=== PATIENT | male | born 1950 | race Two or more races ===

== ENCOUNTER → 2018-08-17 | Outpatient (CLI) | payer MEDICARE ==
[2018-08-17 13:58] LABS: HEMATOCRIT 30.7 % (37.9-51.0); HEMOGLOBIN 10.4 g/dL (13.5-17.0); MEAN CORPUSCULAR HEMOGLOBIN 28.4 pg (27.0-33.4); MEAN CORPUSCULAR HGB CONC 33.8 g/dL (32.0-36.0); MEAN CORPUSCULAR VOLUME 84 fl (80-97); PLATELET COUNT 362 10^3/uL (150-450); RED BLOOD COUNT 3.65 10^6/uL (4.35-5.55); RED CELL DISTRIBUTION WIDTH 14.3 % (11.5-14.0); WHITE BLOOD COUNT 12.6 10^3/uL (4.0-10.5)
[2018-08-17 14:11] LABS: APPEARANCE,URINE CLEAR; BILIRUBIN,URINE NEGATIVE (NEGATIVE); COLOR,URINE YELLOW; GLUCOSE, URINE >=500 mg/dL (NEGATIVE); KETONES,URINE NEGATIVE (NEGATIVE); LEUKOCYTE ESTERASE,URINE NEGATIVE (NEGATIVE); NITRITE,URINE NEGATIVE (NEGATIVE); PROTEIN,URINE >=500 mg/dL (NEGATIVE); URINE SPECIFIC GRAVITY 1.009; UROBILINOGEN,URINE NEGATIVE mg/dL (<2.0)
[2018-08-17 14:28] LABS: ANION GAP 13 (5-19); BLOOD UREA NITROGEN 55 mg/dL (7-20); CALCIUM 9.3 mg/dL (8.4-10.2); CARBON DIOXIDE 25 mmol/L (22-30); CHLORIDE 99 mmol/L (98-107); GLUCOSE 78 mg/dL (75-110); PHOSPHORUS 6.5 mg/dL (2.5-4.5); POTASSIUM 4.4 mmol/L (3.6-5.0); SODIUM 136.7 mmol/L (137-145)
== END ==
LOC: OD 13:16
PROVIDERS: ATTEND Physician Assistant Medical
DX: E11.22 Type 2 diabetes mellitus with diabetic chronic kidney disease (principal); I12.9 Hypertensive chronic kidney disease with stage 1 through stage 4 chronic kidney disease, or unspecified chronic kidney disease; N18.3 Chronic kidney disease, stage 3 (moderate); D64.9 Anemia, unspecified
CPT/HCPCS: 36415; 80048; 81001; 83970; 84100; 85027

== ENCOUNTER 2018-09-29 12:07 | Inpatient (IN) | payer MEDICARE ==
--- NOTE | 2018-09-29 12:35 | ER Document Report ---
ED Medical Screen (RME) - General Chief Complaint: Breathing Difficulty Stated Complaint: DIFFICULTY BREATHING Time Seen by Provider: 09/29/18 12:30 Notes: [age]-year-old male patient with history of diabetes and congestive heart failure. Stop taking all his medications because he was feeling so good and working out. He developed swelling to the lower extremities and shortness of breath this morning. He did start back on his medications yesterday after seeing his primary care provider who diagnosed sinus infection and prescribed antibiotics. I have greeted and performed a rapid initial assessment of this patient. A comprehensive ED assessment and evaluation of the patient, analysis of test results and completion of the medical decision making process will be conducted by additional ED providers. TRAVEL OUTSIDE OF THE [place] IN LAST 30 DAYS: No - Related Data Allergies/Adverse Reactions: JUDE Inhibitors Allergy (Verified 09/29/18 12:28) Physical Exam - Vital signs Vitals: Temp Pulse Resp BP Pulse Ox 97.5 F 74 18 162/67 H 92 09/29/18 12:12 09/29/18 12:12 09/29/18 12:12 09/29/18 12:12 09/29/18 12:12 Course - Vital Signs Vital signs: Temp Pulse Resp BP Pulse Ox 97.9 F 74 24 H 135/59 H 95 09/29/18 16:23 09/29/18 12:12 09/29/18 17:01 09/29/18 17:01 09/29/18 16:57 - Laboratory Result Diagrams: 09/29/18 12:59 09/29/18 12:59 Laboratory results interpreted by me: 09/29/18 09/29/18 09/29/18 12:46 12:59 12:59 WBC 13.1 H RBC 3.42 L Hgb 9.9 L Hct 29.6 L RDW 15.2 H Seg Neutrophils % 80.5 H Lymphocytes % 5.6 L Absolute Neutrophils 10.6 H Sodium 136.6 L BUN 43 H Creatinine 3.73 H Est GFR ( Amer) 20 L Est GFR (Non-Af Amer) 16 L Glucose 179 H NT-Pro-B Natriuret Pep Total Protein 5.9 L Albumin 3.3 L Urine Protein >=500 H Urine Glucose (UA) >=500 H Urine Ascorbic Acid 40 H 09/29/18 12:59 WBC RBC Hgb Hct RDW Seg Neutrophils % Lymphocytes % Absolute Neutrophils Sodium BUN Creatinine Est GFR ( Amer) Est GFR (Non-Af Amer) Glucose NT-Pro-B Natriuret Pep 7340 H Total Protein Albumin Urine Protein Urine Glucose (UA) Urine Ascorbic Acid Doctor's Discharge - Discharge Clinical Impression: Acute congestive heart failure, Chronic kidney disease (CKD), stage IV (severe) Condition: Fair Disposition: ADMITTED INPATIENT
[2018-09-29 13:18] LABS: ABSOLUTE BASOPHILS # (AUTO) 0.2 10^3/uL (0.0-0.2); ABSOLUTE EOSINOPHILS # (AUTO) 0.4 10^3/uL (0.0-0.6); ABSOLUTE LYMPHOCYTES (AUTO) 0.7 10^3/uL (0.5-4.7); ABSOLUTE MONOCYTES (AUTO) 1.2 10^3/uL (0.1-1.4); ABSOLUTE NEUT (AUTO) 10.6 10^3/uL (1.7-8.2); BASOPHILS % (AUTO) 1.3 % (0-2); EOSINOPHILS % (AUTO) 3.1 % (0-6); HEMATOCRIT 29.6 % (37.9-51.0); HEMOGLOBIN 9.9 g/dL (13.5-17.0); LYMPHOCYTES % (AUTO) 5.6 % (13-45); MEAN CORPUSCULAR HEMOGLOBIN 29.1 pg (27.0-33.4); MEAN CORPUSCULAR HGB CONC 33.6 g/dL (32.0-36.0); MEAN CORPUSCULAR VOLUME 87 fl (80-97); MONOCYTES % (AUTO) 9.5 % (3-13); PLATELET COUNT 334 10^3/uL (150-450); RED BLOOD COUNT 3.42 10^6/uL (4.35-5.55); RED CELL DISTRIBUTION WIDTH 15.2 % (11.5-14.0); SEGMENTED NEUTROPHILS % (AUTO) 80.5 % (42-78); TOTAL CELLS COUNTED % (AUTO) 100 %; WHITE BLOOD COUNT 13.1 10^3/uL (4.0-10.5)
--- NOTE | 2018-09-29 13:28 | RADIOLOGY REPORT (SQ) ---
EXAM DESCRIPTION: CHEST SINGLE VIEW COMPLETED DATE/TIME: 09/29/2018 1:21 pm REASON FOR STUDY: SOB, edema, PMH CHF COMPARISON: None. EXAM PARAMETERS: NUMBER OF VIEWS: One view. TECHNIQUE: Single frontal radiographic view of the chest acquired. RADIATION DOSE: NA LIMITATIONS: None. FINDINGS: LUNGS AND PLEURA: No opacities, masses or pneumothorax. No pleural effusion. MEDIASTINUM AND HILAR STRUCTURES: No masses. Contour normal. HEART AND VASCULAR STRUCTURES: Mild cardiac enlargement. Vascular congestion. BONES: No acute findings. HARDWARE: None in the chest. OTHER: No other significant finding. IMPRESSION: MILD CARDIAC ENLARGEMENT WITH VASCULAR CONGESTION. TECHNICAL DOCUMENTATION: JOB ID: [id number] [employer]- All Rights Reserved Reading location - IP/workstation name: [email or web address]
[2018-09-29 13:32] LABS: ALANINE AMINOTRANSFERASE 28 U/L (21-72); ALBUMIN 3.3 g/dL (3.5-5.0); ALKALINE PHOSPHATASE 61 U/L (38-126); ANION GAP 9 (5-19); ASPARTATE AMINO TRANSFERASE 18 U/L (17-59); BILIRUBIN,DIRECT 0.3 mg/dL (0.0-0.4); BILIRUBIN,TOTAL 0.7 mg/dL (0.2-1.3); BLOOD UREA NITROGEN 43 mg/dL (7-20); CALCIUM 9.2 mg/dL (8.4-10.2); CARBON DIOXIDE 26 mmol/L (22-30); CHLORIDE 102 mmol/L (98-107); CREATINE KINASE 163 U/L (55-170); GLUCOSE 179 mg/dL (75-110); POTASSIUM 4.6 mmol/L (3.6-5.0); SODIUM 136.6 mmol/L (137-145); TOTAL PROTEIN 5.9 g/dL (6.3-8.2)
[2018-09-29 13:38] LABS: APPEARANCE,URINE SLIGHTLY-CLOUDY; BILIRUBIN,URINE NEGATIVE (NEGATIVE); COLOR,URINE YELLOW; GLUCOSE, URINE >=500 mg/dL (NEGATIVE); KETONES,URINE NEGATIVE (NEGATIVE); LEUKOCYTE ESTERASE,URINE NEGATIVE (NEGATIVE); NITRITE,URINE NEGATIVE (NEGATIVE); PROTEIN,URINE >=500 mg/dL (NEGATIVE); UROBILINOGEN,URINE NEGATIVE mg/dL (<2.0)
[2018-09-29 13:44] LABS: CREATINE KINASE MB 3.04 ng/mL (<4.55)
[2018-09-29 13:54] LABS: TROPONIN I 0.046 ng/mL
[2018-09-29] MEDS ORDERED: FUROSEMIDE INJ/PF 40 MG/4 ML SDV IV ONE (15:04)
[2018-09-29] MEDS ORDERED: NITROGLYCERIN/D5W 50 MG/250 ML RTUINJ IV PRN ×2 (15:04→15:21)
--- NOTE | 2018-09-29 15:32 | ER Document Report ---
Entered by MIKEY SPENCE SCRIBE 09/29/18 1522 Acting as scribe for:JACK SCHNEIDER DO ED General - General Chief Complaint: Breathing Difficulty Stated Complaint: DIFFICULTY BREATHING Time Seen by Provider: 09/29/18 12:30 Mode of Arrival: Ambulatory Information source: Patient Notes: Patient is a 67 year old male with type 2 diabetes, CHF, renal failure presents to the emergency department complaining of shortness of breath, orthopnea and bilateral leg swelling onset last night. Patient states he has been feeling really good lately so he decided to decrease his dosing of torsemide from 60mg to 20mg. He states he was having difficulty breathing while laying flat and reports constant labored breathing over the past several days. Patient denies any chest pain or oxygen use at home. TRAVEL OUTSIDE OF THE [place] IN LAST 30 DAYS: No - Related Data Allergies/Adverse Reactions: JUDE Inhibitors Allergy (Verified 09/29/18 12:28) Past Medical History - General Information source: Patient - Social History Smoking Status: Never Smoker Frequency of alcohol use: None Drug Abuse: None Family History: Reviewed & Not Pertinent Patient has suicidal ideation: No Patient has homicidal ideation: No - Past Medical History Cardiac Medical History: Reports: Hx Atrial Fibrillation, Hx Congestive Heart Failure, Hx Hypercholesterolemia, Hx Hypertension Endocrine Medical History: Reports: Hx Diabetes Mellitus Type 2 Renal/ Medical History: Reports: Hx End Stage Renal Disease Musculoskeletal Medical History: Reports Hx Arthritis Review of Systems - Review of Systems Constitutional: No symptoms reported EENT: No symptoms reported Cardiovascular: No symptoms reported Respiratory: See HPI, Short of breath Gastrointestinal: No symptoms reported Genitourinary: No symptoms reported Male Genitourinary: No symptoms reported Musculoskeletal: See HPI, Leg swelling Skin: No symptoms reported Hematologic/Lymphatic: No symptoms reported Neurological/Psychological: No symptoms reported -: Yes All other systems reviewed and negative Physical Exam - Vital signs Vitals: Temp Pulse Resp BP Pulse Ox 97.5 F 74 18 162/67 H 92 09/29/18 12:12 09/29/18 12:12 09/29/18 12:12 09/29/18 12:12 09/29/18 12:12 - Notes Notes: GENERAL: Alert, interacts well. No acute distress. HEAD: Normocephalic, atraumatic. EYES: Pupils equal, round, and reactive to light. Extraocular movements intact. ENT: Oral mucosa moist, tongue midline. NECK: Full range of motion. Supple. Trachea midline. LUNGS: Oxygen saturation 95% on 2L of nasal cannula, good waveform, not hypoxic per my interpretation. Crackles at the bases bilaterally. Mild tachypnea, mild respiratory distress. HEART: Regular rate and rhythm. No murmurs, gallops, or rubs. ABDOMEN: Soft, non-tender. Non-distended. Bowel sounds present in all 4 quadrants. No guarding, rigidity, or rebound. EXTREMITIES: Moves all 4 extremities spontaneously. +1 pitting edema to the level of the knees bilaterally, not weeping. No cyanosis. NEUROLOGICAL: Alert and oriented x3. Normal speech. PSYCH: Normal affect, normal mood. SKIN: Warm, dry. No rashes or lesions noted. Course - Re-evaluation Re-evalutation: 09/29/18 15:[address] Javier who accepts patient for admission to [facility]. 09/29/18 15:29 CBC shows slight leukocytosis of 13.1, anemia with hemoglobin 9.9, platelets no rmal, sodium is low at 136.6, likely diluted from CHF, BUN and creatinine are elevated at 43 and 3.73 respectively, patient has known renal failure, glucose elevated at 179, troponin is indeterminate at 0.046, EKG is nonischemic, proBNP elevated at 7340. Urinalysis shows glucose and protein consistent with history of renal failure and diabetes. Chest x-ray shows vascular congestion but no infiltrate. Patient is given Lasix, started on nitro drip at 10, this is not meant to be titrated, he is not having any chest pain. Patient is being placed on BiPAP to decrease his work of breathing. Discussed patient with Dr. Javier who accepts the patient in admission status to his service on the telemetry care unit. 09/29/18 21:56 - Vital Signs Vital signs: Temp Pulse Resp BP Pulse Ox 97.6 F 77 20 157/66 H 96 09/29/18 21:32 09/29/18 21:32 09/29/18 21:32 09/29/18 21:32 09/29/18 21:32 - Laboratory Result Diagrams: 09/29/18 12:59 09/29/18 12:59 Laboratory results interpreted by me: 09/29/18 09/29/18 09/29/18 12:46 12:59 12:59 WBC 13.1 H RBC 3.42 L Hgb 9.9 L Hct 29.6 L RDW 15.2 H Seg Neutrophils % 80.5 H Lymphocytes % 5.6 L Absolute Neutrophils 10.6 H Sodium 136.6 L BUN 43 H Creatinine 3.73 H Est GFR ( Amer) 20 L Est GFR (Non-Af Amer) 16 L Glucose 179 H NT-Pro-B Natriuret Pep Total Protein 5.9 L Albumin 3.3 L Urine Protein >=500 H Urine Glucose (UA) >=500 H Urine Ascorbic Acid 40 H 09/29/18 12:59 WBC RBC Hgb Hct RDW Seg Neutrophils % Lymphocytes % Absolute Neutrophils Sodium BUN Creatinine Est GFR ( Amer) Est GFR (Non-Af Amer) Glucose NT-Pro-B Natriuret Pep 7340 H Total Protein Albumin Urine Protein Urine Glucose (UA) Urine Ascorbic Acid - EKG Interpretation by Me Additional EKG results interpreted by me: 09/29/18 15:29 EKG has some baseline artifact, sinus rhythm at a rate of 77, first-degree AV block, no ST segment elevations or depressions, no T wave inversions, there is some nonspecific T wave flattening in 1, aVL, aVF. V2 is unable to be interpreted due to baseline artifact. Per my interpretation. Critical Care Note - Critical Care Note Total time excluding time spent on procedures (mins): 35 Discharge - Discharge Clinical Impression: Chronic kidney disease (CKD), stage IV (severe) Acute congestive heart failure Qualifiers: Heart failure type: unspecified Qualified Code(s): I50.9 - Heart failure, unspecified Condition: Fair Disposition: ADMITTED INPATIENT Admitting Provider: Hospitalist - [facility] Admitted: Telemetry I personally performed the services described in the documentation, reviewed and edited the documentation which was dictated to the scribe in my presence, and it accurately records my words and actions.
--- NOTE | 2018-09-29 16:29 | PDOC H&P ---
History of Present Illness Admission Date/PCP: 09/29/18 15:40 JOSEPH MCBRIDE PA-C History of Present Illness: WILIAM GAN is a 67 year old male past medical history of A. fib, CHF, dy slipidemia, hypertension, diabetes, CKD, depression, presented to ED complaining of worsening shortness of breath associated with weakness, orthopnea, PND and bilateral lower extremity edema. Patient is stating that he thought he was doing fine with his CHF management and decided to cut his torsemide down from 60-20 mg daily about a week ago. Denies any fever, cough, chest pain, chills, nausea, vomiting, diarrhea, constipation or any urinary symptoms. Denies any recent travel or sick contact. He has history of CKD nonoliguric. In ED he was found to have mild leukocytosis of 13.1, no bandemia, creatinine 3.73 up from 3.68 on 08/17/2018. BNP 7340, troponin 0 0.046. Chest x-ray mild cardiac enlargement with vascular congestion. Past Medical History Cardiac Medical History: Reports: Atrial Fibrillation, Congestive Heart Failure, Hyperlipidema, Hypertension Endocrine Medical History: Reports: Diabetes Mellitus Type 2 Renal/ Medical History: Reports: End Stage Renal Disease Musculoskeltal Medical History: Reports: Arthritis Social History Smoking Status: Never Smoker Family History Family History: Reviewed & Not Pertinent Parental Family History Reviewed: Yes Children Family History Reviewed: Yes Sibling(s) Family History Reviewed.: Yes Medication/Allergy Allergies/Adverse Reactions: JUDE Inhibitors Allergy (Verified 09/29/18 12:28) Review of Systems Review of Systems: as per HPI Physical Exam Vital Signs: Temp Pulse Resp BP Pulse Ox 97.2 F 74 20 160/67 H 98 09/29/18 13:32 09/29/18 12:12 09/29/18 15:01 09/29/18 15:01 09/29/18 15:00 Intake & Output 09/28/18 09/29/18 09/30/18 06:59 06:59 06:59 Weight 108.2 kg General appearance: PRESENT: no acute distress, well-developed, well-nourished Head exam: PRESENT: atraumatic, normocephalic Neck exam: ABSENT: carotid bruit, JVD, lymphadenopathy, thyromegaly Respiratory exam: PRESENT: clear to auscultation thalia, decreased breath sounds. ABSENT: rales, rhonchi, wheezes Cardiovascular exam: PRESENT: irregular rhythm, tachycardia Pulses: PRESENT: normal dorsalis pedis pul Extremities exam: PRESENT: +1 edema Neurological exam: PRESENT: alert, awake, oriented to person, oriented to place, oriented to time, oriented to situation, CN II-XII grossly intact. ABSENT: motor sensory deficit Skin exam: PRESENT: dry, intact, warm. ABSENT: cyanosis, rash Results Laboratory Results: 09/29/18 12:59 09/29/18 12:59 09/29/18 09/29/18 09/29/18 12:46 12:59 12:59 WBC 13.1 H RBC 3.42 L Hgb 9.9 L Hct 29.6 L MCV 87 MCH 29.1 MCHC 33.6 RDW 15.2 H Plt Count 334 Seg Neutrophils % 80.5 H Lymphocytes % 5.6 L Monocytes % 9.5 Eosinophils % 3.1 Basophils % 1.3 Absolute Neutrophils 10.6 H Absolute Lymphocytes 0.7 Absolute Monocytes 1.2 Absolute Eosinophils 0.4 Absolute Basophils 0.2 Sodium 136.6 L Potassium 4.6 Chloride 102 Carbon Dioxide 26 Anion Gap 9 BUN 43 H Creatinine 3.73 H Est GFR ( Amer) 20 L Est GFR (Non-Af Amer) 16 L Glucose 179 H Calcium 9.2 Total Bilirubin 0.7 AST 18 ALT 28 Alkaline Phosphatase 61 Total Protein 5.9 L Albumin 3.3 L Urine Color YELLOW Urine Appearance SLIGHTLY-CLOUDY Urine pH 7.0 Ur Specific Springer 1.010 Urine Protein >=500 H Urine Glucose (UA) >=500 H Urine Ketones NEGATIVE Urine Blood NEGATIVE Urine Nitrite NEGATIVE Ur Leukocyte Esterase NEGATIVE Urine WBC (Auto) 1 Urine RBC (Auto) 1 09/29/18 09/29/18 12:59 12:59 Creatine Kinase 163 CK-MB (CK-2) 3.04 Troponin I 0.046 NT-Pro-B Natriuret Pep 7340 H Impressions: Chest X-Ray 09/29/18 12:34 IMPRESSION: MILD CARDIAC ENLARGEMENT WITH VASCULAR CONGESTION. Assessment and Plan - Diagnosis (1) Acute congestive heart failure Qualifiers: Heart failure type: unspecified Qualified Code(s): I50.9 - Heart failure, unspecified Is this a current diagnosis for this admission?: Yes Plan: Due to noncompliance. Cardiac diet, volume restriction, strict in and out, IV diuretics. Restart home meds adjust meds as needed. PCP and cardiology follow-up. No echo available. Will order no echo. (2) Acute kidney injury superimposed on CKD Is this a current diagnosis for this admission?: No Plan: Nonoliguric. Sees nephrology as outpatient. Not on hemodialysis. Likely due to chronic hypertension and diabetes sent by CHF exacerbation. Monitor volume status and electrolytes. Outpatient nephrology and PCP follow-up. (3) HTN (hypertension) Is this a current diagnosis for this admission?: No Plan: Restart home meds. Adjust meds as needed. Outpatient PCP follow-up. (4) Depression Is this a current diagnosis for this admission?: No Plan: Denies suicidal or homicidal ideation. Restart home meds. (5) Anemia in CKD (chronic kidney disease) Qualifiers: Chronic kidney disease stage: stage 3 (moderate) Qualified Code(s): N18.3 - Chronic kidney disease, stage 3 (moderate); D63.1 - Anemia in chronic kidney disease Is this a current diagnosis for this admission?: No Plan: Likely due to chronic CKD. Denies any hematemesis, hemoptysis, hematochezia or melena. Outpatient nephrology follow-up for possible Procrit administration. Will obtain iron panel and stool guaiac to rule out any occult bleeding.
[2018-09-29] MEDS ORDERED: ONDANSETRON 4 MG TAB.RAPDIS PO PRN (16:30)
[2018-09-29] MEDS ORDERED: ACETAMINOPHEN 325 MG TABLET PO PRN (16:30)
[2018-09-29] MEDS ORDERED: PROMETHAZINE HCL INJ 25 MG/1 ML VIAL IV PRN (16:30)
[2018-09-29] MEDS ORDERED: IPRATROPIUM/ALBUTEROL 0.5-2.5 MG/3 ML AMPUL NEB PRN (16:30)
[2018-09-29] MEDS ORDERED: CARVEDILOL 12.5 MG TABLET PO ONE (16:36)
[2018-09-29] MEDS ORDERED: GLUCAGON,HUMAN RECOMB 1 MG INJ IM PRN (16:41)
[2018-09-29] MEDS ORDERED: DEXTROSE 40% GEL 15 GM TUBE PO PRN ×2 (16:41)
[2018-09-29] MEDS ORDERED: DEXTROSE 50%-WATER 25 GM/50 ML DISP.SYRIN IV PRN ×2 (16:41)
[2018-09-29] MEDS ORDERED: HYDRALAZINE HCL 25 MG TABLET PO ONE (17:00)
[2018-09-29] MEDS ORDERED: ISOSORBIDE MONONITRATE 30 MG TAB.ER.24H PO ONE (17:00)
[2018-09-29] MEDS ORDERED: AMLODIPINE BESYLATE 2.5 MG TABLET PO ONE (17:00)
[2018-09-29 17:41] LABS: URINE AMPHETAMINES SCREEN NEGATIVE; URINE BARBITURATES SCREEN NEGATIVE; URINE BENZODIAZEPINES SCREEN NEGATIVE; URINE COCAINE SCREEN NEGATIVE; URINE MARIJUANA (THC) SCREEN NEGATIVE; URINE METHADONE SCREEN NEGATIVE; URINE PHENCYCLIDINE SCREEN NEGATIVE
[2018-09-29] MEDS ORDERED: HYDRALAZINE HCL 25 MG TABLET ONE (17:50)
[2018-09-29] MEDS ORDERED: AMLODIPINE BESYLATE 2.5 MG TABLET ONE (17:54)
[2018-09-29] MEDS ORDERED: HEPARIN SOD (PORCINE) 5,000 UNIT/ML 1 ML SYRINGE SUBCUT SCH (18:00)
[2018-09-29] MEDS: ISOSORBIDE MONONITRATE 60 MG TAB.ER.24H PO ONE ×2 (18:19→18:51)
[2018-09-29] MEDS ORDERED: INSULIN LISPRO 100 UNIT/ML 3 ML VIAL ONE (18:36)
[2018-09-29] MEDS: INSULIN LISPRO 100 UNIT/ML 3 ML VIAL SUBCUT PRN ×2 (18:40→21:59)
--- NOTE | 2018-09-29 19:22 | EKG REPORT ---
SEVERITY:- ABNORMAL ECG - SINUS RHYTHM FIRST DEGREE AV BLOCK NONSPECIFIC T ABNORMALITIES, LATERAL LEADS : Confirmed by: Jessica Dominique MD 29-Sep-2018 19:21:33
[2018-09-29] MEDS: APIXABAN 5 MG TABLET PO SCH (19:29)
[2018-09-29] MEDS: FAMOTIDINE 20 MG TABLET PO SCH (19:30)
[2018-09-29] MEDS: FUROSEMIDE INJ/PF 40 MG/4 ML SDV IV SCH (19:31)
[2018-09-29] MEDS: CARVEDILOL 12.5 MG TABLET PO SCH (19:35)
[2018-09-29] MEDS: CLONIDINE HCL 0.1 MG TABLET PO SCH (21:53)
[2018-09-29] MEDS ORDERED: INSULIN GLARGINE,HUM.REC.ANLOG 1,000 UNIT/10 ML VIAL (PYX) SUBCUT ONE (22:02)
[2018-09-29] MEDS: INSULIN GLARGINE,HUM.REC.ANLOG 1,000 UNIT/10 ML VIAL SUBCUT SCH (22:02)
[2018-09-30] MEDS: FUROSEMIDE INJ/PF 40 MG/4 ML SDV IV SCH ×2 (03:19→10:32)
[2018-09-30 04:59] LABS: ABSOLUTE BASOPHILS # (AUTO) 0.1 10^3/uL (0.0-0.2); ABSOLUTE EOSINOPHILS # (AUTO) 0.4 10^3/uL (0.0-0.6); ABSOLUTE LYMPHOCYTES (AUTO) 0.7 10^3/uL (0.5-4.7); ABSOLUTE MONOCYTES (AUTO) 1.3 10^3/uL (0.1-1.4); EOSINOPHILS % (AUTO) 3.4 % (0-6); HEMATOCRIT 26.8 % (37.9-51.0); HEMOGLOBIN 9.1 g/dL (13.5-17.0); LYMPHOCYTES % (AUTO) 5.7 % (13-45); MEAN CORPUSCULAR HEMOGLOBIN 29.4 pg (27.0-33.4); MEAN CORPUSCULAR HGB CONC 34.1 g/dL (32.0-36.0); MEAN CORPUSCULAR VOLUME 86 fl (80-97); MONOCYTES % (AUTO) 10.5 % (3-13); PLATELET COUNT 335 10^3/uL (150-450); RED BLOOD COUNT 3.11 10^6/uL (4.35-5.55); RED CELL DISTRIBUTION WIDTH 15.1 % (11.5-14.0); SEGMENTED NEUTROPHILS % (AUTO) 79.4 % (42-78); TOTAL CELLS COUNTED % (AUTO) 100 %; WHITE BLOOD COUNT 12.5 10^3/uL (4.0-10.5)
[2018-09-30 05:22] LABS: ALANINE AMINOTRANSFERASE 26 U/L (21-72); ALBUMIN 3.2 g/dL (3.5-5.0); ALKALINE PHOSPHATASE 61 U/L (38-126); ANION GAP 11 (5-19); ASPARTATE AMINO TRANSFERASE 16 U/L (17-59); BILIRUBIN,DIRECT 0.3 mg/dL (0.0-0.4); BILIRUBIN,TOTAL 0.6 mg/dL (0.2-1.3); BLOOD UREA NITROGEN 43 mg/dL (7-20); CALCIUM 9.5 mg/dL (8.4-10.2); CARBON DIOXIDE 24 mmol/L (22-30); CHLORIDE 102 mmol/L (98-107); CHOLESTEROL 185.79 mg/dL (0-200); GLUCOSE 170 mg/dL (75-110); PHOSPHORUS 4.9 mg/dL (2.5-4.5); POTASSIUM 4.5 mmol/L (3.6-5.0); SODIUM 136.5 mmol/L (137-145); TOTAL PROTEIN 5.9 g/dL (6.3-8.2); TRIGLYCERIDES 152 mg/dL (<150)
[2018-09-30 05:23] LABS: VLDL CHOLESTEROL 30.4 mg/dL (10-31)
[2018-09-30 05:33] LABS: DIRECT LDL 112 mg/dL (<100)
[2018-09-30] MEDS: FAMOTIDINE 20 MG TABLET PO SCH ×2 (05:46→17:10)
[2018-09-30] MEDS: CLONIDINE HCL 0.1 MG TABLET PO SCH ×3 (05:46→21:32)
[2018-09-30] MEDS: HYDRALAZINE HCL INJ/PF 20 MG/1 ML SDV IV PRN ×2 (05:54→20:26)
[2018-09-30] MEDS: INSULIN LISPRO 100 UNIT/ML 3 ML VIAL SUBCUT PRN ×4 (07:58→22:14)
[2018-09-30] MEDS ORDERED: AMLODIPINE BESYLATE 2.5 MG TABLET PO SCH (10:00)
--- NOTE | 2018-09-30 10:13 | RADIOLOGY REPORT (SQ) ---
EXAM DESCRIPTION: CHEST SINGLE VIEW COMPLETED DATE/TIME: 09/30/2018 10:04 am REASON FOR STUDY: reassess congestion COMPARISON: AP chest 09/29/2018 EXAM PARAMETERS: NUMBER OF VIEWS: One view. TECHNIQUE: Single frontal radiographic view of the chest acquired. RADIATION DOSE: NA LIMITATIONS: Mild motion artifact, lordotic positioning FINDINGS: LUNGS AND PLEURA: Pulmonary vascular prominence and interstitial edema seen on 09/29/2018 i s less prominent. No dense consolidation worrisome for lobar pneumonia. No pleural effusion or pneumothorax. MEDIASTINUM AND HILAR STRUCTURES: No masses. Contour normal. HEART AND VASCULAR STRUCTURES: Mild cardiomegaly BONES: No acute findings. HARDWARE: None in the chest. OTHER: No other significant finding. IMPRESSION: Partial clearing of the pulmonary vascular congestion TECHNICAL DOCUMENTATION: JOB ID: [id number] [employer]- All Rights Reserved Reading location - IP/workstation name: [email or web address]
[2018-09-30] MEDS: DOXAZOSIN MESYLATE 4 MG TABLET PO SCH (10:31)
[2018-09-30] MEDS: HYDRALAZINE HCL 25 MG TABLET PO SCH (10:31)
[2018-09-30] MEDS: ASPIRIN 81 MG TABLET, CHEWABLE PO SCH (10:32)
[2018-09-30] MEDS: APIXABAN 5 MG TABLET PO SCH ×2 (10:32→17:10)
[2018-09-30] MEDS: ESCITALOPRAM OXALATE 10 MG TABLET PO SCH (10:32)
[2018-09-30] MEDS: FERROUS SULFATE 325 MG TABLET PO SCH (10:32)
[2018-09-30] MEDS: ISOSORBIDE MONONITRATE 30 MG TAB.ER.24H PO SCH (10:32)
[2018-09-30] MEDS: CARVEDILOL 12.5 MG TABLET PO SCH ×2 (10:37→17:10)
--- NOTE | 2018-09-30 16:52 | PDOC PROGRESS REPORT ---
Subjective Progress Note for:: 09/30/18 Subjective:: This is a 67 year old male with a PMH of A. fib, CHF, dyslipidemia, hypertension, diabetes, CKD, and depression who presented with worsening shortness of breath associated with weakness, orthopnea, PND and bilateral lower extremity edema. Patient is stating that he thought he was doing fine with his CHF management and decided to cut his torsemide down from 60-20 mg daily about a week ago. Chest x-ray mild cardiac enlargement with vascular congestion. He was admitted for acute CHF exacerbation. He was also found to be very hypertensive. He was started on nitro drip and IV Lasix. No acute event overnight. He says his SOB has significantly improved today. Den ies chest pain. Will wean off nitro drip. Reason For Visit: ACUTE CHF,MARY ON CKD Physical Exam Vital Signs: Temp Pulse Resp BP Pulse Ox 97.9 F 81 18 154/70 H 87 L 09/30/18 11:18 09/30/18 11:18 09/30/18 11:18 09/30/18 11:18 09/30/18 11:18 Intake & Output 09/29/18 09/30/18 10/01/18 06:59 06:59 06:59 Intake Total 120 223 Output Total 1575 850 Balance -1455 -627 Weight 232 lb 2.348 oz General appearance: PRESENT: no acute distress, well-developed, well-nourished Head exam: PRESENT: atraumatic, normocephalic Eye exam: PRESENT: conjunctiva pink, EOMI, PERRLA. ABSENT: scleral icterus Ear exam: PRESENT: normal external ear exam Mouth exam: PRESENT: moist, tongue midline Neck exam: ABSENT: carotid bruit, JVD, lymphadenopathy, thyromegaly Respiratory exam: PRESENT: rales - bases. ABSENT: rhonchi, wheezes Cardiovascular exam: PRESENT: RRR. ABSENT: diastolic murmur, rubs, systolic murmur Pulses: PRESENT: normal dorsalis pedis pul GI/Abdominal exam: PRESENT: normal bowel sounds, soft. ABSENT: distended, guarding, mass, organolmegaly, rebound, tenderness Rectal exam: PRESENT: deferred Neurological exam: PRESENT: alert, awake, oriented to person, oriented to place, oriented to time, oriented to situation, CN II-XII grossly intact. ABSENT: motor sensory deficit Results Laboratory Results: 09/30/18 03:53 09/30/18 03:53 09/30/18 09/30/18 09/30/18 03:53 03:53 03:53 WBC 12.5 H RBC 3.11 L Hgb 9.1 L Hct 26.8 L MCV 86 MCH 29.4 MCHC 34.1 RDW 15.1 H Plt Count 335 Seg Neutrophils % 79.4 H Lymphocytes % 5.7 L Monocytes % 10.5 Eosinophils % 3.4 Basophils % 1.0 Absolute Neutrophils 10.0 H Absolute Lymphocytes 0.7 Absolute Monocytes 1.3 Absolute Eosinophils 0.4 Absolute Basophils 0.1 Sodium 136.5 L Potassium 4.5 Chloride 102 Carbon Dioxide 24 Anion Gap 11 BUN 43 H Creatinine 3.94 H Est GFR ( Amer) 19 L Est GFR (Non-Af Amer) 15 L Glucose 170 H Calcium 9.5 Phosphorus 4.9 H Magnesium 2.2 Total Bilirubin 0.6 AST 16 L ALT 26 Alkaline Phosphatase 61 Total Protein 5.9 L Albumin 3.2 L Triglycerides 152 H Cholesterol 185.79 LDL Cholesterol Direct 112 H VLDL Cholesterol 30.4 HDL Cholesterol 34 L TSH 1.33 09/29/18 09/29/18 12:59 12:59 Creatine Kinase 163 CK-MB (CK-2) 3.04 Troponin I 0.046 NT-Pro-B Natriuret Pep 7340 H Impressions: Chest X-Ray 09/30/18 08:43 IMPRESSION: Partial clearing of the pulmonary vascular congestion Assessment and Plan - Diagnosis (1) Acute congestive heart failure Qualifiers: Heart failure type: unspecified Qualified Code(s): I50.9 - Heart failure, unspecified Is this a current diagnosis for this admission?: Yes Plan: Will wean off nitro drip. Repeat chest x-ray shows significant improvement of c ongestion. Decrease IV Lasix as creatinine has increased. (2) Acute kidney injury superimposed on CKD Is this a current diagnosis for this admission?: Yes Plan: Will decrease IV Lasix. Repeat BMP. - Time Time Spent with patient: 25-34 minutes
[2018-09-30] MEDS: MONTELUKAST SODIUM 10 MG TABLET PO SCH (21:32)
[2018-09-30] MEDS ORDERED: FUROSEMIDE INJ/PF 40 MG/4 ML SDV IV SCH (22:00)
[2018-09-30] MEDS: INSULIN GLARGINE,HUM.REC.ANLOG 1,000 UNIT/10 ML VIAL SUBCUT SCH (22:15)
[2018-10-01] MEDS: HYDRALAZINE HCL INJ/PF 20 MG/1 ML SDV IV PRN ×2 (00:14→11:49)
[2018-10-01] MEDS: CLONIDINE HCL 0.1 MG TABLET PO SCH ×3 (05:16→21:03)
[2018-10-01] MEDS: FAMOTIDINE 20 MG TABLET PO SCH (05:16)
[2018-10-01] MEDS: INSULIN LISPRO 100 UNIT/ML 3 ML VIAL SUBCUT PRN ×4 (08:26→21:07)
[2018-10-01] MEDS: ASPIRIN 81 MG TABLET, CHEWABLE PO SCH (09:09)
[2018-10-01] MEDS: APIXABAN 5 MG TABLET PO SCH ×2 (09:09→17:03)
[2018-10-01] MEDS: AMLODIPINE BESYLATE 5 MG TABLET PO SCH (09:09)
[2018-10-01] MEDS: CARVEDILOL 12.5 MG TABLET PO SCH ×2 (09:10→17:03)
[2018-10-01] MEDS: FERROUS SULFATE 325 MG TABLET PO SCH (09:10)
[2018-10-01] MEDS: DOXAZOSIN MESYLATE 4 MG TABLET PO SCH (09:10)
[2018-10-01] MEDS: HYDRALAZINE HCL 25 MG TABLET PO SCH ×2 (09:10→21:03)
[2018-10-01] MEDS: ESCITALOPRAM OXALATE 10 MG TABLET PO SCH (09:10)
[2018-10-01] MEDS: ISOSORBIDE MONONITRATE 30 MG TAB.ER.24H PO SCH (09:10)
[2018-10-01] MEDS: FUROSEMIDE INJ/PF 40 MG/4 ML SDV IV SCH (09:11)
--- NOTE | 2018-10-01 10:04 | RADIOLOGY REPORT (SQ) ---
EXAM DESCRIPTION: CHEST SINGLE VIEW COMPLETED DATE/TIME: 10/01/2018 9:55 am REASON FOR STUDY: reassess congestion COMPARISON: AP chest 09/30/2018, 09/29/2018 EXAM PARAMETERS: NUMBER OF VIEWS: One view. TECHNIQUE: Single frontal radiographic view of the chest acquired. RADIATION DOSE: NA LIMITATIONS: None. FINDINGS: LUNGS AND PLEURA: Minimal fluid in the right and left lateral costophrenic sulci. Few Ker fred lines at both lung bases from mild persistent interstitial pulmonary edema. No dense consolidation worrisome for pneumonia. No pneumothorax MEDIASTINUM AND HILAR STRUCTURES: No masses. Contour normal. HEART AND VASCULAR STRUCTURES: No cardiomegaly BONES: No acute findings. HARDWARE: None in the chest. OTHER: No other significant finding. IMPRESSION: Persistent interstitial edema with Tonny lines at both bases. Trace bilateral pleural effusions TECHNICAL DOCUMENTATION: JOB ID: [id number] [employer]- All Rights Reserved Reading location - IP/workstation name: [email or web address]
[2018-10-01] MEDS: FLUTICASONE NASAL SPRAY 50 MCG/SPRY 120 SPRAY/16 GM NASL SCH ×2 (10:30→21:03)
--- NOTE | 2018-10-01 10:36 | PDOC PROGRESS REPORT ---
Subjective Progress Note for:: 10/01/18 Subjective:: This is a 67 year old male with a PMH of A. fib, CHF, dyslipidemia, hypertension, diabetes, CKD, and depression who presented with worsening shortness of breath associated with weakness, orthopnea, PND and bilateral lower extremity edema. Patient is stating that he thought he was doing fine with his CHF management and decided to cut his torsemide down from 60 to 20 mg daily about a week ago. Chest x-ray mild cardiac enlargement with vascular congestion. He was admitted for acute CHF exacerbation. He was also found to be very hypertensive. He was started on nitro drip and IV Lasix. 09/30: He says his SOB has significantly improved today. Denies chest pain. Will wean off nitro drip. 10/01: No acute event overnight. He has been off nitro drip. He continues to have improvement in his SOB. Saturating well on nasal cannula. Blood pressures running high in the 180 systolic. Reason For Visit: ACUTE CHF,MARY ON CKD Physical Exam Vital Signs: Temp Pulse Resp BP Pulse Ox 97.6 F 87 22 H 183/85 H 98 10/01/18 07:52 10/01/18 07:52 10/01/18 07:52 10/01/18 07:52 10/01/18 07:52 Intake & Output 09/30/18 10/01/18 10/02/18 06:59 06:59 06:59 Intake Total 120 695 Output Total 1575 2725 Balance -1455 -2029 Weight 232 lb 2.348 oz 227 lb 15.327 oz General appearance: PRESENT: no acute distress, well-developed, well-nourished Head exam: PRESENT: atraumatic, normocephalic Eye exam: PRESENT: conjunctiva pink, EOMI, PERRLA. ABSENT: scleral icterus Ear exam: PRESENT: normal external ear exam Mouth exam: PRESENT: moist, tongue midline Neck exam: ABSENT: carotid bruit, JVD, lymphadenopathy, thyromegaly Respiratory exam: PRESENT: clear to auscultation thalia. ABSENT: rales, rhonchi, wheezes Cardiovascular exam: PRESENT: RRR. ABSENT: diastolic murmur, rubs, systolic murmur Pulses: PRESENT: normal dorsalis pedis pul GI/Abdominal exam: PRESENT: normal bowel sounds, soft. ABSENT: distended, guarding, mass, organolmegaly, rebound, tenderness Rectal exam: PRESENT: deferred Neurological exam: PRESENT: alert, awake, oriented to person, oriented to place, oriented to time, oriented to situation, CN II-XII grossly intact. ABSENT: mot or sensory deficit Results Laboratory Results: 09/30/18 03:53 10/01/18 09:41 10/01/18 09:41 Sodium Cancelled Potassium Cancelled Chloride Cancelled Carbon Dioxide Cancelled Anion Gap Cancelled BUN Cancelled Creatinine Cancelled Est GFR ( Amer) Cancelled Est GFR (Non-Af Amer) Cancelled Glucose Cancelled Calcium Cancelled 09/29/18 09/29/18 12:59 12:59 Creatine Kinase 163 CK-MB (CK-2) 3.04 Troponin I 0.046 NT-Pro-B Natriuret Pep 7340 H Impressions: Chest X-Ray 10/01/18 08:23 IMPRESSION: Persistent interstitial edema with Tonny lines at both bases. Trace bilateral pleural effusions Assessment and Plan - Diagnosis (1) Acute congestive heart failure Qualifiers: Heart failure type: unspecified Qualified Code(s): I50.9 - Heart failure, unspecified Is this a current diagnosis for this admission?: Yes Plan: 09/30: Will wean off nitro drip. Repeat chest x-ray shows partial clearing of congestion. Decrease IV Lasix to q12 as creatinine has increased. 10/01: Decrease Lasix to 40 mg daily. Off nitro drip. Will increase amlodipine to optimize blood pressure control. Echo report pending. (2) Acute kidney injury superimposed on CKD Is this a current diagnosis for this admission?: Yes Plan: Decrease Lasix to 40 mg daily today. Repeat BMP pending. (3) HTN (hypertension) Is this a current diagnosis for this admission?: No Plan: Increase amlodipine from 2.5 mg to 5 mg daily today. Increase hydralazine to q12. Continue clonidine and Coreg. (4) Paroxysmal A-fib Is this a current diagnosis for this admission?: Yes Plan: Continue Eliquis and Coreg. - Time Time Spent with patient: 25-34 minutes
[2018-10-01] MEDS ORDERED: ACETAMINOPHEN 325 MG TABLET PO PRN (10:58)
[2018-10-01 11:44] LABS: ANION GAP 10 (5-19); BLOOD UREA NITROGEN 43 mg/dL (7-20); CALCIUM 9.4 mg/dL (8.4-10.2); CARBON DIOXIDE 25 mmol/L (22-30); CHLORIDE 100 mmol/L (98-107); GLUCOSE 221 mg/dL (75-110); POTASSIUM 4.2 mmol/L (3.6-5.0); SODIUM 134.6 mmol/L (137-145)
[2018-10-01] MEDS: MONTELUKAST SODIUM 10 MG TABLET PO SCH (21:03)
[2018-10-01] MEDS: INSULIN GLARGINE,HUM.REC.ANLOG 1,000 UNIT/10 ML VIAL SUBCUT SCH (21:07)
[2018-10-02] MEDS: HYDRALAZINE HCL INJ/PF 20 MG/1 ML SDV IV PRN (00:54)
[2018-10-02] MEDS: CLONIDINE HCL 0.1 MG TABLET PO SCH ×3 (05:08→21:13)
[2018-10-02] MEDS ORDERED: FAMOTIDINE 20 MG TABLET PO SCH (06:00)
[2018-10-02] MEDS: AMLODIPINE BESYLATE 5 MG TABLET PO SCH (09:23)
[2018-10-02] MEDS: FERROUS SULFATE 325 MG TABLET PO SCH (09:23)
[2018-10-02] MEDS: ISOSORBIDE MONONITRATE 30 MG TAB.ER.24H PO SCH (09:23)
[2018-10-02] MEDS: APIXABAN 5 MG TABLET PO SCH ×2 (09:23→18:49)
[2018-10-02] MEDS: CARVEDILOL 12.5 MG TABLET PO SCH ×2 (09:23→18:49)
[2018-10-02] MEDS: FLUTICASONE NASAL SPRAY 50 MCG/SPRY 120 SPRAY/16 GM NASL SCH ×2 (09:24→21:12)
[2018-10-02] MEDS: ASPIRIN 81 MG TABLET, CHEWABLE PO SCH (09:24)
[2018-10-02] MEDS: ESCITALOPRAM OXALATE 10 MG TABLET PO SCH (09:24)
[2018-10-02] MEDS: FUROSEMIDE INJ/PF 40 MG/4 ML SDV IV SCH (09:24)
[2018-10-02] MEDS: DOXAZOSIN MESYLATE 4 MG TABLET PO SCH (09:37)
[2018-10-02] MEDS: HYDRALAZINE HCL 25 MG TABLET PO SCH ×2 (09:37→21:13)
[2018-10-02] MEDS: INSULIN LISPRO 100 UNIT/ML 3 ML VIAL SUBCUT PRN ×2 (13:01→18:49)
[2018-10-02 20:59] VITALS: BP 174/72
--- NOTE | 2018-10-02 21:04 | PDOC DISCHARGE SUMMARY ---
General - Admit/Disc Date/PCP Admission Date/Primary Care Provider: 09/30/18 10:47 JOSEPH MCBRIDE PA-C Discharge Date: 10/02/18 - Discharge Diagnosis (1) Acute congestive heart failure Is this a current diagnosis for this admission?: Yes Summary: The patient decided to make changes in his medication regimen without consulting a physician. He became volume overloaded but responded very well to intravenous diuretics. He will be discharged back on a portion of his prior regimen. He will be on torsemide 20 mg twice daily and no metolazone. His carvedilol will be decreased to 12.5 mg twice daily and he is not on an JUDE inhibitor due to allergies. He was encouraged not to make changes in his medication regimen without consulting a physician. He will follow-up with his primary care provider as well as cardiology. (2) Acute kidney injury superimposed on CKD Is this a current diagnosis for this admission?: Yes Summary: His serum creatinine is back to baseline. He will follow-up with nephrology next week. (3) HTN (hypertension) Is this a current diagnosis for this admission?: No Summary: Adjustments were made in his medication regimen. He is on a smaller dose of hydralazine. He is on a small dose of torsemide. He is no longer on Zaroxolyn and he is on a small dose of carvedilol. I did give him a prescription for the small dose of hydralazine but he may likely return to the regimen that is closer to the original regimen that he was on prior to admission. (4) Paroxysmal A-fib Is this a current diagnosis for this admission?: Yes Summary: Good rate control even on a lower dose of carvedilol. Continue the 12.5 mg dose twice daily for the time being. Continue long-term anticoagulation as well. (5) Diabetes mellitus type 2, insulin dependent Is this a current diagnosis for this admission?: Yes Summary: The patient's Accu-Cheks are slightly higher during this hospitalization. He uses a more aggressive regimen at home. He will return to his previous regimen. (6) Obesity, Class II, BMI 35-39.9 Is this a current diagnosis for this admission?: Yes Summary: Encourage diabetic/cardiac diet and increased exercise program. His obesity certainly is a comorbidity that adds risk to his underlying diabetes and cardiac status. - Additional Information Discharge Diet: Cardiac, Diabetic Discharge Activity: Activity As Tolerated, Balance Activity w/Rest, Weigh Daily Prescriptions: Hydralazine HCl [Apresoline 25 mg Tablet] 25 mg PO Q12 7 Days #14 tablet Home Medications: Amlodipine Besylate [Norvasc 5 mg Tablet] 5 mg PO QHS 09/30/18 Apixaban [Eliquis 5 mg Tablet] 5 mg PO Q12 09/30/18 Calcitriol [Rocaltrol 0.5 mcg Capsule] 0.5 mcg PO DAILY 09/30/18 Clonidine HCl [Catapres 0.3 mg Tablet] 0.3 mg PO Q8 09/30/18 Doxazosin Mesylate [Cardura 4 mg Tablet] 4 mg PO DAILY 09/30/18 Escitalopram Oxalate [Lexapro 10 mg Tablet] 10 mg PO DAILY 09/30/18 Insulin Aspart [Novolog Insulin (Aspart) 100 unit/mL] 0 units SQ .SLIDING SCALE 09/30/18 Insulin Detemir [Levemir] 30 units SQ QHS 09/30/18 Isosorbide Mononitrate [Imdur 60 mg Tablet.er] 60 mg PO DAILY 09/30/18 Montelukast Sodium [Singulair 10 mg Tablet] 10 mg PO QHS 09/30/18 Tramadol HCl [Ultram 50 mg Tablet] 50 mg PO Q12HP PRN 09/30/18 Amlodipine Besylate [Norvasc 5 mg Tablet] 5 mg PO DAILY tablet 10/02/18 Apixaban [Eliquis 5 mg Tablet] 5 mg PO BID tablet 10/02/18 Aspirin [Aspirin 81 mg Chewable Tablet] 81 mg PO DAILY tab.chew 10/02/18 Carvedilol [Coreg 12.5 mg Tablet] 12.5 mg PO BID tablet 10/02/18 Doxazosin Mesylate [Cardura 4 mg Tablet] 4 mg PO DAILY tablet 10/02/18 Escitalopram Oxalate [Lexapro 10 mg Tablet] 10 mg PO DAILY tablet 10/02/18 Ferrous Sulfate [Feosol 325 mg Tablet] 325 mg PO DAILY tablet 10/02/18 Fluticasone Propionate [Flonase Nasal Hampton 50 Mcg/[place] 16 gm] 1 spray NASL Q12 spray.pump 10/02/18 Hydralazine HCl [Apresoline 25 mg Tablet] 25 mg PO Q12 7 Days #14 tablet 10/02/18 Montelukast Sodium [Singulair 10 mg Tablet] 10 mg PO QHS tablet 10/02/18 Torsemide [Demadex 20 mg Tablet] 20 mg PO BID #0 10/02/18 History of Present Illness Patient complains of: Shortness of breath History of Present Illness: WILIAM GAN is a 67 year old male with a complex medical history. He attempted to adjust his medications on his own. He developed worsening shortness of breath with weakness and orthopnea. He also noted paroxysmal nocturnal dyspnea and bilateral edema that had increased recently. Evaluation revealed the increased edema as noted above. Chest x-ray also suggested heart failure. Brain natruretic peptide was elevated at 7340. The patient was referred to the hospital service for admission Hospital Course Hospital Course: Patient had a relatively benign hospital course. He was given aggressive intravenous diuretic therapy. He will be discharged on less medication than his original treatment plan but more medication than his recent adjustments dictated . As noted above he will be on less carvedilol, hydralazine, torsemide and no Zaroxolyn. The patient will follow up with primary care and cardiology. He should weigh himself daily and report weight changes. He should not adjust medications on his own. Physical Exam Vital Signs: Temp Pulse Resp BP Pulse Ox 97.8 F 67 17 175/74 H 84 L 10/02/18 11:07 10/02/18 14:00 10/02/18 11:07 10/02/18 11:07 10/02/18 11:07 Intake & Output 10/01/18 10/02/18 10/03/18 06:59 06:59 06:59 Intake Total 695 803 800 Output Total 2725 1600 1000 Balance -2030 -797 -200 Weight 103.4 kg General appearance: PRESENT: no acute distress, cooperative, obese, well- developed Head exam: PRESENT: atraumatic, normocephalic Eye exam: PRESENT: conjunctiva pale. ABSENT: scleral icterus Mouth exam: PRESENT: moist, tongue midline Respiratory exam: PRESENT: clear to auscultation thalia, symmetrical, unlabored. ABSENT: rales, rhonchi, wheezes Cardiovascular exam: PRESENT: irregular rhythm. ABSENT: tachycardia GI/Abdominal exam: PRESENT: normal bowel sounds, soft. ABSENT: distended, tenderness Rectal exam: PRESENT: deferred Gentrourinary exam: ABSENT: indwelling catheter Extremities exam: ABSENT: pedal edema Musculoskeletal exam: PRESENT: ambulatory Neurological exam: PRESENT: alert, awake, oriented to person, oriented to place, oriented to time, oriented to situation, CN II-XII grossly intact Psychiatric exam: PRESENT: appropriate affect, normal mood. ABSENT: agitated, anxious Focused psych exam: ABSENT: delusional, restlessness Results Laboratory Results: 09/30/18 03:53 10/01/18 10:53 09/29/18 09/29/18 12:59 12:59 Creatine Kinase 163 CK-MB (CK-2) 3.04 Troponin I 0.046 NT-Pro-B Natriuret Pep 7340 H Impressions: Chest X-Ray 10/01/18 08:23 IMPRESSION: Persistent interstitial edema with Tonny lines at both bases. Trace bilateral pleural effusions Qualifiers - * PATIENT BEING DISCHARGED WITH ANY OF THE FOLLOWING DIAGNOSIS: Heart Failure HF Pt being discharged on ACEI for LVEF less than 40%?: No Reason(s) for not prescribing ACEI:: Drug allergy HF Pt being discharged on ARBS for LVEF less than 40%?: No Reason(s) for not prescribing ARBS:: Not indicated - Unknown ejection fraction. Echocardiogram pending. Possible cross reactivity with jude inhibitor allergy. HF Pt with Afib discharged with Warfarin?: No Reason(s) for not prescribing Warfarin:: Not indicated - Patient already on long-term anticoagulant other than warfarin. HF Pt discharged on evidence-based Beta Killian:: Yes Plan Discharge Plan: Discharge home. Follow-up with primary care/nephrology and cardiology. Time Spent: Greater than 30 Minutes
[2018-10-02] MEDS: MONTELUKAST SODIUM 10 MG TABLET PO SCH (21:13)
--- NOTE | 2018-10-03 22:47 | XCELERA REPORT ---
[address] [address] Transthoracic Echocardiogram Report Name: WILIAM GAN Age: 67 yrs Gender: Male : 1950 Patient Status: Inpatient Patient Location: [place] [address]^A Study Date: 09/29/2018 06:43 PM Height: 67 in Weight: 238 lb BSA: 2.2 m2 Procedure: A two-dimensional transthoracic echocardiogram with color flow Doppler was performed. The study was technically difficult with many images being suboptimal in quality. ( STUDY WAS REDONE ON 10/03/18 DUE TO POOR IMAGES ON 10/01/18). Reason For Study: CHF Exacerbation History: CHF. Ordering Physician: MARILUZ MONTEZ Performed By: Carrie Ye Interpretation Summary The study was technically difficult with many images being suboptimal in quality. ( STUDY WAS REDONE ON 10/03/18 DUE TO POOR IMAGES ON 10/01/18). The left ventricle is normal in size. There is mild concentric left ventricular hypertrophy. Left ventricular systolic function is low normal. LV EF is 55% Doppler measurements suggest normal left ventricular diastolic function The left ventricular wall motion is normal. There is no thrombus. No VSD,ASD , or PFO. The right ventricle is mild to moderately dilated. The right atrium is mildly dilated. The left atrium is moderately dilated. There is no evidence of mitral valve prolapse. There is no vegetation seen on the mitral valve. There is no mitral valve stenosis. There is no mitral regurgitation noted. There is no aortic valvular vegetation. There is no aortic valve stenosis There is aortic sclerosis without aortic stenosis. There is no LVOT obstruction. No aortic regurgitation is present. There is no tricuspid stenosis. There is a moderate amount of tricuspid regurgitation There is servere pulmonary hypertension by echo RVSP is 66 to 71 mm of Hg , with RA mean of 15 to 20. There is no pulmonic valvular stenosis. There is no pulmonic valvular regurgitation. The aortic root is mildly dilated The inferior vena cava appeared dilated and decreased < 50% with respiration (RAP 15-20 mmHg) There is no pericardial effusion. MMode/2D Measurements & Calculations RVDd: 3.5 cm LVIDd: 5.4 cm FS: 30.4 % Ao root diam: 3.8 cm IVSd: 0.86 cm LVIDs: 3.8 cm EDV(Teich): 142.7 ml Ao root area: 11.2 cm2 LVPWd: 1.00 cm ESV(Teich): 61.0 ml LA dimension: 4.5 cm EF(Teich): 57.2 % LVOT diam: 1.5 cm LVOT area: 1.9 cm2 Doppler Measurements & Calculations MV E max celestina: MV P1/2t max celestina: Ao V2 max: LV V1 max P.7 cm/sec 147.9 cm/sec 186.6 cm/sec 4.2 mmHg MV A max celestina: MV P1/2t: 61.6 msec Ao max PG: LV V1 max: 101.1 cm/sec MVA(P1/2t): 3.6 cm2 13.9 mmHg 102.9 cm/sec MV E/A: 1.5 MV dec slope: DONNA(V,D): 1.0 cm2 702.9 cm/sec2 MV dec time: 0.19 sec PA V2 max: TR max celestina: MV P1/2t-pr_phl: 107.2 cm/sec 355.6 cm/sec 63.8 msec PA max P.2 mmHgTR max P.6 mmHg Left Ventricle The left ventricle is normal in size. There is mild concentric left ventricular hypertrophy. Left ventricular systolic function is low normal. LV EF is 55%. Doppler measurements suggest normal left ventricular diastolic function. The left ventricular wall motion is normal. There is no thrombus. No VSD,ASD , or PFO. Right Ventricle The right ventricle is mild to moderately dilated. The right ventricle is not well visualized secondary to technical limitations. Atria The right atrium is mildly dilated. The left atrium is moderately dilated. Mitral Valve There is no evidence of mitral valve prolapse. There is no vegetation seen on the mitral valve. There is no mitral valve stenosis. There is no mitral regurgitation noted. Aortic Valve There is no aortic valvular vegetation. There is no aortic valve stenosis. There is aortic sclerosis without aortic stenosis. There is no LVOT obstruction. No aortic regurgitation is present. Tricuspid Valve There is no tricuspid stenosis. There is a moderate amount of tricuspid regurgitation. There is servere pulmonary hypertension by echo. RVSP is 66 to 71 mm of Hg , with RA mean of 15 to 20. Pulmonic Valve There is no pulmonic valvular stenosis. There is no pulmonic valvular regurgitation. Great Vessels The aortic root is mildly dilated. The inferior vena cava appeared dilated and decreased < 50% with respiration (RAP 15-20 mmHg). Effusions There is no pericardial effusion. : MARILUZ MONTEZ > Jessica Dominique
== END 2018-10-02 21:26 | disposition home or self-care (01) | DRG 292 ==
LOC: ER 12:07 → EH 15:40 → INTOOBSV 15:40 → 3N 21:20 → OBSVTOIN 09-30 10:47 → 4W 10-02 06:25
PROVIDERS: ADMIT Internal Medicine; ATTEND Internal Medicine
DX: I13.0 Hypertensive heart and chronic kidney disease with heart failure and stage 1 through stage 4 chronic kidney disease, or unspecified chronic kidney disease (principal); N18.4 Chronic kidney disease, stage 4 (severe); N17.9 Acute kidney failure, unspecified; I50.9 Heart failure, unspecified; E11.22 Type 2 diabetes mellitus with diabetic chronic kidney disease; D63.1 Anemia in chronic kidney disease; I48.0 Paroxysmal atrial fibrillation; Z91.19 Patient's noncompliance with other medical treatment and regimen; Z79.01 Long term (current) use of anticoagulants; Z79.82 Long term (current) use of aspirin; Z79.4 Long term (current) use of insulin; Z79.899 Other long term (current) drug therapy
CPT/HCPCS: 36415; 71045; 80048; 80053; 80061; 80307; 81001; 82550; 82553; 82962; 83036; 83735; 83880; 84100; 84443; 84484; 85025; 93005; 93010; 93306; 94799; 99291; G0378; J0360; J1815; J1940; J3490

== ENCOUNTER 2018-11-28 10:24 | Day surgery (SDC) | payer MEDICARE ==
[~2018-11-28 10:24] MED LIST: KETOROLAC TROMETHAMINE 0.45% 4 DROP/0.4 ML DROPERETTE OS PRN
[2018-11-28] MEDS: TROPICAMIDE 1% OPH SOLN 3 ML OS PRN ×3 (11:00→11:34)
[2018-11-28] MEDS: CYCLOPENTOLATE 0.2%/PHENYLEPHRINE 1% OPH SOLN 2 ML OS PRN ×3 (11:00→11:34)
[2018-11-28] MEDS: BESIFLOXACIN HCL 0.6% OPH SUSP 5 ML BOTTLE OS PRN ×4 (11:01→11:57)
[2018-11-28] MEDS: TETRACAINE HCL 0.5% OPH SOLN 0.6 ML DROPERETTE OS PRN ×3 (11:02→11:37)
[2018-11-28] MEDS ORDERED: FENTANYL CITRATE INJ/PF 100 MCG/2 ML AMPUL ONE (11:20)
[2018-11-28] MEDS ORDERED: MIDAZOLAM 2 MG/2 ML INJ ONE (11:20)
[2018-11-28] MEDS: EPINEPHRINE INJ/PF 1 MG/1 ML AMPULE ONE ×2 (11:41→11:46)
[2018-11-28] MEDS: LIDOCAINE 1%/PHENYLEPHRINE 1.5% 1 ML VIAL ONE ×2 (11:46)
[2018-11-28] MEDS: CHONDR SU A NA/HYALUR INTRAOC KIT (SURGICARE) ONE ×2 (11:46)
[2018-11-28] MEDS: TOBRAMYCIN SULFATE/DEXAMETH OPH OINTMENT 3.5 GM ONE ×2 (11:57)
== END 2018-11-28 13:08 | disposition home or self-care (01) ==
LOC: SC 10:24
PROVIDERS: ATTEND Ophthalmology
DX: H25.12 Age-related nuclear cataract, left eye (principal); I10 Essential (primary) hypertension; E11.9 Type 2 diabetes mellitus without complications; I25.2 Old myocardial infarction; D64.9 Anemia, unspecified; Z79.84 Long term (current) use of oral hypoglycemic drugs; Z88.8 Allergy status to other drugs, medicaments and biological substances; Z79.899 Other long term (current) drug therapy; Z79.82 Long term (current) use of aspirin; Z79.4 Long term (current) use of insulin; Z79.01 Long term (current) use of anticoagulants
CPT/HCPCS: 66984; 82962; V2632; J2250; J3490 ×2; A9270; J0171; J3010; J2370; 142

== ENCOUNTER 2018-12-12 09:23 | Day surgery (SDC) | payer MEDICARE ==
[~2018-12-12 09:23] MED LIST changes: +BUPIVACAINE HCL 0.75% INJ/PF (7.5 MG/1 ML) 10 ML SDV OD PRN; +KETOROLAC TROMETHAMINE 0.45% 4 DROP/0.4 ML DROPERETTE OD PRN; -KETOROLAC TROMETHAMINE 0.45% 4 DROP/0.4 ML DROPERETTE OS PRN; +LIDOCAINE 1% INJ-PF (10 MG/ML) 30 ML SDV ONE; +LIDOCAINE 4% INJ/PF (40 MG/ML) 5 ML AMPUL OD PRN
[2018-12-12] MEDS: CYCLOPENTOLATE 0.2%/PHENYLEPHRINE 1% OPH SOLN 2 ML OD PRN ×3 (09:42→10:02)
[2018-12-12] MEDS: TROPICAMIDE 1% OPH SOLN 3 ML OD PRN ×3 (09:42→10:02)
[2018-12-12] MEDS: BESIFLOXACIN HCL 0.6% OPH SUSP 5 ML BOTTLE OD PRN ×4 (09:42→10:42)
[2018-12-12] MEDS: TETRACAINE HCL 0.5% OPH SOLN 0.6 ML DROPERETTE OD PRN ×4 (09:43→10:23)
[2018-12-12] MEDS ORDERED: MIDAZOLAM 2 MG/2 ML INJ ONE ×2 (10:20→10:31)
[2018-12-12] MEDS ORDERED: FENTANYL CITRATE INJ/PF 100 MCG/2 ML AMPUL ONE (10:31)
[2018-12-12] MEDS: EPINEPHRINE INJ/PF 1 MG/1 ML AMPULE ONE ×2 (10:34)
[2018-12-12] MEDS: LIDOCAINE 1%/PHENYLEPHRINE 1.5% 1 ML VIAL ONE ×2 (10:34)
[2018-12-12] MEDS: CHONDR SU A NA/HYALUR INTRAOC KIT (SURGICARE) ONE ×2 (10:34)
[2018-12-12] MEDS: TOBRAMYCIN SULFATE/DEXAMETH OPH OINTMENT 3.5 GM ONE ×2 (10:42)
[2018-12-12] MEDS: DORZOLAMIDE HCL 2%/TIMOLOL MALEAT 0.5% OPH SOLN 10 ML OD PRN ×2 (10:42)
== END 2018-12-12 11:27 | disposition home or self-care (01) ==
LOC: SC 09:23
PROVIDERS: ATTEND Ophthalmology
DX: H25.11 Age-related nuclear cataract, right eye (principal); Z98.42 Cataract extraction status, left eye; E11.9 Type 2 diabetes mellitus without complications; I10 Essential (primary) hypertension; D64.9 Anemia, unspecified; Z79.4 Long term (current) use of insulin; Z79.899 Other long term (current) drug therapy; Z79.82 Long term (current) use of aspirin; Z79.01 Long term (current) use of anticoagulants
CPT/HCPCS: 66984; 82962; V2632; J2250; J3490 ×2; A9270; J0171; J2370; 142; J3010

== ENCOUNTER → 2018-12-19 | Outpatient (CLI) | payer MEDICARE ==
[2018-12-19 13:41] LABS: HEMOGLOBIN 9.6 g/dL (13.5-17.0); MEAN CORPUSCULAR HEMOGLOBIN 28.6 pg (27.0-33.4); MEAN CORPUSCULAR HGB CONC 33.3 g/dL (32.0-36.0); MEAN CORPUSCULAR VOLUME 86 fl (80-97); PLATELET COUNT 327 10^3/uL (150-450); RED BLOOD COUNT 3.38 10^6/uL (4.35-5.55); RED CELL DISTRIBUTION WIDTH 15.1 % (11.5-14.0)
[2018-12-19 13:50] LABS: APPEARANCE,URINE CLEAR; BILIRUBIN,URINE NEGATIVE (NEGATIVE); COLOR,URINE YELLOW; GLUCOSE, URINE >=500 mg/dL (NEGATIVE); KETONES,URINE NEGATIVE (NEGATIVE); LEUKOCYTE ESTERASE,URINE NEGATIVE (NEGATIVE); NITRITE,URINE NEGATIVE (NEGATIVE); PROTEIN,URINE >=500 mg/dL (NEGATIVE); URINE SPECIFIC GRAVITY 1.007; UROBILINOGEN,URINE NEGATIVE mg/dL (<2.0)
[2018-12-19 14:07] LABS: ANION GAP 12 (5-19); BLOOD UREA NITROGEN 80 mg/dL (7-20); CALCIUM 9.6 mg/dL (8.4-10.2); CARBON DIOXIDE 26 mmol/L (22-30); CHLORIDE 95 mmol/L (98-107); GLUCOSE 176 mg/dL (75-110); PHOSPHORUS 5.7 mg/dL (2.5-4.5); POTASSIUM 4.8 mmol/L (3.6-5.0)
== END ==
LOC: OD 13:01
PROVIDERS: ATTEND Physician Assistant Medical
DX: I12.9 Hypertensive chronic kidney disease with stage 1 through stage 4 chronic kidney disease, or unspecified chronic kidney disease (principal); N18.4 Chronic kidney disease, stage 4 (severe); E11.22 Type 2 diabetes mellitus with diabetic chronic kidney disease; E87.1 Hypo-osmolality and hyponatremia; D63.1 Anemia in chronic kidney disease; R60.9 Edema, unspecified
CPT/HCPCS: 36415; 80048; 81001; 83970; 84100; 85027

== ENCOUNTER → 2019-01-02 | Outpatient (CLI) | payer MEDICARE ==
[2019-01-02 17:09] LABS: IRON(TIBC) 33.5 ug/dL (49-181)
== END ==
LOC: OD 15:16
PROVIDERS: ATTEND Physician Assistant Medical
DX: I12.0 Hypertensive chronic kidney disease with stage 5 chronic kidney disease or end stage renal disease (principal); N18.5 Chronic kidney disease, stage 5; R60.9 Edema, unspecified; D63.1 Anemia in chronic kidney disease
CPT/HCPCS: 36415; 82728; 83540; 83550

== ENCOUNTER 2019-01-11 13:19 | Outpatient (CLI) | payer MEDICARE ==
[~2019-01-11 13:19] MED LIST changes: -BUPIVACAINE HCL 0.75% INJ/PF (7.5 MG/1 ML) 10 ML SDV OD PRN; +FERRIC CARBOXYMALTOSE 750 MG in NORMAL SALINE 250 ML IV PRN; -KETOROLAC TROMETHAMINE 0.45% 4 DROP/0.4 ML DROPERETTE OD PRN; -LIDOCAINE 1% INJ-PF (10 MG/ML) 30 ML SDV ONE; -LIDOCAINE 4% INJ/PF (40 MG/ML) 5 ML AMPUL OD PRN
[2019-01-11 13:43] VITALS: BP 169/77
== END 2019-01-11 14:12 | disposition home or self-care (01) ==
LOC: II 13:19 → 5TH 13:19 → II 14:12
PROVIDERS: ATTEND Internal Medicine Nephrology
PROC: 3E033GC Introduction of Other Therapeutic Substance into Peripheral Vein, Percutaneous Approach (ICD-10-PCS; principal; 2019-01-11)
DX: D50.8 Other iron deficiency anemias (principal)
CPT/HCPCS: 96365; J7050; J1439

== ENCOUNTER → 2019-02-16 | Outpatient (CLI) | payer MEDICARE ==
[2019-02-16 11:12] LABS: APPEARANCE,URINE CLEAR; BILIRUBIN,URINE NEGATIVE (NEGATIVE); COLOR,URINE YELLOW; GLUCOSE, URINE >=500 mg/dL (NEGATIVE); KETONES,URINE NEGATIVE (NEGATIVE); LEUKOCYTE ESTERASE,URINE NEGATIVE (NEGATIVE); NITRITE,URINE NEGATIVE (NEGATIVE); PROTEIN,URINE >=500 mg/dL (NEGATIVE); URINE SPECIFIC GRAVITY 1.009; UROBILINOGEN,URINE NEGATIVE mg/dL (<2.0)
[2019-02-16 11:13] LABS: HEMATOCRIT 28.1 % (37.9-51.0); HEMOGLOBIN 9.4 g/dL (13.5-17.0); MEAN CORPUSCULAR HGB CONC 33.6 g/dL (32.0-36.0); MEAN CORPUSCULAR VOLUME 86 fl (80-97); PLATELET COUNT 330 10^3/uL (150-450); RED BLOOD COUNT 3.26 10^6/uL (4.35-5.55); RED CELL DISTRIBUTION WIDTH 14.8 % (11.5-14.0); WHITE BLOOD COUNT 15.2 10^3/uL (4.0-10.5)
[2019-02-16 11:28] LABS: ANION GAP 13 (5-19); BLOOD UREA NITROGEN 100 mg/dL (7-20); CALCIUM 9.6 mg/dL (8.4-10.2); CARBON DIOXIDE 23 mmol/L (22-30); CHLORIDE 98 mmol/L (98-107); GLUCOSE 228 mg/dL (75-110); POTASSIUM 4.3 mmol/L (3.6-5.0)
== END ==
LOC: OD 10:46
PROVIDERS: ATTEND Physician Assistant Medical
DX: I12.0 Hypertensive chronic kidney disease with stage 5 chronic kidney disease or end stage renal disease (principal); N18.5 Chronic kidney disease, stage 5; D63.1 Anemia in chronic kidney disease; R60.9 Edema, unspecified
CPT/HCPCS: 36415; 80048; 81001; 83970; 84100; 85027

== ENCOUNTER → 2019-03-11 | Outpatient (CLI) | payer MEDICARE ==
[2019-03-11 10:07] LABS: ABSOLUTE BASOPHILS # (AUTO) 0.2 10^3/uL (0.0-0.2); ABSOLUTE EOSINOPHILS # (AUTO) 0.4 10^3/uL (0.0-0.6); ABSOLUTE LYMPHOCYTES (AUTO) 1.1 10^3/uL (0.5-4.7); ABSOLUTE MONOCYTES (AUTO) 1.4 10^3/uL (0.1-1.4); ABSOLUTE NEUT (AUTO) 11.9 10^3/uL (1.7-8.2); BASOPHILS % (AUTO) 1.1 % (0-2); EOSINOPHILS % (AUTO) 2.8 % (0-6); HEMATOCRIT 32.7 % (37.9-51.0); HEMOGLOBIN 10.6 g/dL (13.5-17.0); LYMPHOCYTES % (AUTO) 7.1 % (13-45); MEAN CORPUSCULAR HEMOGLOBIN 28.3 pg (27.0-33.4); MEAN CORPUSCULAR HGB CONC 32.4 g/dL (32.0-36.0); MEAN CORPUSCULAR VOLUME 87 fl (80-97); MONOCYTES % (AUTO) 9.3 % (3-13); PLATELET COUNT 309 10^3/uL (150-450); RED BLOOD COUNT 3.74 10^6/uL (4.35-5.55); RED CELL DISTRIBUTION WIDTH 14.4 % (11.5-14.0); SEGMENTED NEUTROPHILS % (AUTO) 79.7 % (42-78); TOTAL CELLS COUNTED % (AUTO) 100 %; WHITE BLOOD COUNT 14.9 10^3/uL (4.0-10.5)
[2019-03-11 10:35] LABS: ANION GAP 12 (5-19); BLOOD UREA NITROGEN 56 mg/dL (7-20); CALCIUM 10.2 mg/dL (8.4-10.2); CARBON DIOXIDE 24 mmol/L (22-30); CHLORIDE 97 mmol/L (98-107); GLUCOSE 324 mg/dL (75-110); IRON(TIBC) 53.1 ug/dL (49-181); POTASSIUM 4.5 mmol/L (3.6-5.0)
== END ==
LOC: OD 09:33
PROVIDERS: ATTEND Physician Assistant Medical
DX: I12.0 Hypertensive chronic kidney disease with stage 5 chronic kidney disease or end stage renal disease (principal); N18.5 Chronic kidney disease, stage 5; E11.22 Type 2 diabetes mellitus with diabetic chronic kidney disease; D63.1 Anemia in chronic kidney disease; R60.9 Edema, unspecified
CPT/HCPCS: 36415; 80048; 82728; 83540; 83550; 85025

== ENCOUNTER → 2019-03-28 | Outpatient (CLI) | payer MEDICARE ==
[2019-03-28 09:40] LABS: ABSOLUTE BASOPHILS # (AUTO) 0.2 10^3/uL (0.0-0.2); ABSOLUTE EOSINOPHILS # (AUTO) 0.5 10^3/uL (0.0-0.6); ABSOLUTE LYMPHOCYTES (AUTO) 1.3 10^3/uL (0.5-4.7); ABSOLUTE MONOCYTES (AUTO) 1.3 10^3/uL (0.1-1.4); BASOPHILS % (AUTO) 1.3 % (0-2); HEMATOCRIT 26.4 % (37.9-51.0); HEMOGLOBIN 8.9 g/dL (13.5-17.0); LYMPHOCYTES % (AUTO) 9.5 % (13-45); MEAN CORPUSCULAR HEMOGLOBIN 29.2 pg (27.0-33.4); MEAN CORPUSCULAR HGB CONC 33.8 g/dL (32.0-36.0); MEAN CORPUSCULAR VOLUME 87 fl (80-97); MONOCYTES % (AUTO) 10.1 % (3-13); PLATELET COUNT 327 10^3/uL (150-450); RED BLOOD COUNT 3.05 10^6/uL (4.35-5.55); RED CELL DISTRIBUTION WIDTH 14.5 % (11.5-14.0); SEGMENTED NEUTROPHILS % (AUTO) 75.1 % (42-78); TOTAL CELLS COUNTED % (AUTO) 100 %; WHITE BLOOD COUNT 13.3 10^3/uL (4.0-10.5)
[2019-03-28 09:56] LABS: ANION GAP 11 (5-19); BLOOD UREA NITROGEN 57 mg/dL (7-20); CALCIUM 9.3 mg/dL (8.4-10.2); CARBON DIOXIDE 21 mmol/L (22-30); CHLORIDE 100 mmol/L (98-107); GLUCOSE 264 mg/dL (75-110); POTASSIUM 4.1 mmol/L (3.6-5.0)
== END ==
LOC: OD 09:11
PROVIDERS: ATTEND Physician Assistant Medical
DX: I12.0 Hypertensive chronic kidney disease with stage 5 chronic kidney disease or end stage renal disease (principal); N18.5 Chronic kidney disease, stage 5; E11.22 Type 2 diabetes mellitus with diabetic chronic kidney disease; R60.9 Edema, unspecified
CPT/HCPCS: 36415; 80048; 85025

== ENCOUNTER 2019-04-09 08:53 | Observation (INO) | payer MEDICARE ==
[2019-04-09] MEDS ORDERED: ASPIRIN 81 MG TABLET, CHEWABLE PO ONE (08:59)
[2019-04-09 09:44] LABS: ABSOLUTE BASOPHILS # (AUTO) 0.1 10^3/uL (0.0-0.2); ABSOLUTE EOSINOPHILS # (AUTO) 0.5 10^3/uL (0.0-0.6); ABSOLUTE LYMPHOCYTES (AUTO) 0.9 10^3/uL (0.5-4.7); ABSOLUTE MONOCYTES (AUTO) 1.6 10^3/uL (0.1-1.4); ABSOLUTE NEUT (AUTO) 13.3 10^3/uL (1.7-8.2); BASOPHILS % (AUTO) 0.6 % (0-2); HEMOGLOBIN 9.2 g/dL (13.5-17.0); LYMPHOCYTES % (AUTO) 5.4 % (13-45); MEAN CORPUSCULAR HEMOGLOBIN 28.7 pg (27.0-33.4); MEAN CORPUSCULAR HGB CONC 32.8 g/dL (32.0-36.0); MEAN CORPUSCULAR VOLUME 88 fl (80-97); MONOCYTES % (AUTO) 9.8 % (3-13); PLATELET COUNT 335 10^3/uL (150-450); RED BLOOD COUNT 3.19 10^6/uL (4.35-5.55); RED CELL DISTRIBUTION WIDTH 14.8 % (11.5-14.0); SEGMENTED NEUTROPHILS % (AUTO) 81.2 % (42-78); TOTAL CELLS COUNTED % (AUTO) 100 %; WHITE BLOOD COUNT 16.4 10^3/uL (4.0-10.5)
[2019-04-09 10:02] LABS: ALBUMIN 3.3 g/dL (3.5-5.0); ALKALINE PHOSPHATASE 69 U/L (38-126); ANION GAP 12 (5-19); ASPARTATE AMINO TRANSFERASE 16 U/L (17-59); BILIRUBIN,DIRECT 0.2 mg/dL (0.0-0.4); BILIRUBIN,TOTAL 0.3 mg/dL (0.2-1.3); BLOOD UREA NITROGEN 52 mg/dL (7-20); CALCIUM 10.1 mg/dL (8.4-10.2); CARBON DIOXIDE 23 mmol/L (22-30); CHLORIDE 99 mmol/L (98-107); CREATINE KINASE 93 U/L (55-170); GLUCOSE 265 mg/dL (75-110); TOTAL PROTEIN 5.9 g/dL (6.3-8.2)
[2019-04-09 10:04] LABS: POTASSIUM 4.1 mmol/L (3.6-5.0)
[2019-04-09 10:12] LABS: CREATINE KINASE MB 2.66 ng/mL (<4.55)
--- NOTE | 2019-04-09 10:12 | ER Document Report ---
ED Cardiac - General Chief Complaint: Chest Pain Stated Complaint: CHEST PAIN Time Seen by Provider: 04/09/19 09:51 Primary Care Provider: FLORENCIO WINKLER DO [Primary Care Provider] - Follow up as needed Notes: Patient is a 68-year-old male with a history of chronic kidney disease, congestive heart failure, hypertension, AK, high cholesterol who presents to emergency department with a chief complaint of chest pain. 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 Patient states around 8 AM he woke up when he went to take a deep breath and felt a severe pain across his chest and back. Patient reports the chest pain is worse with deep breath. Patient denies cough or fever. Patient reports that since 8 AM his chest pain has subsided. Patient reports a couple weeks ago his jack winder decreased his Lasix from 60 mg to 40 mg. Patient reported that he felt like he was retaining fluid so he increased his dosage on his own. Patient reports he had an echo and a stress test earlier this year which was negative. TRAVEL OUTSIDE OF THE [place] IN LAST 30 DAYS: No - Related Data Allergies/Adverse Reactions: JUDE Inhibitors Allergy (Verified 09/29/18 12:28) Past Medical History - General Information source: Patient - Social History Smoking Status: Unknown if Ever Smoked Frequency of alcohol use: None Drug Abuse: None Lives with: Family Family History: Reviewed & Not Pertinent Patient has suicidal ideation: No Patient has homicidal ideation: No - Past Medical History Cardiac Medical History: Reports: Hx Atrial Fibrillation, Hx Congestive Heart Failure, Hx Heart Attack - SILENT-SHOWED UP ON EKG, Hx Hypercholesterolemia, Hx Hypertension - MEDS Pulmonary Medical History: Reports: None Denies: Hx Asthma EENT Medical History: Reports: None Neurological Medical History: Reports: None. Denies: Hx Cerebrovascular Accident, Hx Seizures Endocrine Medical History: Reports: Hx Diabetes Mellitus Type 2 Renal/ Medical History: Reports: Hx End Stage Renal Disease. Denies: Hx Peritoneal Dialysis Malignancy Medical History: Reports None GI Medical History: Reports: None. Denies: Hx Hepatitis, Hx Hiatal Hernia, Hx Ulcer Musculoskeletal Medical History: Reports Hx Arthritis Skin Medical History: Reports None Psychiatric Medical History: Reports: None Traumatic Medical History: Reports: None Infectious Medical History: Reports: None. Denies: Hx Hepatitis Past Surgical History: Denies: Hx Open Heart Surgery, Hx Pacemaker Review of Systems - Review of Systems Constitutional: No symptoms reported EENT: No symptoms reported Cardiovascular: See HPI Respiratory: See HPI Gastrointestinal: No symptoms reported Genitourinary: No symptoms reported Male Genitourinary: No symptoms reported Musculoskeletal: No symptoms reported Skin: No symptoms reported Hematologic/Lymphatic: No symptoms reported Neurological/Psychological: No symptoms reported Physical Exam - Vital signs Vitals: Temp Pulse Resp BP Pulse Ox 98 F 71 12 174/86 H 96 04/09/19 09:10 04/09/19 09:10 04/09/19 09:10 04/09/19 09:10 04/09/19 09:10 Interpretation: Hypertensive - Notes Notes: GENERAL: Well-appearing, well-nourished and in no acute distress. HEAD: Atraumatic, normocephalic. EYES: Pupils equal round and reactive to light, extraocular movements intact, sclera anicteric, conjunctiva are normal. ENT: Nares patent, oropharynx clear without exudates. Moist mucous membranes. NECK: Normal range of motion, supple without lymphadenopathy or JVD. LUNGS: Breath sounds clear to auscultation bilaterally and equal. No wheezes rales or rhonchi. HEART: Regular rate and rhythm without murmurs, rubs or gallops. No reproducible chest pain. ABDOMEN: Soft, obese, nontender, normoactive bowel sounds. No guarding, no rebound. No masses appreciated. BACK: No cervical, thoracic, lumbar midline tenderness. No saddle anesthesia, normal distal neurovascular exam. GENITOURINARY: Deferred. EXTREMITIES: Normal range of motion, no pitting or edema. No clubbing or cyanosis. NEUROLOGICAL: Cranial nerves II through XII grossly intact. Normal speech, normal gait. PSYCH: Normal mood, normal affect. SKIN: Warm, Dry, normal turgor, no rashes or lesions noted. Course - Re-evaluation Re-evalutation: 04/09/19 12:43 Upon reevaluation patient is resting comfortably on stretcher. Patient denies c hest pain reports that his occasional shortness of breath has improved. Will repeat troponin at 1 PM. Patient in no acute distress. 04/09/19 14:39 Second troponin is actually trending downward. I did discuss the case with my attending physician Dr. Mortensen who recommends admission due to comorbidities and CHF exacerbation with pleural effusions. I did discuss this with the patient who does agree to stay in the hospital. Patient states that he was seen here back in August and admitted by the hospitalist group. Nitropaste and dose of Lasix ordered. 04/09/19 14:[address] Estevez who agrees to admit to the hospitalist service. - Vital Signs Vital signs: Temp Pulse Resp BP Pulse Ox 98 F 71 12 174/86 H 96 04/09/19 09:10 04/09/19 09:10 04/09/19 09:10 04/09/19 09:10 04/09/19 09:11 - Laboratory Result Diagrams: 04/09/19 09:04 04/09/19 09:04 Laboratory results interpreted by me: 04/09/19 04/09/19 04/09/19 09:04 09:04 09:04 WBC 16.4 H RBC 3.19 L Hgb 9.2 L Hct 28.0 L RDW 14.8 H Lymph % (Auto) 5.4 L Absolute Neuts (auto) 13.3 H Absolute Monos (auto) 1.6 H Seg Neutrophils % 81.2 H Sodium 134.3 L BUN 52 H Creatinine 3.93 H Est GFR ( Amer) 19 L Est GFR (MDRD) Non-Af 15 L Glucose 265 H AST 16 L NT-Pro-B Natriuret Pep 5480 H Total Protein 5.9 L Albumin 3.3 L Urine Protein Urine Glucose (UA) 04/09/19 10:45 WBC RBC Hgb Hct RDW Lymph % (Auto) Absolute Neuts (auto) Absolute Monos (auto) Seg Neutrophils % Sodium BUN Creatinine Est GFR ( Amer) Est GFR (MDRD) Non-Af Glucose AST NT-Pro-B Natriuret Pep Total Protein Albumin Urine Protein >=500 H Urine Glucose (UA) >=500 H - Diagnostic Test Radiology reviewed: Reports reviewed Radiology results interpreted by me: 04/09/19 14:39 Chest X-Ray 04/09/19 09:53 IMPRESSION: Cardiomegaly, bilateral pleural effusions, and prominence of the interstitium. Clinical correlation to exclude interstitial edema /volume overload is recommended. - EKG Interpretation by Me Additional EKG results interpreted by me: 04/09/19 10:17 Patient's EKG shows a sinus rhythm with a heart rate of 69. Patient's TN interval is 232, QT 388 and QTc is 416. Patient has a normal axis deviation. Patient does have a first-degree AV block which is consistent with patient's previous EKG. There is no specific ST changes in consecutive leads. Discharge - Discharge Clinical Impression: Pleural effusion Anemia in CKD (chronic kidney disease) Qualifiers: Chronic kidney disease stage: unspecified stage Qualified Code(s): N18.9 - Chronic kidney disease, unspecified Acute congestive heart failure Qualifiers: Heart failure type: unspecified Qualified Code(s): I50.9 - Heart failure, unspecified Hypertension Qualifiers: Hypertension type: unspecified Qualified Code(s): I10 - Essential (primary) hypertension Type 2 diabetes mellitus Qualifiers: Diabetes mellitus moth exterminator insulin use: unspecified moth exterminator insulin use status Diabetes mellitus complication status: with other specified complication Qualified Code(s): E11.69 - Type 2 diabetes mellitus with other specified compl ication Condition: Stable Disposition: ADMITTED OBSERVATION Admitting Provider: Mary (Hospitalist) Unit Admitted: Telemetry Referrals: FLORENCIO WINKLER DO [Primary Care Provider] - Follow up as needed
[2019-04-09 10:18] LABS: TROPONIN I 0.043 ng/mL
--- NOTE | 2019-04-09 11:05 | RADIOLOGY REPORT (SQ) ---
EXAM DESCRIPTION: CHEST 2 VIEWS COMPLETED DATE/TIME: 04/09/2019 10:39 am REASON FOR STUDY: chest pain COMPARISON: AP view of the chest from 10/01/2018. EXAM PARAMETERS: NUMBER OF VIEWS: two views TECHNIQUE: Digital Frontal and Lateral radiographic views of the chest acquired. RADIATION DOSE: NA LIMITATIONS: none FINDINGS: LUNGS AND PLEURA: The costophrenic sulci are blunted. The interstitium is prominent. The re is no consolidation or pneumothorax. MEDIASTINUM AND HILAR STRUCTURES: No mediastinal hilar or contour abnormality. HEART AND VASCULAR STRUCTURES: The cardiac silhouette is enlarged. BONES: No acute findings. HARDWARE: None. OTHER: No other finding. IMPRESSION: Cardiomegaly, bilateral pleural effusions, and prominence of the interstitium. Clinical correlation to exclude interstitial edema /volume overload is recommended. TECHNICAL DOCUMENTATION: JOB ID: [id number] [employer]- All Rights Reserved Reading location - IP/workstation name: [email or web address]
[2019-04-09 11:15] LABS: APPEARANCE,URINE CLEAR; BILIRUBIN,URINE NEGATIVE (NEGATIVE); COLOR,URINE YELLOW; GLUCOSE, URINE >=500 mg/dL (NEGATIVE); KETONES,URINE NEGATIVE (NEGATIVE); LEUKOCYTE ESTERASE,URINE NEGATIVE (NEGATIVE); NITRITE,URINE NEGATIVE (NEGATIVE); PROTEIN,URINE >=500 mg/dL (NEGATIVE); URINE SPECIFIC GRAVITY 1.009; UROBILINOGEN,URINE NEGATIVE mg/dL (<2.0)
--- NOTE | 2019-04-09 13:32 | EKG REPORT ---
SEVERITY:- ABNORMAL ECG - SINUS RHYTHM FIRST DEGREE AV BLOCK : Confirmed by: José Miguel Sigala MD 09-Apr-2019 13:30:46
[2019-04-09] MEDS ORDERED: NITROGLYCERIN 2% OINTMENT 1 GM PACKET TP ONE (14:30)
[2019-04-09] MEDS ORDERED: FUROSEMIDE INJ/PF 40 MG/4 ML SDV IV ONE (14:31)
--- NOTE | 2019-04-09 15:55 | ADVANCED CARE ---
- Diagnosis (1) Fluid overload Diagnosis Current: Yes (2) HTN (hypertension) Diagnosis Current: Yes (3) Pleural effusion Diagnosis Current: Yes (4) Type 2 diabetes mellitus Diagnosis Current: Yes (5) Chronic kidney disease (CKD), stage IV (severe) Diagnosis Current: Yes (6) Paroxysmal A-fib Diagnosis Current: Yes Resuscitation Status: Full Code Discussion: Discussed with patient. He says that he prefers to receive chest compressions, defibrillation or mechanical ventilation if the need arises. He verbalizes he does not want to be on prolonged ventilation. He says that his daughter Nelsy is his surrogate medical decision maker.
--- NOTE | 2019-04-09 15:55 | PDOC H&P ---
History of Present Illness Admission Date/PCP: FLORENCIO WINKLER MD Patient complains of: SOB History of Present Illness: WILIAM GAN is a 68 year old male with a past medical history of CKD 5, questionable history of congestive heart failure, hypertension, CAD and dyslipidemia who presented with shortness of breath. Patient says that his Lasix was recently decreased more than 2 weeks ago. He says that after the test, noticed increasing shortness of breath and abdominal tightness more than a week ago. He says his pedal swelling has been about the same from baseline. He says that he woke up this morning and had a very chest pain across his anterior chest when he takes a deep breath. He denies cough, fever or chills. In the ER, chest x-ray shows bilateral pleural effusions and congestion. Upon encounter, he appears comfortable and saturating at 93% on room air. Past Medical History Cardiac Medical History: Reports: Atrial Fibrillation, Congestive Heart Failure, Myocardial Infarction - SILENT-SHOWED UP ON EKG, Hyperlipidema, Hypertension - MEDS Pulmonary Medical History: Reports: None Denies: Asthma EENT Medical History: Reports: None Neurological Medical History: Reports: None Denies: Seizures Endocrine Medical History: Reports: Diabetes Mellitus Type 2 Renal/ Medical History: Reports: End Stage Renal Disease Malignancy Medical History: Reports: None GI Medical History: Reports: None Denies: Hepatitis, Hiatal Hernia Musculoskeltal Medical History: Reports: Arthritis Skin Medical History: Reports: None Psychiatric Medical History: Reports: None Traumatic Medical History: Reports: None Hematology: Reports: Anemia - MED Denies: Sickle Cell Disease Infectious Medical History: Reports: None Past Surgical History Past Surgical History: Denies: Pacemaker Social History Lives with: Family Smoking Status: Unknown if Ever Smoked Frequency of Alcohol Use: None Hx Recreational Drug Use: No Drugs: None Hx Prescription Drug Abuse: No Family History Family History: Reviewed & Not Pertinent Parental Family History Reviewed: Yes - No premature CAD Children Family History Reviewed: No Sibling(s) Family History Reviewed.: No Medication/Allergy Allergies/Adverse Reactions: JUDE Inhibitors Allergy (Verified 09/29/18 12:28) Review of Systems All systems: reviewed and no additional remarkable complaints except as stated - As mentioned in HPI Physical Exam Vital Signs: Temp Pulse Resp BP Pulse Ox 98 F 71 12 174/86 H 96 04/09/19 09:10 04/09/19 09:10 04/09/19 09:10 04/09/19 09:10 04/09/19 09:11 Intake & Output 04/08/19 04/09/19 04/10/19 06:59 06:59 06:59 Weight 190 lb General appearance: PRESENT: no acute distress, well-developed, well-nourished Head exam: PRESENT: atraumatic, normocephalic Eye exam: PRESENT: conjunctiva pink, EOMI, PERRLA. ABSENT: scleral icterus Ear exam: PRESENT: normal external ear exam Mouth exam: PRESENT: moist, tongue midline Neck exam: ABSENT: carotid bruit, JVD, lymphadenopathy, thyromegaly Respiratory exam: PRESENT: decreased breath sounds, rhonchi. ABSENT: rales, wheezes Cardiovascular exam: PRESENT: RRR. ABSENT: diastolic murmur, rubs, systolic murmur Pulses: PRESENT: normal dorsalis pedis pul GI/Abdominal exam: PRESENT: normal bowel sounds, soft. ABSENT: distended, guarding, mass, organolmegaly, rebound, tenderness Rectal exam: PRESENT: deferred Extremities exam: PRESENT: +1 edema Neurological exam: PRESENT: alert, awake, oriented to person, oriented to place, oriented to time, oriented to situation, CN II-XII grossly intact. ABSENT: motor sensory deficit Results Laboratory Results: 04/09/19 09:04 04/09/19 09:04 04/09/19 04/09/19 04/09/19 09:04 09:04 10:45 WBC 16.4 H RBC 3.19 L Hgb 9.2 L Hct 28.0 L MCV 88 MCH 28.7 MCHC 32.8 RDW 14.8 H Plt Count 335 Seg Neutrophils % 81.2 H Sodium 134.3 L Potassium 4.1 Chloride 99 Carbon Dioxide 23 Anion Gap 12 BUN 52 H Creatinine 3.93 H Est GFR ( Amer) 19 L Glucose 265 H Calcium 10.1 Total Bilirubin 0.3 AST 16 L Alkaline Phosphatase 69 Total Protein 5.9 L Albumin 3.3 L Urine Color YELLOW Urine Appearance CLEAR Urine pH 7.0 Ur Specific [place] 1.009 Urine Protein >=500 H Urine Glucose (UA) >=500 H Urine Ketones NEGATIVE Urine Blood NEGATIVE Urine Nitrite NEGATIVE Ur Leukocyte Esterase NEGATIVE Urine WBC (Auto) 0 Urine RBC (Auto) 1 04/09/19 04/09/19 04/09/19 09:04 09:04 09:04 Creatine Kinase 93 CK-MB (CK-2) 2.66 Troponin I 0.043 NT-Pro-B Natriuret Pep 5480 H 04/09/19 13:25 Creatine Kinase CK-MB (CK-2) Troponin I 0.042 NT-Pro-B Natriuret Pep Impressions: Chest X-Ray 04/09/19 09:53 IMPRESSION: Cardiomegaly, bilateral pleural effusions, and prominence of the interstitium. Clinical correlation to exclude interstitial edema /volume overload is recommended. Assessment and Plan - Diagnosis (1) Fluid overload Is this a current diagnosis for this admission?: Yes Plan: Likely related to his CKD stage V. Will continue patient on IV Lasix 40 mg daily. Will repeat BMP tomorrow. He had a recent echo this year which showed normal EF and normal diastolic function. Will consult nephrology for further recommendations. (2) Pleural effusion Is this a current diagnosis for this admission?: Yes Plan: As per #1. (3) HTN (hypertension) Qualifiers: Hypertension type: unspecified Qualified Code(s): I10 - Essential (primary) hypertension Is this a current diagnosis for this admission?: Yes Plan: Resume home meds once verified. (4) Paroxysmal A-fib Is this a current diagnosis for this admission?: Yes Plan: Patient says he stopped taking his Eliquis because of the cost and that he does not want the risk of bleeding. Discussed he could be switched to Coumadin and he verbalized he does not want to be started on Coumadin as well. He says he is not amenable to the risk of anticoagulation and prefers to be just on aspirin. (5) Chronic kidney disease (CKD), stage IV (severe) Is this a current diagnosis for this admission?: Yes (6) Diabetes mellitus type 2, insulin dependent Is this a current diagnosis for this admission?: Yes - Time Time Spent with patient: 25-34 minutes
[2019-04-09] MEDS ORDERED: DEXTROSE 50%-WATER 25 GM/50 ML DISP.SYRIN IV PRN ×2 (21:14)
[2019-04-09] MEDS ORDERED: DEXTROSE 40% GEL 15 GM TUBE PO PRN ×2 (21:14)
[2019-04-09] MEDS ORDERED: GLUCAGON,HUMAN RECOMB 1 MG INJ IM PRN (21:14)
[2019-04-09] MEDS: FUROSEMIDE INJ/PF 40 MG/4 ML SDV IV SCH (22:12)
[2019-04-09] MEDS: HEPARIN SOD (PORCINE) 5,000 UNIT/ML 1 ML VIAL SUBCUT SCH (22:12)
[2019-04-09] MEDS: DOXAZOSIN MESYLATE 4 MG TABLET PO SCH (22:13)
[2019-04-09] MEDS: INSULIN LISPRO 100 UNIT/ML 3 ML VIAL SUBCUT SCH (22:13)
[2019-04-09] MEDS: AMLODIPINE BESYLATE 5 MG TABLET PO SCH (22:13)
[2019-04-10 07:59] LABS: ABSOLUTE BASOPHILS # (AUTO) 0.1 10^3/uL (0.0-0.2); ABSOLUTE EOSINOPHILS # (AUTO) 0.2 10^3/uL (0.0-0.6); ABSOLUTE LYMPHOCYTES (AUTO) 1.1 10^3/uL (0.5-4.7); ABSOLUTE MONOCYTES (AUTO) 2.1 10^3/uL (0.1-1.4); ABSOLUTE NEUT (AUTO) 13.8 10^3/uL (1.7-8.2); BASOPHILS % (AUTO) 0.8 % (0-2); HEMATOCRIT 26.3 % (37.9-51.0); HEMOGLOBIN 8.7 g/dL (13.5-17.0); LYMPHOCYTES % (AUTO) 6.2 % (13-45); MEAN CORPUSCULAR HEMOGLOBIN 28.9 pg (27.0-33.4); MEAN CORPUSCULAR HGB CONC 33.1 g/dL (32.0-36.0); MEAN CORPUSCULAR VOLUME 87 fl (80-97); PLATELET COUNT 305 10^3/uL (150-450); RED BLOOD COUNT 3.01 10^6/uL (4.35-5.55); RED CELL DISTRIBUTION WIDTH 14.8 % (11.5-14.0); TOTAL CELLS COUNTED % (AUTO) 100 %; WHITE BLOOD COUNT 17.3 10^3/uL (4.0-10.5)
[2019-04-10] MEDS: INSULIN LISPRO 100 UNIT/ML 3 ML VIAL SUBCUT SCH ×4 (08:12→22:16)
[2019-04-10 08:14] LABS: ANION GAP 12 (5-19); BLOOD UREA NITROGEN 56 mg/dL (7-20); CALCIUM 9.8 mg/dL (8.4-10.2); CARBON DIOXIDE 23 mmol/L (22-30); CHLORIDE 99 mmol/L (98-107); GLUCOSE 204 mg/dL (75-110); POTASSIUM 4.5 mmol/L (3.6-5.0)
[2019-04-10] MEDS: ASPIRIN 81 MG TABLET, ENT COATED PO SCH ×2 (09:42→17:26)
[2019-04-10] MEDS: HEPARIN SOD (PORCINE) 5,000 UNIT/ML 1 ML VIAL SUBCUT SCH ×2 (09:42→22:19)
[2019-04-10] MEDS: ISOSORBIDE MONONITRATE 60 MG TAB.ER.24H PO SCH (09:42)
[2019-04-10] MEDS: FERROUS SULFATE 325 MG TABLET PO SCH ×2 (09:42→17:26)
[2019-04-10] MEDS: FUROSEMIDE INJ/PF 40 MG/4 ML SDV IV SCH ×2 (09:42→22:14)
--- NOTE | 2019-04-10 15:27 | PDOC PROGRESS REPORT ---
Subjective Progress Note for:: 04/10/19 Subjective:: No acute event overnight. This morning, he appears comfortable. He says his shortness of breath has improved today. He had intermittent chest pain last night but he described it as sharp and pleuritic particularly associated when he takes a deep breath and nonradiating. He has diuresed well overnight. Await further nephrology recommendations. Reason For Visit: ACUTE CHF,FLUID OVERLOAD,CKD 5 Physical Exam Vital Signs: Temp Pulse Resp BP Pulse Ox 98.4 F 76 21 H 153/59 H 95 04/10/19 11:27 04/10/19 11:27 04/10/19 11:27 04/10/19 11:27 04/10/19 11:27 Intake & Output 04/09/19 04/10/19 04/11/19 06:59 06:59 06:59 Intake Total 560 Output Total 1180 Balance -620 Weight 211 lb 13.828 oz General appearance: PRESENT: no acute distress, well-developed, well-nourished Head exam: PRESENT: atraumatic, normocephalic Eye exam: PRESENT: conjunctiva pink, EOMI, PERRLA. ABSENT: scleral icterus Ear exam: PRESENT: normal external ear exam Mouth exam: PRESENT: moist, tongue midline Neck exam: ABSENT: carotid bruit, JVD, lymphadenopathy, thyromegaly Respiratory exam: PRESENT: rhonchi. ABSENT: rales, wheezes Cardiovascular exam: PRESENT: RRR. ABSENT: diastolic murmur, rubs, systolic murmur Pulses: PRESENT: normal dorsalis pedis pul GI/Abdominal exam: PRESENT: normal bowel sounds, soft. ABSENT: distended, guarding, mass, organolmegaly, rebound, tenderness Rectal exam: PRESENT: deferred Neurological exam: PRESENT: alert, awake, oriented to person, oriented to place, oriented to time, oriented to situation, CN II-XII grossly intact. ABSENT: motor sensory deficit Results Laboratory Results: 04/10/19 07:35 04/10/19 07:35 04/10/19 04/10/19 07:35 07:35 WBC 17.3 H RBC 3.01 L Hgb 8.7 L Hct 26.3 L MCV 87 MCH 28.9 MCHC 33.1 RDW 14.8 H Plt Count 305 Seg Neutrophils % 80.0 H Sodium 133.5 L Potassium 4.5 Chloride 99 Carbon Dioxide 23 Anion Gap 12 BUN 56 H Creatinine 4.19 H Est GFR ( Amer) 17 L Glucose 204 H Calcium 9.8 04/09/19 04/09/19 04/09/19 09:04 09:04 09:04 Creatine Kinase 93 CK-MB (CK-2) 2.66 Troponin I 0.043 NT-Pro-B Natriuret Pep 5480 H 04/09/19 13:25 Creatine Kinase CK-MB (CK-2) Troponin I 0.042 NT-Pro-B Natriuret Pep Impressions: Chest X-Ray 04/09/19 09:53 IMPRESSION: Cardiomegaly, bilateral pleural effusions, and prominence of the interstitium. Clinical correlation to exclude interstitial edema /volume overload is recommended. Assessment and Plan - Diagnosis (1) Fluid overload Is this a current diagnosis for this admission?: Yes Plan: Likely related to his CKD stage V. Will continue patient on IV Lasix 40 mg daily. Will repeat BMP tomorrow. He had a recent echo this year which showed low normal EF (55%) and normal diastolic function. Will consult nephrology for further recommendations. 04/10: Continue IV Lasix. Await further recommendations from nephrology. Repeat CXR tomorrow morning. (2) HTN (hypertension) Qualifiers: Hypertension type: unspecified Qualified Code(s): I10 - Essential (primary) hypertension Is this a current diagnosis for this admission?: Yes Plan: Resumed home meds. (3) Pleural effusion Is this a current diagnosis for this admission?: Yes Plan: As per #1. (4) Paroxysmal A-fib Is this a current diagnosis for this admission?: Yes Plan: Patient says he stopped taking his Eliquis because of the cost and that he does not want the risk of bleeding. Discussed he could be switched to Coumadin and he verbalized he does not want to be started on Coumadin as well. He says he is not amenable to the risk of anticoagulation and prefers to be just on aspirin. (5) Type 2 diabetes mellitus Qualifiers: Diabetes mellitus alf insulin use: unspecified alf insulin use status Diabetes mellitus complication status: with other specified complication Qualified Code(s): E11.69 - Type 2 diabetes mellitus with other specified complication Is this a current diagnosis for this admission?: Yes (6) Chronic kidney disease (CKD), stage IV (severe) Is this a current diagnosis for this admission?: Yes - Time Time Spent with patient: 25-34 minutes
--- NOTE | 2019-04-10 17:48 | PDOC CONSULTATION ---
Consultation Consult Date: 04/10/19 Provider Consulted: BRITNEY GARCIA Consult reason:: I was asked to see the patient due to worsening kidney function and fluid overload in a patient with history of chronic kidney disease. History of Present Illness Admission Date/PCP: 04/09/19 15:22 FLORENCIO WINKLER MD History of Present Illness: WILIAM GAN is a 68 year old male with history of chronic kidney disease, diabetes mellitus type 2, hypertension, CAD who presented and was admitted yesterday because of increasing shortness of breath and chest pains. Patient moved here in [place] about 2 to 3 years ago and since then has been following up with her physician desk assistant, Ki Peña PA-C for his chronic kidney disease. He saw him about 3 days ago prior to admission and at that visit he complained that his Lasix which was 40 mg twice daily is not working with increasing swelling. He said he was previously taking 60 mg in the morning and that seems to work so he asked Ki to go back on that which she did. However even with that change he continued to have increasing fluid retention associated with shortness of breath and abdominal tightness. He also has some chest pain across his chest especially on deep breathing. He also noted that when he was on Lasix oral 40 mg twice daily his urine volume was slightly decreased. Initial evaluation showed a chest x-ray with cardiomegaly and bilateral pleural effusion. He had a BUN of 52 and a creatinine of 3.93. He also has low hemoglobin of 8.7 and elevated WBC. Patient was started on Lasix 40 mg IV every 12 hours. So far he is diuresing and responding appropriately with a urine output of 1180 mL since admission overnight. His blood pressure is acceptable. He had an echocardiogram on September 29, 2018 showing LVEF of 55%, LVH and normal diastolic function. Patient's baseline kidney function include a BUN of 40-50, creatinine going from 3.6-4.8 for the last few months and estimated GFR of 13 going to 12 recently. He denies any hematuria but admits seeing bubbles in the urine. His urinalysis did show proteinuria and glucosuria. He also has lower extremity edema. His last kidney ultrasound was last done in [place] years ago. He denies any other complaints including cough, nausea, vomiting, nor diarrhea. He states that his appetite is okay. He admits that dialysis has been discussed to him by Ki. Currently he feels better overnight since initiation of the IV Lasix. Past Medical History Cardiac Medical History: Reports: Atrial Fibrillation, Coronary Artery Disease, Hypertension-primary, Myocardial Infarction - SILENT-SHOWED UP ON EKG Endocrine Medical History: Reports: Diabetes Mellitus Type 2 Complications of Diabetes: Reports: Retinopathy Renal/ Medical History: Reports: Chronic Kidney Disease Stage IV Musculoskeltal Medical History: Reports: Arthritis Skin Medical History: Reports: None Hematology Medical History: Reports Anemia of Chronic Kidney Disease Past Surgical History Past Surgical History: Reports: None Social History Information Source: Patient Lives with: Spouse/Significant other Smoking Status: Never Smoker Frequency of Alcohol Use: None Hx Recreational Drug Use: No Drugs: None Hx Prescription Drug Abuse: No - Advance Directive Resuscitation Status: Full Code Family History Family History: Hypertension - Mother, Malignancy - Father Family History: No family history of kidney disease. Parental Family History Reviewed: Yes Children Family History Reviewed: Yes Sibling(s) Family History Reviewed.: Yes Medication/Allergy Home Medications: Amlodipine Besylate [Norvasc 5 mg Tablet] 5 mg PO QHS 04/09/19 Aspirin [Adult Low Dose Aspirin EC] 81 mg PO BID 04/09/19 Aspirin [Aspirin 325 mg Tablet] 325 mg PO BID 04/09/19 Calcium Crb,Cit/D3/Min34/Kam [Citracal + Bone Density Tablet] 1 tab PO DAILY 04/09/19 Carvedilol [Coreg 25 mg Tablet] 25 mg PO Q12 04/09/19 Cholecalciferol (Vitamin D3) [Vitamin D3 2000 unit Tablet] 2,000 unit PO DAILY 04/09/19 Doxazosin Mesylate [Cardura 4 mg Tablet] 4 mg PO QHS 04/09/19 Ferrous Sulfate [Feosol 325 mg Tablet] 325 mg PO BID 04/09/19 Fluticasone Propionate [Flonase Nasal [place] 50 Mcg/[place] 16 gm] 1 spray NASL ASDIR PRN 04/09/19 Furosemide [Lasix] 60 mg PO DAILY 04/09/19 Hydralazine HCl 100 mg PO Q8 04/09/19 Insulin Aspart [Novolog] 0 unit SQ .SLD SCALE 04/09/19 Insulin Detemir [Levemir] 30 unit SQ QHS 04/09/19 Isosorbide Mononitrate [Imdur 60 mg Tablet.er] 60 mg PO DAILY 04/09/19 Montelukast Sodium [Singulair 10 mg Tablet] 10 mg PO QHS 04/09/19 Psyllium Husk (with Sugar) [Metamucil Packet] 1 packet PO DAILY 04/09/19 Vitamin B Complex [B Complex] 1 each PO DAILY 04/09/19 Allergies/Adverse Reactions: JUDE Inhibitors Allergy (Verified 09/29/18 12:28) Review of Systems All systems: reviewed and no additional remarkable complaints except as stated Review of Systems: Constitutional: ABSENT: chills, fatigue, fever(s), headache(s), weight gain, weight loss Eyes: ABSENT: visual disturbances Ears: ABSENT: hearing changes Cardiovascular: ABSENT: Edema, orthropnea, palpitations; admits chest pains and dyspnea Respiratory: ABSENT: cough, hemoptysis Gastrointestinal: ABSENT: abdominal pain, constipation, diarrhea, hematemesis, hematochezia, nausea, vomiting Genitourinary: ABSENT: dysuria, hematuria Musculoskeletal: ABSENT: joint swelling Integumentary: ABSENT: rash, wounds Neurological: ABSENT: abnormal gait, abnormal speech, confusion, dizziness, focal weakness, numbness, syncope Psychiatric: ABSENT: anxiety, depression Endocrine: ABSENT: cold intolerance, heat intolerance, polydipsia, polyuria Hematologic/Lymphatic: ABSENT: easy bleeding, easy bruising, lymphadenopathy Physical Exam Vital Signs: Temp Pulse Resp BP Pulse Ox 98.4 F 74 21 H 153/59 H 95 04/10/19 11:27 04/10/19 14:00 04/10/19 11:27 04/10/19 11:27 04/10/19 11:27 Intake & Output 04/09/19 04/10/19 04/11/19 06:59 06:59 06:59 Intake Total 560 Output Total 1180 Balance -620 Weight 96.1 kg Exam: General appearance: No acute distress, cooperative, well-developed, well- nourished Head exam: PRESENT: atraumatic, normocephalic Eye exam: PRESENT: Conjunctiva pale, EOMI, PERRLA. ABSENT: conjunctival injection, scleral icterus Mouth exam: PRESENT: moist, neck supple, tongue midline Neck exam: PRESENT: full ROM. ABSENT: carotid bruit, JVD, lymphadenopathy, thyromegaly Respiratory exam: PRESENT: clear to auscultation bilaterally. ABSENT: rales, rhonchi, stridor, wheezes Cardiovascular exam: PRESENT: RRR, +S1, +S2. ABSENT: systolic murmur Pulses: PRESENT: normal radial pulses, normal dorsalis pedis pulses GI/Abdominal exam: PRESENT: normal bowel sounds, soft. ABSENT: guarding, mass, tenderness Rectal exam: Deferred Extremities exam: PRESENT: full ROM. ABSENT: calf tenderness, pedal edema Musculoskeletal: PRESENT: full ROM. ABSENT: deformity Neurological exam: PRESENT: alert, Awake, Oriented to person, Oriented to place, Oriented to time, reflexes normal, CN II-XII grossly intact. ABSENT: motor sensory deficit Psychiatric exam: PRESENT: appropriate affect, normal mood. ABSENT: homicidal ideation, suicidal ideation Skin exam: PRESENT: intact, dry, warm. ABSENT: rash Results Laboratory Results: 04/10/19 07:35 04/10/19 07:35 04/10/19 04/10/19 07:35 07:35 WBC 17.3 H RBC 3.01 L Hgb 8.7 L Hct 26.3 L MCV 87 MCH 28.9 MCHC 33.1 RDW 14.8 H Plt Count 305 Seg Neutrophils % 80.0 H Sodium 133.5 L Potassium 4.5 Chloride 99 Carbon Dioxide 23 Anion Gap 12 BUN 56 H Creatinine 4.19 H Est GFR ( Amer) 17 L Glucose 204 H Calcium 9.8 04/09/19 04/09/19 04/09/19 09:04 09:04 09:04 Creatine Kinase 93 CK-MB (CK-2) 2.66 Troponin I 0.043 NT-Pro-B Natriuret Pep 5480 H 04/09/19 13:25 Creatine Kinase CK-MB (CK-2) Troponin I 0.042 NT-Pro-B Natriuret Pep Impressions: Chest X-Ray 04/09/19 09:53 IMPRESSION: Cardiomegaly, bilateral pleural effusions, and prominence of the interstitium. Clinical correlation to exclude interstitial edema /volume overload is recommended. Assessment & Plan - Diagnosis (1) Chronic kidney disease, stage V Is this a current diagnosis for this admission?: Yes Plan: This is most likely secondary to diabetic nephropathy associated with proteinuria in a patient with diabetes mellitus type 2 with contributory factor of hypertension. Patient is nonoliguric. Review of records appear to indicate that the patient's kidney disease is been continuously progressive for the last few months. The patient is borderline stage IV/stage V at this point. Aside from fluid retention he does not have any other uremic symptoms. He does not need any emergent initiation of hemodialysis. Discussed with him briefly the possibility of requiring renal replacement therapy sooner than later but not yet. I will get a baseline kidney ultrasound since he has not had one here after he moved. Continue to monitor kidney function. Avoid nephrotoxic medications. (2) Fluid overload Is this a current diagnosis for this admission?: Yes Plan: I think this is due to worsening chronic kidney disease. His echocardiogram basically shows low normal systolic function with LVEF of 55% and normal diastolic function on September 29, 2018. Patient has appropriate response to Lasix 40 mg IV every 12 hours. And switching to oral Lasix, given that the patient states that oral 40 mg twice daily did not work good for him I think we can switch him to 60 mg p.o. twice daily instead and monitor him closely as an outpatient. (3) Pleural effusion Is this a current diagnosis for this admission?: Yes Plan: This is likely part of ongoing fluid retention. It seems to be chronic compared to previous imaging studies prior to this admission. (4) Hyponatremia Is this a current diagnosis for this admission?: Yes Plan: Secondary to hypervolemic state. Mild. (5) Anemia in CKD (chronic kidney disease) Qualifiers: Chronic kidney disease stage: stage 5, not on chronic dialysis Qualified Code(s): N18.5 - Chronic kidney disease, stage 5; D63.1 - Anemia in chronic kidney disease Is this a current diagnosis for this admission?: Yes Plan: Patient has adequate iron stores on March 9019 with iron of 53, T sat of 21 and ferritin of 286. I will start her on reticulocyte with 20,000 units subcutaneously x1 dose to be given today. This needs to be continued as an outpatient as well and we can give this in the office to be supervised by Ki Peña PA-C. (6) Hyperphosphatemia Is this a current diagnosis for this admission?: Yes Plan: Last phosphorus taken was 7.0 on February 16, 2019. Patient is not currently on phosphorus binders. We will recheck phosphorus levels. (7) Secondary hyperparathyroidism Is this a current diagnosis for this admission?: Yes Plan: Patient has intact PTH of 80.2 on February 16, 2019. (8) Type 2 diabetes mellitus Qualifiers: Diabetes mellitus retirement insulin use: unspecified retirement insulin use status Diabetes mellitus complication status: with other specified complication Qualified Code(s): E11.69 - Type 2 diabetes mellitus with other specified complication Is this a current diagnosis for this admission?: Yes Plan: This needs adequate control. Defer to primary service. (9) HTN (hypertension) Qualifiers: Hypertension type: unspecified Qualified Code(s): I10 - Essential (primary) hypertension Is this a current diagnosis for this admission?: Yes Plan: Acceptable control. - Notes Notes: Thank you very much for this consultation. I will follow the patient with you while here in the hospital. Once discharge patient is to follow-up with Ki Peña PA-C in 1 to 2 weeks. He is to have a repeat CBC and BMP 1 to 2 days prior to appointment. - Time Time Spent: Greater than 70 Minutes
[2019-04-10] MEDS ORDERED: EPOETIN ALFA-EPBX 10,000 UNIT/ML VIAL (NON-ESRD) SUBCUT ONE (19:00)
[2019-04-10 19:30] LABS: URINE CREATININE 76.4 mg/dL (22-328)
[2019-04-10 19:54] LABS: UR PRO/CREAT RATIO RESULT 10.9 mg/mg (0.0-0.2); URINE PROTEIN 832.1 mg/dL (<12)
[2019-04-10] MEDS: AMLODIPINE BESYLATE 5 MG TABLET PO SCH (22:18)
[2019-04-10] MEDS: DOXAZOSIN MESYLATE 4 MG TABLET PO SCH (22:19)
[2019-04-11 05:40] LABS: ABSOLUTE BASOPHILS # (AUTO) 0.1 10^3/uL (0.0-0.2); ABSOLUTE EOSINOPHILS # (AUTO) 0.4 10^3/uL (0.0-0.6); ABSOLUTE MONOCYTES (AUTO) 1.9 10^3/uL (0.1-1.4); ABSOLUTE NEUT (AUTO) 11.3 10^3/uL (1.7-8.2); BASOPHILS % (AUTO) 0.8 % (0-2); EOSINOPHILS % (AUTO) 2.5 % (0-6); LYMPHOCYTES % (AUTO) 6.9 % (13-45); MEAN CORPUSCULAR HEMOGLOBIN 29.1 pg (27.0-33.4); MEAN CORPUSCULAR HGB CONC 33.3 g/dL (32.0-36.0); MEAN CORPUSCULAR VOLUME 87 fl (80-97); MONOCYTES % (AUTO) 13.1 % (3-13); PLATELET COUNT 284 10^3/uL (150-450); RED BLOOD COUNT 2.75 10^6/uL (4.35-5.55); RED CELL DISTRIBUTION WIDTH 14.6 % (11.5-14.0); SEGMENTED NEUTROPHILS % (AUTO) 76.7 % (42-78); TOTAL CELLS COUNTED % (AUTO) 100 %; WHITE BLOOD COUNT 14.7 10^3/uL (4.0-10.5)
[2019-04-11 05:52] LABS: ANION GAP 9 (5-19); BLOOD UREA NITROGEN 64 mg/dL (7-20); CALCIUM 9.4 mg/dL (8.4-10.2); CARBON DIOXIDE 26 mmol/L (22-30); CHLORIDE 97 mmol/L (98-107); GLUCOSE 225 mg/dL (75-110); PHOSPHORUS 6.3 mg/dL (2.5-4.5); POTASSIUM 4.7 mmol/L (3.6-5.0)
[2019-04-11] MEDS ORDERED: INFLUENZA QUAD (6MOS+) 2019-20 VAC 0.5 ML SYR IM ONE (08:00)
[2019-04-11] MEDS: INSULIN LISPRO 100 UNIT/ML 3 ML VIAL SUBCUT SCH ×4 (08:10→21:43)
[2019-04-11] MEDS: ASPIRIN 81 MG TABLET, ENT COATED PO SCH ×2 (10:33→17:12)
[2019-04-11] MEDS: HEPARIN SOD (PORCINE) 5,000 UNIT/ML 1 ML VIAL SUBCUT SCH ×2 (10:33→21:43)
[2019-04-11] MEDS: FUROSEMIDE INJ/PF 40 MG/4 ML SDV IV SCH (10:33)
[2019-04-11] MEDS: FERROUS SULFATE 325 MG TABLET PO SCH ×2 (10:33→17:12)
[2019-04-11] MEDS: ISOSORBIDE MONONITRATE 60 MG TAB.ER.24H PO SCH (10:34)
--- NOTE | 2019-04-11 11:20 | PDOC PROGRESS REPORT ---
Subjective Progress Note for:: 04/11/19 Subjective:: Patient is feeling much better. He tells me he can breathe without any pain. He does not feel as tight anymore. No new complaints. Patient informed me that he was actually taking torsemide and not furosemide. Reason For Visit: ACUTE CHF,FLUID OVERLOAD,CKD 5 Physical Exam Vital Signs: Temp Pulse Resp BP Pulse Ox 98.4 F 74 16 141/67 H 98 04/11/19 07:26 04/11/19 07:26 04/11/19 07:26 04/11/19 07:26 04/11/19 07:26 Intake & Output 04/10/19 04/11/19 04/12/19 06:59 06:59 06:59 Intake Total 560 1420 Output Total 1180 1730 Balance -620 -310 Weight 96.1 kg 96.8 kg Exam: General appearance: PRESENT: no acute distress, cooperative, well-developed, well-nourished Head exam: PRESENT: atraumatic, normocephalic Eye exam: PRESENT: conjunctiva pale, PERRLA. ABSENT: scleral icterus Neck exam: ABSENT: JVD Respiratory exam: PRESENT: Normal breath sounds. ABSENT: crackles, rales, rhonchi, unlabored, wheezes Cardiovascular exam: PRESENT: Regular rate rhythm -+S1, +S2. ABSENT: diastolic murmur, systolic murmur GI/Abdominal exam: PRESENT: normal bowel sounds, soft. ABSENT: guarding, mass, tenderness Extremities exam: ABSENT: No edema Neurological exam: PRESENT: alert, awake, oriented to person, place and time. Skin exam: PRESENT: dry, warm, Results Laboratory Results: 04/11/19 05:05 04/11/19 05:05 04/11/19 04/11/19 05:05 05:05 WBC 14.7 H RBC 2.75 L Hgb 8.0 L Hct 24.0 L MCV 87 MCH 29.1 MCHC 33.3 RDW 14.6 H Plt Count 284 Seg Neutrophils % 76.7 Sodium 132.2 L Potassium 4.7 Chloride 97 L Carbon Dioxide 26 Anion Gap 9 BUN 64 H Creatinine 4.54 H Est GFR ( Amer) 16 L Glucose 225 H Calcium 9.4 Phosphorus 6.3 H 04/09/19 04/09/19 04/09/19 09:04 09:04 09:04 Creatine Kinase 93 CK-MB (CK-2) 2.66 Troponin I 0.043 NT-Pro-B Natriuret Pep 5480 H 04/09/19 13:25 Creatine Kinase CK-MB (CK-2) Troponin I 0.042 NT-Pro-B Natriuret Pep Assessment & Plan - Diagnosis (1) Chronic kidney disease, stage V Is this a current diagnosis for this admission?: Yes Plan: I think this is the patient's current baseline kidney function. He has urine protein to creatinine ratio of 10.9. This is consistent with diabetic nephr opathy with nephrotic range proteinuria. Kidney ultrasound is currently still pending. Continue current management. Although the patient does not need initiation of renal replacement therapy at this time I think he needs to be prepared for it. So upon discharge the patient will need to follow-up with Ki Peña PA-C in a couple weeks. Discontinue IV furosemide and start back on torsemide 60 mg p.o. daily. (2) Fluid overload Is this a current diagnosis for this admission?: Yes Plan: Much improved. Discontinue furosemide and switch back to torsemide as above. (3) Pleural effusion Is this a current diagnosis for this admission?: Yes (4) Hyponatremia Is this a current diagnosis for this admission?: Yes Plan: Due to hypervolemic state. Stable. (5) Anemia in CKD (chronic kidney disease) Qualifiers: Chronic kidney disease stage: stage 5, not on chronic dialysis Qualified Code(s): N18.5 - Chronic kidney disease, stage 5; D63.1 - Anemia in chronic kidney disease Is this a current diagnosis for this admission?: Yes Plan: Patient received a Retacrit with dose yesterday. This needs to be continued as an outpatient. He needs to be set up on outpatient Retacrit injection in the office. (6) Hyperphosphatemia Is this a current diagnosis for this admission?: Yes Plan: Phosphorus is currently 6.3. Start calcium acetate with meals. (7) Secondary hyperparathyroidism Is this a current diagnosis for this admission?: Yes Plan: Mild. Monitor and correct phosphorus. (8) Type 2 diabetes mellitus Qualifiers: Diabetes mellitus termite control technician insulin use: unspecified termite control technician insulin use status Diabetes mellitus complication status: with other specified complication Qualified Code(s): E11.69 - Type 2 diabetes mellitus with other specified complication Is this a current diagnosis for this admission?: Yes (9) HTN (hypertension) Qualifiers: Hypertension type: unspecified Qualified Code(s): I10 - Essential (primary) hypertension Is this a current diagnosis for this admission?: Yes - Time Time with patient: 15-25 minutes
[2019-04-11] MEDS: CALCIUM ACETATE 667 MG CAPSULE PO SCH ×2 (11:41→17:12)
--- NOTE | 2019-04-11 12:11 | RADIOLOGY REPORT (SQ) ---
EXAM DESCRIPTION: U/S RETROPER[employer]ON LTD COMPLETED DATE/TIME: 04/11/2019 5:38 am REASON FOR STUDY: MARY/CKD N18.4 CHRONIC KIDNEY DISEASE, STAGE 4 (SEVERE) D63.1 ANEMIA IN CHRONIC K IDNEY DISEASE COMPARISON: None. TECHNIQUE: Dynamic and static grayscale images acquired of the kidneys and bladder and recorded on P ACS. Additional selected color Doppler and spectral images recorded. LIMITATIONS: None. FINDINGS: RIGHT KIDNEY: 12 cm in length with normal cortical thickness but increased cortical echog enicity. No solid or suspicious masses. No hydronephrosis. No calcifications. LEFT KIDNEY: 13 cm in length with normal cortical thickness but increased cortical echogenicity. N o solid or suspicious masses. No hydronephrosis. No calcifications. BLADDER: No masses. OTHER FINDINGS: No other significant finding. IMPRESSION: No hydronephrosis Normal size kidneys with mild increased cortical echogenicity from medical renal disease TECHNICAL DOCUMENTATION: JOB ID: [id number] [employer]- All Rights Reserved Reading location - IP/workstation name: [email or web address]
--- NOTE | 2019-04-11 12:12 | RADIOLOGY REPORT (SQ) ---
EXAM DESCRIPTION: CHEST SINGLE VIEW COMPLETED DATE/TIME: 04/11/2019 8:23 am REASON FOR STUDY: reassess congestion, pleural effusion COMPARISON: AP chest 09/29/2018, 04/09/2019 EXAM PARAMETERS: NUMBER OF VIEWS: One view. TECHNIQUE: Single frontal radiographic view of the chest acquired. RADIATION DOSE: NA LIMITATIONS: Motion artifact FINDINGS: LUNGS AND PLEURA: Mild pulmonary vascular congestion. Mild motion artifact. No pleural e ffusions or gross pneumothorax MEDIASTINUM AND HILAR STRUCTURES: No masses. Contour normal. HEART AND VASCULAR STRUCTURES: Stable moderate cardiomegaly BONES: No acute findings. HARDWARE: None in the chest. OTHER: No other significant finding. IMPRESSION: Stable cardiomegaly and pulmonary vascular congestion TECHNICAL DOCUMENTATION: JOB ID: [id number] [employer]- All Rights Reserved Reading location - IP/workstation name: [email or web address]
--- NOTE | 2019-04-11 15:02 | PDOC PROGRESS REPORT ---
Subjective Progress Note for:: 04/11/19 Subjective:: 04/10: This morning, he appears comfortable. He says his shortness of breath has improved today. He had intermittent chest pain last night but he described it as sharp and pleuritic particularly associated when he takes a deep breath and nonradiating. He has diuresed well overnight. Await further nephrology recommendations. 04/11: No acute event overnight. He says his SOB continue to improve. He continues to diurese well. Reason For Visit: ACUTE CHF,FLUID OVERLOAD,CKD 5 Physical Exam Vital Signs: Temp Pulse Resp BP Pulse Ox 98.4 F 74 16 141/67 H 98 04/11/19 07:26 04/11/19 07:26 04/11/19 07:26 04/11/19 07:26 04/11/19 07:26 Intake & Output 04/10/19 04/11/19 04/12/19 06:59 06:59 06:59 Intake Total 560 1420 240 Output Total 1180 1730 300 Balance -620 -310 -60 Weight 211 lb 13.828 oz 213 lb 6.519 oz General appearance: PRESENT: no acute distress, well-developed, well-nourished Head exam: PRESENT: atraumatic, normocephalic Eye exam: PRESENT: conjunctiva pink, EOMI, PERRLA. ABSENT: scleral icterus Ear exam: PRESENT: normal external ear exam Mouth exam: PRESENT: moist, tongue midline Neck exam: ABSENT: carotid bruit, JVD, lymphadenopathy, thyromegaly Respiratory exam: PRESENT: rhonchi. ABSENT: rales, wheezes Cardiovascular exam: PRESENT: RRR. ABSENT: diastolic murmur, rubs, systolic murmur Pulses: PRESENT: normal dorsalis pedis pul GI/Abdominal exam: PRESENT: normal bowel sounds, soft. ABSENT: distended, guarding, mass, organolmegaly, rebound, tenderness Rectal exam: PRESENT: deferred Extremities exam: PRESENT: +1 edema Neurological exam: PRESENT: alert, awake, oriented to person, oriented to place, oriented to time, oriented to situation, CN II-XII grossly intact. ABSENT: mot or sensory deficit Results Laboratory Results: 04/11/19 05:05 04/11/19 05:05 04/11/19 04/11/19 05:05 05:05 WBC 14.7 H RBC 2.75 L Hgb 8.0 L Hct 24.0 L MCV 87 MCH 29.1 MCHC 33.3 RDW 14.6 H Plt Count 284 Seg Neutrophils % 76.7 Sodium 132.2 L Potassium 4.7 Chloride 97 L Carbon Dioxide 26 Anion Gap 9 BUN 64 H Creatinine 4.54 H Est GFR ( Amer) 16 L Glucose 225 H Calcium 9.4 Phosphorus 6.3 H 04/09/19 04/09/19 04/09/19 09:04 09:04 09:04 Creatine Kinase 93 CK-MB (CK-2) 2.66 Troponin I 0.043 NT-Pro-B Natriuret Pep 5480 H 04/09/19 13:25 Creatine Kinase CK-MB (CK-2) Troponin I 0.042 NT-Pro-B Natriuret Pep Impressions: Renal Ultrasound 04/11/19 00:00 IMPRESSION: No hydronephrosis Normal size kidneys with mild increased cortical echogenicity from medical renal disease Chest X-Ray 04/11/19 06:00 IMPRESSION: Stable cardiomegaly and pulmonary vascular congestion Assessment and Plan - Diagnosis (1) Fluid overload Is this a current diagnosis for this admission?: Yes Plan: Likely related to his CKD stage V. Will continue patient on IV Lasix 40 mg daily. Will repeat BMP tomorrow. He had a recent echo this year which showed low normal EF (55%) and normal diastolic function. Will consult nephrology for further recommendations. 04/10: Continue IV Lasix. Await further recommendations from nephrology. Repeat CXR tomorrow morning. 04/11: Lasix switched to Torsemide by nephrology. Repeat CXR still shows congestion. Anticipate discharge in the next 24 hrs. (2) HTN (hypertension) Qualifiers: Hypertension type: unspecified Qualified Code(s): I10 - Essential (primary) hypertension Is this a current diagnosis for this admission?: Yes Plan: Resumed home meds. (3) Pleural effusion Is this a current diagnosis for this admission?: Yes Plan: As per #1. (4) Paroxysmal A-fib Is this a current diagnosis for this admission?: Yes Plan: Patient says he stopped taking his Eliquis because of the cost and that he does not want the risk of bleeding. Discussed he could be switched to Coumadin and he verbalized he does not want to be started on Coumadin as well. He says he is not amenable to the risk of anticoagulation and prefers to be just on aspirin. (5) Type 2 diabetes mellitus Qualifiers: Diabetes mellitus detention insulin use: unspecified termite control representative insulin use status Diabetes mellitus complication status: with other specified complication Qualified Code(s): E11.69 - Type 2 diabetes mellitus with other specified complication Is this a current diagnosis for this admission?: Yes (6) Chronic kidney disease (CKD), stage IV (severe) Is this a current diagnosis for this admission?: Yes - Time Time Spent with patient: 25-34 minutes
[2019-04-11] MEDS: DOXAZOSIN MESYLATE 4 MG TABLET PO SCH (21:37)
[2019-04-11] MEDS: AMLODIPINE BESYLATE 5 MG TABLET PO SCH (21:38)
[2019-04-12] MEDS: INSULIN LISPRO 100 UNIT/ML 3 ML VIAL SUBCUT SCH ×2 (08:09→11:26)
[2019-04-12] MEDS: CALCIUM ACETATE 667 MG CAPSULE PO SCH ×2 (08:10→11:27)
--- NOTE | 2019-04-12 08:23 | RADIOLOGY REPORT (SQ) ---
EXAM DESCRIPTION: CHEST SINGLE VIEW COMPLETED DATE/TIME: 04/12/2019 7:27 am REASON FOR STUDY: reassess congestion N18.4 CHRONIC KIDNEY DISEASE, STAGE 4 (SEVERE) D63.1 ANEMIA IN CHRONIC KIDNEY DISEASE COMPARISON: 04/11/2019 NUMBER OF VIEWS: One view. TECHNIQUE: Single frontal radiographic image of the chest acquired. LIMITATIONS: None. FINDINGS: LUNGS AND PLEURA: Stable appearance. MEDIASTINUM AND HILAR STRUCTURES: Stable heart size and mediastinal structures. HEART AND VASCULAR STRUCTURES: Stable appearance. BONES: No acute findings. HARDWARE: None in the chest. OTHER: No other significant finding. IMPRESSION: Grossly stable appearance of the chest with cardiomegaly and vascular congestion. TECHNICAL DOCUMENTATION: JOB ID: [id number] [employer]- All Rights Reserved Reading location - IP/workstation name: [email or web address]
[2019-04-12] MEDS ORDERED: TORSEMIDE 20 MG TABLET PO SCH (10:00)
[2019-04-12] MEDS: HEPARIN SOD (PORCINE) 5,000 UNIT/ML 1 ML VIAL SUBCUT SCH (10:32)
[2019-04-12] MEDS: FERROUS SULFATE 325 MG TABLET PO SCH (10:34)
[2019-04-12] MEDS: ASPIRIN 81 MG TABLET, ENT COATED PO SCH (10:34)
[2019-04-12] MEDS: ISOSORBIDE MONONITRATE 60 MG TAB.ER.24H PO SCH (11:27)
[2019-04-12 11:37] LABS: ABSOLUTE BASOPHILS # (AUTO) 0.1 10^3/uL (0.0-0.2); ABSOLUTE EOSINOPHILS # (AUTO) 0.4 10^3/uL (0.0-0.6); ABSOLUTE LYMPHOCYTES (AUTO) 1.3 10^3/uL (0.5-4.7); ABSOLUTE MONOCYTES (AUTO) 1.2 10^3/uL (0.1-1.4); ABSOLUTE NEUT (AUTO) 8.7 10^3/uL (1.7-8.2); BASOPHILS % (AUTO) 1.3 % (0-2); EOSINOPHILS % (AUTO) 3.2 % (0-6); HEMATOCRIT 25.4 % (37.9-51.0); HEMOGLOBIN 8.3 g/dL (13.5-17.0); LYMPHOCYTES % (AUTO) 10.8 % (13-45); MEAN CORPUSCULAR HEMOGLOBIN 28.4 pg (27.0-33.4); MEAN CORPUSCULAR HGB CONC 32.7 g/dL (32.0-36.0); MEAN CORPUSCULAR VOLUME 87 fl (80-97); MONOCYTES % (AUTO) 9.9 % (3-13); PLATELET COUNT 298 10^3/uL (150-450); RED BLOOD COUNT 2.92 10^6/uL (4.35-5.55); RED CELL DISTRIBUTION WIDTH 14.5 % (11.5-14.0); SEGMENTED NEUTROPHILS % (AUTO) 74.8 % (42-78); TOTAL CELLS COUNTED % (AUTO) 100 %; WHITE BLOOD COUNT 11.7 10^3/uL (4.0-10.5)
[2019-04-12 11:55] LABS: ANION GAP 13 (5-19); BLOOD UREA NITROGEN 69 mg/dL (7-20); CALCIUM 9.6 mg/dL (8.4-10.2); CARBON DIOXIDE 25 mmol/L (22-30); CHLORIDE 94 mmol/L (98-107); GLUCOSE 254 mg/dL (75-110); POTASSIUM 4.6 mmol/L (3.6-5.0)
[2019-04-12 13:11] VITALS: BP 123/76
--- NOTE | 2019-04-13 16:55 | PDOC DISCHARGE SUMMARY ---
Impression - Admit/DC Date/PCP Admission Date/Primary Care Provider: 04/09/19 15:22 FLORENCIO WINKLER MD Discharge Date: 04/12/19 - Discharge Diagnosis (1) Fluid overload Is this a current diagnosis for this admission?: Yes (2) HTN (hypertension) Is this a current diagnosis for this admission?: Yes (3) Pleural effusion Is this a current diagnosis for this admission?: Yes (4) Paroxysmal A-fib Is this a current diagnosis for this admission?: Yes (5) Type 2 diabetes mellitus Is this a current diagnosis for this admission?: Yes (6) Chronic kidney disease (CKD), stage IV (severe) Is this a current diagnosis for this admission?: Yes - Additional Information Resuscitation Status: Full Code Discharge Diet: As Tolerated Discharge Activity: Activity As Tolerated Referrals: Ward BRANDON MD [ACTIVE STAFF] - (office will be calling pt with appt) Prescriptions: Torsemide [Demadex 20 mg Tablet] 60 mg PO DAILY #90 tablet Calcium Acetate [Phoslo 667 mg Capsule] 667 mg PO MEALS #90 capsule Home Medications: Amlodipine Besylate [Norvasc 5 mg Tablet] 5 mg PO QHS 04/09/19 Aspirin [Adult Low Dose Aspirin EC] 81 mg PO BID 04/09/19 Aspirin [Aspirin 325 mg Tablet] 325 mg PO BID 04/09/19 Calcium Crb,Cit/D3/Min34/Kam [Citracal + Bone Density Tablet] 1 tab PO DAILY 04/09/19 Carvedilol [Coreg 25 mg Tablet] 25 mg PO Q12 04/09/19 Cholecalciferol (Vitamin D3) [Vitamin D3 2000 unit Tablet] 2,000 unit PO DAILY 04/09/19 Doxazosin Mesylate [Cardura 4 mg Tablet] 4 mg PO QHS 04/09/19 Ferrous Sulfate [Feosol 325 mg Tablet] 325 mg PO BID 04/09/19 Fluticasone Propionate [Flonase Nasal Marcellus 50 Mcg/Marcellus 16 gm] 1 spray NASL ASDIR PRN 04/09/19 Hydralazine HCl 100 mg PO Q8 04/09/19 Insulin Aspart [Novolog] 0 unit SQ .SLD SCALE 04/09/19 Insulin Detemir [Levemir] 30 unit SQ QHS 04/09/19 Isosorbide Mononitrate [Imdur 60 mg Tablet.er] 60 mg PO DAILY 04/09/19 Montelukast Sodium [Singulair 10 mg Tablet] 10 mg PO QHS 04/09/19 Psyllium Husk (with Sugar) [Metamucil Packet] 1 packet PO DAILY 04/09/19 Vitamin B Complex [B Complex] 1 each PO DAILY 04/09/19 Calcium Acetate [Phoslo 667 mg Capsule] 667 mg PO MEALS #90 capsule 04/12/19 Torsemide [Demadex 20 mg Tablet] 60 mg PO DAILY #90 tablet 04/12/19 History of Present Illiness History of Present Illness: WILIAM GAN is a 68 year old male with a past medical history of CKD 5, questionable history of congestive heart failure, hypertension, CAD and dyslipidemia who presented with shortness of breath. Patient says that his Lasix was recently decreased more than 2 weeks ago. He says that after the test, noticed increasing shortness of breath and abdominal tightness more than a week ago. He says his pedal swelling has been about the same from baseline. He says that he woke up this morning and had a very chest pain across his anterior chest when he takes a deep breath. He denies cough, fever or chills. In the ER, chest x-ray shows bilateral pleural effusions and congestion. Upon encounter, he appears comfortable and saturating at 93% on room air. Hospital Course Hospital Course: Patient was admitted for fluid overload likely related to his advancing CKD. Patient was also evaluated by nephrology. He was started on IV Lasix. He did diurese well and returned to his baseline. Nephrology anticipate he would require dialysis over the next few months. Repeat chest x-ray did show significant improvement of congestion. Nephrology switch his home oral Lasix to torsemide. He will closely follow-up with nephrology. Physical Exam Vital Signs: Temp Pulse Resp BP Pulse Ox 97.5 F 63 16 123/76 95 04/12/19 13:07 04/12/19 13:07 04/12/19 13:07 04/12/19 13:07 04/12/19 13:07 Intake & Output 04/11/19 04/12/19 04/13/19 06:59 06:59 06:59 Intake Total 1420 1300 480 Output Total 1730 1050 400 Balance -310 250 80 Weight 213 lb 6.519 oz 218 lb 11.177 oz General appearance: PRESENT: no acute distress, well-developed, well-nourished Head exam: PRESENT: atraumatic, normocephalic Eye exam: PRESENT: conjunctiva pink, EOMI, PERRLA. ABSENT: scleral icterus Ear exam: PRESENT: normal external ear exam Mouth exam: PRESENT: moist, tongue midline Neck exam: ABSENT: carotid bruit, JVD, lymphadenopathy, thyromegaly Respiratory exam: PRESENT: clear to auscultation thalia. ABSENT: rales, rhonchi, wheezes Cardiovascular exam: PRESENT: RRR. ABSENT: diastolic murmur, rubs, systolic murmur Pulses: PRESENT: normal dorsalis pedis pul GI/Abdominal exam: PRESENT: normal bowel sounds, soft. ABSENT: distended, guarding, mass, organolmegaly, rebound, tenderness Rectal exam: PRESENT: deferred Neurological exam: PRESENT: alert, awake, oriented to person, oriented to place, oriented to time, oriented to situation, CN II-XII grossly intact. ABSENT: motor sensory deficit Results Laboratory Results: WBC 11.7 10^3/uL (4.0-10.5) H 04/12/19 10:31 RBC 2.92 10^6/uL (4.35-5.55) L 04/12/19 10:31 Hgb 8.3 g/dL (13.5-17.0) L 04/12/19 10:31 Hct 25.4 % (37.9-51.0) L 04/12/19 10:31 MCV 87 fl (80-97) 04/12/19 10:31 MCH 28.4 pg (27.0-33.4) 04/12/19 10:31 MCHC 32.7 g/dL (32.0-36.0) 04/12/19 10:31 RDW 14.5 % (11.5-14.0) H 04/12/19 10:31 Plt Count 298 10^3/uL (150-450) 04/12/19 10:31 Lymph % (Auto) 10.8 % (13-45) L 04/12/19 10:31 Pickett % (Auto) 9.9 % (3-13) 04/12/19 10:31 Eos % (Auto) 3.2 % (0-6) 04/12/19 10:31 Baso % (Auto) 1.3 % (0-2) 04/12/19 10:31 Absolute Neuts (auto) 8.7 10^3/uL (1.7-8.2) H 04/12/19 10:31 Absolute Lymphs (auto) 1.3 10^3/uL (0.5-4.7) 04/12/19 10:31 Absolute Monos (auto) 1.2 10^3/uL (0.1-1.4) 04/12/19 10:31 Absolute Eos (auto) 0.4 10^3/uL (0.0-0.6) 04/12/19 10:31 Absolute Basos (auto) 0.1 10^3/uL (0.0-0.2) 04/12/19 10:31 Seg Neutrophils % 74.8 % (42-78) 04/12/19 10:31 Sodium 131.9 mmol/L (137-145) L 04/12/19 10:31 Potassium 4.6 mmol/L (3.6-5.0) 04/12/19 10:31 Chloride 94 mmol/L (98-107) L 04/12/19 10:31 Carbon Dioxide 25 mmol/L (22-30) 04/12/19 10:31 Anion Gap 13 (5-19) 04/12/19 10:31 BUN 69 mg/dL (7-20) H 04/12/19 10:31 Creatinine 4.92 mg/dL (0.52-1.25) H 04/12/19 10:31 Est GFR ( Amer) 14 (>60) L 04/12/19 10:31 Est GFR (MDRD) Non-Af 12 (>60) L 04/12/19 10:31 Glucose 254 mg/dL (75-110) H 04/12/19 10:31 POC Glucose 278 mg/dL (70-110) H 04/12/19 11:05 Calcium 9.6 mg/dL (8.4-10.2) 04/12/19 10:31 Phosphorus 6.3 mg/dL (2.5-4.5) H 04/11/19 05:05 Total Bilirubin 0.3 mg/dL (0.2-1.3) 04/09/19 09:04 Direct Bilirubin 0.2 mg/dL (0.0-0.4) 04/09/19 09:04 Neonat Total Bilirubin Not Reportable 04/09/19 09:04 Neonat Direct Bilirubin Not Reportable 04/09/19 09:04 Neonat Indirect Bili Not Reportable 04/09/19 09:04 AST 16 U/L (17-59) L 04/09/19 09:04 ALT 13 U/L (<50) 04/09/19 09:04 Alkaline Phosphatase 69 U/L (38-126) 04/09/19 09:04 Creatine Kinase 93 U/L (55-170) 04/09/19 09:04 CK-MB (CK-2) 2.66 ng/mL (<4.55) 04/09/19 09:04 Troponin I 0.042 ng/mL 04/09/19 13:25 NT-Pro-B Natriuret Pep 5480 pg/mL (5-900) H 04/09/19 09:04 Total Protein 5.9 g/dL (6.3-8.2) L 04/09/19 09:04 Albumin 3.3 g/dL (3.5-5.0) L 04/09/19 09:04 Urine Color YELLOW 04/09/19 10:45 Urine Appearance CLEAR 04/09/19 10:45 Urine pH 7.0 (5.0-9.0) 04/09/19 10:45 Ur Specific Webber 1.009 04/09/19 10:45 Urine Protein >=500 mg/dL (NEGATIVE) H 04/09/19 10:45 Urine Glucose (UA) >=500 mg/dL (NEGATIVE) H 04/09/19 10:45 Urine Ketones NEGATIVE mg/dL (NEGATIVE) 04/09/19 10:45 Urine Blood NEGATIVE (NEGATIVE) 04/09/19 10:45 Urine Nitrite NEGATIVE (NEGATIVE) 04/09/19 10:45 Urine Bilirubin NEGATIVE (NEGATIVE) 04/09/19 10:45 Urine Urobilinogen NEGATIVE mg/dL (<2.0) 04/09/19 10:45 Ur Leukocyte Esterase NEGATIVE (NEGATIVE) 04/09/19 10:45 Urine WBC (Auto) 0 /HPF 04/09/19 10:45 Urine RBC (Auto) 1 /HPF 04/09/19 10:45 Urine Creatinine 76.4 mg/dL (22-328) 04/10/19 18:43 Protein/Creatinin Ratio 10.9 mg/mg (0.0-0.2) H 04/10/19 18:43 Urine Total Protein 832.1 mg/dL (<12) H 04/10/19 18:43 Urine Ascorbic Acid NEGATIVE (NEGATIVE) 04/09/19 10:45 04/09/19 04/09/19 04/09/19 09:04 09:04 13:25 CK-MB (CK-2) 2.66 Troponin I 0.043 0.042 NT-Pro-B Natriuret Pep 5480 H Impressions: Chest X-Ray 04/09/19 09:53 IMPRESSION: Cardiomegaly, bilateral pleural effusions, and prominence of the interstitium. Clinical correlation to exclude interstitial edema /volume overload is recommended. Renal Ultrasound 04/11/19 00:00 IMPRESSION: No hydronephrosis Normal size kidneys with mild increased cortical echogenicity from medical renal disease Chest X-Ray 04/11/19 06:00 IMPRESSION: Stable cardiomegaly and pulmonary vascular congestion Chest X-Ray 04/12/19 07:00 IMPRESSION: Grossly stable appearance of the chest with cardiomegaly and vascular congestion. Stroke Is this a Stroke Patient?: No Acute Heart Failure - Is this a Heart Failure Patient?: No
== END 2019-04-12 13:24 | disposition home or self-care (01) ==
LOC: ER 08:53 → INTOOBSV 15:22 → EH 15:22 → 4W 21:00
PROVIDERS: ADMIT Internal Medicine; ATTEND Internal Medicine
DX: E87.70 Fluid overload, unspecified (principal); J90 Pleural effusion, not elsewhere classified; I48.0 Paroxysmal atrial fibrillation; I12.9 Hypertensive chronic kidney disease with stage 1 through stage 4 chronic kidney disease, or unspecified chronic kidney disease; E11.22 Type 2 diabetes mellitus with diabetic chronic kidney disease; N18.4 Chronic kidney disease, stage 4 (severe); I25.10 Atherosclerotic heart disease of native coronary artery without angina pectoris; E87.1 Hypo-osmolality and hyponatremia; D63.1 Anemia in chronic kidney disease; E83.39 Other disorders of phosphorus metabolism; N25.81 Secondary hyperparathyroidism of renal origin; R06.02 Shortness of breath; R07.1 Chest pain on breathing; E11.69 Type 2 diabetes mellitus with other specified complication; I44.0 Atrioventricular block, first degree; I25.2 Old myocardial infarction; Z79.899 Other long term (current) drug therapy; Z79.82 Long term (current) use of aspirin; Z79.4 Long term (current) use of insulin; Z82.49 Family history of ischemic heart disease and other diseases of the circulatory system; Z91.14 Patient's other noncompliance with medication regimen; Z59.8 Other problems related to housing and economic circumstances
CPT/HCPCS: 93005; 99285; 96374; 36415 ×4; 87040; 82553; 82962 ×4; 82550; 84100; 84156; 82570; 85025 ×4; 80048 ×3; 80053; 81001; 84484; 83880; 71046; 71045 ×2; 76775; 93010; G0378 ×5; A9270 ×20; J1644 ×4; J1940 ×3; J3490; Q5106; J1815

== ENCOUNTER 2019-04-15 15:37 | Inpatient (IN) | payer MEDICARE ==
[2019-04-15] MEDS ORDERED: FUROSEMIDE INJ/PF 40 MG/4 ML SDV IV ONE ×2 (15:54→17:57)
--- NOTE | 2019-04-15 16:01 | ER Document Report ---
ED Medical Screen (RME) - General Chief Complaint: Shortness Of Breath Stated Complaint: SHORT OF BREATH Time Seen by Provider: 04/15/19 15:47 Primary Care Provider: FLORENCIO WINKLER DO [Primary Care Provider] - Follow up as needed Notes: 68-year-old male with stage IV renal insufficiency, hypertension, CHF with recent discharge from this facility on April 12 presents to the emergency department with chief complaint of acute shortness of breath. Patient states that he just could not get his breath this morning. No fever or chills, no chest pain, no nausea or vomiting, no diaphoresis. Exam: Well-appearing in no acute distress and speaking in full sentences, expiratory wheezes heard in all schwartz, no rales heard. Regular cardiac rate and rhythm, trace bilateral lower extremity pitting edema I have greeted and performed a rapid initial assessment of this patient. A comprehensive ED assessment and evaluation of the patient, analysis of test results and completion of medical decision making process will be conducted by an additional ED providers. - Related Data Allergies/Adverse Reactions: JUDE Inhibitors Allergy (Verified 04/15/19 15:46) Home Medications: states unchanged from inpatient discharge on monday Past Medical History - Social History Chew tobacco use (# tins/day): No Frequency of alcohol use: None Drug Abuse: None - Past Medical History Cardiac Medical History: Reports: Hx Atrial Fibrillation, Hx Congestive Heart Failure, Hx Coronary Artery Disease, Hx Heart Attack - SILENT-SHOWED UP ON EKG, Hx Hypercholesterolemia, Hx Hypertension - MEDS Pulmonary Medical History: Denies: Hx Asthma Neurological Medical History: Denies: Hx Cerebrovascular Accident, Hx Seizures Endocrine Medical History: Reports: Hx Diabetes Mellitus Type 2 Renal/ Medical History: Reports: Hx End Stage Renal Disease. Denies: Hx Peritoneal Dialysis GI Medical History: Denies: Hx Hepatitis, Hx Hiatal Hernia, Hx Ulcer Musculoskeltal Medical History: Reports Hx Arthritis Infectious Medical History: Denies: Hx Hepatitis Past Surgical History: Denies: Hx Open Heart Surgery, Hx Pacemaker Doctor's Discharge - Discharge Referrals: FLORENCIO WINKLER DO [Primary Care Provider] - Follow up as needed
[2019-04-15 16:56] LABS: APPEARANCE,URINE SLIGHTLY-CLOUDY; BILIRUBIN,URINE NEGATIVE (NEGATIVE); COLOR,URINE YELLOW; GLUCOSE, URINE 150 mg/dL (NEGATIVE); KETONES,URINE NEGATIVE (NEGATIVE); LEUKOCYTE ESTERASE,URINE NEGATIVE (NEGATIVE); NITRITE,URINE NEGATIVE (NEGATIVE); PROTEIN,URINE >=500 mg/dL (NEGATIVE); UROBILINOGEN,URINE NEGATIVE mg/dL (<2.0)
[2019-04-15 16:58] LABS: HEMATOCRIT 26.8 % (37.9-51.0); HEMOGLOBIN 8.8 g/dL (13.5-17.0); MEAN CORPUSCULAR HEMOGLOBIN 28.9 pg (27.0-33.4); MEAN CORPUSCULAR HGB CONC 32.9 g/dL (32.0-36.0); MEAN CORPUSCULAR VOLUME 88 fl (80-97); RED BLOOD COUNT 3.06 10^6/uL (4.35-5.55); RED CELL DISTRIBUTION WIDTH 14.8 % (11.5-14.0); WHITE BLOOD COUNT 11.5 10^3/uL (4.0-10.5)
--- NOTE | 2019-04-15 17:13 | RADIOLOGY REPORT (SQ) ---
EXAM DESCRIPTION: CHEST SINGLE VIEW COMPLETED DATE/TIME: 04/15/2019 4:44 pm REASON FOR STUDY: acute SOB/ recent dishcarge for CHF COMPARISON: 04/12/2019. NUMBER OF VIEWS: One view. TECHNIQUE: Single frontal radiographic view of the chest acquired. LIMITATIONS: None. FINDINGS: LUNGS AND PLEURA: No opacities, masses or pneumothorax. Small right pleural effusion. MEDIASTINUM AND HILAR STRUCTURES: No masses or contour abnormality. HEART AND VASCULATURE: Cardiac enlargement. Vascular congestion. BONES: No acute findings. HARDWARE: None in the chest. OTHER: No other significant finding. IMPRESSION: CARDIOMEGALY AND MILD VASCULAR CONGESTION, UNCHANGED. SMALL RIGHT PLEURAL EFFUSION. TECHNICAL DOCUMENTATION: JOB ID: [id number] [employer]- All Rights Reserved Reading location - IP/workstation name: [email or web address]
[2019-04-15 17:15] LABS: ABSOLUTE LYMPHOCYTES# (MANUAL) 1.2 10^3/uL (0.5-4.7); ABSOLUTE MONOCYTES # (MANUAL) 0.9 10^3/uL (0.1-1.4); BASOPHILS % (MANUAL) 3 % (0-2); EOSINOPHILS % (MANUAL) 6 % (0-6); LYMPHOCYTES % (MANUAL) 10 % (13-45); MONOCYTES % (MANUAL) 8 % (3-13); NUCLEATED RED BLOOD CELLS 1 /100 WBC (0); SEGMENTED NEUTROPHILS % (MAN) 73 % (42-78); TOTAL CELLS COUNTED 100
[2019-04-15 17:16] LABS: ALBUMIN 3.3 g/dL (3.5-5.0); ALKALINE PHOSPHATASE 58 U/L (38-126); ANION GAP 11 (5-19); ASPARTATE AMINO TRANSFERASE 16 U/L (17-59); BILIRUBIN,DIRECT 0.2 mg/dL (0.0-0.4); BILIRUBIN,TOTAL 0.3 mg/dL (0.2-1.3); BLOOD UREA NITROGEN 79 mg/dL (7-20); CALCIUM 9.9 mg/dL (8.4-10.2); CARBON DIOXIDE 23 mmol/L (22-30); CHLORIDE 99 mmol/L (98-107); GLUCOSE 83 mg/dL (75-110); POLYCHROMASIA 1+; POTASSIUM 4.5 mmol/L (3.6-5.0)
[2019-04-15 17:17] LABS: ANISOCYTOSIS SLIGHT; PLATELET CLUMPS PRESENT; PLATELET COMMENT ADEQUATE; PLATELET COUNT 403 10^3/uL (150-450)
[2019-04-15 17:28] LABS: TROPONIN I 0.025 ng/mL
--- NOTE | 2019-04-15 18:48 | ER Document Report ---
ED Respiratory Problem - General Chief Complaint: Shortness Of Breath Stated Complaint: SHORT OF BREATH Time Seen by Provider: 04/15/19 15:47 Mode of Arrival: Ambulatory Information source: Patient TRAVEL OUTSIDE OF THE [place] IN LAST 30 DAYS: No - HPI Notes: Patient presents with complaints of shortness of breath. He states that he was admitted here 1 week ago with chest pain. He states at that time he was told that he had stage IV renal failure. He was set up with outpatient follow-up with nephrology. He was also started on torsemide and his Lasix was discontinued. He states he feels that his leg swelling is better. He denies having any chest pain recently. He states, however, that he has significantly more shortness of breath. He states that his dyspnea on exertion is significant now. Patient symptoms are moderate to severe. They are worse with exertion and better with rest. There is no radiation of symptoms. They are intermittent. He states he has a mild dry cough. And he has some mild sinus congestion. However no fevers. No vomiting or diarrhea. He states he has been told in the past that he has congestive heart failure. He denies any history of COPD or previous smoking. - Related Data Allergies/Adverse Reactions: JUDE Inhibitors Allergy (Verified 04/15/19 15:46) Home Medications: states unchanged from inpatient discharge on monday Past Medical History - General Information source: Patient - Social History Smoking Status: Never Smoker Chew tobacco use (# tins/day): No Frequency of alcohol use: None Drug Abuse: None Family History: Reviewed & Not Pertinent Patient has suicidal ideation: No Patient has homicidal ideation: No - Past Medical History Cardiac Medical History: Reports: Hx Atrial Fibrillation, Hx Congestive Heart Failure, Hx Coronary Artery Disease, Hx Heart Attack - SILENT-SHOWED UP ON EKG, Hx Hypercholesterolemia, Hx Hypertension - MEDS Pulmonary Medical History: Denies: Hx Asthma Neurological Medical History: Denies: Hx Cerebrovascular Accident, Hx Seizures Endocrine Medical History: Reports: Hx Diabetes Mellitus Type 2 Renal/ Medical History: Reports: Hx End Stage Renal Disease. Denies: Hx Peritoneal Dialysis GI Medical History: Denies: Hx Hepatitis, Hx Hiatal Hernia, Hx Ulcer Musculoskeletal Medical History: Reports Hx Arthritis Infectious Medical History: Denies: Hx Hepatitis Past Surgical History: Denies: Hx Open Heart Surgery, Hx Pacemaker Review of Systems - Review of Systems Constitutional: Malaise, Weakness. denies: Chills, Fever Cardiovascular: denies: Chest pain, Palpitations Respiratory: Cough, Short of breath. denies: Sputum Gastrointestinal: denies: Diarrhea, Nausea -: Yes All other systems reviewed and negative Physical Exam - Vital signs Vitals: BP Pulse Ox 139/63 H 95 04/15/19 16:47 04/15/19 16:47 Interpretation: Tachycardic, Tachypneic - General General appearance: Alert In distress: Mild - HEENT Head: Normocephalic, Atraumatic Eyes: Normal Pupils: PERRL - Respiratory Respiratory status: Labored, Other - Respirations are mildly labored with a slight increase in rate. Chest status: Nontender Breath sounds: Decreased air movement, Wheezing Chest palpation: Normal - Cardiovascular Rhythm: Regular Heart sounds: Normal auscultation Murmur: No - Abdominal Inspection: Normal Distension: No distension Bowel sounds: Normal Tenderness: Nontender Organomegaly: No organomegaly - Back Back: Normal, Nontender - Extremities General upper extremity: Normal inspection, Nontender, Normal color, Normal ROM, Normal temperature General lower extremity: Normal inspection, Nontender, Edema - Patient has 2+ bilateral lower extremity edema, that is pitting, Normal color, Normal ROM, Normal temperature. No: Hina's sign - Neurological Neuro grossly intact: Yes Cognition: Normal Orientation: AAOx4 [place] Coma Scale Eye Opening: Spontaneous [place] Coma Scale Verbal: Oriented [place] Coma Scale Motor: Obeys Commands [place] Coma Scale Total: 15 Speech: Normal Motor strength normal: LUE, RUE, LLE, RLE Sensory: Normal - Psychological Associated symptoms: Normal affect, Normal mood - Skin Skin Temperature: Warm Skin Moisture: Dry Skin Color: Normal Course - Re-evaluation Re-evalutation: 04/15/19 18:45 Patient presents with new onset worsening dyspnea on exertion and shortness of breath. He was found to be hypoxic on arrival. He does not have any chest pain. However he did recently have a new regimen started for his CHF. His renal failure is stable. His anemia is stable. However patient's BNP has gone from 5000-20,000. He also has a stable chest x-ray. It is unclear why but at this point patient has worsening congestive heart failure. It seems prudent that patient would benefit from in-hospital treatment for this, serial labs, and nephrology and possibly cardiology consultation. - Vital Signs Vital signs: Temp Pulse Resp BP Pulse Ox 25 H 129/63 H 96 04/15/19 17:55 04/15/19 17:55 04/15/19 17:55 - Laboratory Result Diagrams: 04/15/19 16:40 04/15/19 16:40 Laboratory results interpreted by me: 04/15/19 04/15/19 04/15/19 16:14 16:40 16:40 WBC 11.5 H RBC 3.06 L Hgb 8.8 L Hct 26.8 L RDW 14.8 H Lymphocytes % (Manual) 10 L Basophils % (Manual) 3 H Abs Neuts (Manual) 8.4 H Absolute Eos (Manual) 0.7 H Abs Basophils (Manual) 0.3 H Sodium 132.8 L BUN 79 H Creatinine 5.12 H Est GFR ( Amer) 14 L Est GFR (MDRD) Non-Af 11 L AST 16 L NT-Pro-B Natriuret Pep Total Protein 6.0 L Albumin 3.3 L Urine Protein >=500 H Urine Glucose (UA) 150 H 04/15/19 16:40 WBC RBC Hgb Hct RDW Lymphocytes % (Manual) Basophils % (Manual) Abs Neuts (Manual) Absolute Eos (Manual) Abs Basophils (Manual) Sodium BUN Creatinine Est GFR ( Amer) Est GFR (MDRD) Non-Af AST NT-Pro-B Natriuret Pep 60257 H Total Protein Albumin Urine Protein Urine Glucose (UA) - Diagnostic Test Radiology reviewed: Image reviewed, Reports reviewed - EKG Interpretation by Me EKG shows normal: Sinus rhythm Rate: Normal - 70 Rhythm: NSR Heart block present: 1st Degree Discharge - Discharge Clinical Impression: Obesity, Class II, BMI 35-39.9, Chronic kidney disease (CKD), stage IV (severe), Pleural effusion, Diabetes mellitus type 2, insulin dependent Acute exacerbation of CHF (congestive heart failure) Qualifiers: Heart failure type: unspecified Qualified Code(s): I50.9 - Heart failure, unspecified Anemia in CKD (chronic kidney disease) Qualifiers: Chronic kidney disease stage: stage 4 (severe) Qualified Code(s): N18.4 - Chronic kidney disease, stage 4 (severe); D63.1 - Anemia in chronic kidney disease Fluid overload Qualifiers: Hypervolemia type: other Qualified Code(s): E87.79 - Other fluid overload Condition: Serious Disposition: ADMITTED INPATIENT Admitting Provider: Cinthya (Hospitalist) Unit Admitted: Telemetry
[2019-04-15] MEDS ORDERED: ACETAMINOPHEN 325 MG TABLET PO PRN (19:08)
[2019-04-15] MEDS ORDERED: MAG HYDROX/AL HYDROX/SIMETH SUSP 30 ML UDCUP PO PRN (19:08)
[2019-04-15] MEDS ORDERED: NITROGLYCERIN 0.4 MG/TAB 25 TAB/BOTTLE SL PRN (19:08)
[2019-04-15] MEDS ORDERED: DEXTROSE 50%-WATER 25 GM/50 ML DISP.SYRIN IV PRN ×2 (19:26)
[2019-04-15] MEDS ORDERED: GLUCAGON,HUMAN RECOMB 1 MG INJ IM PRN (19:26)
[2019-04-15] MEDS ORDERED: DEXTROSE 40% GEL 15 GM TUBE PO PRN ×2 (19:26)
--- NOTE | 2019-04-15 19:47 | PDOC H&P ---
History of Present Illness Admission Date/PCP: 04/15/19 18:41 FLORENCIO WINKLER MD Patient complains of: Shortness of breath History of Present Illness: WILIAM GAN is a 68 year old male recently discharged from this hospital with a history of atrial fibrillation, coronary artery disease, congestive heart failure and stage IV kidney failure. He normally is not on home oxygen. Over the last several days he has been experiencing increasing shortness of breath with less and less exertion. BNP was elevated. The patient requires oxygen supplementation. Troponin is unremarkable as is his EKG. He was referred to the hospital service for admission. Past Medical History Cardiac Medical History: Reports: Atrial Fibrillation, Congestive Heart Failure, Coronary Artery Disease, Myocardial Infarction - SILENT-SHOWED UP ON EKG, Hyperlipidema, Hypertension - MEDS Pulmonary Medical History: Denies: Asthma EENT Medical History: Denies: Ears, Nose, Throat Neurological Medical History: Denies: Ischemic CVA, Seizures Endocrine Medical History: Reports: Diabetes Mellitus Type 2 Renal/ Medical History: Reports: End Stage Renal Disease Malignancy Medical History: Reports: None GI Medical History: Denies: Hepatitis, Hiatal Hernia Musculoskeltal Medical History: Reports: Arthritis Skin Medical History: Reports: None Psychiatric Medical History: Denies: Alcohol Dependency, Depression, Substance Abuse, Tobacco Dependency Traumatic Medical History: Reports: None Hematology: Reports: Anemia - MED Denies: Sickle Cell Disease Infectious Medical History: Reports: None Past Surgical History Past Surgical History: Denies: Pacemaker Social History Information Source: Patient, [facility] Records Lives with: Spouse/Significant other Smoking Status: Never Smoker Electronic Cigarette use?: No Frequency of Alcohol Use: None Hx Recreational Drug Use: No Drugs: None Hx Prescription Drug Abuse: No - Advance Directive Resuscitation Status: Full Code Surrogate healthcare decision maker:: The patient's is the decision maker should he become incapacitated Family History Family History: CVA, Malignancy Parental Family History Reviewed: Yes Children Family History Reviewed: Yes Sibling(s) Family History Reviewed.: Yes Medication/Allergy Home Medications: Amlodipine Besylate [Norvasc 5 mg Tablet] 5 mg PO QHS 04/09/19 Aspirin [Adult Low Dose Aspirin EC] 81 mg PO BID 04/09/19 Aspirin [Aspirin 325 mg Tablet] 325 mg PO BID 04/09/19 Calcium Crb,Cit/D3/Min34/Kam [Citracal + Bone Density Tablet] 1 tab PO DAILY 04/09/19 Carvedilol [Coreg 25 mg Tablet] 25 mg PO Q12 04/09/19 Cholecalciferol (Vitamin D3) [Vitamin D3 2000 unit Tablet] 2,000 unit PO DAILY 04/09/19 Doxazosin Mesylate [Cardura 4 mg Tablet] 4 mg PO QHS 04/09/19 Ferrous Sulfate [Feosol 325 mg Tablet] 325 mg PO BID 04/09/19 Fluticasone Propionate [Flonase Nasal [place] 50 Mcg/[place] 16 gm] 1 spray NASL ASDIR PRN 04/09/19 Hydralazine HCl 100 mg PO Q8 04/09/19 Insulin Aspart [Novolog] 0 unit SQ .SLD SCALE 04/09/19 Insulin Detemir [Levemir] 30 unit SQ QHS 04/09/19 Isosorbide Mononitrate [Imdur 60 mg Tablet.er] 60 mg PO DAILY 04/09/19 Montelukast Sodium [Singulair 10 mg Tablet] 10 mg PO QHS 04/09/19 Psyllium Husk (with Sugar) [Metamucil Packet] 1 packet PO DAILY 04/09/19 Vitamin B Complex [B Complex] 1 each PO DAILY 04/09/19 Calcium Acetate [Phoslo 667 mg Capsule] 667 mg PO MEALS #90 capsule 04/12/19 Torsemide [Demadex 20 mg Tablet] 60 mg PO DAILY #90 tablet 04/12/19 Allergies/Adverse Reactions: JUDE Inhibitors Allergy (Verified 04/15/19 15:46) Review of Systems Constitutional: ABSENT: anorexia, fever(s), headache(s) Eyes: ABSENT: visual disturbances Ears: ABSENT: hearing changes Nose, Mouth, and Throat: ABSENT: headache(s), mouth pain, sore throat Cardiovascular: PRESENT: chest pain, dyspnea on exertion, edema. ABSENT: palpitations Respiratory: PRESENT: dyspnea. ABSENT: cough, hemoptysis, sputum Gastrointestinal: ABSENT: abdominal pain, constipation, diarrhea, heartburn, nausea, vomiting Genitourinary: ABSENT: difficulty urinating, dysuria, hematuria Musculoskeletal: ABSENT: deformity, joint swelling, muscle weakness Integumentary: ABSENT: diaphoresis, lesions, pruritus, rash Neurological: ABSENT: abnormal gait, abnormal movements, abnormal speech, focal weakness, memory loss Psychiatric: ABSENT: anxiety, depression Endocrine: ABSENT: cold intolerance, heat intolerance, polydipsia, polyphagia, polyuria Hematologic/Lymphatic: ABSENT: easy bleeding, easy bruising Physical Exam Vital Signs: Temp Pulse Resp BP Pulse Ox 25 H 129/63 H 96 04/15/19 17:55 04/15/19 17:55 04/15/19 17:55 General appearance: PRESENT: cooperative, mild distress, obese. ABSENT: disheveled Head exam: PRESENT: atraumatic, normocephalic Eye exam: PRESENT: conjunctiva pale, EOMI. ABSENT: scleral icterus Mouth exam: PRESENT: moist, tongue midline Neck exam: ABSENT: carotid bruit, JVD, lymphadenopathy, thyromegaly Respiratory exam: PRESENT: rales, symmetrical, tachypnea. ABSENT: accessory muscle use, rhonchi, wheezes Cardiovascular exam: PRESENT: irregular rhythm, +S1, +S2, systolic murmur - 2/6 GI/Abdominal exam: PRESENT: distended, normal bowel sounds, soft. ABSENT: guarding, tenderness Rectal exam: PRESENT: deferred Gentrourinary exam: ABSENT: indwelling catheter Extremities exam: PRESENT: +1 edema. ABSENT: calf tenderness, joint swelling Musculoskeletal exam: PRESENT: ambulatory, normal inspection Neurological exam: PRESENT: alert, awake, oriented to person, oriented to place, oriented to time, oriented to situation, CN II-XII grossly intact. ABSENT: motor sensory deficit Psychiatric exam: PRESENT: flat affect. ABSENT: agitated, anxious Focused psych exam: ABSENT: delusional, restlessness Skin exam: PRESENT: dry, normal color, warm. ABSENT: rash Results Laboratory Results: 04/15/19 16:40 04/15/19 16:40 04/15/19 04/15/19 04/15/19 16:14 16:40 16:40 WBC 11.5 H RBC 3.06 L Hgb 8.8 L Hct 26.8 L MCV 88 MCH 28.9 MCHC 32.9 RDW 14.8 H Plt Count 403 Seg Neutrophils % Not Reportable Sodium 132.8 L Potassium 4.5 Chloride 99 Carbon Dioxide 23 Anion Gap 11 BUN 79 H Creatinine 5.12 H Est GFR ( Amer) 14 L Glucose 83 Calcium 9.9 Total Bilirubin 0.3 AST 16 L Alkaline Phosphatase 58 Total Protein 6.0 L Albumin 3.3 L Urine Color YELLOW Urine Appearance SLIGHTLY-CLOUDY Urine pH 5.0 Ur Specific [place] 1.010 Urine Protein >=500 H Urine Glucose (UA) 150 H Urine Ketones NEGATIVE Urine Blood NEGATIVE Urine Nitrite NEGATIVE Ur Leukocyte Esterase NEGATIVE Urine WBC (Auto) 1 04/15/19 16:40 Troponin I 0.025 NT-Pro-B Natriuret Pep 40650 H Impressions: Chest X-Ray 04/15/19 15:54 IMPRESSION: CARDIOMEGALY AND MILD VASCULAR CONGESTION, UNCHANGED. SMALL RIGHT PLEURAL EFFUSION. Assessment and Plan - Diagnosis (1) Acute exacerbation of CHF (congestive heart failure) Qualifiers: Heart failure type: systolic Qualified Code(s): I50.23 - Acute on chronic systolic (congestive) heart failure Is this a current diagnosis for this admission?: Yes Plan: 04/15/2019-the patient had an echocardiogram at this facility in August. His ejection fraction was slightly low at 55%. There was no evidence of diastolic dysfunction. He does have severe pulmonary hypertension. He will be on his carvedilol as well as hydralazine and Cardura. I have added low-dose losartan. We will monitor intake and output as well. (2) Pulmonary hypertension Is this a current diagnosis for this admission?: Yes Plan: 04/15/2019-the echocardiogram in August showed severe pulmonary hypertension. Will discuss with cardiology regarding possible medication adjustments. (3) Chronic kidney disease, stage V Is this a current diagnosis for this admission?: Yes Plan: 04/15/2019-I have asked for notes from his last outpatient nephrology visit from his outpatient load out worker. As an inpatient I will asked nephrology to see the patient as well. Monitor renal function and electrolytes as well as phosphorus. Adjust medications if needed. (4) Anemia in CKD (chronic kidney disease) Qualifiers: Chronic kidney disease stage: stage 5, not on chronic dialysis Qualified Code(s): N18.5 - Chronic kidney disease, stage 5; D63.1 - Anemia in chronic kidney disease Is this a current diagnosis for this admission?: Yes Plan: 04/15/2019-continue iron supplements. Nephrology consult will be requested. Transfuse if necessary. I believe the patient does qualify for erythropoietin therapy. (5) Diabetes mellitus type 2, insulin dependent Is this a current diagnosis for this admission?: Yes Plan: 04/15/2019-continue long-acting insulin. Sliding scale with Humalog. He states that he has been recently started on glipizide and Januvia. He is not sure the doses. For today I will use glipizide 5 mg. Once medication reconciliation is completed consider altering doses. (6) HTN (hypertension) Qualifiers: Hypertension type: essential hypertension Qualified Code(s): I10 - Essential (primary) hypertension Is this a current diagnosis for this admission?: Yes Plan: 04/15/2019-antihypertensives will continue with Norvasc 5 mg daily, Cardura 4 mg daily, hydralazine 100 mg every 8 hours and carvedilol 25 mg twice daily. We will use intravenous furosemide instead of his Demadex for the time being. We will continue to monitor his blood pressure and adjust medications accordingly. (7) Hyponatremia Is this a current diagnosis for this admission?: Yes Plan: 04/15/2019-hyponatremia is chronic. The patient cannot go without diuretic therapy. His serum sodium typically ranges between 130 and 135. We will continue to monitor. - Time Time Spent with patient: 35 or more minutes Medications reviewed and adjusted accordingly: Yes Anticipated discharge: Home - Inpatient Certification Based on my medical assessment, after consideration of the patient's c omorbidities, presenting symptoms, or acuity I expect that the services needed warrant INPATIENT care.: Yes I certify that my determination is in accordance with my understanding of Medicare's requirements for reasonable and necessary INPATIENT services [42 CFR 412.3e].: Yes Medical Necessity: Significant Comorbidiites Make Outpatient Treatment Too Risky, Need Close Monitoring Due to Risk of Patient Decompensation, Need For Continuous Telemetry Monitoring
[2019-04-15] MEDS: HYDRALAZINE HCL 50 MG TABLET PO SCH (23:03)
[2019-04-15] MEDS: MONTELUKAST SODIUM 10 MG TABLET PO SCH (23:03)
[2019-04-15] MEDS: AMLODIPINE BESYLATE 5 MG TABLET PO SCH (23:03)
[2019-04-15] MEDS: CARVEDILOL 12.5 MG TABLET PO SCH (23:03)
[2019-04-15] MEDS: DOXAZOSIN MESYLATE 4 MG TABLET PO SCH (23:03)
[2019-04-15] MEDS: FAMOTIDINE INJ/PF 20 MG/2 ML SDV IV SCH (23:04)
[2019-04-15] MEDS: FLUTICASONE NASAL SPRAY 50 MCG/SPRY 120 SPRAY/16 GM NASL SCH (23:04)
[2019-04-15] MEDS: HEPARIN SOD (PORCINE) 5,000 UNIT/ML 1 ML VIAL SUBCUT SCH (23:04)
[2019-04-15] MEDS: FUROSEMIDE INJ/PF 40 MG/4 ML SDV IV SCH (23:06)
[2019-04-15] MEDS: INSULIN LISPRO 100 UNIT/ML 3 ML VIAL SUBCUT SCH (23:17)
[2019-04-15] MEDS: INSULIN GLARGINE,HUM.REC.ANLOG 1,000 UNIT/10 ML VIAL SUBCUT SCH (23:19)
[2019-04-16] MEDS: HYDRALAZINE HCL 50 MG TABLET PO SCH ×3 (07:09→22:45)
[2019-04-16] MEDS: HEPARIN SOD (PORCINE) 5,000 UNIT/ML 1 ML VIAL SUBCUT SCH ×3 (07:10→22:46)
[2019-04-16] MEDS: INSULIN LISPRO 100 UNIT/ML 3 ML VIAL SUBCUT SCH ×4 (07:33→22:48)
[2019-04-16] MEDS: CALCIUM ACETATE 667 MG CAPSULE PO SCH ×3 (07:48→17:24)
[2019-04-16] MEDS: GLIPIZIDE 5 MG TABLET PO SCH (07:48)
[2019-04-16 08:44] LABS: ABSOLUTE BASOPHILS # (AUTO) 0.1 10^3/uL (0.0-0.2); ABSOLUTE EOSINOPHILS # (AUTO) 0.6 10^3/uL (0.0-0.6); ABSOLUTE MONOCYTES (AUTO) 1.1 10^3/uL (0.1-1.4); ABSOLUTE NEUT (AUTO) 9.1 10^3/uL (1.7-8.2); HEMATOCRIT 25.2 % (37.9-51.0); HEMOGLOBIN 8.3 g/dL (13.5-17.0); LYMPHOCYTES % (AUTO) 8.1 % (13-45); MEAN CORPUSCULAR HEMOGLOBIN 28.9 pg (27.0-33.4); MEAN CORPUSCULAR HGB CONC 32.8 g/dL (32.0-36.0); MEAN CORPUSCULAR VOLUME 88 fl (80-97); MONOCYTES % (AUTO) 9.1 % (3-13); PLATELET COUNT 382 10^3/uL (150-450); RED BLOOD COUNT 2.87 10^6/uL (4.35-5.55); RED CELL DISTRIBUTION WIDTH 14.7 % (11.5-14.0); SEGMENTED NEUTROPHILS % (AUTO) 76.8 % (42-78); TOTAL CELLS COUNTED % (AUTO) 100 %; WHITE BLOOD COUNT 11.8 10^3/uL (4.0-10.5)
[2019-04-16 09:11] LABS: ANION GAP 14 (5-19); BLOOD UREA NITROGEN 81 mg/dL (7-20); CALCIUM 9.6 mg/dL (8.4-10.2); CARBON DIOXIDE 22 mmol/L (22-30); CHLORIDE 99 mmol/L (98-107); CHOLESTEROL 147.84 mg/dL (0-200); GLUCOSE 77 mg/dL (75-110); POTASSIUM 4.7 mmol/L (3.6-5.0); TRIGLYCERIDES 130 mg/dL (<150)
[2019-04-16 09:20] LABS: TROPONIN I 0.028 ng/mL
[2019-04-16 09:22] LABS: DIRECT LDL 88 mg/dL (<100)
[2019-04-16] MEDS: LOSARTAN POTASSIUM 25 MG TABLET PO SCH (10:05)
[2019-04-16] MEDS: FLUTICASONE NASAL SPRAY 50 MCG/SPRY 120 SPRAY/16 GM NASL SCH ×2 (10:06→22:51)
[2019-04-16] MEDS: ISOSORBIDE MONONITRATE 60 MG TAB.ER.24H PO SCH (10:06)
[2019-04-16] MEDS: FERROUS SULFATE 325 MG TABLET PO SCH ×2 (10:06→17:24)
[2019-04-16] MEDS: FAMOTIDINE INJ/PF 20 MG/2 ML SDV IV SCH ×2 (10:06→22:47)
[2019-04-16] MEDS: CHOLECALCIFEROL (D3) 1,000 UNIT (25 MCG) TABLET PO SCH (10:06)
[2019-04-16] MEDS: CARVEDILOL 12.5 MG TABLET PO SCH ×2 (10:06→22:46)
[2019-04-16] MEDS: ASPIRIN 325 MG TABLET, ENT COATED PO SCH (10:06)
[2019-04-16] MEDS: FUROSEMIDE INJ/PF 40 MG/4 ML SDV IV SCH ×2 (10:06→22:42)
--- NOTE | 2019-04-16 13:03 | PDOC PROGRESS REPORT ---
Subjective Progress Note for:: 04/16/19 Subjective:: Still reports feeling short of breath. Still feels a fullness across his abdomen. It is not painful. He acknowledges that the breathing is slightly better. Reason For Visit: HEART FAILURE Physical Exam Vital Signs: Temp Pulse Resp BP Pulse Ox 97.7 F 64 18 152/76 H 94 04/16/19 07:32 04/16/19 07:32 04/16/19 07:32 04/16/19 07:32 04/16/19 07:32 Intake & Output 04/15/19 04/16/19 04/17/19 06:59 06:59 06:59 Intake Total 8 Balance 8 Weight 97.5 kg 97.5 kg General appearance: PRESENT: no acute distress, cooperative, well-developed Head exam: PRESENT: atraumatic, normocephalic Eye exam: PRESENT: conjunctiva pale. ABSENT: scleral icterus Ear exam: PRESENT: normal external ear exam. ABSENT: bleeding, drainage Mouth exam: PRESENT: dry mucosa, tongue midline. ABSENT: neck supple Respiratory exam: PRESENT: clear to auscultation thalia, symmetrical, unlabored. ABSENT: rales, rhonchi, tachypnea, wheezes Cardiovascular exam: PRESENT: RRR, +S1, +S2 GI/Abdominal exam: PRESENT: normal bowel sounds, soft. ABSENT: distended, tende rness Rectal exam: PRESENT: deferred Extremities exam: ABSENT: pedal edema, tenderness Musculoskeletal exam: PRESENT: normal inspection. ABSENT: deformity, dislocation Neurological exam: PRESENT: alert, awake, oriented to person, oriented to place, oriented to time, oriented to situation, CN II-XII grossly intact Psychiatric exam: PRESENT: appropriate affect. ABSENT: agitated, anxious Focused psych exam: ABSENT: delusional, restlessness Results Laboratory Results: 04/16/19 07:47 04/16/19 07:47 04/15/19 04/15/19 04/15/19 16:14 16:40 16:40 WBC 11.5 H RBC 3.06 L Hgb 8.8 L Hct 26.8 L MCV 88 MCH 28.9 MCHC 32.9 RDW 14.8 H Plt Count 403 Seg Neutrophils % Not Reportable Sodium 132.8 L Potassium 4.5 Chloride 99 Carbon Dioxide 23 Anion Gap 11 BUN 79 H Creatinine 5.12 H Est GFR ( Amer) 14 L Glucose 83 Calcium 9.9 Phosphorus Magnesium Total Bilirubin 0.3 AST 16 L Alkaline Phosphatase 58 Total Protein 6.0 L Albumin 3.3 L Triglycerides Cholesterol LDL Cholesterol Direct VLDL Cholesterol HDL Cholesterol Urine Color YELLOW Urine Appearance SLIGHTLY-CLOUDY Urine pH 5.0 Ur Specific [place] 1.010 Urine Protein >=500 H Urine Glucose (UA) 150 H Urine Ketones NEGATIVE Urine Blood NEGATIVE Urine Nitrite NEGATIVE Ur Leukocyte Esterase NEGATIVE Urine WBC (Auto) 1 04/15/19 04/16/19 04/16/19 16:40 07:47 07:47 WBC 11.8 H RBC 2.87 L Hgb 8.3 L Hct 25.2 L MCV 88 MCH 28.9 MCHC 32.8 RDW 14.7 H Plt Count 382 Seg Neutrophils % 76.8 Sodium 134.6 L Potassium 4.7 Chloride 99 Carbon Dioxide 22 Anion Gap 14 BUN 81 H Creatinine 4.88 H Est GFR ( Amer) 14 L Glucose 77 Calcium 9.6 Phosphorus 6.5 H Magnesium 2.6 H Total Bilirubin AST Alkaline Phosphatase Total Protein Albumin Triglycerides 130 Cholesterol 147.84 LDL Cholesterol Direct 88 VLDL Cholesterol 26.0 HDL Cholesterol 33 L Urine Color Urine Appearance Urine pH Ur Specific [place] Urine Protein Urine Glucose (UA) Urine Ketones Urine Blood Urine Nitrite Ur Leukocyte Esterase Urine WBC (Auto) 04/15/19 04/15/19 04/16/19 16:40 19:56 01:21 Troponin I 0.025 0.028 0.028 NT-Pro-B Natriuret Pep 47208 H 04/16/19 07:47 Troponin I 0.028 NT-Pro-B Natriuret Pep 33447 H Impressions: Chest X-Ray 04/15/19 15:54 IMPRESSION: CARDIOMEGALY AND MILD VASCULAR CONGESTION, UNCHANGED. SMALL RIGHT PLEURAL EFFUSION. Assessment and Plan - Diagnosis (1) Acute exacerbation of CHF (congestive heart failure) Qualifiers: Heart failure type: systolic Qualified Code(s): I50.23 - Acute on chronic systolic (congestive) heart failure Is this a current diagnosis for this admission?: Yes Plan: 04/15/2019-the patient had an echocardiogram at this facility in August. His ejection fraction was slightly low at 55%. There was no evidence of diastolic dysfunction. He does have severe pulmonary hypertension. He will be on his carvedilol as well as hydralazine and Cardura. I have added low-dose losartan. We will monitor intake and output as well. 04/16/2019-continue negative fluid balance and current medication regimen. (2) Pulmonary hypertension Is this a current diagnosis for this admission?: Yes Plan: 04/15/2019-the echocardiogram in August showed severe pulmonary hypertension. Will discuss with cardiology regarding possible medication adjustments. 04/16/2019-no adjustments in medications yet. I did explain to the patient that I felt pulmonary hypertension was a significant contributor to his shortness of breath. (3) Chronic kidney disease, stage V Is this a current diagnosis for this admission?: Yes Plan: 04/15/2019-I have asked for notes from his last outpatient nephrology visit from his outpatient merchandise complaint adjuster. As an inpatient I will asked nephrology to see the patient as well. Monitor renal function and electrolytes as well as phosphorus. Adjust medications if needed. 04/16/2019-serum creatinine is improved. Nephrology will be seeing the patient to help with management. (4) Anemia in CKD (chronic kidney disease) Qualifiers: Chronic kidney disease stage: stage 5, not on chronic dialysis Qualified Code(s): N18.5 - Chronic kidney disease, stage 5; D63.1 - Anemia in chronic kidney disease Is this a current diagnosis for this admission?: Yes Plan: 04/15/2019-continue iron supplements. Nephrology consult will be requested. Transfuse if necessary. I believe the patient does qualify for erythropoietin therapy. 04/16/2019-anemia has been stable. No intervention at this time. The patient may benefit from erythropoietin. (5) Diabetes mellitus type 2, insulin dependent Is this a current diagnosis for this admission?: Yes Plan: 04/15/2019-continue long-acting insulin. Sliding scale with Humalog. He states that he has been recently started on glipizide and Januvia. He is not sure the doses. For today I will use glipizide 5 mg. Once medication reconciliation is completed consider altering doses. 04/16/2019-continue current regimen and make adjustments based on Accu-Cheks. (6) HTN (hypertension) Qualifiers: Hypertension type: essential hypertension Qualified Code(s): I10 - Essential (primary) hypertension Is this a current diagnosis for this admission?: Yes Plan: 04/15/2019-antihypertensives will continue with Norvasc 5 mg daily, Cardura 4 mg daily, hydralazine 100 mg every 8 hours and carvedilol 25 mg twice daily. We will use intravenous furosemide instead of his Demadex for the time being. We will continue to monitor his blood pressure and adjust medications accordingly. 04/16/2019-continue current regimen. Will adjust based on blood pressure readings. (7) Hyponatremia Is this a current diagnosis for this admission?: Yes Plan: 04/15/2019-hyponatremia is chronic. The patient cannot go without diuretic therapy. His serum sodium typically ranges between 130 and 135. We will continue to monitor. 04/16/2019-continue current regimen. Serum sodium is improved. We will monitor electrolytes. - Time Time Spent with patient: 15-24 minutes Medications reviewed and adjusted accordingly: Yes Anticipated discharge: Home
--- NOTE | 2019-04-16 21:38 | EKG REPORT ---
SEVERITY:- ABNORMAL ECG - SINUS RHYTHM FIRST DEGREE AV BLOCK LOW VOLTAGE IN FRONTAL LEADS : Confirmed by: Flash Padron 16-Apr-2019 21:37:52
--- NOTE | 2019-04-16 21:39 | EKG REPORT ---
SEVERITY:- ABNORMAL ECG - SINUS RHYTHM FIRST DEGREE AV BLOCK APCs : Confirmed by: Flash Padron 16-Apr-2019 21:38:16
[2019-04-16] MEDS: AMLODIPINE BESYLATE 5 MG TABLET PO SCH (22:46)
[2019-04-16] MEDS: INSULIN GLARGINE,HUM.REC.ANLOG 1,000 UNIT/10 ML VIAL SUBCUT SCH (22:46)
[2019-04-16] MEDS: MONTELUKAST SODIUM 10 MG TABLET PO SCH (22:46)
[2019-04-16] MEDS: DOXAZOSIN MESYLATE 4 MG TABLET PO SCH (22:46)
--- NOTE | 2019-04-17 00:02 | PDOC CONSULTATION ---
Consultation Consult Date: 04/16/19 Provider Consulted: BRITNEY GARCIA Consult reason:: I was asked to see the patient due to chronic kidney disease with comorbidities and complications. History of Present Illness Admission Date/PCP: 04/15/19 18:41 FLORENCIO WINKLER MD History of Present Illness: WILIAM GAN is a 68 year old gentleman with history of chronic kidney disease stage V secondary to diabetic nephropathy with nephrotic range proteinuria, diabetes mellitus type 2, hypertension, coronary artery disease who was readmitted yesterday for shortness of breath again. Patient was just a dmitted to the hospital last week from April 09 to April 12 for acute fluid overload and shortness of breath as well. He was diuresed at that time and was discharged improved last April 12. Patient said that when he went home he was feeling good. However starting Monday, 2 days ago he started to have shortness of breath prompting him to come back to the emergency room. He has elevated BNP on admission of 19,200 and currently down to 13,200. He denies any chest pains. He reports dyspnea at rest and exertion associated with some wheezes. He said he has occasional cough but nonproductive. Echocardiogram on September 29, 2018 showed LVEF of 55%, LVH, normal diastolic dysfunction and severe pulmonary hypertension. He has been initiated on furosemide 60 mg IV every 12 hours. In terms of the kidney function he presented with a BUN of 79, creatinine of 5.12 with a EGFR of 11. Upon discharge on April 12 he had a BUN of 69, creatinine of 4.9. His baseline creatinine ranges anywhere between 3.6-4.8 prior to last week's admission with EGFR anywhere between 13-15. He does have nephrotic range proteinuria protein to creatinine ratio of 10.9. His renal ultrasound showed normal size kidneys with increased echogenicity and no hydronephrosis on April 11. He has anemia of chronic kidney disease for which he received Retacrit 20,000 units last April 11. I also initiated him on phosphorus binders, calcium acetate last week. Patient is aware that eventually he is going to need replacement therapy. Past Medical History Cardiac Medical History: Reports: Atrial Fibrillation, Coronary Artery Disease, Hyperlipidemia, Hypertension-primary, Myocardial Infarction - SILENT-SHOWED UP ON EKG Endocrine Medical History: Reports: Diabetes Mellitus Type 2 Complications of Diabetes: Reports: Retinopathy Renal/ Medical History: Reports: Chronic Kidney Disease Stage V, Hyperphosphatemia, Secondary Hyperparathyroidism Musculoskeltal Medical History: Reports: Arthritis Psychiatric Medical History: Reports: Depression Hematology Medical History: Reports Anemia of Chronic Kidney Disease Past Surgical History Past Surgical History: Reports: None Social History Information Source: Patient Lives with: Spouse/Significant other Smoking Status: Never Smoker Electronic Cigarette use?: No Frequency of Alcohol Use: None Hx Recreational Drug Use: No Drugs: None Hx Prescription Drug Abuse: No - Advance Directive Resuscitation Status: Full Code Family History Family History: Hypertension - Mother, Malignancy - Father Family History: No family history of kidney disease Parental Family History Reviewed: Yes Children Family History Reviewed: Yes Sibling(s) Family History Reviewed.: Yes Medication/Allergy Home Medications: Amlodipine Besylate [Norvasc 5 mg Tablet] 5 mg PO QHS 04/15/19 Apixaban [Eliquis 5 mg Tablet] 5 mg PO Q12 04/15/19 Aspirin [Ecotrin 81 mg EC Tablet] 81 mg PO DAILY 04/15/19 Calcium Acetate [Phoslo 667 mg Capsule] 337 mg PO MEALS 04/15/19 Carvedilol [Coreg 25 mg Tablet] 25 mg PO Q12 04/15/19 Doxazosin Mesylate [Cardura 4 mg Tablet] 4 mg PO QHS 04/15/19 Escitalopram Oxalate [Lexapro 10 mg Tablet] 10 mg PO DAILY 04/15/19 Glipizide [Glipizide Xl] 10 mg PO DAILY 04/15/19 Insulin Aspart [Novolog Insulin (Aspart) 100 unit/mL] 0 unit SQ .SLIDING SCALE 04/15/19 Insulin Detemir [Levemir] 30 unit SQ QHS 04/15/19 Isosorbide Mononitrate [Imdur 60 mg Tablet.er] 60 mg PO DAILY 04/15/19 Montelukast Sodium [Singulair 10 mg Tablet] 10 mg PO QHS 04/15/19 Sitagliptin Phosphate [Januvia 50 mg Tablet] 25 mg PO DAILY 04/15/19 Torsemide [Demadex 20 mg Tablet] 60 mg PO DAILY 04/15/19 Allergies/Adverse Reactions: JUDE Inhibitors Allergy (Verified 04/15/19 15:46) Review of Systems All systems: reviewed and no additional remarkable complaints except as stated Review of Systems: Constitutional: ABSENT: chills, fatigue, fever(s), headache(s), weight gain, weight loss Eyes: ABSENT: visual disturbances Ears: ABSENT: hearing changes Cardiovascular: ABSENT: chest pain, edema, orthropnea, palpitations; reports dyspnea at rest and exertion Respiratory: ABSENT: Dyspnea, hemoptysis; admits cough Gastrointestinal: ABSENT: abdominal pain, constipation, diarrhea, hematemesis, hematochezia, nausea, vomiting Genitourinary: ABSENT: dysuria, hematuria Musculoskeletal: ABSENT: joint swelling Integumentary: ABSENT: rash, wounds Neurological: ABSENT: abnormal gait, abnormal speech, confusion, dizziness, focal weakness, numbness, syncope Psychiatric: ABSENT: anxiety, depression Endocrine: ABSENT: cold intolerance, heat intolerance, polydipsia, polyuria Hematologic/Lymphatic: ABSENT: easy bleeding, easy bruising, lymphadenopathy Physical Exam Vital Signs: Temp Pulse Resp BP Pulse Ox 97.7 F 67 18 152/76 H 94 04/16/19 07:32 04/16/19 14:00 04/16/19 07:32 04/16/19 07:32 04/16/19 07:32 Intake & Output 04/15/19 04/16/19 04/17/19 06:59 06:59 06:59 Intake Total 8 Balance 8 Weight 97.5 kg 97.5 kg Exam: General appearance: No acute distress, cooperative, well-developed, well- nourished Head exam: PRESENT: atraumatic, normocephalic Eye exam: PRESENT: Conjunctiva slightly pale, EOMI, PERRLA. ABSENT: conjunctival injection, scleral icterus Mouth exam: PRESENT: moist, neck supple, tongue midline Neck exam: PRESENT: full ROM. ABSENT: carotid bruit, JVD, lymphadenopathy, thyromegaly Respiratory exam: PRESENT: Diminished to auscultation bilaterally. Occasional expiratory wheeze ABSENT: rales, rhonchi, stridor s Cardiovascular exam: PRESENT: RRR, +S1, +S2. ABSENT: systolic murmur Pulses: PRESENT: normal radial pulses, normal dorsalis pedis pulses GI/Abdominal exam: PRESENT: normal bowel sounds, soft. ABSENT: guarding, mass, tenderness Rectal exam: Deferred Extremities exam: PRESENT: full ROM. ABSENT: calf tenderness, pedal edema Musculoskeletal: PRESENT: full ROM. ABSENT: deformity Neurological exam: PRESENT: alert, Awake, Oriented to person, Oriented to place, Oriented to time, reflexes normal, CN II-XII grossly intact. ABSENT: motor sensory deficit Psychiatric exam: PRESENT: appropriate affect, normal mood. ABSENT: homicidal ideation, suicidal ideation Skin exam: PRESENT: intact, dry, warm. ABSENT: rash Results Laboratory Results: 04/16/19 07:47 04/16/19 07:47 04/15/19 04/15/19 04/15/19 16:14 16:40 16:40 WBC 11.5 H RBC 3.06 L Hgb 8.8 L Hct 26.8 L MCV 88 MCH 28.9 MCHC 32.9 RDW 14.8 H Plt Count 403 Seg Neutrophils % Not Reportable Sodium 132.8 L Potassium 4.5 Chloride 99 Carbon Dioxide 23 Anion Gap 11 BUN 79 H Creatinine 5.12 H Est GFR ( Amer) 14 L Glucose 83 Calcium 9.9 Phosphorus Magnesium Total Bilirubin 0.3 AST 16 L Alkaline Phosphatase 58 Total Protein 6.0 L Albumin 3.3 L Triglycerides Cholesterol LDL Cholesterol Direct VLDL Cholesterol HDL Cholesterol Urine Color YELLOW Urine Appearance SLIGHTLY-CLOUDY Urine pH 5.0 Ur Specific Alliance 1.010 Urine Protein >=500 H Urine Glucose (UA) 150 H Urine Ketones NEGATIVE Urine Blood NEGATIVE Urine Nitrite NEGATIVE Ur Leukocyte Esterase NEGATIVE Urine WBC (Auto) 1 04/15/19 04/16/19 04/16/19 16:40 07:47 07:47 WBC 11.8 H RBC 2.87 L Hgb 8.3 L Hct 25.2 L MCV 88 MCH 28.9 MCHC 32.8 RDW 14.7 H Plt Count 382 Seg Neutrophils % 76.8 Sodium 134.6 L Potassium 4.7 Chloride 99 Carbon Dioxide 22 Anion Gap 14 BUN 81 H Creatinine 4.88 H Est GFR ( Amer) 14 L Glucose 77 Calcium 9.6 Phosphorus 6.5 H Magnesium 2.6 H Total Bilirubin AST Alkaline Phosphatase Total Protein Albumin Triglycerides 130 Cholesterol 147.84 LDL Cholesterol Direct 88 VLDL Cholesterol 26.0 HDL Cholesterol 33 L Urine Color Urine Appearance Urine pH Ur Specific Alliance Urine Protein Urine Glucose (UA) Urine Ketones Urine Blood Urine Nitrite Ur Leukocyte Esterase Urine WBC (Auto) 04/15/19 04/15/19 04/16/19 16:40 19:56 01:21 Troponin I 0.025 0.028 0.028 NT-Pro-B Natriuret Pep [id number] H 04/16/19 07:47 Troponin I 0.028 NT-Pro-B Natriuret Pep 36131 H Impressions: Chest X-Ray 04/15/19 15:54 IMPRESSION: CARDIOMEGALY AND MILD VASCULAR CONGESTION, UNCHANGED. SMALL RIGHT PLEURAL EFFUSION. Assessment & Plan - Diagnosis (1) Dyspnea Is this a current diagnosis for this admission?: Yes Plan: Possible causes include pulmonary vascular congestion, severe pulmonary hypertension and due to acute onset of this shortness of breath and possible flash pulmonary edema need to rule out renal artery stenosis as well. Will order duplex of renal arteries. Recommend cardiology evaluation. Continue diu retics. (2) Pulmonary hypertension Is this a current diagnosis for this admission?: Yes (3) Chronic kidney disease, stage V Is this a current diagnosis for this admission?: Yes Plan: This is due to diabetic nephropathy. There is a slow progressive pain in the kidney function. Patient is nonoliguric. There is no urgent indication for initiation of renal replacement therapy at this time. Continue to monitor kidney function and electrolytes. Avoid nephrotoxic medications. (4) Anemia in CKD (chronic kidney disease) Qualifiers: Chronic kidney disease stage: stage 5, not on chronic dialysis Qualified Code(s): N18.5 - Chronic kidney disease, stage 5; D63.1 - Anemia in chronic kidney disease Is this a current diagnosis for this admission?: Yes Plan: Is to continue Retacrit weekly last dose was 04/11/2019. (6) Hypermagnesemia Is this a current diagnosis for this admission?: Yes Plan: Due to CKD. We will magnesium supplements normal magnesium-based laxatives. (7) Hyponatremia Is this a current diagnosis for this admission?: Yes Plan: Continue calcium acetate. (8) Secondary hyperparathyroidism Is this a current diagnosis for this admission?: Yes Plan: Mild. Monitor. (9) HTN (hypertension) Qualifiers: Hypertension type: essential hypertension Qualified Code(s): I10 - Essential (primary) hypertension Is this a current diagnosis for this admission?: Yes (10) Type 2 diabetes mellitus Qualifiers: Diabetes mellitus intermodal customer service insulin use: unspecified fpc insulin use status Diabetes mellitus complication status: with other specified complication Qualified Code(s): E11.69 - Type 2 diabetes mellitus with other specified complication Is this a current diagnosis for this admission?: Yes - Notes Notes: Thank you very much for this consultation. - Time Time Spent: 50 to 70 Minutes
[2019-04-17] MEDS: HEPARIN SOD (PORCINE) 5,000 UNIT/ML 1 ML VIAL SUBCUT SCH ×3 (05:42→22:00)
[2019-04-17] MEDS: HYDRALAZINE HCL 50 MG TABLET PO SCH ×3 (05:42→21:58)
[2019-04-17 08:22] LABS: ABSOLUTE BASOPHILS # (AUTO) 0.1 10^3/uL (0.0-0.2); ABSOLUTE EOSINOPHILS # (AUTO) 0.4 10^3/uL (0.0-0.6); ABSOLUTE LYMPHOCYTES (AUTO) 0.9 10^3/uL (0.5-4.7); ABSOLUTE MONOCYTES (AUTO) 1.1 10^3/uL (0.1-1.4); ABSOLUTE NEUT (AUTO) 8.5 10^3/uL (1.7-8.2); ABSOLUTE RETICS # 0.117 10^6/uL (0.028-0.122); BASOPHILS % (AUTO) 1.2 % (0-2); EOSINOPHILS % (AUTO) 3.9 % (0-6); HEMATOCRIT 24.9 % (37.9-51.0); HEMOGLOBIN 8.3 g/dL (13.5-17.0); LYMPHOCYTES % (AUTO) 8.4 % (13-45); MEAN CORPUSCULAR HEMOGLOBIN 29.3 pg (27.0-33.4); MEAN CORPUSCULAR HGB CONC 33.3 g/dL (32.0-36.0); MEAN CORPUSCULAR VOLUME 88 fl (80-97); PLATELET COUNT 362 10^3/uL (150-450); RED BLOOD COUNT 2.83 10^6/uL (4.35-5.55); RED CELL DISTRIBUTION WIDTH 15.1 % (11.5-14.0); RETICULOCYTE COUNT (AUTO) 4.12 % (0.66-2.85); SEGMENTED NEUTROPHILS % (AUTO) 76.5 % (42-78); TOTAL CELLS COUNTED % (AUTO) 100 %; WHITE BLOOD COUNT 11.1 10^3/uL (4.0-10.5)
[2019-04-17] MEDS: INSULIN LISPRO 100 UNIT/ML 3 ML VIAL SUBCUT SCH ×4 (08:38→21:38)
[2019-04-17] MEDS: GLIPIZIDE 5 MG TABLET PO SCH (08:40)
[2019-04-17] MEDS: FERROUS SULFATE 325 MG TABLET PO SCH ×2 (08:40→18:01)
[2019-04-17 08:44] LABS: ALBUMIN 3.1 g/dL (3.5-5.0); ANION GAP 13 (5-19); BLOOD UREA NITROGEN 76 mg/dL (7-20); CALCIUM 9.5 mg/dL (8.4-10.2); CARBON DIOXIDE 22 mmol/L (22-30); CHLORIDE 99 mmol/L (98-107); GLUCOSE 78 mg/dL (75-110); IRON(TIBC) 28.9 ug/dL (49-181); PHOSPHORUS 7.5 mg/dL (2.5-4.5); POTASSIUM 4.5 mmol/L (3.6-5.0)
[2019-04-17] MEDS: CALCIUM ACETATE 667 MG CAPSULE PO SCH ×3 (08:45→18:01)
[2019-04-17] MEDS: CHOLECALCIFEROL (D3) 1,000 UNIT (25 MCG) TABLET PO SCH (10:25)
[2019-04-17] MEDS: ISOSORBIDE MONONITRATE 60 MG TAB.ER.24H PO SCH (10:25)
[2019-04-17] MEDS: FAMOTIDINE INJ/PF 20 MG/2 ML SDV IV SCH ×2 (10:25→22:01)
[2019-04-17] MEDS: CARVEDILOL 12.5 MG TABLET PO SCH ×2 (10:25→21:57)
[2019-04-17] MEDS: FUROSEMIDE INJ/PF 40 MG/4 ML SDV IV SCH ×2 (10:25→21:59)
[2019-04-17] MEDS: ASPIRIN 325 MG TABLET, ENT COATED PO SCH (10:26)
[2019-04-17] MEDS: FLUTICASONE NASAL SPRAY 50 MCG/SPRY 120 SPRAY/16 GM NASL SCH ×2 (10:26→22:01)
[2019-04-17] MEDS: LOSARTAN POTASSIUM 25 MG TABLET PO SCH (10:26)
--- NOTE | 2019-04-17 11:16 | PDOC PROGRESS REPORT ---
Subjective Progress Note for:: 04/17/19 Subjective:: The patient still reports difficulty with shortness of breath. He remains on oxygen supplementation. There have been no acute changes in his condition. Reason For Visit: HEART FAILURE Physical Exam Vital Signs: Temp Pulse Resp BP Pulse Ox 97.7 F 62 15 147/60 H 95 04/17/19 07:49 04/17/19 07:49 04/17/19 07:49 04/17/19 07:49 04/17/19 07:49 Intake & Output 04/16/19 04/17/19 04/18/19 06:59 06:59 06:59 Intake Total 8 1522 Output Total 1100 Balance 8 422 Weight 97.5 kg 101.8 kg General appearance: PRESENT: cooperative, mild distress, obese, well-developed Head exam: PRESENT: atraumatic, normocephalic Ear exam: PRESENT: normal external ear exam. ABSENT: bleeding, drainage Respiratory exam: PRESENT: rales, symmetrical. ABSENT: rhonchi, tachypnea, wheezes Cardiovascular exam: PRESENT: RRR, +S1, +S2, systolic murmur GI/Abdominal exam: PRESENT: distended, normal bowel sounds, soft. ABSENT: tenderness Extremities exam: ABSENT: pedal edema Musculoskeletal exam: PRESENT: ambulatory, normal inspection Neurological exam: PRESENT: alert, awake, oriented to person, oriented to place, oriented to time, oriented to situation, CN II-XII grossly intact Psychiatric exam: PRESENT: flat affect. ABSENT: agitated, anxious Focused psych exam: ABSENT: delusional, restlessness Results Laboratory Results: 04/17/19 07:41 04/17/19 07:41 04/17/19 04/17/19 07:41 07:41 WBC 11.1 H RBC 2.83 L Hgb 8.3 L Hct 24.9 L MCV 88 MCH 29.3 MCHC 33.3 RDW 15.1 H Plt Count 362 Seg Neutrophils % 76.5 Retic Count (auto) 4.12 H Sodium 134.1 L Potassium 4.5 Chloride 99 Carbon Dioxide 22 Anion Gap 13 BUN 76 H Creatinine 5.67 H Est GFR ( Amer) 12 L Glucose 78 Calcium 9.5 Phosphorus 7.5 H Magnesium 2.5 H Iron 28.9 L TIBC 265 % Saturation 11 Ferritin 229.00 Albumin 3.1 L Vitamin B12 603.0 Folate 10.80 04/15/19 04/15/19 04/16/19 16:40 19:56 01:21 Troponin I 0.025 0.028 0.028 NT-Pro-B Natriuret Pep 11182 H 04/16/19 07:47 Troponin I 0.028 NT-Pro-B Natriuret Pep [id number] H Impressions: Chest X-Ray 04/15/19 15:54 IMPRESSION: CARDIOMEGALY AND MILD VASCULAR CONGESTION, UNCHANGED. SMALL RIGHT PLEURAL EFFUSION. Assessment and Plan - Diagnosis (1) Acute exacerbation of CHF (congestive heart failure) Qualifiers: Heart failure type: systolic Qualified Code(s): I50.23 - Acute on chronic systolic (congestive) heart failure Is this a current diagnosis for this admission?: Yes Plan: 04/15/2019-the patient had an echocardiogram at this facility in August. His ejection fraction was slightly low at 55%. There was no evidence of diastolic dysfunction. He does have severe pulmonary hypertension. He will be on his carvedilol as well as hydralazine and Cardura. I have added low-dose losartan. We will monitor intake and output as well. 04/16/2019-continue negative fluid balance and current medication regimen. 04/17/2019-no changes in current medication since the addition of losartan. It is possible that his pulmonary hypertension is more contributory to his shortness of breath than congestive heart failure. (2) Pulmonary hypertension Is this a current diagnosis for this admission?: Yes Plan: 04/15/2019-the echocardiogram in August showed severe pulmonary hypertension. Will discuss with cardiology regarding possible medication adjustments. 04/16/2019-no adjustments in medications yet. I did explain to the patient that I felt pulmonary hypertension was a significant contributor to his shortness of breath. 04/17/2019-I have asked Dr. Root to see the patient with regard to pulmonary hypertension. Collagen vascular disease blood work has been ordered. Consider right heart catheterization. (3) Chronic kidney disease, stage V Is this a current diagnosis for this admission?: Yes Plan: 04/15/2019-I have asked for notes from his last outpatient nephrology visit from his outpatient hosted services analyst. As an inpatient I will asked nephrology to see the patient as well. Monitor renal function and electrolytes as well as phosphorus. Adjust medications if needed. 04/16/2019-serum creatinine is improved. Nephrology will be seeing the patient to help with management. 04/17/2019-currently stable. No acute interventions per nephrology. (4) Anemia in CKD (chronic kidney disease) Qualifiers: Chronic kidney disease stage: stage 5, not on chronic dialysis Qualified Code(s): N18.5 - Chronic kidney disease, stage 5; D63.1 - Anemia in chronic kidney disease Is this a current diagnosis for this admission?: Yes Plan: 04/15/2019-continue iron supplements. Nephrology consult will be requested. Transfuse if necessary. I believe the patient does qualify for erythropoietin therapy. 04/16/2019-anemia has been stable. No intervention at this time. The patient may benefit from erythropoietin. 04/17/2019-hemoglobin remains just above 8.0. Intravenous iron will be administered per nephrology. The patient already received an erythropoietin analog as an outpatient. (5) Diabetes mellitus type 2, insulin dependent Is this a current diagnosis for this admission?: Yes Plan: 04/15/2019-continue long-acting insulin. Sliding scale with Humalog. He states that he has been recently started on glipizide and Januvia. He is not sure the doses. For today I will use glipizide 5 mg. Once medication reconciliation is completed consider altering doses. 04/16/2019-continue current regimen and make adjustments based on Accu-Cheks. 04/17/2019-no changes in current regimen (6) HTN (hypertension) Qualifiers: Hypertension type: essential hypertension Qualified Code(s): I10 - Essential (primary) hypertension Is this a current diagnosis for this admission?: Yes Plan: 04/15/2019-antihypertensives will continue with Norvasc 5 mg daily, Cardura 4 mg daily, hydralazine 100 mg every 8 hours and carvedilol 25 mg twice daily. We will use intravenous furosemide instead of his Demadex for the time being. We will continue to monitor his blood pressure and adjust medications accordingly. 04/16/2019-continue current regimen. Will adjust based on blood pressure readings. 04/17/2019-good blood pressure control on current regimen. (7) Hyponatremia Is this a current diagnosis for this admission?: Yes Plan: 04/15/2019-hyponatremia is chronic. The patient cannot go without diuretic therapy. His serum sodium typically ranges between 130 and 135. We will continue to monitor. 04/16/2019-continue current regimen. Serum sodium is improved. We will monitor electrolytes. 04/17/2019-patient continues with hyponatremia that is mild. This is likely a chronic condition for him secondary to his chronic renal insufficiency and diuretic therapy. (8) Hyperphosphatemia Is this a current diagnosis for this admission?: Yes Plan: 04/17/2019-continue calcium acetate - Plan Summary Summary: The patient will be seen by pulmonology for severe pulmonary hypertension. Consider right heart catheterization. Collagen vascular studies have been ordered. - Time Time Spent with patient: 15-24 minutes Medications reviewed and adjusted accordingly: Yes Anticipated discharge: Home
--- NOTE | 2019-04-17 20:52 | PDOC PROGRESS REPORT ---
Subjective Progress Note for:: 04/17/19 Subjective:: I saw the patient lying comfortably in his bed this morning. He tells me that he still short of breath and can still hear some wheezing sometimes gasp for air. However when I ask him if he gets short of breath when he goes to the bathroom in his room he said no. He makes adequate amount of urine output. He does not have any other complaints. Reason For Visit: HEART FAILURE Physical Exam Vital Signs: Temp Pulse Resp BP Pulse Ox 98.4 F 64 16 126/63 H 97 04/17/19 15:27 04/17/19 15:27 04/17/19 15:27 04/17/19 15:27 04/17/19 15:27 Intake & Output 04/16/19 04/17/19 04/18/19 06:59 06:59 06:59 Intake Total 8 1522 355 Output Total 1100 950 Balance 8 422 -595 Weight 97.5 kg 101.8 kg Exam: General appearance: PRESENT: no acute distress, cooperative, well-developed, well-nourished Head exam: PRESENT: atraumatic, normocephalic Eye exam: PRESENT: conjunctiva slightly pale, PERRLA. ABSENT: scleral icterus Neck exam: ABSENT: JVD Respiratory exam: PRESENT: Normal breath sounds. ABSENT: crackles, rales, rhonchi, unlabored, wheezes Cardiovascular exam: PRESENT: Regular rate rhythm -+S1, +S2. ABSENT: diastolic murmur, systolic murmur GI/Abdominal exam: PRESENT: normal bowel sounds, soft. ABSENT: guarding, mass, tenderness Extremities exam: ABSENT: No edema Neurological exam: PRESENT: alert, awake, oriented to person, place and time. Skin exam: PRESENT: dry, warm, Results Laboratory Results: 04/17/19 07:41 04/17/19 07:41 04/17/19 04/17/19 07:41 07:41 WBC 11.1 H RBC 2.83 L Hgb 8.3 L Hct 24.9 L MCV 88 MCH 29.3 MCHC 33.3 RDW 15.1 H Plt Count 362 Seg Neutrophils % 76.5 Retic Count (auto) 4.12 H Sodium 134.1 L Potassium 4.5 Chloride 99 Carbon Dioxide 22 Anion Gap 13 BUN 76 H Creatinine 5.67 H Est GFR ( Amer) 12 L Glucose 78 Calcium 9.5 Phosphorus 7.5 H Magnesium 2.5 H Iron 28.9 L TIBC 265 % Saturation 11 Ferritin 229.00 Albumin 3.1 L Vitamin B12 603.0 Folate 10.80 04/15/19 04/15/19 04/16/19 16:40 19:56 01:21 Troponin I 0.025 0.028 0.028 NT-Pro-B Natriuret Pep [id number] H 04/16/19 07:47 Troponin I 0.028 NT-Pro-B Natriuret Pep 90052 H Impressions: Chest X-Ray 04/15/19 15:54 IMPRESSION: CARDIOMEGALY AND MILD VASCULAR CONGESTION, UNCHANGED. SMALL RIGHT PLEURAL EFFUSION. Assessment & Plan - Diagnosis (1) Dyspnea Is this a current diagnosis for this admission?: Yes Plan: Be multifactorial causes to include initial pulmonary vascular congestion, severe pulmonary hypertension and anemia. I ordered a duplex of his renal arteries to rule out renal artery stenosis just in case he was having flash pulmonary edema. (2) Pulmonary hypertension Is this a current diagnosis for this admission?: Yes Plan: Severe. Dr. Mendes is consulting pulmonary. (3) Chronic kidney disease, stage V Is this a current diagnosis for this admission?: Yes Plan: Due to diabetic nephropathy. Kidney function is unchanged. The patient does not need any emergent renal replacement therapy. However discussed with patient the possible need to initiate renal replacement therapy very soon. I think this can be done as an outpatient. (4) Anemia in CKD (chronic kidney disease) Qualifiers: Chronic kidney disease stage: stage 5, not on chronic dialysis Qualified Code(s): N18.5 - Chronic kidney disease, stage 5; D63.1 - Anemia in chronic kidney disease Is this a current diagnosis for this admission?: Yes Plan: Patient has mild iron deficiency. We will give a dose of IV Injectafer today. Retacrit was done last Monday, 04/11. (5) Hyperphosphatemia Is this a current diagnosis for this admission?: Yes Plan: On calcium acetate. (6) Hypermagnesemia Is this a current diagnosis for this admission?: Yes Plan: Mild and unchanged. Due to CKD. (7) Hyponatremia Is this a current diagnosis for this admission?: Yes Plan: Mild. (8) Secondary hyperparathyroidism Is this a current diagnosis for this admission?: Yes (9) HTN (hypertension) Qualifiers: Hypertension type: essential hypertension Qualified Code(s): I10 - Essential (primary) hypertension Is this a current diagnosis for this admission?: Yes Plan: Controlled. (10) Type 2 diabetes mellitus Qualifiers: Diabetes mellitus exterminator helper termite insulin use: unspecified detention insulin use status Diabetes mellitus complication status: with other specified complication Qualified Code(s): E11.69 - Type 2 diabetes mellitus with other specified complication Is this a current diagnosis for this admission?: Yes - Time Time with patient: 15-25 minutes
[2019-04-17] MEDS: DOXAZOSIN MESYLATE 4 MG TABLET PO SCH (21:56)
[2019-04-17] MEDS: MONTELUKAST SODIUM 10 MG TABLET PO SCH (21:57)
[2019-04-17] MEDS: AMLODIPINE BESYLATE 5 MG TABLET PO SCH (21:59)
[2019-04-17] MEDS ORDERED: FERRIC CARBOXYMALTOSE 750 MG in NORMAL SALINE 100 ML IV ONE (22:00)
[2019-04-17] MEDS: INSULIN GLARGINE,HUM.REC.ANLOG 1,000 UNIT/10 ML VIAL SUBCUT SCH (22:05)
[2019-04-17] MEDS ORDERED: APIXABAN 5 MG TABLET PO ONE (23:30)
[2019-04-18] MEDS: HYDRALAZINE HCL 50 MG TABLET PO SCH ×3 (06:55→23:20)
--- NOTE | 2019-04-18 08:01 | RADIOLOGY REPORT (SQ) ---
EXAM DESCRIPTION: U/S ABDOMEN COMPLETE W/DOPPLER COMPLETED DATE/TIME: 04/18/2019 6:39 am REASON FOR STUDY: Patient reports discomfort across the upper abdome COMPARISON: None. TECHNIQUE: Dynamic and static grayscale images acquired of the abdomen and recorded on PACS. Additio nal selected color Doppler and spectral images recorded. Note: Study does not meet criteria for complete doppler/duplex scan LIMITATIONS: The examination is limited due to overlying bowel gas and patient's body habitus. FINDINGS: PANCREAS: Suboptimal visualization due to overlying bowel gas. LIVER: The liver measures 20.0 cm in length, hepatomegaly. No masses. Echotexture normal. LIVER VASCULATURE: Normal directional flow of the main portal vein and hepatic veins. GALLBLADDER: No stones. The gallbladder wall measures 2.0 mm, normal wall thickness. No pericholecys tic fluid. ULTRASOUND-DETECTED KEANE'S SIGN: Negative. INTRAHEPATIC DUCTS AND COMMON DUCT: CBD measures 2.6 mm in diameter, normal. Bowel gas lies adjacent to the common bile duct which limits detail. The intrahepatic ducts normal caliber. No filling defe cts. INFERIOR VENA CAVA: Normal flow. AORTA: The proximal abdominal segments of the abdominal aorta are patent. The distal segment is obs cured by overlying bowel gas. RIGHT KIDNEY: The right kidney measures 11.8 cm in length, normal size. Normal echogenicity. No solid or suspicious masses. No hydronephrosis. No calcifications. LEFT KIDNEY: The left kidney measures 13.1 cm in length, normal size. Normal echogenicity. No so lid or suspicious masses. No hydronephrosis. No calcifications. SPLEEN: The spleen measures 11.7 x 10.5 x 5.2 cm, normal size. No solid masses. PERITONEAL AND PLEURAL SPACES: No ascites or effusions. OTHER: No other significant finding. IMPRESSION: 1. The examination is somewhat limited due to the patient's body habitus and overlying bowel gas. The pancreas and distal segment of the abdominal aorta are obscured by overlying bowel ga s. 2. Hepatomegaly. TECHNICAL DOCUMENTATION: JOB ID: [id number] [email or web address]- All Rights Reserved Reading location - IP/workstation name: [email or web address]
--- NOTE | 2019-04-18 08:15 | RADIOLOGY REPORT (SQ) ---
EXAM DESCRIPTION: U/S LTD DUPLEX ART/VIKTORIYA FLOW COMPLETED DATE/TIME: 04/18/2019 6:39 am REASON FOR STUDY: R/O MONA, Pulmonary edema, CKD COMPARISON: None. TECHNIQUE: Realtime and static grayscale images acquired. Selected color Doppler, velocities and spe ctral images recorded. LIMITATIONS: Limited study due to the patient's body habitus and overlying bowel gas. FINDINGS: RIGHT KIDNEY: RENAL ARTERY VELOCITIES: 72 cm/sec. Segmental artery velocity 60 cm/sec. RENAL VEIN: Color doppler flow present, patent. VELOCITY RATIO: 1.43. Normal waveforms. KIDNEY: Normal size. No significant pathology. LEFT KIDNEY: RENAL ARTERY VELOCITIES: 37 cm/sec. Segmental artery velocity 59 cm/sec. RENAL VEIN: Color doppler flow present, patent. VELOCITY RATIO: 0.74. Normal waveforms. KIDNEY: Normal size. No significant pathology. BLADDER: Not visualized. OTHER: No other significant finding. IMPRESSION: NO DOPPLER EVIDENCE OF HEMODYNAMICALLY SIGNIFICANT RENAL ARTERY STENOSIS. COMMENT: NORMAL RENAL ARTERY/AORTA VELOCITY RATIO IS LESS THAN OR EQUAL TO 3.5. TECHNICAL DOCUMENTATION: JOB ID: [id number] [email or web address]- All Rights Reserved Reading location - IP/workstation name: [email or web address]
[2019-04-18 09:27] LABS: ABSOLUTE BASOPHILS # (AUTO) 0.1 10^3/uL (0.0-0.2); ABSOLUTE EOSINOPHILS # (AUTO) 0.3 10^3/uL (0.0-0.6); ABSOLUTE LYMPHOCYTES (AUTO) 0.8 10^3/uL (0.5-4.7); ABSOLUTE MONOCYTES (AUTO) 1.1 10^3/uL (0.1-1.4); ABSOLUTE NEUT (AUTO) 8.2 10^3/uL (1.7-8.2); EOSINOPHILS % (AUTO) 2.8 % (0-6); HEMATOCRIT 25.6 % (37.9-51.0); HEMOGLOBIN 8.5 g/dL (13.5-17.0); LYMPHOCYTES % (AUTO) 7.5 % (13-45); MEAN CORPUSCULAR HEMOGLOBIN 29.1 pg (27.0-33.4); MEAN CORPUSCULAR HGB CONC 33.3 g/dL (32.0-36.0); MEAN CORPUSCULAR VOLUME 87 fl (80-97); MONOCYTES % (AUTO) 10.7 % (3-13); PLATELET COUNT 367 10^3/uL (150-450); RED BLOOD COUNT 2.94 10^6/uL (4.35-5.55); RED CELL DISTRIBUTION WIDTH 15.1 % (11.5-14.0); TOTAL CELLS COUNTED % (AUTO) 100 %; WHITE BLOOD COUNT 10.5 10^3/uL (4.0-10.5)
[2019-04-18] MEDS: CHOLECALCIFEROL (D3) 1,000 UNIT (25 MCG) TABLET PO SCH (10:05)
[2019-04-18] MEDS: INSULIN LISPRO 100 UNIT/ML 3 ML VIAL SUBCUT SCH ×4 (10:05→23:18)
[2019-04-18] MEDS: CALCIUM ACETATE 667 MG CAPSULE PO SCH ×3 (10:05→17:04)
[2019-04-18] MEDS: ASPIRIN 325 MG TABLET, ENT COATED PO SCH (10:06)
[2019-04-18] MEDS: FAMOTIDINE INJ/PF 20 MG/2 ML SDV IV SCH ×2 (10:06→23:19)
[2019-04-18] MEDS: ISOSORBIDE MONONITRATE 60 MG TAB.ER.24H PO SCH (10:06)
[2019-04-18] MEDS: FERROUS SULFATE 325 MG TABLET PO SCH (10:06)
[2019-04-18] MEDS: GLIPIZIDE 5 MG TABLET PO SCH (10:06)
[2019-04-18] MEDS: CARVEDILOL 12.5 MG TABLET PO SCH ×2 (10:06→23:19)
[2019-04-18] MEDS: FLUTICASONE NASAL SPRAY 50 MCG/SPRY 120 SPRAY/16 GM NASL SCH ×2 (10:06→23:21)
[2019-04-18] MEDS: FUROSEMIDE INJ/PF 40 MG/4 ML SDV IV SCH (10:06)
[2019-04-18] MEDS: LOSARTAN POTASSIUM 25 MG TABLET PO SCH (10:06)
[2019-04-18] MEDS: APIXABAN 5 MG TABLET PO SCH ×2 (10:06→23:21)
[2019-04-18 10:11] LABS: ALKALINE PHOSPHATASE 55 U/L (38-126); ANION GAP 14 (5-19); ASPARTATE AMINO TRANSFERASE 11 U/L (17-59); BILIRUBIN,DIRECT 0.3 mg/dL (0.0-0.4); BILIRUBIN,TOTAL 0.3 mg/dL (0.2-1.3); BLOOD UREA NITROGEN 82 mg/dL (7-20); CALCIUM 9.4 mg/dL (8.4-10.2); CARBON DIOXIDE 21 mmol/L (22-30); CHLORIDE 100 mmol/L (98-107); GLUCOSE 83 mg/dL (75-110); POTASSIUM 4.8 mmol/L (3.6-5.0); TOTAL PROTEIN 5.8 g/dL (6.3-8.2)
--- NOTE | 2019-04-18 16:26 | PDOC PROGRESS REPORT ---
Subjective Progress Note for:: 04/18/19 Subjective:: WILIAM GAN is a 68 year old male past medical history of atrial fibrillation, coronary artery disease, congestive heart failure and stage IV kidney failure presented to ED complaining of worsening shortness of breath on exertion, BNP elevated, troponin and EKG unremarkable. 04/18/2019. No acute events overnight. Patient comfortably resting in bed in no apparent distress, on supplemental oxygen, sitting shortness of breath has improved, able to ambulate with with supplemental oxygen with no problem, denies any fever, chills, nausea, vomiting, diarrhea, constipation or any urinary symptoms, ambulatory, p.o. tolerant, having normal bowel and bladder movements. Reason For Visit: HEART FAILURE Physical Exam Vital Signs: Temp Pulse Resp BP Pulse Ox 97.8 F 61 16 128/65 H 95 04/18/19 15:28 04/18/19 15:28 04/18/19 15:28 04/18/19 15:28 04/18/19 15:28 Intake & Output 04/17/19 04/18/19 04/19/19 06:59 06:59 06:59 Intake Total 1522 455 Output Total 1100 1500 Balance 422 -1045 Weight 101.8 kg 101.1 kg General appearance: PRESENT: obese Respiratory exam: PRESENT: clear to auscultation thalia. ABSENT: rales, rhonchi, wheezes GI/Abdominal exam: PRESENT: normal bowel sounds, soft. ABSENT: distended, guarding, mass, organolmegaly, rebound, tenderness Neurological exam: PRESENT: alert, awake, oriented to person, oriented to place, oriented to time, oriented to situation, CN II-XII grossly intact. ABSENT: motor sensory deficit Results Laboratory Results: 04/18/19 08:03 04/18/19 08:03 04/18/19 04/18/19 08:03 08:03 WBC 10.5 RBC 2.94 L Hgb 8.5 L Hct 25.6 L MCV 87 MCH 29.1 MCHC 33.3 RDW 15.1 H Plt Count 367 Seg Neutrophils % 78.0 Sodium 134.6 L Potassium 4.8 Chloride 100 Carbon Dioxide 21 L Anion Gap 14 BUN 82 H Creatinine 6.17 H Est GFR ( Amer) 11 L Glucose 83 Calcium 9.4 Magnesium 2.7 H Total Bilirubin 0.3 AST 11 L Alkaline Phosphatase 55 Total Protein 5.8 L Albumin 3.0 L 04/15/19 04/15/19 04/16/19 16:40 19:56 01:21 Troponin I 0.025 0.028 0.028 NT-Pro-B Natriuret Pep [id number] H 04/16/19 07:47 Troponin I 0.028 NT-Pro-B Natriuret Pep 18888 H Impressions: Chest X-Ray 04/15/19 15:54 IMPRESSION: CARDIOMEGALY AND MILD VASCULAR CONGESTION, UNCHANGED. SMALL RIGHT PLEURAL EFFUSION. Abdomen Ultrasound 04/18/19 00:00 IMPRESSION: 1. The examination is somewhat limited due to the patient's body habitus and overlying bowel gas. The pancreas and distal segment of the abdominal aorta are obscured by overlying bowel gas. 2. Hepatomegaly. Vascular Ultrasound 04/18/19 00:00 IMPRESSION: NO DOPPLER EVIDENCE OF HEMODYNAMICALLY SIGNIFICANT RENAL ARTERY STENOSIS. Assessment and Plan - Diagnosis (1) Acute exacerbation of CHF (congestive heart failure) Qualifiers: Heart failure type: right-sided Qualified Code(s): I50.813 - Acute on chronic right heart failure Is this a current diagnosis for this admission?: Yes Plan: Acute systolic and diastolic CHF exacerbation. 10/03/2018. 2D echo. LVEF 55%. Left ventricular hypertrophy. RVSP 66 to 71 mmHg. Continue diuretics, beta-blockers, ARB, iliac diet, volume restriction. (2) Dyspnea Qualifiers: Dyspnea type: shortness of breath Qualified Code(s): R06.02 - Shortness of breath; R06.00 - Dyspnea, unspecified; R06.01 - Orthopnea Is this a current diagnosis for this admission?: Yes Plan: Multifactorial, severe pulmonary hypertension, acute CHF exacerbation and worsening underlying anemia of CKD. Improving, needs supplemental oxygen, continue treating the underlying CHF, anemia of CKD and pulmonary hypertension. Patient will be going home on supplemental oxygen to follow-up with PCP and pulmonology. (3) Paroxysmal A-fib Is this a current diagnosis for this admission?: Yes Plan: Rate controlled, anticoagulated. Continue current regimen. Outpatient cardiology follow-up. (4) Pulmonary hypertension Is this a current diagnosis for this admission?: Yes Plan: Severe pulmonary hypertension by echo. 10/03/2018. 2D echo. RVSP 66 to 71 mmHg. This could partly explain his worsening dyspnea. Dr. Root has been consulted. May need right heart catheterization. Pending recommendations. Continue diuretics, volume restriction, fluid collection. Follow-up pulmonology recommendations. (5) Anemia in CKD (chronic kidney disease) Qualifiers: Chronic kidney disease stage: stage 5, not on chronic dialysis Qualified Code(s): N18.5 - Chronic kidney disease, stage 5; D63.1 - Anemia in chronic kidney disease Is this a current diagnosis for this admission?: Yes Plan: Mild iron deficiency. Denies any hematemesis, hemoptysis, nosebleeds, melena, hematochezia, hematuria. Received Injectafer on 04/17/2019. Continue supplemental ferrous sulfate. Monitor for bleeding. Outpatient nephrology follow-up. (6) Chronic kidney disease, stage V Is this a current diagnosis for this admission?: Yes Plan: Most likely due to diabetic nephropathy. Mildly elevated creatinine most likely due to ARB in addition. Otherwise kidney function is stable. Making adequate urine. As per nephrology report no [employer] on this admission. May need dialysis in near future. 04/18/2019. Renal ultrasound negative for any renal arterial stenosis. Continue monitoring volume status and electrolytes, replace as needed. Avoid nephrotoxic meds. Nephrology on board. Recommendations noted. Outpatient nephrology follow-up. (7) Diabetes mellitus type 2, insulin dependent Is this a current diagnosis for this admission?: Yes Plan: Uncontrolled. Hemoglobin A1c 9.1. Optimized during this hospitalization. Home meds are Januvia, glipizide and insulin. Continue diabetic diet, sliding scale insulin, long-acting insulin, hypoglycemia protocol, Accu-Chek, adjust dosage as needed. Decrease glipizide by 50% due to worsening renal function. Restart Januvia upon discharge. Continue insulin. (8) HTN (hypertension) Qualifiers: Hypertension type: essential hypertension Qualified Code(s): I10 - Essential (primary) hypertension Is this a current diagnosis for this admission?: Yes Plan: Normotensive. Euvolemic. Currently on amlodipine 5 mg nightly, carvedilol 25 mg p.o. twice daily, hydralazine 100 mg p.o. 3 times daily, losartan 25 mg p.o. daily, Lasix 60 mg IV twice daily. Continue current regimen, switch Lasix to p.o. Outpatient nephrology and PCP follow-up. (9) Hypermagnesemia Is this a current diagnosis for this admission?: Yes Plan: Likely due to worsening renal function. Continue prerenal diet. Magnesium level tomorrow. (10) Hyperphosphatemia Is this a current diagnosis for this admission?: Yes Plan: Secondary to secondary hyperparathyroidism caused by worsening CKD. Continue calcium acetate. Phosphate level tomorrow. - Plan Summary Summary: The patient will be seen by pulmonology for severe pulmonary hypertension. Cons ider right heart catheterization. Collagen vascular studies have been ordered.
[2019-04-18] MEDS: FUROSEMIDE 40 MG TABLET PO SCH (17:04)
--- NOTE | 2019-04-18 17:17 | PDOC PROGRESS REPORT ---
Subjective Progress Note for:: 04/18/19 Reason For Visit: Patient seen today. Patient admitted with biventricular failure with severe pulmonary hypertension with an RVSP between 60 and 70 mmHg. Patient says she is feeling a whole lot better with massive improvement of his edema as well as the shortness of breath. He feels like he is back to baseline. He has got good appetite with no history of nausea vomiting. Obviously his renal functions had worsened from a baseline creatinine of around 4-4.5 to current 6-7. Patient does not show any signs of uremia. He states that he has been aware of his kidney disease and has been told that he might need dialysis in the future. Labs and medications were reviewed. Physical Exam Vital Signs: Temp Pulse Resp BP Pulse Ox 97.8 F 61 16 128/65 H 95 04/18/19 15:28 04/18/19 15:28 04/18/19 15:28 04/18/19 15:28 04/18/19 15:28 Intake & Output 04/17/19 04/18/19 04/19/19 06:59 06:59 06:59 Intake Total 1522 455 Output Total 1100 1500 Balance 422 -1045 Weight 101.8 kg 101.1 kg General appearance: PRESENT: no acute distress Respiratory exam: PRESENT: clear to auscultation thalia, decreased breath sounds. ABSENT: crackles Cardiovascular exam: PRESENT: +S1, +S2 GI/Abdominal exam: PRESENT: normal bowel sounds, soft. ABSENT: organomegaly, tenderness Extremities exam: ABSENT: pedal edema Neurological exam: PRESENT: alert, awake, oriented to person, oriented to place Psychiatric exam: PRESENT: anxious Skin exam: ABSENT: cyanosis, erythema, mottled Results Laboratory Results: 04/18/19 08:03 04/18/19 08:03 04/18/19 04/18/19 08:03 08:03 WBC 10.5 RBC 2.94 L Hgb 8.5 L Hct 25.6 L MCV 87 MCH 29.1 MCHC 33.3 RDW 15.1 H Plt Count 367 Seg Neutrophils % 78.0 Sodium 134.6 L Potassium 4.8 Chloride 100 Carbon Dioxide 21 L Anion Gap 14 BUN 82 H Creatinine 6.17 H Est GFR ( Amer) 11 L Glucose 83 Calcium 9.4 Magnesium 2.7 H Total Bilirubin 0.3 AST 11 L Alkaline Phosphatase 55 Total Protein 5.8 L Albumin 3.0 L 04/15/19 04/15/19 04/16/19 16:40 19:56 01:21 Troponin I 0.025 0.028 0.028 NT-Pro-B Natriuret Pep [id number] H 04/16/19 07:47 Troponin I 0.028 NT-Pro-B Natriuret Pep [id number] H Impressions: Chest X-Ray 04/15/19 15:54 IMPRESSION: CARDIOMEGALY AND MILD VASCULAR CONGESTION, UNCHANGED. SMALL RIGHT PLEURAL EFFUSION. Abdomen Ultrasound 04/18/19 00:00 IMPRESSION: 1. The examination is somewhat limited due to the patient's body habitus and overlying bowel gas. The pancreas and distal segment of the abdominal aorta are obscured by overlying bowel gas. 2. Hepatomegaly. Vascular Ultrasound 04/18/19 00:00 IMPRESSION: NO DOPPLER EVIDENCE OF HEMODYNAMICALLY SIGNIFICANT RENAL ARTERY STENOSIS. Assessment & Plan - Diagnosis (1) Acute exacerbation of CHF (congestive heart failure) Qualifiers: Heart failure type: right-sided Qualified Code(s): I50.813 - Acute on chronic right heart failure Is this a current diagnosis for this admission?: Yes Plan: Much improved improved compared to his admission symptoms. (2) Anemia in CKD (chronic kidney disease) Qualifiers: Chronic kidney disease stage: stage 5, not on chronic dialysis Qualified Code(s): N18.5 - Chronic kidney disease, stage 5; D63.1 - Anemia in chronic kidney disease Is this a current diagnosis for this admission?: Yes Plan: Patient apparently received IV iron. Consider for starting of erythropoietin. (3) Chronic kidney disease (CKD), stage IV (severe) Plan: Underlying CKD stage IV with base creatinine of around 4-4.5 with now acute insult. No acute indications for renal replacements currently but I believe he will need it in the near future. I would recommend that he follows with Dr. Patel as an outpatient for discussion about renal replacement therapies and get plans moved accordingly. (4) Diabetes mellitus type 2, insulin dependent Is this a current diagnosis for this admission?: Yes Plan: Advised tight control. (5) Obesity, Class II, BMI 35-39.9 Plan: Status quo (6) Pulmonary hypertension Is this a current diagnosis for this admission?: Yes Plan: As per cardiology/pulmonology. Needs further evaluation and treatments. (7) Acute kidney injury superimposed on CKD Plan: In the face of biventricular failure. Patient is not gotten back to baseline but there is no indications for renal replacements and fluid overload has resolved. Can monitor as an outpatient. (8) Secondary hyperparathyroidism Is this a current diagnosis for this admission?: Yes Plan: Will order PTH.Monitor phosphorus
[2019-04-18] MEDS: AMLODIPINE BESYLATE 5 MG TABLET PO SCH (23:20)
[2019-04-18] MEDS: DOXAZOSIN MESYLATE 4 MG TABLET PO SCH (23:21)
[2019-04-18] MEDS: MONTELUKAST SODIUM 10 MG TABLET PO SCH (23:21)
[2019-04-18] MEDS: INSULIN GLARGINE,HUM.REC.ANLOG 1,000 UNIT/10 ML VIAL SUBCUT SCH (23:23)
[2019-04-19 04:39] LABS: ABSOLUTE BASOPHILS # (AUTO) 0.1 10^3/uL (0.0-0.2); ABSOLUTE EOSINOPHILS # (AUTO) 0.3 10^3/uL (0.0-0.6); ABSOLUTE LYMPHOCYTES (AUTO) 0.7 10^3/uL (0.5-4.7); ABSOLUTE MONOCYTES (AUTO) 1.2 10^3/uL (0.1-1.4); ABSOLUTE NEUT (AUTO) 8.3 10^3/uL (1.7-8.2); BASOPHILS % (AUTO) 1.3 % (0-2); EOSINOPHILS % (AUTO) 2.7 % (0-6); HEMATOCRIT 24.7 % (37.9-51.0); HEMOGLOBIN 8.1 g/dL (13.5-17.0); LYMPHOCYTES % (AUTO) 6.8 % (13-45); MEAN CORPUSCULAR HEMOGLOBIN 28.8 pg (27.0-33.4); MEAN CORPUSCULAR HGB CONC 32.7 g/dL (32.0-36.0); MEAN CORPUSCULAR VOLUME 88 fl (80-97); MONOCYTES % (AUTO) 11.6 % (3-13); PLATELET COUNT 362 10^3/uL (150-450); RED BLOOD COUNT 2.81 10^6/uL (4.35-5.55); RED CELL DISTRIBUTION WIDTH 14.9 % (11.5-14.0); SEGMENTED NEUTROPHILS % (AUTO) 77.6 % (42-78); TOTAL CELLS COUNTED % (AUTO) 100 %; WHITE BLOOD COUNT 10.7 10^3/uL (4.0-10.5)
[2019-04-19 05:12] LABS: ALBUMIN 3.2 g/dL (3.5-5.0); ALKALINE PHOSPHATASE 59 U/L (38-126); ANION GAP 12 (5-19); ASPARTATE AMINO TRANSFERASE 13 U/L (17-59); BILIRUBIN,DIRECT 0.2 mg/dL (0.0-0.4); BILIRUBIN,TOTAL 0.3 mg/dL (0.2-1.3); BLOOD UREA NITROGEN 80 mg/dL (7-20); CALCIUM 9.3 mg/dL (8.4-10.2); CARBON DIOXIDE 23 mmol/L (22-30); CHLORIDE 99 mmol/L (98-107); GLUCOSE 71 mg/dL (75-110); POTASSIUM 4.4 mmol/L (3.6-5.0); TOTAL PROTEIN 5.9 g/dL (6.3-8.2)
[2019-04-19] MEDS: HYDRALAZINE HCL 50 MG TABLET PO SCH ×2 (06:12→14:16)
[2019-04-19] MEDS: INSULIN LISPRO 100 UNIT/ML 3 ML VIAL SUBCUT SCH ×2 (08:26→11:46)
[2019-04-19] MEDS: CALCIUM ACETATE 667 MG CAPSULE PO SCH ×2 (08:34→11:21)
[2019-04-19] MEDS: GLIPIZIDE 5 MG TABLET PO SCH (08:34)
[2019-04-19] MEDS ORDERED: FERROUS SULFATE 325 MG TABLET PO SCH (10:00)
[2019-04-19] MEDS: CARVEDILOL 12.5 MG TABLET PO SCH (11:19)
[2019-04-19] MEDS: FUROSEMIDE 40 MG TABLET PO SCH (11:20)
[2019-04-19] MEDS: ISOSORBIDE MONONITRATE 60 MG TAB.ER.24H PO SCH (11:21)
[2019-04-19] MEDS: CHOLECALCIFEROL (D3) 1,000 UNIT (25 MCG) TABLET PO SCH (11:21)
[2019-04-19] MEDS: ASPIRIN 325 MG TABLET, ENT COATED PO SCH (11:21)
[2019-04-19] MEDS: APIXABAN 5 MG TABLET PO SCH (11:21)
[2019-04-19] MEDS: FAMOTIDINE INJ/PF 20 MG/2 ML SDV IV SCH (11:22)
[2019-04-19] MEDS: LOSARTAN POTASSIUM 25 MG TABLET PO SCH (11:22)
[2019-04-19] MEDS: FLUTICASONE NASAL SPRAY 50 MCG/SPRY 120 SPRAY/16 GM NASL SCH (11:22)
--- NOTE | 2019-04-19 12:09 | PDOC CONSULTATION ---
Consultation Consult Date: 04/17/19 Attending physician:: VÍCTOR DEUTSCH Provider Consulted: ANGEL ADAMSON Consult reason:: dyspnea History of Present Illness Admission Date/PCP: 04/15/19 18:41 FLORENCIO WINKLER MD History of Present Illness: WILIAM GAN is a 68 year old male Past Medical History Cardiac Medical History: Reports: Atrial Fibrillation, Congestive Heart Failure, Coronary Artery Disease, Myocardial Infarction - SILENT-SHOWED UP ON EKG, Hyperlipidema, Hypertension - MEDS Pulmonary Medical History: Denies: Asthma EENT Medical History: Denies: Ears, Nose, Throat Neurological Medical History: Denies: Ischemic CVA, Seizures Endocrine Medical History: Reports: Diabetes Mellitus Type 2 Renal/ Medical History: Reports: End Stage Renal Disease Malignancy Medical History: Reports: None GI Medical History: Denies: Hepatitis, Hiatal Hernia Musculoskeltal Medical History: Reports: Arthritis Skin Medical History: Reports: None Psychiatric Medical History: Reports: Depression Denies: Alcohol Dependency, Substance Abuse, Tobacco Dependency Traumatic Medical History: Reports: None Hematology: Reports: Anemia - MED Denies: Sickle Cell Disease Infectious Medical History: Reports: None Past Surgical History Past Surgical History: Reports: None Denies: Pacemaker Social History Lives with: Spouse/Significant other Smoking Status: Never Smoker Frequency of Alcohol Use: None Hx Recreational Drug Use: No Drugs: None Hx Prescription Drug Abuse: No Do you have pets?: Yes Have you had any respiratory illnesses as a child?: No Have you been exposed to any sick contacts recently?: No Have you had any recent respiratory illnesses?: Yes Have you travelled outside of [place] in the past 12 months?: No - Advance Directive Resuscitation Status: Full Code Family History Family History: CVA, Malignancy Parental Family History Reviewed: Yes Children Family History Reviewed: Yes Sibling(s) Family History Reviewed.: Yes Medication/Allergy Home Medications: Amlodipine Besylate [Norvasc 5 mg Tablet] 5 mg PO QHS 04/15/19 Apixaban [Eliquis 5 mg Tablet] 5 mg PO Q12 04/15/19 Aspirin [Ecotrin 81 mg EC Tablet] 81 mg PO DAILY 04/15/19 Calcium Acetate [Phoslo 667 mg Capsule] 337 mg PO MEALS 04/15/19 Carvedilol [Coreg 25 mg Tablet] 25 mg PO Q12 04/15/19 Doxazosin Mesylate [Cardura 4 mg Tablet] 4 mg PO QHS 04/15/19 Escitalopram Oxalate [Lexapro 10 mg Tablet] 10 mg PO DAILY 04/15/19 Glipizide [Glipizide Xl] 10 mg PO DAILY 04/15/19 Insulin Aspart [Novolog Insulin (Aspart) 100 unit/mL] 0 unit SQ .SLIDING SCALE 04/15/19 Insulin Detemir [Levemir] 30 unit SQ QHS 04/15/19 Isosorbide Mononitrate [Imdur 60 mg Tablet.er] 60 mg PO DAILY 04/15/19 Montelukast Sodium [Singulair 10 mg Tablet] 10 mg PO QHS 04/15/19 Sitagliptin Phosphate [Januvia 50 mg Tablet] 25 mg PO DAILY 04/15/19 Torsemide [Demadex 20 mg Tablet] 60 mg PO DAILY 04/15/19 Allergies/Adverse Reactions: JUDE Inhibitors Allergy (Verified 04/15/19 15:46) Review of Systems All systems: reviewed and no additional remarkable complaints except as stated Physical Exam Vital Signs: Temp Pulse Resp BP Pulse Ox 97.6 F 62 16 121/62 96 04/19/19 07:36 04/19/19 07:36 04/19/19 07:36 04/19/19 07:36 04/19/19 07:36 Intake & Output 04/18/19 04/19/19 04/20/19 06:59 06:59 06:59 Intake Total 455 1100 Output Total 1500 950 Balance -1045 150 Weight 101.1 kg 101.9 kg General appearance: PRESENT: no acute distress, cooperative, disheveled, obese, well-developed, well-nourished Head exam: PRESENT: atraumatic, normocephalic Eye exam: PRESENT: conjunctiva pale. ABSENT: nystagmus, periorbital swelling, scleral icterus Mouth exam: PRESENT: dry mucosa, neck supple, tongue midline Neck exam: ABSENT: carotid bruit, full ROM, JVD, lymphadenopathy, meningismus, tenderness, thyromegaly, tracheal deviation, tracheostomy, other Respiratory exam: PRESENT: decreased breath sounds, prolonged expiratory phas, symmetrical, unlabored. ABSENT: retraction, rhonchi, stridor, tachypnea Cardiovascular exam: PRESENT: RRR, +S1, +S2. ABSENT: tachycardia Pulses: PRESENT: normal radial pulses GI/Abdominal exam: PRESENT: soft. ABSENT: distended, guarding, mass, rebound, tenderness Extremities exam: PRESENT: pedal edema. ABSENT: calf tenderness, clubbing, joint swelling Musculoskeletal exam: ABSENT: deformity, dislocation Neurological exam: PRESENT: alert, awake Psychiatric exam: PRESENT: appropriate affect Skin exam: PRESENT: dry, warm Results Laboratory Results: 04/19/19 04:23 04/19/19 04:23 04/19/19 04/19/19 04/19/19 04:23 04:23 04:23 WBC 10.7 H RBC 2.81 L Hgb 8.1 L Hct 24.7 L MCV 88 MCH 28.8 MCHC 32.7 RDW 14.9 H Plt Count 362 Seg Neutrophils % 77.6 Sodium 134.0 L Potassium 4.4 Chloride 99 Carbon Dioxide 23 Anion Gap 12 BUN 80 H Creatinine 6.32 H Est GFR ( Amer) 11 L Glucose 71 L Calcium 9.3 Phosphorus 8.0 H Magnesium 2.7 H Total Bilirubin 0.3 AST 13 L Alkaline Phosphatase 59 Total Protein 5.9 L Albumin 3.2 L PTH Intact 95.9 H 04/15/19 04/15/19 04/16/19 16:40 19:56 01:21 Troponin I 0.025 0.028 0.028 NT-Pro-B Natriuret Pep [id number] H 04/16/19 07:47 Troponin I 0.028 NT-Pro-B Natriuret Pep [id number] H Impressions: Chest X-Ray 04/15/19 15:54 IMPRESSION: CARDIOMEGALY AND MILD VASCULAR CONGESTION, UNCHANGED. SMALL RIGHT PLEURAL EFFUSION. Abdomen Ultrasound 04/18/19 00:00 IMPRESSION: 1. The examination is somewhat limited due to the patient's body habitus and overlying bowel gas. The pancreas and distal segment of the abdominal aorta are obscured by overlying bowel gas. 2. Hepatomegaly. Vascular Ultrasound 04/18/19 00:00 IMPRESSION: NO DOPPLER EVIDENCE OF HEMODYNAMICALLY SIGNIFICANT RENAL ARTERY STENOSIS. Assessment & Plan - Diagnosis (1) Acute exacerbation of CHF (congestive heart failure) Qualifiers: Heart failure type: right-sided Qualified Code(s): I50.813 - Acute on chronic right heart failure Is this a current diagnosis for this admission?: Yes Plan: Oxygen therapy diuresis (2) Dyspnea Qualifiers: Dyspnea type: shortness of breath Qualified Code(s): R06.02 - Shortness of breath; R06.00 - Dyspnea, unspecified; R06.01 - Orthopnea Is this a current diagnosis for this admission?: Yes Plan: CHF,MURIEL?,PHTN (3) Obesity, Class II, BMI 35-39.9 Is this a current diagnosis for this admission?: Yes Plan: Consider nutritional consult certainly obesity hypoventilation may be a contributor to multiple medical problems (4) HTN (hypertension) Qualifiers: Hypertension type: essential hypertension Qualified Code(s): I10 - Essential (primary) hypertension Is this a current diagnosis for this admission?: Yes Plan: stable at this time (5) Pulmonary hypertension Is this a current diagnosis for this admission?: Yes Plan: will schedule for R heart cath as OP patient is aware
[2019-04-19 13:33] LABS: ANTINUCLEAR ANTIBODIES Negative (Negative)
[2019-04-19 15:08] VITALS: BP 115/54
--- NOTE | 2019-04-20 16:39 | PDOC DISCHARGE SUMMARY ---
Impression - Admit/DC Date/PCP Admission Date/Primary Care Provider: 04/15/19 18:41 FLORENCIO WINKLER MD Discharge Date: 06/19/19 - Discharge Diagnosis (1) Acute exacerbation of CHF (congestive heart failure) Is this a current diagnosis for this admission?: Yes (2) Dyspnea Is this a current diagnosis for this admission?: Yes (3) Paroxysmal A-fib Is this a current diagnosis for this admission?: Yes (4) Pulmonary hypertension Is this a current diagnosis for this admission?: Yes (5) Anemia in CKD (chronic kidney disease) Is this a current diagnosis for this admission?: Yes (6) Chronic kidney disease, stage V Is this a current diagnosis for this admission?: Yes (7) Diabetes mellitus type 2, insulin dependent Is this a current diagnosis for this admission?: Yes (8) HTN (hypertension) Is this a current diagnosis for this admission?: Yes (9) Hypermagnesemia Is this a current diagnosis for this admission?: Yes (10) Hyperphosphatemia Is this a current diagnosis for this admission?: Yes - Assessment Summary: The patient will be seen by pulmonology for severe pulmonary hypertension. Consider right heart catheterization. Collagen vascular studies have been ordered. - Additional Information Resuscitation Status: Full Code Discharge Diet: Cardiac, Diabetic Discharge Activity: Activity As Tolerated, Balance Activity w/Rest, Weigh Daily Referrals: BRITNEY GARCIA MD [ACTIVE STAFF] - (spoke with the office, he sees Abdulaziz and he is out of the office . The office will call the patient when abdulaziz returns) ANGEL ROOT MD [ACTIVE STAFF] - (sticker in book) FLORENCIO WINKLER DO [Primary Care Provider] - 04/22/19 2:45 pm Prescriptions: Losartan Potassium [Cozaar 25 mg Tablet] 25 mg PO DAILY 30 Days #30 tablet Apixaban [Eliquis 5 mg Tablet] 5 mg PO Q12 30 Days #60 tab Ferrous Sulfate [Feosol 325 mg Tablet] 325 mg PO DAILY 30 Days #30 tablet Hydralazine HCl 100 mg PO TID 30 Days #90 tablet Furosemide [Lasix] 60 mg PO BID 30 Days #60 tablet Home Medications: Amlodipine Besylate [Norvasc 5 mg Tablet] 5 mg PO QHS 04/15/19 Aspirin [Ecotrin 81 mg EC Tablet] 81 mg PO DAILY 04/15/19 Calcium Acetate [Phoslo 667 mg Capsule] 337 mg PO MEALS 04/15/19 Carvedilol [Coreg 25 mg Tablet] 25 mg PO Q12 04/15/19 Doxazosin Mesylate [Cardura 4 mg Tablet] 4 mg PO QHS 04/15/19 Escitalopram Oxalate [Lexapro 10 mg Tablet] 10 mg PO DAILY 04/15/19 Insulin Aspart [Novolog Insulin (Aspart) 100 unit/mL] 0 unit SQ .SLIDING SCALE 04/15/19 Insulin Detemir [Levemir] 30 unit SQ QHS 04/15/19 Isosorbide Mononitrate [Imdur 60 mg Tablet.er] 60 mg PO DAILY 04/15/19 Montelukast Sodium [Singulair 10 mg Tablet] 10 mg PO QHS 04/15/19 Sitagliptin Phosphate [Januvia 50 mg Tablet] 25 mg PO DAILY 04/15/19 Apixaban [Eliquis 5 mg Tablet] 5 mg PO Q12 30 Days #60 tab 04/19/19 Ferrous Sulfate [Feosol 325 mg Tablet] 325 mg PO DAILY 30 Days #30 tablet 04/19/19 Furosemide [Lasix] 60 mg PO BID 30 Days #60 tablet 04/19/19 Hydralazine HCl 100 mg PO TID 30 Days #90 tablet 04/19/19 Losartan Potassium [Cozaar 25 mg Tablet] 25 mg PO DAILY 30 Days #30 tablet 04/19/19 History of Present Illiness History of Present Illness: WILIAM GAN is a 68 year old male past medical history of atrial fibri llation, coronary artery disease, congestive heart failure and stage IV kidney failure presented to ED complaining of worsening shortness of breath on exertion, BNP elevated, troponin and EKG unremarkable. Hospital Course Hospital Course: (1) Acute exacerbation of CHF (congestive heart failure) Acute systolic and diastolic CHF exacerbation. 10/03/2018. 2D echo. LVEF 55%. Left ventricular hypertrophy. RVSP 66 to 71 mmHg. Was a started on diuretics, beta-blockers, ARB, iliac diet, volume restriction. Normotensive and euvolemic at the time of discharge. (2) Dyspnea Multifactorial, severe pulmonary hypertension, acute CHF exacerbation and worsening underlying anemia of CKD. Continued on supplemental oxygen, treated the underlying CHF, anemia of CKD and pulmonary hypertension. Patient was sent home on supplemental oxygen. An appointment with pulmonology was obtained for evaluation of MURIEL and right heart cath for underlying pulmonary hypertension. (3) Paroxysmal A-fib Admitted to telemetry. Rate controlled, anticoagulated. Continued on beta-blockers, and anticoagulants. Outpatient cardiology follow-up recommended. (4) Pulmonary hypertension Severe pulmonary hypertension by echo. Could be exacerbated by MURIEL and obesity. 10/03/2018. 2D echo. RVSP 66 to 71 mmHg. This could partly explain his worsening dyspnea. Was continued on diuretics, fluid restriction. Dr. Root has been consulted. Outpatient follow-up was obtained with Dr. Root for right heart cath and sleep study. May need right heart catheterization. Pending recommendations. (5) Anemia in CKD (chronic kidney disease) Mild iron deficiency. Denies any hematemesis, hemoptysis, nosebleeds, melena, hematochezia, hematuria. Received Injectafer on 04/17/2019. Discharged on supplemental ferrous sulfate. May need Procrit in the future. Return for bleeding. Outpatient follow-up with Dr. Garcia picker/puller was obtained. (6) Chronic kidney disease, stage V Most likely due to diabetic nephropathy. Mildly elevated creatinine most baseline likely due to ARB in addition. Otherwise kidney function is stable. Making adequate urine. As per nephrology report no [employer] DEV[employer]OP[employer] TEAM LEAD on this admission. May need dialysis in near future. 04/18/2019. Renal ultrasound negative for any renal arterial stenosis. Continued on monitoring volume status and electrolytes, replace as needed. Voiding nephrotoxic meds. Nephrology was on board. Recommendations noted. Outpatient follow-up with nephrology was obtained. (7) Diabetes mellitus type 2, insulin dependent Uncontrolled. Hemoglobin A1c 9.1. Optimized during this hospitalization. Continue diabetic diet, sliding scale insulin, long-acting insulin, hypoglycemia protocol, Accu-Chek, adjust dosage as needed. Decrease glipizide by 50% due to worsening renal function. Was discharged on Januvia and insulin. Glipizide was cut down to 5 mg due to worsening renal function. (8) HTN (hypertension) Normotensive. Euvolemic. Was continued on amlodipine 5 mg p.o. twice daily, carvedilol 25 mg p.o. twice daily, hydralazine 100 mg p.o. 3 times daily, losartan 25 mg p.o. daily, Lasix 60 mg IV twice daily. Was discharged on amlodipine 5 mg p.o. daily, carvedilol 25 mg p.o. twice daily, hydralazine 100 mg p.o. 3 times daily, losartan 25 mg p.o. daily, Lasix 60 mg p.o. twice daily. (9) Hypermagnesemia Likely due to worsening renal function. Start on low magnesium diet. Daily magnesium level. Recommended low magnesium diet. (10) Hyperphosphatemia Secondary to secondary hyperparathyroidism caused by worsening CKD. Continued calcium acetate. Physical Exam Vital Signs: Temp Pulse Resp BP Pulse Ox 97.6 F 66 18 115/54 L 95 04/19/19 14:54 04/19/19 14:54 04/19/19 14:54 04/19/19 14:54 04/19/19 14:54 Intake & Output 04/19/19 04/20/19 04/21/19 06:59 06:59 06:59 Intake Total 1100 Output Total 950 Balance 150 Weight 101.9 kg Results Laboratory Results: WBC 10.7 10^3/uL (4.0-10.5) H 04/19/19 04:23 RBC 2.81 10^6/uL (4.35-5.55) L 04/19/19 04:23 Hgb 8.1 g/dL (13.5-17.0) L 04/19/19 04:23 Hct 24.7 % (37.9-51.0) L 04/19/19 04:23 MCV 88 fl (80-97) 04/19/19 04:23 MCH 28.8 pg (27.0-33.4) 04/19/19 04:23 MCHC 32.7 g/dL (32.0-36.0) 04/19/19 04:23 RDW 14.9 % (11.5-14.0) H 04/19/19 04:23 Plt Count 362 10^3/uL (150-450) 04/19/19 04:23 Lymph % (Auto) 6.8 % (13-45) L 04/19/19 04:23 [place] % (Auto) 11.6 % (3-13) 04/19/19 04:23 Eos % (Auto) 2.7 % (0-6) 04/19/19 04:23 Baso % (Auto) 1.3 % (0-2) 04/19/19 04:23 Reticulocyte # 0.117 10^6/uL (0.028-0.122) 04/17/19 07:41 Absolute Neuts (auto) 8.3 10^3/uL (1.7-8.2) H 04/19/19 04:23 Absolute Lymphs (auto) 0.7 10^3/uL (0.5-4.7) 04/19/19 04:23 Absolute Monos (auto) 1.2 10^3/uL (0.1-1.4) 04/19/19 04:23 Absolute Eos (auto) 0.3 10^3/uL (0.0-0.6) 04/19/19 04:23 Absolute Basos (auto) 0.1 10^3/uL (0.0-0.2) 04/19/19 04:23 Total Counted 100 04/15/19 16:40 Seg Neutrophils % 77.6 % (42-78) 04/19/19 04:23 Seg Neuts % (Manual) 73 % (42-78) 04/15/19 16:40 Lymphocytes % (Manual) 10 % (13-45) L 04/15/19 16:40 Monocytes % (Manual) 8 % (3-13) 04/15/19 16:40 Eosinophils % (Manual) 6 % (0-6) 04/15/19 16:40 Basophils % (Manual) 3 % (0-2) H 04/15/19 16:40 Abs Neuts (Manual) 8.4 10^3/uL (1.7-8.2) H 04/15/19 16:40 Abs Lymphs (Manual) 1.2 10^3/uL (0.5-4.7) 04/15/19 16:40 Abs Monocytes (Manual) 0.9 10^3/uL (0.1-1.4) 04/15/19 16:40 Absolute Eos (Manual) 0.7 10^3/uL (0.0-0.6) H 04/15/19 16:40 Abs Basophils (Manual) 0.3 10^3/uL (0.0-0.2) H 04/15/19 16:40 Nucleated RBCs 1 /100 WBC (0) 04/15/19 16:40 Clumped Platelets PRESENT 04/15/19 16:40 Platelet Comment ADEQUATE 04/15/19 16:40 Polychromasia 1+ 04/15/19 16:40 Anisocytosis SLIGHT 04/15/19 16:40 Retic Count (auto) 4.12 % (0.66-2.85) H 04/17/19 07:41 Sodium 134.0 mmol/L (137-145) L 04/19/19 04:23 Potassium 4.4 mmol/L (3.6-5.0) 04/19/19 04:23 Chloride 99 mmol/L (98-107) 04/19/19 04:23 Carbon Dioxide 23 mmol/L (22-30) 04/19/19 04:23 Anion Gap 12 (5-19) 04/19/19 04:23 BUN 80 mg/dL (7-20) H 04/19/19 04:23 Creatinine 6.32 mg/dL (0.52-1.25) H 04/19/19 04:23 Est GFR ( Amer) 11 (>60) L 04/19/19 04:23 Est GFR (MDRD) Non-Af 9 (>60) L 04/19/19 04:23 Glucose 71 mg/dL (75-110) L 04/19/19 04:23 POC Glucose 79 mg/dL (70-110) 04/19/19 11:35 Hemoglobin A1c % 9.1 % (4.7-6.0) H 04/16/19 07:47 Calcium 9.3 mg/dL (8.4-10.2) 04/19/19 04:23 Phosphorus 8.0 mg/dL (2.5-4.5) H 04/19/19 04:23 Magnesium 2.7 mg/dL (1.6-2.3) H 04/19/19 04:23 Iron 28.9 ug/dL (49-181) L 04/17/19 07:41 TIBC 265 ug/dL (250-450) 04/17/19 07:41 % Saturation 11 % 04/17/19 07:41 Ferritin 229.00 ng/mL (17.9-464.0) 04/17/19 07:41 Total Bilirubin 0.3 mg/dL (0.2-1.3) 04/19/19 04:23 Direct Bilirubin 0.2 mg/dL (0.0-0.4) 04/19/19 04:23 Neonat Total Bilirubin Not Reportable 04/19/19 04:23 Neonat Direct Bilirubin Not Reportable 04/19/19 04:23 Neonat Indirect Bili Not Reportable 04/19/19 04:23 AST 13 U/L (17-59) L 04/19/19 04:23 ALT 10 U/L (<50) 04/19/19 04:23 Alkaline Phosphatase 59 U/L (38-126) 04/19/19 04:23 Troponin I 0.028 ng/mL 04/16/19 07:47 NT-Pro-B Natriuret Pep 56884 pg/mL (5-900) H 04/16/19 07:47 Total Protein 5.9 g/dL (6.3-8.2) L 04/19/19 04:23 Albumin 3.2 g/dL (3.5-5.0) L 04/19/19 04:23 Triglycerides 130 mg/dL (<150) 04/16/19 07:47 Cholesterol 147.84 mg/dL (0-200) 04/16/19 07:47 LDL Cholesterol Direct 88 mg/dL (<100) 04/16/19 07:47 VLDL Cholesterol 26.0 mg/dL (10-31) 04/16/19 07:47 HDL Cholesterol 33 mg/dL (>40) L 04/16/19 07:47 Vitamin B12 603.0 pg/mL (239-931) 04/17/19 07:41 Folate 10.80 ng/mL (>2.76) 04/17/19 07:41 PTH Intact 95.9 pg/mL (10.0-65.0) H 04/19/19 04:23 Urine Color YELLOW 04/15/19 16:14 Urine Appearance SLIGHTLY-CLOUDY 04/15/19 16:14 Urine pH 5.0 (5.0-9.0) 04/15/19 16:14 Ur Specific [place] 1.010 04/15/19 16:14 Urine Protein >=500 mg/dL (NEGATIVE) H 04/15/19 16:14 Urine Glucose (UA) 150 mg/dL (NEGATIVE) H 04/15/19 16:14 Urine Ketones NEGATIVE mg/dL (NEGATIVE) 04/15/19 16:14 Urine Blood NEGATIVE (NEGATIVE) 04/15/19 16:14 Urine Nitrite NEGATIVE (NEGATIVE) 04/15/19 16:14 Urine Bilirubin NEGATIVE (NEGATIVE) 04/15/19 16:14 Urine Urobilinogen NEGATIVE mg/dL (<2.0) 04/15/19 16:14 Ur Leukocyte Esterase NEGATIVE (NEGATIVE) 04/15/19 16:14 Urine WBC (Auto) 1 /HPF 04/15/19 16:14 Urine Bacteria (Auto) TRACE /HPF 04/15/19 16:14 Squamous Epi Cells Auto 1 /HPF 04/15/19 16:14 Urine Mucus (Auto) RARE /LPF 04/15/19 16:14 Urine Ascorbic Acid NEGATIVE (NEGATIVE) 04/15/19 16:14 Anti-Nuclear Antibody Negative (Negative) 04/18/19 08:03 04/15/19 04/15/19 04/16/19 16:40 19:56 01:21 Troponin I 0.025 0.028 0.028 NT-Pro-B Natriuret Pep 50158 H 04/16/19 07:47 Troponin I 0.028 NT-Pro-B Natriuret Pep [id number] H Impressions: Chest X-Ray 04/15/19 15:54 IMPRESSION: CARDIOMEGALY AND MILD VASCULAR CONGESTION, UNCHANGED. SMALL RIGHT PLEURAL EFFUSION. Abdomen Ultrasound 04/18/19 00:00 IMPRESSION: 1. The examination is somewhat limited due to the patient's body habitus and overlying bowel gas. The pancreas and distal segment of the abdominal aorta are obscured by overlying bowel gas. 2. Hepatomegaly. Vascular Ultrasound 04/18/19 00:00 IMPRESSION: NO DOPPLER EVIDENCE OF HEMODYNAMICALLY SIGNIFICANT RENAL ARTERY STENOSIS. Stroke Is this a Stroke Patient?: No Acute Heart Failure - Is this a Heart Failure Patient?: No
== END 2019-04-19 16:55 | disposition home or self-care (01) | DRG 291 ==
LOC: ER 15:37 → EH 18:41 → 3N 22:30 → 3W 04-16 15:47
PROVIDERS: ADMIT Hospitalist; ATTEND Hospitalist
DX: I13.2 Hypertensive heart and chronic kidney disease with heart failure and with stage 5 chronic kidney disease, or end stage renal disease (principal); I50.23 Acute on chronic systolic (congestive) heart failure; E87.1 Hypo-osmolality and hyponatremia; N18.5 Chronic kidney disease, stage 5; N25.81 Secondary hyperparathyroidism of renal origin; E11.22 Type 2 diabetes mellitus with diabetic chronic kidney disease; D63.1 Anemia in chronic kidney disease; I27.20 Pulmonary hypertension, unspecified; Z79.899 Other long term (current) drug therapy; E83.39 Other disorders of phosphorus metabolism; E11.21 Type 2 diabetes mellitus with diabetic nephropathy; I48.0 Paroxysmal atrial fibrillation; E66.9 Obesity, unspecified; Z79.4 Long term (current) use of insulin; Z68.33 Body mass index [BMI] 33.0-33.9, adult; Z79.02 Long term (current) use of antithrombotics/antiplatelets; Z79.82 Long term (current) use of aspirin; I25.2 Old myocardial infarction
CPT/HCPCS: 36415; 71045; 76700; 80048; 80053; 80061; 80069; 81001; 82607; 82728; 82746; 82962; 83036; 83540; 83550; 83735; 83880; 83970; 84100; 84484; 85025; 85045; 86038; 93005; 93010; 93976; 96374; 96376; 99285; J1439; J1644; J1815; J1940; J3490; J7050; S0028

== ENCOUNTER 2019-05-08 21:07 | Emergency (ER) | payer MEDICARE ==
[2019-05-08 21:50] LABS: HEMATOCRIT 34.8 % (37.9-51.0); HEMOGLOBIN 10.9 g/dL (13.5-17.0); MEAN CORPUSCULAR HEMOGLOBIN 28.5 pg (27.0-33.4); MEAN CORPUSCULAR HGB CONC 31.2 g/dL (32.0-36.0); MEAN CORPUSCULAR VOLUME 91 fl (80-97); PLATELET COUNT 330 10^3/uL (150-450); RED BLOOD COUNT 3.82 10^6/uL (4.35-5.55); WHITE BLOOD COUNT 20.5 10^3/uL (4.0-10.5)
--- NOTE | 2019-05-08 21:57 | RADIOLOGY REPORT (SQ) ---
XR CHEST 1 VIEW EXAM DATE: 05/08/2019 9:11 PM BODY PAINTER HISTORY: respiratory distress. COMPARISON: 04/15/2019 FINDINGS: Heart size is enlarged with pulmonary vascular congestion. There is a new small right pleural effusion with adjacent airspace disease. There is also a new right hemodialysis catheter with the tip at the cavoatrial junction. No pneumothorax. No acute bony findings. IMPRESSION: New small right pleural effusion with adjacent airspace disease. Right central line is stable.
[2019-05-08 22:08] LABS: ALBUMIN 3.4 g/dL (3.5-5.0); ALKALINE PHOSPHATASE 109 U/L (38-126); ANION GAP 10 (5-19); ASPARTATE AMINO TRANSFERASE 36 U/L (17-59); BILIRUBIN,DIRECT 0.3 mg/dL (0.0-0.4); BILIRUBIN,TOTAL 0.6 mg/dL (0.2-1.3); BLOOD UREA NITROGEN 33 mg/dL (7-20); CALCIUM 8.3 mg/dL (8.4-10.2); CARBON DIOXIDE 29 mmol/L (22-30); CHLORIDE 98 mmol/L (98-107); CREATINE KINASE 40 U/L (55-170); GLUCOSE 229 mg/dL (75-110); POTASSIUM 5.1 mmol/L (3.6-5.0); TOTAL PROTEIN 6.1 g/dL (6.3-8.2)
[2019-05-08 22:14] LABS: ABSOLUTE MONOCYTES # (MANUAL) 1.6 10^3/uL (0.1-1.4); ANISOCYTOSIS 1+; BAND NEUTROPHILS % (MANUAL) 2 % (3-5); BASOPHILS % (MANUAL) 1 % (0-2); EOSINOPHILS % (MANUAL) 1 % (0-6); LYMPHOCYTES % (MANUAL) 5 % (13-45); MONOCYTES % (MANUAL) 8 % (3-13); OVALOCYTES SLIGHT; PLATELET COMMENT ADEQUATE; SCHISTOCYTES SLIGHT; SEGMENTED NEUTROPHILS % (MAN) 83 % (42-78); TOTAL CELLS COUNTED 100
[2019-05-08 22:20] LABS: CREATINE KINASE MB 2.83 ng/mL (<4.55); TROPONIN I 0.014 ng/mL
[2019-05-08] MEDS ORDERED: NITROGLYCERIN/D5W 50 MG/250 ML RTUINJ IV PRN (22:28)
--- NOTE | 2019-05-08 22:28 | ER Document Report ---
ED General - General Chief Complaint: Shortness Of Breath Stated Complaint: SHORTNESS OF BREATH Time Seen by Provider: 05/08/19 22:27 Primary Care Provider: FLORENCIO WINKLER DO [Primary Care Provider] - Follow up as needed Mode of Arrival: Medic Information source: Patient, Relative, Emergency Med Personnel, [facility] Records, Outside Facility Records TRAVEL OUTSIDE OF THE [place] IN LAST 30 DAYS: No - HPI Notes: Patient with history of severe pulmonary hypertension end-stage renal disease with recent placement right tunneled catheter with first HD session completed successfully and fully yesterday and they are unsure why again today but also for entire session successful per daughter and per patient. Patient only recently discharged from inpatient admission at [facility] for exacerbation of his frequently decompensating heart failure secondary to severe pulmonary hypertension. pt states became short of breath tonight despite continuously wearing his home to L o2, so called ems. ems say they found initial spo2 sats in upper 70's. Initiated Cpap and he improved to 90's and throughout transport started to appear much more comfortable, remained alert cooperative. Daughter says that she had given him his nighttime meds for which she has a list. She says she is unsure if there is any conditional instructions for when he does get short of breath. Patient says he does make very little to urine still though. She feels like he is not improved much after the recent hospitalization I asked what her understanding was regarding his overall trajectory of his health with more frequent hospitalizations and increasing difficulty and bouncing back to prior baselines. She agrees each hospitalization his taken a toll on her father. She says that she and he have not discussed potential goals of care for future or current. E.G.they have not specifically discussed what he would prefer if he were to become so short of breath at baseline that he required the mask he is wearing now or if he did or did not want to continue to go to hospitals when his breathing became worse for any reason that would cause him an exacerbation which we discussed are becoming more likely as these diseases progress. Patient and daughter agree he did not want to undergo recommended inpatient or outpatient PT OT/pulmonary rehab at discharge yesterday patient says he is just not wanting to do that anymore though he understands the goal wo uld be to maintain him at least at his current baseline and that it is more likely he would continue to worsen and not improve without any rehab efforts. Patient says he is getting tired of going to the hospital but does not like to feel short of breath. Patient denies that he has had recent chest pain or passing out no vomiting/nausea or abdominal pain he denies any headache or speech or other weakness or other neuro changes. - Related Data Allergies/Adverse Reactions: JUDE Inhibitors Allergy (Verified 04/15/19 15:46) Past Medical History - Social History Smoking Status: Never Smoker Chew tobacco use (# tins/day): No Frequency of alcohol use: None Drug Abuse: None Family History: CVA, Malignancy Patient has suicidal ideation: No Patient has homicidal ideation: No - Past Medical History Cardiac Medical History: Reports: Hx Atrial Fibrillation, Hx Congestive Heart Failure, Hx Coronary Artery Disease, Hx Heart Attack - SILENT-SHOWED UP ON EKG, Hx Hypercholesterolemia, Hx Hypertension - MEDS Pulmonary Medical History: Denies: Hx Asthma Neurological Medical History: Denies: Hx Cerebrovascular Accident, Hx Seizures Endocrine Medical History: Reports: Hx Diabetes Mellitus Type 2 Renal/ Medical History: Reports: Hx End Stage Renal Disease. Denies: Hx Peritoneal Dialysis GI Medical History: Denies: Hx Hepatitis, Hx Hiatal Hernia, Hx Ulcer Musculoskeletal Medical History: Reports Hx Arthritis Psychiatric Medical History: Reports: Hx Depression Infectious Medical History: Denies: Hx Hepatitis Past Surgical History: Denies: Hx Open Heart Surgery, Hx Pacemaker Physical Exam - Vital signs Vitals: Resp BP Pulse Ox 28 H 160/133 H 100 05/08/19 21:12 05/08/19 21:12 05/08/19 21:12 Course - Re-evaluation Re-evalutation: 05/23/19 17:56 Patient significantly improved after initial RT placed on BiPAP 18/ initially 60% and able to titrate down and initially very low rate infusion nitroglycerin gtt. which soon was stopped since his blood pressures improved to around 20% drop in initial MAPs and his breathing had significantly improved. He continued to stay on BiPAP to keep his breathing less labored. Reviewed labs had been on recent steroid which could potentially explain the leukocytosis. On our chest x-ray we do see interval appearance of a small right-sided pleural effusion, I spoke with the fine jewelry sales associate at [facility] who reviewed his most recent chest x-ray from very recent admission and there was a right effusion present there. fine jewelry sales associate at [facility] who knows patient and says he is very progressed on his organ failure trajectory and has severe disease I doubt he there really no other available interventions to bridge patient to disease reversal, his pulmonary hypertension being secondary and then propagating his severe heart failure. Family understand that likely the plan for admission would be to try to tweak his volume status but that it is a fine balance, possibly make sure that no interval pneumonias or developing but that each hospitalization may make it even harder to return to his prior baseline. though would prefer he be transferred to [facility] since his doctors were there. Mri Assistant at [facility] will put him on the list for a bed at ICU but currently they are full. The remainder of my shift patient continued to remain stable interactive alert and on BiPAP for the most part. - Vital Signs Vital signs: Temp Pulse Resp BP Pulse Ox 97.4 F 17 119/63 98 05/09/19 08:41 05/09/19 08:30 05/09/19 08:30 05/09/19 08:30 - Laboratory Result Diagrams: 05/08/19 21:34 05/08/19 21:34 Laboratory results interpreted by me: 05/08/19 05/08/19 05/08/19 21:13 21:34 21:34 WBC 20.5 H RBC 3.82 L Hgb 10.9 L Hct 34.8 L MCHC 31.2 L RDW 16.0 H Seg Neuts % (Manual) 83 H Band Neutrophils % 2 L Lymphocytes % (Manual) 5 L Abs Neuts (Manual) 17.4 H Abs Monocytes (Manual) 1.6 H Carbonic Acid ABG pCO2 ABG pO2 ABG HCO3 ABG Total CO2 ABG O2 Saturation Sodium 136.5 L Potassium 5.1 H BUN 33 H Creatinine 2.90 H Est GFR ( Amer) 26 L Est GFR (MDRD) Non-Af 22 L Glucose 229 H POC Glucose 222 H Calcium 8.3 L Creatine Kinase 40 L Total Protein 6.1 L Albumin 3.4 L Urine Protein Urine Glucose (UA) 05/08/19 05/08/19 22:32 23:50 WBC RBC Hgb Hct MCHC RDW Seg Neuts % (Manual) Band Neutrophils % Lymphocytes % (Manual) Abs Neuts (Manual) Abs Monocytes (Manual) Carbonic Acid 1.39 H ABG pCO2 46.2 H ABG pO2 129.9 H ABG HCO3 26.7 H ABG Total CO2 28.1 H ABG O2 Saturation 98.5 H Sodium Potassium BUN Creatinine Est GFR ( Amer) Est GFR (MDRD) Non-Af Glucose POC Glucose Calcium Creatine Kinase Total Protein Albumin Urine Protein >=500 H Urine Glucose (UA) >=500 H - Diagnostic Test Radiology results interpreted by me: 05/23/19 18:11 Reviewed one-view portable CXR: No evidence of pneumothoraces catheter tip overlying right atrium on this 2D film. Right-sided basilar effusion. CMG not significantly changed from prior plus plus moderate diffuse pulmonary interstitial edema mostly b bibasilar but with cephalization, R > L. 05/23/19 18:15 - EKG Interpretation by Me Additional EKG results interpreted by me: 05/23/19 18:09 EKG today A. fib rate 70s. No prior full 12-lead in our records for review though ultimately did see outside record twelve-lead which appeared similar. Overall no ST elevations depressions. Diffusely T wave flattening appears similar to outside ECG. Voltage diffusely also appears similar Critical Care Note - Critical Care Note Total time excluding time spent on procedures (mins): 30 Discharge - Discharge Clinical Impression: Pleural effusion Fluid overload Qualifiers: Hypervolemia type: unspecified Qualified Code(s): E87.70 - Fluid overload, unspecified Disposition: [facility] Unit Admitted: ICU Referrals: FLORENCIO WINKLER DO [Primary Care Provider] - Follow up as needed
[2019-05-08 23:56] LABS: AMORPHOUS SEDIMENT,URINE TRACE /HPF; APPEARANCE,URINE SLIGHTLY-CLOUDY; BILIRUBIN,URINE NEGATIVE (NEGATIVE); COLOR,URINE YELLOW; GLUCOSE, URINE >=500 mg/dL (NEGATIVE); KETONES,URINE NEGATIVE (NEGATIVE); LEUKOCYTE ESTERASE,URINE NEGATIVE (NEGATIVE); NITRITE,URINE NEGATIVE (NEGATIVE); PROTEIN,URINE >=500 mg/dL (NEGATIVE); URINE SPECIFIC GRAVITY 1.013; UROBILINOGEN,URINE NEGATIVE mg/dL (<2.0)
--- NOTE | 2019-05-09 | EKG REPORT ---
SEVERITY:- ABNORMAL ECG - ATRIAL FIBRILLATION, V-RATE 63-100 ABNORMAL T, CONSIDER ISCHEMIA, LATERAL LEADS : Confirmed by: Flash Padron 08-May-2019 23:59:32
[2019-05-09 00:05] LABS: ARTERIAL BLOOD BASE EXCESS 1.2 mmol/L; ARTERIAL BLOOD H2CO3 1.39 mmol/L (1.05-1.35); ARTERIAL BLOOD HCO3 26.7 mmol/L (20-24); ARTERIAL BLOOD O2 SATURATION 98.5 % (94-98); ARTERIAL BLOOD PCO2 46.2 mmHg (35-45); ARTERIAL BLOOD PH 7.38 (7.35-7.45); ARTERIAL BLOOD PO2 129.9 mmHg (80-100); ARTERIAL BLOOD TOTAL CO2 28.1 mmol/L (23-27)
[2019-05-09 00:07] LABS: ARTERIAL BLOOD FIO2 50%
[2019-05-09 08:44] VITALS: BP 119/63
== END 2019-05-09 10:05 | disposition short-term general hospital (02) ==
LOC: ER 21:07
DX: J90 Pleural effusion, not elsewhere classified (principal); E87.70 Fluid overload, unspecified; R06.02 Shortness of breath; I48.91 Unspecified atrial fibrillation; I25.10 Atherosclerotic heart disease of native coronary artery without angina pectoris; E78.00 Pure hypercholesterolemia, unspecified; E11.22 Type 2 diabetes mellitus with diabetic chronic kidney disease; I13.2 Hypertensive heart and chronic kidney disease with heart failure and with stage 5 chronic kidney disease, or end stage renal disease; I50.9 Heart failure, unspecified; N18.6 End stage renal disease; Z99.81 Dependence on supplemental oxygen
CPT/HCPCS: 93005; 99285; 96365; 36415; 82553; 82962; 82803; 82550; 85025; 80053; 81001; 84484; 71045; 93010; 36600; 94660 ×2; J3490

== ENCOUNTER → 2019-11-15 | Outpatient (CLI) | payer MEDICARE ==
--- NOTE | 2019-11-15 08:15 | RADIOLOGY REPORT (SQ) ---
EXAM DESCRIPTION: U/S ABDOMEN COMPLETE W/O DOP IMAGES COMPLETED DATE/TIME: 11/15/2019 7:55 am REASON FOR STUDY: RUQ SWELLING, MASS AND LUMP (R19.01) R19.01 RIGHT UPPER QUADRANT ABDOMINAL SWELLI NG, MASS AND LUM COMPARISON: 04/18/2019 TECHNIQUE: Dynamic and static grayscale images acquired of the abdomen and recorded on PACS. Additio nal selected color Doppler and spectral images recorded. Note: Study does not meet criteria for complete doppler/duplex scan LIMITATIONS: None. FINDINGS: PANCREAS: Obscured by overlying bowel gas. LIVER: Hepatomegaly. No focal masses. LIVER VASCULATURE: Normal directional flow of the main portal vein and hepatic veins. GALLBLADDER: No stones. Normal wall thickness. No pericholecystic fluid. ULTRASOUND-DETECTED KEANE'S SIGN: Negative. INTRAHEPATIC DUCTS AND COMMON DUCT: CBD and intrahepatic ducts normal caliber. No filling defects. INFERIOR VENA CAVA: Normal flow. AORTA: Obscured by overlying bowel gas. RIGHT KIDNEY: Normal size. Normal echogenicity. No solid or suspicious masses. No hydronephros is. No calcifications. LEFT KIDNEY: Normal size. Normal echogenicity. No solid or suspicious masses. No hydronephrosi s. No calcifications. SPLEEN: Normal size. No solid masses. PERITONEAL AND PLEURAL SPACES: Right-sided pleural effusion. No definite ascites. OTHER: No other significant finding. IMPRESSION: Nonvisualization of the aorta and pancreas due to overlying bowel gas. Small right pleu ral effusion. No definite ascites. TECHNICAL DOCUMENTATION: JOB ID: [id number] [employer]- All Rights Reserved Reading location - IP/workstation name: [email or web address]
== END ==
LOC: RAD 07:12
PROVIDERS: ATTEND Specialist
DX: R19.01 Right upper quadrant abdominal swelling, mass and lump (principal); J90 Pleural effusion, not elsewhere classified
CPT/HCPCS: 76700

== ENCOUNTER 2019-12-23 18:18 | Emergency (ER) | payer MEDICARE ==
[2019-12-23 18:44] LABS: ABSOLUTE BASOPHILS # (AUTO) 0.1 10^3/uL (0.0-0.2); ABSOLUTE EOSINOPHILS # (AUTO) 0.2 10^3/uL (0.0-0.6); ABSOLUTE LYMPHOCYTES (AUTO) 0.7 10^3/uL (0.5-4.7); ABSOLUTE MONOCYTES (AUTO) 0.9 10^3/uL (0.1-1.4); ABSOLUTE NEUT (AUTO) 9.3 10^3/uL (1.7-8.2); EOSINOPHILS % (AUTO) 2.1 % (0-6); HEMATOCRIT 34.2 % (37.9-51.0); HEMOGLOBIN 11.1 g/dL (13.5-17.0); LYMPHOCYTES % (AUTO) 6.4 % (13-45); MEAN CORPUSCULAR HEMOGLOBIN 29.1 pg (27.0-33.4); MEAN CORPUSCULAR HGB CONC 32.4 g/dL (32.0-36.0); MEAN CORPUSCULAR VOLUME 90 fl (80-97); MONOCYTES % (AUTO) 8.4 % (3-13); PLATELET COUNT 315 10^3/uL (150-450); RED BLOOD COUNT 3.81 10^6/uL (4.35-5.55); RED CELL DISTRIBUTION WIDTH 14.2 % (11.5-14.0); SEGMENTED NEUTROPHILS % (AUTO) 82.1 % (42-78); TOTAL CELLS COUNTED % (AUTO) 100 %; WHITE BLOOD COUNT 11.3 10^3/uL (4.0-10.5)
--- NOTE | 2019-12-23 18:53 | RADIOLOGY REPORT (SQ) ---
EXAM DESCRIPTION: CHEST SINGLE VIEW IMAGES COMPLETED DATE/TIME: 12/23/2019 5:38 pm REASON FOR STUDY: bed 5 difficulty breathing COMPARISON: 05/08/2019 EXAM PARAMETERS: NUMBER OF VIEWS: One view. TECHNIQUE: Single frontal radiographic view of the chest acquired. RADIATION DOSE: NA LIMITATIONS: None. FINDINGS: LUNGS AND PLEURA: Small to moderate right and small left pleural effusions with compressiv e atelectasis of the lung bases, possible superimposed consolidation in the right lower lobe. No pne umothorax. MEDIASTINUM AND HILAR STRUCTURES: No masses. Contour normal. HEART AND VASCULAR STRUCTURES: Moderate cardiomegaly. No pulmonary vascular congestion. BONES: No acute findings. HARDWARE: None in the chest. OTHER: No other significant finding. IMPRESSION: Moderate cardiomegaly. Small to moderate right and small left pleural effusions with co mpressive atelectasis/ consolidation at the lung bases. TECHNICAL DOCUMENTATION: JOB ID: [id number] 2010 [employer]- All Rights Reserved Reading location - IP/workstation name: [email or web address]
[2019-12-23 19:14] LABS: ALBUMIN 3.8 g/dL (3.5-5.0); ALKALINE PHOSPHATASE 83 U/L (38-126); ANION GAP 6 (5-19); ASPARTATE AMINO TRANSFERASE 16 U/L (17-59); BILIRUBIN,DIRECT 0.1 mg/dL (0.0-0.4); BILIRUBIN,TOTAL 0.6 mg/dL (0.2-1.3); BLOOD UREA NITROGEN 34 mg/dL (7-20); CALCIUM 8.7 mg/dL (8.4-10.2); CARBON DIOXIDE 34 mmol/L (22-30); CHLORIDE 94 mmol/L (98-107); CREATINE KINASE 49 U/L (55-170); GLUCOSE 349 mg/dL (75-110); POTASSIUM 3.8 mmol/L (3.6-5.0); TOTAL PROTEIN 6.7 g/dL (6.3-8.2)
[2019-12-23 19:23] LABS: CREATINE KINASE MB 2.52 ng/mL (<4.55); TROPONIN I 0.031 ng/mL
[2019-12-23 21:41] LABS: ABSOLUTE BASOPHILS # (AUTO) 0.1 10^3/uL (0.0-0.2); ABSOLUTE EOSINOPHILS # (AUTO) 0.3 10^3/uL (0.0-0.6); ABSOLUTE LYMPHOCYTES (AUTO) 0.9 10^3/uL (0.5-4.7); BASOPHILS % (AUTO) 1.3 % (0-2); EOSINOPHILS % (AUTO) 2.4 % (0-6); HEMATOCRIT 33.9 % (37.9-51.0); LYMPHOCYTES % (AUTO) 7.9 % (13-45); MEAN CORPUSCULAR HEMOGLOBIN 29.2 pg (27.0-33.4); MEAN CORPUSCULAR HGB CONC 32.5 g/dL (32.0-36.0); MEAN CORPUSCULAR VOLUME 90 fl (80-97); MONOCYTES % (AUTO) 8.9 % (3-13); PLATELET COUNT 330 10^3/uL (150-450); RED BLOOD COUNT 3.78 10^6/uL (4.35-5.55); RED CELL DISTRIBUTION WIDTH 14.4 % (11.5-14.0); SEGMENTED NEUTROPHILS % (AUTO) 79.5 % (42-78); TOTAL CELLS COUNTED % (AUTO) 100 %; WHITE BLOOD COUNT 11.3 10^3/uL (4.0-10.5)
[2019-12-23 21:42] LABS: VENOUS BLOOD BASE EXCESS 6.7 mmol/L; VENOUS BLOOD HCO3 33.3 mmol/L (20-32); VENOUS BLOOD PCO2 57.9 mmHg (35-63); VENOUS BLOOD PH 7.38 (7.30-7.42)
[2019-12-23 21:53] LABS: APPEARANCE,URINE SLIGHTLY-CLOUDY; BILIRUBIN,URINE NEGATIVE (NEGATIVE); COLOR,URINE YELLOW; GLUCOSE, URINE >=500 mg/dL (NEGATIVE); KETONES,URINE NEGATIVE (NEGATIVE); LEUKOCYTE ESTERASE,URINE NEGATIVE (NEGATIVE); NITRITE,URINE NEGATIVE (NEGATIVE); PROTEIN,URINE >=500 mg/dL (NEGATIVE); URINE SPECIFIC GRAVITY 1.015; UROBILINOGEN,URINE NEGATIVE mg/dL (<2.0)
[2019-12-23 21:58] LABS: ALBUMIN 3.9 g/dL (3.5-5.0); ALKALINE PHOSPHATASE 95 U/L (38-126); ANION GAP 8 (5-19); ASPARTATE AMINO TRANSFERASE 15 U/L (17-59); BILIRUBIN,DIRECT 0.1 mg/dL (0.0-0.4); BILIRUBIN,TOTAL 0.5 mg/dL (0.2-1.3); BLOOD UREA NITROGEN 36 mg/dL (7-20); CALCIUM 8.8 mg/dL (8.4-10.2); CARBON DIOXIDE 32 mmol/L (22-30); CHLORIDE 94 mmol/L (98-107); GLUCOSE 348 mg/dL (75-110); POTASSIUM 3.8 mmol/L (3.6-5.0); TOTAL PROTEIN 7.1 g/dL (6.3-8.2)
--- NOTE | 2019-12-23 22:27 | ER Document Report ---
ED Respiratory Problem - General TRAVEL OUTSIDE OF THE [place] IN LAST 30 DAYS: No <BRYSON MORTENSEN P - Last Filed: 12/23/19 22:22> - General Mode of Arrival: Medic Information source: Patient <TAMMIPOLOMARCELO LEY - Last Filed: 12/24/19 09:54> - General Chief Complaint: Shortness Of Breath Stated Complaint: SHORTNESS OF BREATH Time Seen by Provider: 12/23/19 20:33 Primary Care Provider: EDMUNDO LEVY MD [EMERITUS] - Follow up as needed HARDIK ROBERTSON MD [Primary Care Provider] - 12/24/19 - HPI Notes: Patient presents complaining of shortness of breath. He states that he is a dialysis patient and that he went to a normal dialysis today. He states that he had a normal run and had no significant symptoms. He states once he arrived home to get out of the car to walk into the house and he felt very short of breath. He states that he hooked himself up to a pulse ox and it was in the 40s. He states by the time he arrived here at the hospital he feels back to normal. Patient states he is always on 2 L of oxygen at home. Patient denies any recent cough or cold. He denies any known covert virus exposures. He states that the shortness of breath was constant. It is now better. It was worse with exertion and better with rest.. It was severe when it happened. (MARCELO MACKAY) - Related Data Allergies/Adverse Reactions: JUDE Inhibitors Allergy (Verified 12/23/19 18:36) Past Medical History - Social History Smoking Status: Never Smoker Chew tobacco use (# tins/day): No Drug Abuse: None Family History: CVA, Malignancy Patient has homicidal ideation: No - Past Medical History Cardiac Medical History: Reports: Hx Atrial Fibrillation, Hx Congestive Heart Failure, Hx Coronary Artery Disease, Hx Heart Attack - SILENT-SHOWED UP ON EKG, Hx Hypercholesterolemia, Hx Hypertension - MEDS Pulmonary Medical History: Denies: Hx Asthma Neurological Medical History: Denies: Hx Cerebrovascular Accident, Hx Seizures Endocrine Medical History: Reports: Hx Diabetes Mellitus Type 2 Renal/ Medical History: Reports: Hx End Stage Renal Disease. Denies: Hx Perit griggs Dialysis GI Medical History: Denies: Hx Hepatitis, Hx Hiatal Hernia, Hx Ulcer Musculoskeletal Medical History: Reports Hx Arthritis Psychiatric Medical History: Reports: Hx Depression Infectious Medical History: Denies: Hx Hepatitis Past Surgical History: Denies: Hx Open Heart Surgery, Hx Pacemaker <BRYSON MORTENSEN - Last Filed: 12/23/19 22:22> - General Information source: Patient - Social History Smoking Status: Never Smoker Frequency of alcohol use: None Drug Abuse: None <MARCELO MACKAY - Last Filed: 12/24/19 09:54> Review of Systems - Review of Systems Constitutional: Malaise, Weakness. denies: Chills, Fever Cardiovascular: denies: Chest pain, Palpitations Respiratory: Short of breath. denies: Cough -: Yes All other systems reviewed and negative <MARCELO MACKAY - Last Filed: 12/24/19 09:54> Physical Exam - Vital signs Interpretation: Normal - General General appearance: Appears well, Alert - HEENT Head: Normocephalic, Atraumatic Eyes: Normal Pupils: PERRL - Respiratory Respiratory status: No respiratory distress Chest status: Nontender Breath sounds: Decreased air movement, Rales - mild Chest palpation: Normal - Cardiovascular Rhythm: Regular Heart sounds: Normal auscultation Murmur: No - Abdominal Inspection: Normal Distension: No distension Bowel sounds: Normal Tenderness: Nontender Organomegaly: No organomegaly - Back Back: Normal, Nontender - Extremities General upper extremity: Normal inspection, Nontender, Normal color, Normal ROM, Normal temperature General lower extremity: Normal inspection, Nontender, Normal color, Normal ROM, Normal temperature, Normal weight bearing. No: Hina's sign - Neurological Neuro grossly intact: Yes Cognition: Normal Orientation: AAOx4 [place] Coma Scale Eye Opening: Spontaneous Fermín Coma Scale Verbal: Oriented Fermín Coma Scale Motor: Obeys Commands Fermín Coma Scale Total: 15 Speech: Normal Motor strength normal: LUE, RUE, LLE, RLE Sensory: Normal - Psychological Associated symptoms: Normal affect, Normal mood - Skin Skin Temperature: Warm Skin Moisture: Dry Skin Color: Normal <MARCELO MACKAY - Last Filed: 12/24/19 09:54> - Vital signs Vitals: Temp Resp Pulse Ox 98.2 F 16 93 12/23/19 18:22 12/23/19 18:22 12/23/19 18:22 Course - Laboratory Result Diagrams: 12/23/19 21:15 12/23/19 21:15 - Diagnostic Test Radiology reviewed: Reports reviewed - EKG Interpretation by Me EKG shows normal: Sinus rhythm Rate: Normal - NSR Left axis [address] elevation or depression my interpretation. <BRYSON MORTENSEN - Last Filed: 12/23/19 22:22> - Laboratory Result Diagrams: 12/23/19 21:15 12/23/19 21:15 - Diagnostic Test Radiology reviewed: Image reviewed, Reports reviewed <MARCELO MACKAY - Last Filed: 12/24/19 09:54> - Re-evaluation Re-evalutation: 12/23/19 22:22 MDM I received this patient in turnover from Dr. Milton at change of shift. He has period of sob earlier today which was short lived and resolved. He is watching tv when I see him and tells me he is improved and would like to go home. Sat is 95% on 2liters of O2. He does complain of some nasal discharge/ congestion and cxr has small pl effusions perhaps right sided infiltrate. Will treat with antibiotics and a short course of steroids. covid test was done here earlier. He is a HD pt and HD was uneventful today. No sign of cardiac cause, sepsis or pe although these were considered. He will call pcp in the am to arrange follow up and he understands to self isolate while covid test is pen ding. (BRYSON MORTENSEN) 12/24/19 09:53 Patient was turned over to Dr. Mortensen at approximately 10 PM. He was going to follow-up on laboratories and reexamined the patient. He was then going to determine disposition. (MARCELO MACKAY) - Vital Signs Vital signs: Temp Pulse Resp BP Pulse Ox 98.2 F 77 18 145/65 H 92 12/23/19 18:37 12/23/19 18:37 12/23/19 22:01 12/23/19 22:01 12/23/19 22:01 - Laboratory Laboratory results interpreted by me: 12/23/19 12/23/19 12/23/19 18:30 18:30 18:30 WBC 11.3 H RBC 3.81 L Hgb 11.1 L Hct 34.2 L RDW 14.2 H Lymph % (Auto) 6.4 L Absolute Neuts (auto) 9.3 H Seg Neutrophils % 82.1 H VBG HCO3 Sodium 134.2 L Chloride 94 L Carbon Dioxide 34 H BUN 34 H Creatinine 2.84 H Est GFR ( Amer) 27 L Est GFR (MDRD) Non-Af 22 L Glucose 349 H AST 16 L Creatine Kinase 49 L NT-Pro-B Natriuret Pep 7430 H Urine Protein Urine Glucose (UA) 12/23/19 12/23/19 12/23/19 21:15 21:15 21:15 WBC 11.3 H RBC 3.78 L Hgb 11.0 L Hct 33.9 L RDW 14.4 H Lymph % (Auto) 7.9 L Absolute Neuts (auto) 9.0 H Seg Neutrophils % 79.5 H VBG HCO3 33.3 H Sodium 133.6 L Chloride 94 L Carbon Dioxide 32 H BUN 36 H Creatinine 3.11 H Est GFR ( Amer) 24 L Est GFR (MDRD) Non-Af 20 L Glucose 348 H AST 15 L Creatine Kinase NT-Pro-B Natriuret Pep Urine Protein Urine Glucose (UA) 12/23/19 21:15 WBC RBC Hgb Hct RDW Lymph % (Auto) Absolute Neuts (auto) Seg Neutrophils % VBG HCO3 Sodium Chloride Carbon Dioxide BUN Creatinine Est GFR ( Amer) Est GFR (MDRD) Non-Af Glucose AST Creatine Kinase NT-Pro-B Natriuret Pep Urine Protein >=500 H Urine Glucose (UA) >=500 H Discharge <BRYSON MORTENSEN P - Last Filed: 12/23/19 22:22> <MARCELO MACKAY - Last Filed: 12/24/19 09:54> - Discharge Clinical Impression: Respiratory failure Qualifiers: Chronicity: chronic Respiratory failure complication: hypoxia Qualified Code(s): J96.11 - Chronic respiratory failure with hypoxia Condition: Stable Disposition: HOME, SELF-CARE Instructions: Dyspnea, Nonspecific ([facility]), High Blood Pressure ([facility]), Kidney Failure ([facility]), Pleural Effusion ([facility]) Additional Instructions: Rest, fluids, please return here for chest pain, shortness of breath or other problems or concerns. Take the medicine as directed. Prescriptions: Cephalexin Monohydrate [Keflex 500 mg Capsule] 500 mg PO TID #30 capsule Methylprednisolone [Medrol Dosepack (4 mg/Tab) 21 Tab/Dosepak] 4 mg PO ASDIR PRN #21 tab.ds.[id number] PRN Reason: Referrals: HARDIK ROBERTSON MD [Primary Care Provider] - 12/24/19 EDMUNDO LEVY MD [EMERITUS] - Follow up as needed
[2019-12-23 22:43] VITALS: BP 145/65
--- NOTE | 2019-12-24 00:26 | EKG REPORT ---
SEVERITY:- BORDERLINE ECG - SINUS RHYTHM BORDERLINE PROLONGED QT INTERVAL : Confirmed by: Flash Padron 24-Dec-2019 00:25:20
== END 2019-12-23 23:08 | disposition home or self-care (01) ==
LOC: ER 18:18
DX: J96.11 Chronic respiratory failure with hypoxia (principal); R53.81 Other malaise; R53.1 Weakness; I13.2 Hypertensive heart and chronic kidney disease with heart failure and with stage 5 chronic kidney disease, or end stage renal disease; E11.22 Type 2 diabetes mellitus with diabetic chronic kidney disease; N18.6 End stage renal disease; I50.9 Heart failure, unspecified; Z99.2 Dependence on renal dialysis; Z99.81 Dependence on supplemental oxygen; Z88.8 Allergy status to other drugs, medicaments and biological substances; I48.91 Unspecified atrial fibrillation; I25.2 Old myocardial infarction; I25.10 Atherosclerotic heart disease of native coronary artery without angina pectoris; Z79.899 Other long term (current) drug therapy; Z20.828 Contact with and (suspected) exposure to other viral communicable diseases
CPT/HCPCS: 93005; 99285; 36415; 87040; 82553; 82550; 85025; 87070; 80053; 81001; 84484; 82803; 83880; 71045; 93010; U0003; C9803; 87635

== ENCOUNTER 2020-03-31 14:22 | Inpatient (IN) | payer MEDICARE ==
--- NOTE | 2020-03-31 15:28 | ER Document Report ---
ED Medical Screen (RME) - General Chief Complaint: Shortness Of Breath Stated Complaint: SHORTNESS OF BREATH Time Seen by Provider: 03/31/20 15:13 Primary Care Provider: EDMUNDO LEVY MD [Primary Care Provider] - Follow up as needed TRAVEL OUTSIDE OF THE [place] IN LAST 30 DAYS: No - HPI Notes: 03/31/20 15:22 69 yr old male with a history of CHF, bilateral pleural effusions, pulmonary hypertension, end-stage renal disease, dialysis, type II diabetic insulin- dependent oxygen dependent at home presents emergency room for shortness of breath for the last 3 weeks but is become progressively worse over the last few days. Patient's neuro intensivist physician, Dr. Boyce, initially called to let the ER know that he was coming in for volume overload with worsening shortness of breath. He stated that he listened to his lungs today, noted his pleural effusions were becoming worse. patient had dialysis yesterday. Patient is currently on 3 L of oxygen [place]. I have greeted and performed a rapid initial assessment of this patient. A comprehensive ED assessment and evaluation of the patient, analysis of test results and completion of the medical decision making process will be conducted by additional ED providers. PHYSICAL EXAMINATION: GENERAL: Chronically ill, malnourished and in no acute distress. HEAD: Atraumatic, normocephalic. EYES: Pupils equal round extraocular movements intact, conjunctiva are normal. NECK: Normal range of motion CV: s1, s2 regular LUNGS: No respiratory distress. Diminished breath sounds in bilateral lower lobes Musculoskeletal: Normal range of motion NEUROLOGICAL: Normal speech, normal gait. SKIN: Warm, Dry, normal turgor, no rashes or lesions noted. Very mild pedal edema nonpitting 03/31/20 15:28 - Related Data Allergies/Adverse Reactions: JUDE Inhibitors Allergy (Verified 12/23/19 18:36) Past Medical History - Past Medical History Cardiac Medical History: Reports: Hx Atrial Fibrillation, Hx Congestive Heart Failure, Hx Coronary Artery Disease, Hx Heart Attack - SILENT-SHOWED UP ON EKG, Hx Hypercholesterolemia, Hx Hypertension - MEDS Pulmonary Medical History: Denies: Hx Asthma Neurological Medical History: Denies: Hx Cerebrovascular Accident, Hx Seizures Endocrine Medical History: Reports: Hx Diabetes Mellitus Type 2 Renal/ Medical History: Reports: Hx End Stage Renal Disease. Denies: Hx Peritoneal Dialysis GI Medical History: Denies: Hx Hepatitis, Hx Hiatal Hernia, Hx Ulcer Musculoskeltal Medical History: Reports Hx Arthritis Psychiatric Medical History: Reports: Hx Depression Infectious Medical History: Denies: Hx Hepatitis Past Surgical History: Denies: Hx Open Heart Surgery, Hx Pacemaker Physical Exam - Vital signs Vitals: Temp Pulse Resp BP Pulse Ox 97.7 F 81 18 153/79 H 99 03/31/20 14:03/31/20 14:03/31/20 14:03/31/20 14:03/31/20 14:27 Course - Vital Signs Vital signs: Temp Pulse Resp BP Pulse Ox 97.7 F 81 18 153/79 H 99 03/31/20 14:27 03/31/20 14:27 03/31/20 14:27 03/31/20 14:03/31/20 14:27 Doctor's Discharge - Discharge Referrals: EDMUNDO LEVY MD [Primary Care Provider] - Follow up as needed
[2020-03-31 16:31] LABS: APPEARANCE,URINE CLEAR; BILIRUBIN,URINE NEGATIVE (NEGATIVE); COLOR,URINE YELLOW; GLUCOSE, URINE >=500 mg/dL (NEGATIVE); KETONES,URINE TRACE mg/dL (NEGATIVE); LEUKOCYTE ESTERASE,URINE NEGATIVE (NEGATIVE); NITRITE,URINE NEGATIVE (NEGATIVE); PROTEIN,URINE >=500 mg/dL (NEGATIVE); URINE SPECIFIC GRAVITY 1.015; UROBILINOGEN,URINE NEGATIVE mg/dL (<2.0)
[2020-03-31 16:33] LABS: ABSOLUTE BASOPHILS # (AUTO) 0.1 10^3/uL (0.0-0.2); ABSOLUTE EOSINOPHILS # (AUTO) 0.1 10^3/uL (0.0-0.6); ABSOLUTE LYMPHOCYTES (AUTO) 0.9 10^3/uL (0.5-4.7); ABSOLUTE MONOCYTES (AUTO) 1.2 10^3/uL (0.1-1.4); ABSOLUTE NEUT (AUTO) 9.6 10^3/uL (1.7-8.2); EOSINOPHILS % (AUTO) 0.9 % (0-6); HEMATOCRIT 34.8 % (37.9-51.0); LYMPHOCYTES % (AUTO) 7.3 % (13-45); MEAN CORPUSCULAR HEMOGLOBIN 27.9 pg (27.0-33.4); MEAN CORPUSCULAR HGB CONC 31.7 g/dL (32.0-36.0); MEAN CORPUSCULAR VOLUME 88 fl (80-97); MONOCYTES % (AUTO) 9.9 % (3-13); PLATELET COUNT 376 10^3/uL (150-450); RED BLOOD COUNT 3.95 10^6/uL (4.35-5.55); RED CELL DISTRIBUTION WIDTH 15.4 % (11.5-14.0); SEGMENTED NEUTROPHILS % (AUTO) 80.9 % (42-78); TOTAL CELLS COUNTED % (AUTO) 100 %; WHITE BLOOD COUNT 11.9 10^3/uL (4.0-10.5)
--- NOTE | 2020-03-31 16:41 | RADIOLOGY REPORT (SQ) ---
EXAM DESCRIPTION: CHEST 2 VIEWS IMAGES COMPLETED DATE/TIME: 03/31/2020 4:23 pm REASON FOR STUDY: sob COMPARISON: 12/23/2019 EXAM PARAMETERS: NUMBER OF VIEWS: two views TECHNIQUE: Digital Frontal and Lateral radiographic views of the chest acquired. RADIATION DOSE: NA LIMITATIONS: none FINDINGS: LUNGS AND PLEURA: Re- demonstration of bilateral pleural effusions. Diffusely increased i nterstitial markings. No pneumothorax. MEDIASTINUM AND HILAR STRUCTURES: No masses or contour abnormalities. HEART AND VASCULAR STRUCTURES: Cardiomegaly with central vascular congestion. BONES: No acute findings. HARDWARE: None in the chest. OTHER: No other significant finding. IMPRESSION: Constellation of findings suggests CHF exacerbation. Infectious etiology is not exclude d. TECHNICAL DOCUMENTATION: JOB ID: [id number] 2010 [employer]- All Rights Reserved Reading location - IP/workstation name: [email or web address]
[2020-03-31 16:49] LABS: ALBUMIN 3.8 g/dL (3.5-5.0); ALKALINE PHOSPHATASE 94 U/L (38-126); ANION GAP 13 (5-19); ASPARTATE AMINO TRANSFERASE 15 U/L (17-59); BILIRUBIN,DIRECT 0.4 mg/dL (0.0-0.4); BILIRUBIN,TOTAL 0.8 mg/dL (0.2-1.3); BLOOD UREA NITROGEN 39 mg/dL (7-20); CALCIUM 9.2 mg/dL (8.4-10.2); CARBON DIOXIDE 28 mmol/L (22-30); CHLORIDE 89 mmol/L (98-107); POTASSIUM 4.7 mmol/L (3.6-5.0); TOTAL PROTEIN 6.7 g/dL (6.3-8.2)
--- NOTE | 2020-03-31 16:58 | ER Document Report ---
Doctor's Note Notes: 03/31/20 16:57 Lina, PCT, let me know that his blood sugar was 503. I am unable to give patient fluids at this time because I am concerned he is in fluid overload with his history of CHF and pleural effusions. I did call the charge nurse, Emerita Crump, at 1656 to let her know that he does have a blood sugar in the 500s and he will need insulin as well as a monitor. Advised that he can go into the room to assume his is clean, we are working on cleaning the room to get him in there
[2020-03-31 16:59] LABS: GLUCOSE 485 mg/dL (75-110)
[2020-03-31 17:02] LABS: TROPONIN I 0.042 ng/mL
--- NOTE | 2020-03-31 17:50 | ER Document Report ---
ED General - General Chief Complaint: Shortness Of Breath Stated Complaint: SHORTNESS OF BREATH Time Seen by Provider: 03/31/20 15:13 Primary Care Provider: EDMUNDO LEVY MD [Primary Care Provider] - Follow up as needed TRAVEL OUTSIDE OF THE [place] IN LAST 30 DAYS: No - HPI Notes: 69-year-old male presents with shortness of breath. Patient states he has been having shortness of breath for the past few months, is recently been increasing for the past 3 to 4 weeks. Is mostly shortness of breath when he gets up and does any sort of activity. He states that he knows he is volume overloaded. He goes to dialysis Monday/Monday/Monday, he did go yesterday. He states that he does not like "getting challenged", meaning pulling off extra fluid, because it leaves him feeling "wiped out". States his goal weight is 204 pounds. He has a cough productive of a ngo-brown sputum, states that he takes a nasal medication which stopped that. He has a chronic cough. Denies fever. He states that he has had fluid drained from his lung, he had a recent appointment to have a repeat thoracentesis but it was canceled because he showed up 15 minutes late. Patient states that he was at his pulmonology office today, reportedly was 83% on 5 L nasal cannula, he was sent for admission. He reports compliance with his medications, which includes torsemide. He does still make urine. - Related Data Allergies/Adverse Reactions: JUDE Inhibitors Allergy (Verified 12/23/19 18:36) Past Medical History - General Information source: Patient - Social History Smoking Status: Never Smoker Frequency of alcohol use: None Drug Abuse: None Family History: CVA, Malignancy - Past Medical History Cardiac Medical History: Reports: Hx Atrial Fibrillation, Hx Congestive Heart Failure, Hx Coronary Artery Disease, Hx Heart Attack - SILENT-SHOWED UP ON EKG, Hx Hypercholesterolemia, Hx Hypertension - MEDS Pulmonary Medical History: Denies: Hx Asthma Neurological Medical History: Denies: Hx Cerebrovascular Accident, Hx Seizures Endocrine Medical History: Reports: Hx Diabetes Mellitus Type 2 Renal/ Medical History: Reports: Hx End Stage Renal Disease. Denies: Hx Peritoneal Dialysis GI Medical History: Denies: Hx Hepatitis, Hx Hiatal Hernia, Hx Ulcer Musculoskeletal Medical History: Reports Hx Arthritis Psychiatric Medical History: Reports: Hx Depression Infectious Medical History: Denies: Hx Hepatitis Past Surgical History: Denies: Hx Open Heart Surgery, Hx Pacemaker Review of Systems - Review of Systems Constitutional: denies: Fever EENT: Nose congestion Cardiovascular: denies: Chest pain Respiratory: Short of breath Gastrointestinal: denies: Abdominal pain Genitourinary: No symptoms reported Musculoskeletal: No symptoms reported Skin: No symptoms reported Neurological/Psychological: No symptoms reported Physical Exam - Vital signs Vitals: Temp Pulse Resp BP Pulse Ox 97.7 F 81 18 153/79 H 99 03/31/20 14:27 03/31/20 14:27 03/31/20 14:27 03/31/20 14:03/31/20 14:27 - General General appearance: Appears well, Alert - HEENT Head: Normocephalic, Atraumatic Eyes: No: Scleral icterus Extraocular movements intact: Yes Pupils: PERRL - Respiratory Respiratory status: No respiratory distress Breath sounds: Rales - Diffuse - Cardiovascular Rhythm: Other - Regular rhythm, rate normal Murmur: Yes Normal capillary refill: Yes - Abdominal Inspection: Obese Tenderness: Nontender - Extremities General upper extremity: Normal ROM General lower extremity: Edema, Normal ROM - Neurological Neuro grossly intact: Yes Cognition: Normal Orientation: AAOx4 - Psychological Associated symptoms: Normal affect - Skin Skin Temperature: Warm Course - Re-evaluation Re-evalutation: 69-year-old male presents with progressive dyspnea on exertion. He is a dialysis patient, compliant with MWF, additionally has a history of CHF. While at rest in bed he does not exhibit any sort of respiratory distress, he is 98- 99% on a nasal cannula. He has diffuse rails. Suspect he has acute on chronic exacerbation of CHF, along with being volume overloaded as he is a dialysis patient. Has had thoracentesis in the past, pleural effusions likely contributing as well. He is on a blood thinner per his med list, I have a low suspicion for PE, will obtain CTA chest to rule this out. We will also get a better look at the lung schwartz. Minimal leukocytosis. Chronic anemia, hemoglobin at baseline. Potassium is within normal limits. Creatinine elevated as expected. BNP elevated with troponin leak, troponin is within range of previously checked values, suspect this to be chronic. He was given aspirin. Albumin within normal limits. Urine does not suggest UTI. He is hyper glycemic, bicarb is within normal limits and there is no anion gap. He was given 6 units of lispro to start glycemic control. Chest x-ray showing bilateral edema I reviewed the CT of the chest, read via radiology is pending, looks like he does have bilateral pleural effusions 03/31/20 18:26 I discussed patient with Dr. Patel of nephrology. She is familiar with the patient. Agrees with admission and he will be able to have a dialysis tomorrow. 03/31/20 19:25 Patient to be admitted to the medical floor via the hospitalist service - Vital Signs Vital signs: Temp Pulse Resp BP Pulse Ox 97.7 F 81 18 167/100 H 100 03/31/20 14:27 03/31/20 14:27 03/31/20 18:01 03/31/20 18:01 03/31/20 18:01 - Laboratory Result Diagrams: 03/31/20 16:00 03/31/20 16:00 Laboratory results interpreted by me: 03/31/20 03/31/20 03/31/20 16:00 16:00 16:00 WBC 11.9 H RBC 3.95 L Hgb 11.0 L Hct 34.8 L MCHC 31.7 L RDW 15.4 H Lymph % (Auto) 7.3 L Absolute Neuts (auto) 9.6 H Seg Neutrophils % 80.9 H Sodium 130.2 L Chloride 89 L BUN 39 H Creatinine 2.85 H Est GFR ( Amer) 27 L Est GFR (MDRD) Non-Af 22 L Glucose 485 H* POC Glucose AST 15 L NT-Pro-B Natriuret Pep 18609 H Urine Protein Urine Glucose (UA) Urine Ketones 03/31/20 03/31/20 03/31/20 16:00 16:52 18:56 WBC RBC Hgb Hct MCHC RDW Lymph % (Auto) Absolute Neuts (auto) Seg Neutrophils % Sodium Chloride BUN Creatinine Est GFR ( Amer) Est GFR (MDRD) Non-Af Glucose POC Glucose 503 H* 515 H* AST NT-Pro-B Natriuret Pep Urine Protein >=500 H Urine Glucose (UA) >=500 H Urine Ketones TRACE H - Diagnostic Test Radiology reviewed: Image reviewed, Reports reviewed - EKG Interpretation by Me Additional EKG results interpreted by me: 03/31/20 19:43 EKG as interpreted by me. There are multiple P waves, atrial tachycardia, ventricular rate is normal at 82. Narrow QRS. QTc within normal limits. Appears to be some T wave flattening in 1 and aVL Discharge - Discharge Clinical Impression: Acute on chronic congestive heart failure, ESRD needing dialysis Hyperglycemia due to type 2 diabetes mellitus Qualifiers: Diabetes mellitus custodial insulin use: with custodial use Qualified Code(s): E11.65 - Type 2 diabetes mellitus with hyperglycemia Disposition: ADMITTED INPATIENT Admitting Provider: Shawanda (Hospitalist) Unit Admitted: Medical Floor Referrals: EDMUNDO LEVY MD [Primary Care Provider] - Follow up as needed
[2020-03-31] MEDS ORDERED: BUMETANIDE INJ/PF 1 MG/4 ML SDV IV ONE (18:16)
[2020-03-31] MEDS ORDERED: ASPIRIN 81 MG TABLET, CHEWABLE PO ONE (18:16)
[2020-03-31] MEDS ORDERED: INSULIN LISPRO 100 UNIT/ML 3 ML VIAL SUBCUT ONE (18:41)
--- NOTE | 2020-03-31 18:59 | EKG REPORT ---
SEVERITY:- ABNORMAL ECG - ATRIAL TACHYCARDIA WITH 3:1AVB MINIMAL ST DEPRESSION, ANTEROLATERAL LEADS : Confirmed by: José Miguel Sigala MD 31-Mar-2020 18:58:41
--- NOTE | 2020-03-31 19:59 | RADIOLOGY REPORT (SQ) ---
EXAM DESCRIPTION: CTA CHEST IMAGES COMPLETED DATE/TIME: 03/31/2020 7:16 pm REASON FOR STUDY: SOB, CHF, ESRD pt COMPARISON: Chest radiographs and/or 03/22/2020 None. TECHNIQUE: CT scan of the chest performed using helical scanning technique with dynamic intravenous contrast injection. Images reviewed with lung, soft tissue and bone windows. Reconstructed coronal and sagittal MPR images reviewed. Additional 3 dimensional post-processing performed to develop Maximal Intensity Projection images (MS P). All images stored on PACS. All CT scanners at this facility use dose modulation, iterative reconstruction, and/or weight based d osing when appropriate to reduce radiation dose to as low as reasonably achievable (ALARA). [facility]: Dose Right [facility]: CareDose [facility]: Dose Right [facility]: Teradose 4D [facility]: Wing-Wheel [employer] CONTRAST TYPE AND DOSE: contrast/concentration: Isovue 300.00 mmol/ml; Total Contrast Delivered: 77. 0 ml; Total Saline Delivered: 80.0 ml Contrast bolus optimized for the pulmonary arteries. Not diagnostic for the aorta. RENAL FUNCTION: BUN 39; creatinine 2.85. Patient on dialysis. RADIATION DOSE: CT Rad equipment meets quality standard of care and radiation dose reduction techniq ues were employed. CTDIvol: 32.8 - 48.2 mGy. DLP: 1682 mGy-cm. . LIMITATIONS: None. FINDINGS: LUNGS AND PLEURA: Diffusely increased interstitial markings with bilateral pleural effusio ns. No pneumothorax. AORTA AND GREAT VESSELS: No aneurysm. Contrast bolus not optimized for the aorta. HEART: Cardiomegaly. No pericardial effusion. Moderate to marked coronary artery calcifications. PULMONARY ARTERIES: No emboli visualized in the main pulmonary arteries or the segmental branches. HILAR AND MEDIASTINAL STRUCTURES: No identified masses or abnormal nodes. HARDWARE: None in the chest. UPPER ABDOMEN: No significant findings. Limited exam. THYROID AND OTHER SOFT TISSUES: No masses. No adenopathy. Bilateral gynecomastia. BONES: No acute or significant finding. 3D MIPS: Confirm above findings. OTHER: No other significant finding. IMPRESSION: No evidence of central or segmental pulmonary embolus. Constellation of findings sugges ts CHF exacerbation. Superimposed infectious process is not excluded. Other chronic and incidental findings as detailed above. COMMENT: Quality ID # [id number]: Final reports with documentation of one or more dose reduction techniques (e.g., Automated exposure control, adjustment of the mA and/or kV according to patient size, use of iterative reconstruction technique) TECHNICAL DOCUMENTATION: JOB ID: [id number] 2010 [employer]- All Rights Reserved Reading location - IP/workstation name: [email or web address]
[2020-03-31] MEDS ORDERED: ONDANSETRON 4 MG TAB.RAPDIS PO PRN (20:04)
[2020-03-31] MEDS ORDERED: MAG HYDROX/AL HYDROX/SIMETH SUSP 30 ML UDCUP PO PRN (20:04)
[2020-03-31] MEDS ORDERED: MAGNESIUM HYDROXIDE SUSP 30 ML UDCUP PO PRN (20:04)
[2020-03-31] MEDS ORDERED: ONDANSETRON HCL INJ/PF 4 MG/2 ML SDV IV PRN (20:04)
[2020-03-31] MEDS ORDERED: LEVALBUTEROL HCL NEB 0.63 MG/3 ML AMPUL NEB PRN (20:04)
[2020-03-31] MEDS ORDERED: METOPROLOL TARTRATE PF/INJ 5 MG/5 ML SDV IV PRN (20:10)
[2020-03-31] MEDS ORDERED: HYDRALAZINE HCL INJ/PF 20 MG/1 ML SDV IV PRN (20:10)
[2020-03-31] MEDS ORDERED: GUAIFENESIN SYRP 200 MG/10 ML UDC PO PRN (20:10)
[2020-03-31] MEDS ORDERED: MORPHINE SULFATE 10 MG/ML INJ IV PRN ×2 (20:10)
[2020-03-31] MEDS ORDERED: LORAZEPAM INJ 2 MG/1 ML VIAL IV PRN (20:10)
[2020-03-31] MEDS ORDERED: GLUCAGON,HUMAN RECOMB 1 MG INJ IM PRN (20:12)
[2020-03-31] MEDS ORDERED: DEXTROSE 50%-WATER 25 GM/50 ML DISP.SYRIN IV PRN ×2 (20:12)
[2020-03-31] MEDS ORDERED: DEXTROSE 40% GEL 15 GM TUBE PO PRN ×2 (20:12)
[2020-03-31] MEDS: NITROGLYCERIN 2% OINTMENT 1 GM PACKET TP SCH (22:50)
[2020-03-31] MEDS: HEPARIN SOD (PORCINE) 5,000 UNIT/ML 1 ML VIAL SUBCUT SCH (22:51)
[2020-03-31] MEDS: MELATONIN 5 MG TABLET PO PRN (22:52)
[2020-04-01] MEDS: NITROGLYCERIN 2% OINTMENT 1 GM PACKET TP SCH ×4 (01:00→17:35)
--- NOTE | 2020-04-01 01:33 | PDOC H&P ---
History of Present Illness Admission Date/PCP: 03/31/2020 19:25 EDMUNDO LEVY MD Patient complains of: Exertional dyspnea History of Present Illness: WILIAM GAN is a 69 year old male who presented to the emergency room with a 3-month history of dyspnea. He admits progressively worsening dyspnea on exertion over the last 3 months becoming more severe over the last 1 month. His dyspnea on exertion is worsened when he skips hemodialysis as scheduled on Monday, Monday and Monday which he does frequently because he feels exceptionally fatigued after dialysis. He admits an accompanying occasional cough productive of clear grayish to brownish mucus which has improved with an [id number] nasal/sinus therapy. He admits associated recurrent bilateral pleural effusions that require intermittent thoracentesis and was scheduled to have a procedure however it was not performed because he was late to his appointment. He was seen by his cdc associate today in his office and was found to be hypoxic and sent to the emergency room for treatment. He denies other associated or accompanying signs and symptoms. He admits prior similar episodes due to fluid overload. He has not identified any additional aggravating or ameliorating factors for his dyspnea. In the emergency room he was found to have acute on chronic hypoxic respiratory failure with minimal exertion and was subsequently admitted hospital for further evaluation and treatment with Dr. Patel's approval for inpatient dialysis. Past Medical History Cardiac Medical History: Reports: Atrial Fibrillation, Congestive Heart Failure, Coronary Artery Disease, Myocardial Infarction - [place], Hyperlipidema, Hypertension Pulmonary Medical History: Reports: Respiratory Failure - Chronic hypoxic respiratory failure Denies: Asthma, Chronic Obstructive Pulmonary Disease (COPD) EENT Medical History: Reports: Cataracts Denies: Ears - Hearing aids Neurological Medical History: Denies: Hemorrhagic CVA, Ischemic CVA, Seizures Endocrine Medical History: Reports: Diabetes Mellitus Type 2, Obesity Denies: Diabetes Mellitus Type 1, Hyperthyroidism, Hypothyroidism Renal/ Medical History: Reports: End Stage Renal Disease - On scheduled hemo dialysis Denies: Nephrolithiasis Malignancy Medical History: Reports: None GI Medical History: Denies: Cirrhosis, Crohn's Disease, Hepatitis, Hiatal Hernia, Peptic Ulcer Disease, Ulcerative Colitis Musculoskeltal Medical History: Reports: Arthritis Denies: Gout Skin Medical History: Denies: Eczema, Psoriasis Psychiatric Medical History: Reports: Depression Denies: Alcohol Dependency, Substance Abuse, Tobacco Dependency Traumatic Medical History: Reports: None Hematology: Reports: Anemia - Secondary to renal failure Denies: Bleeding Tendencies Infectious Medical History: Reports: None Past Surgical History Past Surgical History: Reports: Other - Bilateral cataract surgery, hemodialysis access Social History Information Source: Patient Lives with: Spouse/Significant other Smoking Status: Never Smoker Electronic Cigarette use?: No Frequency of Alcohol Use: None Hx Recreational Drug Use: No Drugs: None Hx Prescription Drug Abuse: No - Advance Directive Resuscitation Status: Full Code Surrogate healthcare decision maker:: Evelyn Fried Family History Family History: CVA, Malignancy Parental Family History Reviewed: Yes Children Family History Reviewed: No Sibling(s) Family History Reviewed.: Yes Medication/Allergy Home Medications: Aspirin [Ecotrin 81 mg EC Tablet] 81 mg PO DAILY 04/15/19 Carvedilol [Coreg 25 mg Tablet] 25 mg PO Q12 04/15/19 Montelukast Sodium [Singulair 10 mg Tablet] 10 mg PO QHS 04/15/19 Ipratropium [place] [Atrovent 0.06% Nasal [place]] 2 spray NASL QIDP PRN 03/31/20 Isosorbide Mononitrate [Imdur 30 mg Tablet.er] 30 mg PO DAILY 03/31/20 Torsemide [Demadex 20 mg Tablet] 60 mg PO DAILY 03/31/20 Allergies/Adverse Reactions: JUDE Inhibitors Allergy (Verified 12/23/19 18:36) Review of Systems Constitutional: PRESENT: fatigue - After dialysis, weakness - After dialysis, weight gain - Due to skipping dialysis. ABSENT: chills, fever(s) Eyes: ABSENT: visual disturbances, other - Eye pain Ears: ABSENT: hearing changes, other - Ear pain Nose, Mouth, and Throat: ABSENT: headache(s), sore throat Cardiovascular: PRESENT: as per HPI, dyspnea on exertion, edema. ABSENT: chest pain, orthropnea, palpitations Respiratory: PRESENT: as per HPI, cough, dyspnea, sputum. ABSENT: hemoptysis Gastrointestinal: ABSENT: abdominal pain, constipation, diarrhea, nausea, vomiting Genitourinary: ABSENT: dysuria, hematuria Musculoskeletal: ABSENT: back pain, joint swelling Integumentary: ABSENT: pruritus, rash Neurological: ABSENT: confusion, convulsions, focal weakness, memory loss, syncope Psychiatric: ABSENT: anxiety, depression Endocrine: ABSENT: cold intolerance, heat intolerance Hematologic/Lymphatic: ABSENT: easy bleeding, easy bruising Allergic/Immunologic: ABSENT: seasonal rhinorrhea Physical Exam Vital Signs: Temp Pulse Resp BP Pulse Ox 97.7 F 81 18 167/100 H 100 03/31/20 14:27 03/31/20 14:27 03/31/20 18:01 03/31/20 18:01 03/31/20 18:01 Intake & Output 03/29/20 03/30/20 03/31/20 23:59 23:59 23:59 Output Total 200 Balance -200 Weight 92.533 kg General appearance: PRESENT: no acute distress, cooperative, other - On supplemental oxygen via nasal cannula at the time my exam Head exam: PRESENT: atraumatic, normocephalic Eye exam: PRESENT: conjunctiva pink. ABSENT: conjunctival injection, scleral icterus Ear exam: PRESENT: normal external ear exam. ABSENT: bleeding, drainage Mouth exam: PRESENT: dry mucosa, neck supple Neck exam: PRESENT: JVD - Mild bilateral JVD at 30 degrees elevation. ABSENT: thyromegaly, tracheal deviation Respiratory exam: PRESENT: decreased breath sounds - Bilateral bases, prolonged expiratory phas - Mildly prolonged expiratory phase throughout all schwartz, rales - Bilateral lower lung schwartz, symmetrical, unlabored Cardiovascular exam: PRESENT: gallop - S4 gallop, RRR, systolic murmur - 2/6. ABSENT: clicks, rubs Pulses: PRESENT: normal radial pulses, +1 pedal pulses bilateral Vascular exam: PRESENT: normal capillary refill. ABSENT: pallor GI/Abdominal exam: PRESENT: normal bowel sounds, soft Rectal exam: PRESENT: deferred Extremities exam: PRESENT: pedal edema, +1 edema - Bilateral pretibial edema Musculoskeletal exam: ABSENT: deformity, dislocation Neurological exam: PRESENT: alert, oriented to person, oriented to place, oriented to time, oriented to situation, CN II-XII grossly intact. ABSENT: mot or sensory deficit Psychiatric exam: PRESENT: appropriate affect, normal mood Skin exam: PRESENT: dry, intact, warm. ABSENT: jaundice, rash, urticaria Results Laboratory Results: 03/31/20 16:00 03/31/20 16:00 03/31/20 03/31/20 03/31/20 16:00 16:00 16:00 WBC 11.9 H RBC 3.95 L Hgb 11.0 L Hct 34.8 L MCV 88 MCH 27.9 MCHC 31.7 L RDW 15.4 H Plt Count 376 Seg Neutrophils % 80.9 H Sodium 130.2 L Potassium 4.7 Chloride 89 L Carbon Dioxide 28 Anion Gap 13 BUN 39 H Creatinine 2.85 H Est GFR ( Amer) 27 L Glucose 485 H* Calcium 9.2 Total Bilirubin 0.8 AST 15 L Alkaline Phosphatase 94 Total Protein 6.7 Albumin 3.8 Urine Color YELLOW Urine Appearance CLEAR Urine pH 6.0 Ur Specific [place] 1.015 Urine Protein >=500 H Urine Glucose (UA) >=500 H Urine Ketones TRACE H Urine Blood NEGATIVE Urine Nitrite NEGATIVE Ur Leukocyte Esterase NEGATIVE Urine WBC (Auto) 0 Urine RBC (Auto) 1 03/31/20 16:00 Troponin I 0.042 NT-Pro-B Natriuret Pep 01523 H Impressions: Chest X-Ray 03/31/20 15:17 IMPRESSION: Constellation of findings suggests CHF exacerbation. Infectious etiology is not excluded. Assessment and Plan - Diagnosis (1) Acute and chronic respiratory failure with hypoxia Is this a current diagnosis for this admission?: Yes (2) ESRD needing dialysis Is this a current diagnosis for this admission?: Yes (3) Diabetes mellitus type 2 in obese Is this a current diagnosis for this admission?: Yes (4) HTN (hypertension) Qualifiers: Hypertension type: essential hypertension Qualified Code(s): I10 - Essenti al (primary) hypertension Is this a current diagnosis for this admission?: Yes (5) Dyslipidemia Is this a current diagnosis for this admission?: Yes (6) Anemia in CKD (chronic kidney disease) Qualifiers: Chronic kidney disease stage: on chronic dialysis Qualified Code(s): N18.6 - End stage renal disease; D63.1 - Anemia in chronic kidney disease; Z99.2 - D ependence on renal dialysis Is this a current diagnosis for this admission?: Yes (7) Paroxysmal A-fib Is this a current diagnosis for this admission?: Yes (8) Pleural effusion Is this a current diagnosis for this admission?: Yes (9) Chronic kidney disease, stage V Is this a current diagnosis for this admission?: Yes (10) Acute exacerbation of CHF (congestive heart failure) Qualifiers: Heart failure type: unspecified Qualified Code(s): I50.9 - Heart failure, unspecified Is this a current diagnosis for this admission?: Yes (11) Pulmonary hypertension Is this a current diagnosis for this admission?: Yes (12) Dyspnea Qualifiers: Dyspnea type: shortness of breath Qualified Code(s): R06.02 - Shortness of breath; R06.00 - Dyspnea, unspecified; R06.01 - Orthopnea Is this a current diagnosis for this admission?: Yes (13) Obesity, Class II, BMI 35-39.9 Is this a current diagnosis for this admission?: Yes - Plan Summary Summary: Patient will be admitted to the medical service on the medical floor he will receive routine supportive and symptomatic cares. Dr. Patel will be consulted for nephrology evaluation and hemodialysis on inpatient basis. Patient will receive supplemental oxygen via nasal cannula and/or noninvasive airway pressure support devices such as BiPAP as needed to maintain an adequate oxygen saturation. Patient will be treated with 2% nitroglycerin ointment 1 g applied every 6 hours. He will receive hydralazine 20 mg IV and/or metoprolol 5 mg IV every 4 hours as needed for hypertension control. He received a Bumex challenge in the emergency room. Before meals and at bedtime Accu-Cheks will be performed with sliding scale insulin for hyperglycemia and a hypoglycemic protocol in [facility]. He will be on a cardiac, diabetic and dialysis restricted diet. CBCs, metabolic profiles and additional laboratory and/or radiographic evaluations will be obtained as needed. Patient may need thoracentesis if his pleural effusions are not improving with aggressive dialysis and diuretic therapy. He will receive Ativan 1 mg IV every 4 hours as needed for anxiety or restlessness. He will receive morphine sulfate 2 to 4 mg IV every 2 hours as needed for pain. He will receive morphine sulfate 2 mg IV every hour as needed severe dyspnea. - Time Time Spent with patient: Less than 15 minutes Medications reviewed and adjusted accordingly: Yes Anticipated Discharge Disposition: Home, Self Care Anticipated Discharge Timeframe: Undetermined - Inpatient Certification Based on my medical assessment, after consideration of the patient's comorbidities, presenting symptoms, or acuity I expect that the services needed warrant INPATIENT care.: Yes I certify that my determination is in accordance with my understanding of Medic are's requirements for reasonable and necessary INPATIENT services [42 CFR 412.3e].: Yes Medical Necessity: Significant Comorbidiites Make Outpatient Treatment Too Risky, Need Close Monitoring Due to Risk of Patient Decompensation, Risk of Complication if Not Cared For in Hospital
[2020-04-01] MEDS ORDERED: NORMAL SALINE 1000 ML 1,000 ML IV PRN (05:00)
[2020-04-01] MEDS ORDERED: HEPARIN SOD (PORCINE) 1,000 UNIT/ML 10 ML VIAL IV PRN (05:00)
[2020-04-01] MEDS: HEPARIN SOD (PORCINE) 5,000 UNIT/ML 1 ML VIAL SUBCUT SCH ×3 (05:56→21:34)
[2020-04-01] MEDS: PANTOPRAZOLE SODIUM 40 MG TABLET.DR PO SCH (05:57)
[2020-04-01 06:12] LABS: HEMATOCRIT 32.9 % (37.9-51.0); HEMOGLOBIN 10.8 g/dL (13.5-17.0); MEAN CORPUSCULAR HEMOGLOBIN 28.5 pg (27.0-33.4); MEAN CORPUSCULAR HGB CONC 32.9 g/dL (32.0-36.0); MEAN CORPUSCULAR VOLUME 87 fl (80-97); PLATELET COUNT 348 10^3/uL (150-450); RED CELL DISTRIBUTION WIDTH 15.1 % (11.5-14.0); WHITE BLOOD COUNT 10.4 10^3/uL (4.0-10.5)
[2020-04-01 06:30] LABS: ANION GAP 14 (5-19); BLOOD UREA NITROGEN 41 mg/dL (7-20); CALCIUM 9.2 mg/dL (8.4-10.2); CARBON DIOXIDE 26 mmol/L (22-30); CHLORIDE 92 mmol/L (98-107); CHOLESTEROL 165.54 mg/dL (0-200); GLUCOSE 272 mg/dL (75-110); POTASSIUM 4.5 mmol/L (3.6-5.0); TRIGLYCERIDES 156 mg/dL (<150)
[2020-04-01 06:34] LABS: VLDL CHOLESTEROL 31.2 mg/dL (10-31)
[2020-04-01 06:41] LABS: DIRECT LDL 96 mg/dL (<100)
[2020-04-01] MEDS: ACETAMINOPHEN 325 MG TABLET PO PRN (08:09)
--- NOTE | 2020-04-01 10:43 | PDOC CONSULTATION ---
Consultation Consult Date: 04/01/20 Provider Consulted: BRITNEY GARCIA Consult reason:: CHF, ESRD History of Present Illness Admission Date/PCP: 03/31/20 19:55 EDMUNDO LEVY MD History of Present Illness: WILIAM GAN is a 69 year old gentleman known to me with history of ESRD secondary to diabetic nephropathy with nonnephrotic range proteinuria previously, severe pulmonary hypertension, CHF, atrial fibrillation, diabetes mellitus type 2, hypertension and coronary artery disease who was admitted yesterday because of worsening shortness of breath. Patient is known to have this episodes of shortness of breathing and history of recurrent bilateral pleural effusion requiring thoracentesis in the past. Couple weeks ago he was supposed to have thoracentesis done in [place] with his parer there but he got up late and her appointment was canceled. So he said he is establishing with a local parer, Dr. Root whom he saw yesterday when he was found to be hypoxic and was sent to the emergency room thereafter. Due to the patient's persistent shortness of breath I actually adjusted his hemodialysis to 4 times a week which he said he did for a couple weeks but then he quit doing it because he said is too much and on Sundays after the fourth treatment on ay he just feels so tired and fatigued. In the emergency room he had both chest x-ray and a chest CT showing findings consistent with congestive heart failure and bilateral pleural effusion. His BNP initially was 25,600. I am seeing the patient on dialysis this morning. He is on oxygen at 3 L by nasal cannula. He is currently tolerating dialysis well. Patient still short of breath. He said he just feel weak as well. He told the ER he has some cough with some sputum production but he told me he does not have any. He denies current chest pains, nausea, vomiting or fever. His last dialysis was last Monday. Past Medical History Cardiac Medical History: Reports: Atrial Fibrillation, Coronary Artery Disease, Hyperlipidemia, Hypertension-primary, Myocardial Infarction - [place], Pulmonary Hypertension Pulmonary Medical History: Reports: Respiratory Failure - Chronic hypoxic respiratory failure, Other - Recurrent pleural effusion EENT Medical History: Reports: Cataracts Endocrine Medical History: Reports: Diabetes Mellitus Type 2, Obesity Complications of Diabetes: Reports: Nephropathy, Retinopathy Renal/ Medical History: Reports: End Stage Renal Disease - On scheduled hemodialysis, Hyperphosphatemia, Proteinuria Musculoskeltal Medical History: Reports: Arthritis Psychiatric Medical History: Reports: Depression Hematology Medical History: Reports Anemia of Chronic Kidney Disease Past Surgical History Past Surgical History: Reports: Dialysis Access Surgery AVF, Other - Bilateral cataract surgery Social History Information Source: Patient, [facility] Records Lives with: Spouse/Significant other Smoking Status: Never Smoker Electronic Cigarette use?: No Frequency of Alcohol Use: None Hx Recreational Drug Use: No Drugs: None Hx Prescription Drug Abuse: No - Advance Directive Resuscitation Status: Full Code Family History Family History: Hypertension - Mother, Malignancy - Father Parental Family History Reviewed: Yes Children Family History Reviewed: Yes Sibling(s) Family History Reviewed.: Yes Medication/Allergy Home Medications: Aspirin [Ecotrin 81 mg EC Tablet] 81 mg PO DAILY 04/15/19 Carvedilol [Coreg 25 mg Tablet] 25 mg PO Q12 04/15/19 Montelukast Sodium [Singulair 10 mg Tablet] 10 mg PO QHS 04/15/19 Ipratropium [place] [Atrovent 0.06% Nasal [place]] 2 spray NASL QIDP PRN 03/31/20 Isosorbide Mononitrate [Imdur 30 mg Tablet.er] 30 mg PO DAILY 03/31/20 Torsemide [Demadex 20 mg Tablet] 60 mg PO DAILY 03/31/20 Allergies/Adverse Reactions: JUDE Inhibitors Allergy (Verified 12/23/19 18:36) Review of Systems All systems: reviewed and no additional remarkable complaints except as stated Review of Systems: Constitutional: ABSENT: chills, fever(s), headache(s), weight gain, weight loss; admits feeling weak and fatigue Eyes: ABSENT: visual disturbances Ears: ABSENT: hearing changes Cardiovascular: ABSENT: chest pain, edema, orthropnea, palpitations; reports dys pnea on exertion and at rest Respiratory: ABSENT: cough, hemoptysis Gastrointestinal: ABSENT: abdominal pain, constipation, diarrhea, hematemesis, hematochezia, nausea, vomiting Genitourinary: ABSENT: dysuria, hematuria Musculoskeletal: ABSENT: joint swelling Integumentary: ABSENT: rash, wounds Neurological: ABSENT: abnormal gait, abnormal speech, confusion, dizziness, focal weakness, numbness, syncope Psychiatric: ABSENT: anxiety, depression Endocrine: ABSENT: cold intolerance, heat intolerance, polydipsia, polyuria Hematologic/Lymphatic: ABSENT: easy bleeding, easy bruising, lymphadenopathy Physical Exam Vital Signs: Temp Pulse Resp BP Pulse Ox 97.7 F 82 18 141/81 H 100 03/31/20 23:50 03/31/20 23:50 03/31/20 23:50 03/31/20 23:50 03/31/20 23:50 Intake & Output 03/31/20 04/01/20 04/02/20 06:59 06:59 06:59 Intake Total 250 Output Total 200 Balance 50 Weight 93.3 kg Vitals during dialysis: Blood pressure 171/92, heart rate of 81, blood flow rate of 400 mL/min and dialysate flow rate of 800 mL/min. Exam: General appearance: No acute distress, cooperative, well-developed, well- nourished Head exam: PRESENT: atraumatic, normocephalic Eye exam: PRESENT: Conjunctiva slightly pale, EOMI, PERRLA. ABSENT: conjunctival injection, scleral icterus Mouth exam: PRESENT: moist, neck supple, tongue midline Neck exam: PRESENT: full ROM. ABSENT: carotid bruit, JVD, lymphadenopathy, thyromegaly Respiratory exam: PRESENT: Diminished breath sounds to auscultation bilaterally. ABSENT: rales, rhonchi, stridor, wheezes Cardiovascular exam: PRESENT: RRR, +S1, +S2. ABSENT: systolic murmur Pulses: PRESENT: normal radial pulses, normal dorsalis pedis pulses GI/Abdominal exam: PRESENT: normal bowel sounds, soft. ABSENT: guarding, mass, tenderness Rectal exam: Deferred Extremities exam: PRESENT: full ROM. ABSENT: calf tenderness, pedal edema Musculoskeletal: PRESENT: full ROM. ABSENT: deformity Neurological exam: PRESENT: alert, Awake, Oriented to person, Oriented to place, Oriented to time, reflexes normal, CN II-XII grossly intact. ABSENT: motor sensory deficit Psychiatric exam: PRESENT: appropriate affect, normal mood. ABSENT: homicidal ideation, suicidal ideation Skin exam: PRESENT: intact, dry, warm. ABSENT: rash Results Laboratory Results: 04/01/20 05:27 04/01/20 05:27 03/31/20 03/31/20 03/31/20 16:00 16:00 16:00 WBC 11.9 H RBC 3.95 L Hgb 11.0 L Hct 34.8 L MCV 88 MCH 27.9 MCHC 31.7 L RDW 15.4 H Plt Count 376 Seg Neutrophils % 80.9 H Sodium 130.2 L Potassium 4.7 Chloride 89 L Carbon Dioxide 28 Anion Gap 13 BUN 39 H Creatinine 2.85 H Est GFR ( Amer) 27 L Glucose 485 H* Calcium 9.2 Magnesium Total Bilirubin 0.8 AST 15 L Alkaline Phosphatase 94 Total Protein 6.7 Albumin 3.8 Triglycerides Cholesterol LDL Cholesterol Direct VLDL Cholesterol HDL Cholesterol TSH Urine Color YELLOW Urine Appearance CLEAR Urine pH 6.0 Ur Specific [place] 1.015 Urine Protein >=500 H Urine Glucose (UA) >=500 H Urine Ketones TRACE H Urine Blood NEGATIVE Urine Nitrite NEGATIVE Ur Leukocyte Esterase NEGATIVE Urine WBC (Auto) 0 Urine RBC (Auto) 1 04/01/20 04/01/20 04/01/20 05:27 05:27 05:27 WBC 10.4 RBC 3.80 L Hgb 10.8 L Hct 32.9 L MCV 87 MCH 28.5 MCHC 32.9 RDW 15.1 H Plt Count 348 Seg Neutrophils % Sodium 131.7 L Potassium 4.5 Chloride 92 L Carbon Dioxide 26 Anion Gap 14 BUN 41 H Creatinine 3.26 H Est GFR ( Amer) 23 L Glucose 272 H Calcium 9.2 Magnesium 2.2 Total Bilirubin AST Alkaline Phosphatase Total Protein Albumin Triglycerides 156 H Cholesterol 165.54 LDL Cholesterol Direct 96 VLDL Cholesterol 31.2 H HDL Cholesterol 39 L TSH 1.69 Urine Color Urine Appearance Urine pH Ur Specific [place] Urine Protein Urine Glucose (UA) Urine Ketones Urine Blood Urine Nitrite Ur Leukocyte Esterase Urine WBC (Auto) Urine RBC (Auto) 03/31/20 16:00 Troponin I 0.042 NT-Pro-B Natriuret Pep 48472 H Impressions: Chest X-Ray 03/31/20 15:17 IMPRESSION: Constellation of findings suggests CHF exacerbation. Infectious etiology is not excluded. Chest/Abdomen CTA 03/31/20 18:19 IMPRESSION: No evidence of central or segmental pulmonary embolus. Constellation of findings suggests CHF exacerbation. Superimposed infectious process is not excluded. Other chronic and incidental findings as detailed above. Assessment & Plan - Diagnosis (1) Acute and chronic respiratory failure with hypoxia Is this a current diagnosis for this admission?: Yes Plan: Secondary to CHF, pulmonary congestion and bilateral pleural effusion. (2) Acute exacerbation of CHF (congestive heart failure) Qualifiers: Heart failure type: unspecified Qualified Code(s): I50.9 - Heart failure, unspecified Is this a current diagnosis for this admission?: Yes Plan: Elevated BNP and admission with radiographic evidence of pulmonary congestion. Echocardiogram on September 29, 2018 showed LVEF of 55% and normal diastolic function but severe pulmonary hypertension. (3) ESRD needing dialysis Is this a current diagnosis for this admission?: Yes Plan: We will do dialysis today for 3.5 hours, using the patient's left AV fistula, with 2 potassium bath, blood flow rate of 400 mL per minute, dialysate flow rate of 800 mL per minute, ultrafiltration 4 L as tolerated, no heparin and Procrit not required currently. Patient is being monitored closely during dialysis tr eatment. Ultrafiltration will be adjusted accordingly. I might need to do a short ultrafiltration treatment tomorrow to optimize volume control. I also told the patient that it is most likely a good idea to go back and do his outpatient hemodialysis with ultrafiltration 4 times a week as I plan before due to his history of fluid overload and retention with recurrent bilateral pleural effusion. Patient understood. (4) Anemia in CKD (chronic kidney disease) Qualifiers: Chronic kidney disease stage: on chronic dialysis Qualified Code(s): N18.6 - End stage renal disease; D63.1 - Anemia in chronic kidney disease; Z99.2 - D ependence on renal dialysis Is this a current diagnosis for this admission?: Yes Plan: Retacrit as needed during dialysis. (5) Pleural effusion Is this a current diagnosis for this admission?: Yes Plan: Possibly need thoracentesis. (6) Pulmonary hypertension Is this a current diagnosis for this admission?: Yes Plan: Severe. (7) HTN (hypertension) Qualifiers: Hypertension type: essential hypertension Qualified Code(s): I10 - Essent ial (primary) hypertension Is this a current diagnosis for this admission?: Yes Plan: Currently elevated likely secondary to fluid overload. (8) Type 2 diabetes mellitus Qualifiers: Diabetes mellitus long filler cigar roller machine insulin use: unspecified residential insulin use status Diabetes mellitus complication status: with other specified complication Qualified Code(s): E11.69 - Type 2 diabetes mellitus with other specified complication Is this a current diagnosis for this admission?: Yes - Notes Notes: Thank you very much for this consultation. Discussed with Dr. Mendes today.
[2020-04-01] MEDS: CARVEDILOL 12.5 MG TABLET PO SCH ×2 (12:38→21:33)
[2020-04-01] MEDS: ASPIRIN 81 MG TABLET, ENT COATED PO SCH (12:38)
[2020-04-01] MEDS: DOCUSATE SODIUM 100 MG CAPSULE PO SCH ×2 (12:54→17:33)
--- NOTE | 2020-04-01 16:36 | PDOC PROGRESS REPORT ---
Subjective Progress Note for:: 04/01/20 Subjective:: Patient was seen on morning rounds. Currently getting dialysis. His biggest concern was that he feels weak and short of breath. He is on 3 L O2 by nasal cannula during exam, and states that he is on 2 L O2 at home at all times. He is producing urine, primarily at nighttime. Upon further questioning denies headache, fever, chills, chest pain, numbness or tingling, abdominal pain, nausea vomiting diarrhea, or lower extremity edema. Reason For Visit: FLUID OVERLOAD,ESRD NEEDING DIALYSIS, increased SOB Physical Exam Vital Signs: Temp Pulse Resp BP Pulse Ox 97.7 F 82 18 141/81 H 100 03/31/20 23:50 03/31/20 23:50 03/31/20 23:50 03/31/20 23:50 03/31/20 23:50 Intake & Output 03/31/20 04/01/20 04/02/20 06:59 06:59 06:59 Intake Total 250 Output Total 200 Balance 50 Weight 93.3 kg General appearance: PRESENT: no acute distress, cooperative, well-developed, well-nourished Head exam: PRESENT: atraumatic, normocephalic Eye exam: PRESENT: EOMI, PERRLA. ABSENT: conjunctival injection, scleral icterus Mouth exam: PRESENT: moist, neck supple, tongue midline Neck exam: PRESENT: full ROM. ABSENT: JVD, lymphadenopathy, tenderness Respiratory exam: PRESENT: decreased breath sounds. ABSENT: rhonchi, stridor, wheezes Cardiovascular exam: PRESENT: RRR, +S1, +S2. ABSENT: diastolic murmur, systolic murmur, tachycardia GI/Abdominal exam: PRESENT: normal bowel sounds, soft. ABSENT: firm, guarding, tenderness Rectal exam: PRESENT: deferred Extremities exam: PRESENT: full ROM. ABSENT: clubbing, pedal edema Musculoskeletal exam: PRESENT: ambulatory, full ROM. ABSENT: deformity, dislocation, tenderness Neurological exam: PRESENT: alert, awake, oriented to person, oriented to place, oriented to time, CN II-XII grossly intact. ABSENT: altered, motor sensory deficit Psychiatric exam: PRESENT: appropriate affect, normal mood Skin exam: PRESENT: dry, intact, warm. ABSENT: rash Results Laboratory Results: 04/01/20 05:27 04/01/20 05:27 0903/31/20 03/31/20 16:00 16:00 16:00 WBC 11.9 H RBC 3.95 L Hgb 11.0 L Hct 34.8 L MCV 88 MCH 27.9 MCHC 31.7 L RDW 15.4 H Plt Count 376 Seg Neutrophils % 80.9 H Sodium 130.2 L Potassium 4.7 Chloride 89 L Carbon Dioxide 28 Anion Gap 13 BUN 39 H Creatinine 2.85 H Est GFR ( Amer) 27 L Glucose 485 H* Calcium 9.2 Magnesium Total Bilirubin 0.8 AST 15 L Alkaline Phosphatase 94 Total Protein 6.7 Albumin 3.8 Triglycerides Cholesterol LDL Cholesterol Direct VLDL Cholesterol HDL Cholesterol TSH Urine Color YELLOW Urine Appearance CLEAR Urine pH 6.0 Ur Specific Rector 1.015 Urine Protein >=500 H Urine Glucose (UA) >=500 H Urine Ketones TRACE H Urine Blood NEGATIVE Urine Nitrite NEGATIVE Ur Leukocyte Esterase NEGATIVE Urine WBC (Auto) 0 Urine RBC (Auto) 1 04/01/20 04/01/20 04/01/20 05:27 05:27 05:27 WBC 10.4 RBC 3.80 L Hgb 10.8 L Hct 32.9 L MCV 87 MCH 28.5 MCHC 32.9 RDW 15.1 H Plt Count 348 Seg Neutrophils % Sodium 131.7 L Potassium 4.5 Chloride 92 L Carbon Dioxide 26 Anion Gap 14 BUN 41 H Creatinine 3.26 H Est GFR ( Amer) 23 L Glucose 272 H Calcium 9.2 Magnesium 2.2 Total Bilirubin AST Alkaline Phosphatase Total Protein Albumin Triglycerides 156 H Cholesterol 165.54 LDL Cholesterol Direct 96 VLDL Cholesterol 31.2 H HDL Cholesterol 39 L TSH 1.69 Urine Color Urine Appearance Urine pH Ur Specific Rector Urine Protein Urine Glucose (UA) Urine Ketones Urine Blood Urine Nitrite Ur Leukocyte Esterase Urine WBC (Auto) Urine RBC (Auto) 03/31/20 16:00 Troponin I 0.042 NT-Pro-B Natriuret Pep 73330 H Impressions: Chest X-Ray 03/31/20 15:17 IMPRESSION: Constellation of findings suggests CHF exacerbation. Infectious etiology is not excluded. Chest/Abdomen CTA 03/31/20 18:19 IMPRESSION: No evidence of central or segmental pulmonary embolus. Constellation of findings suggests CHF exacerbation. Superimposed infectious process is not excluded. Other chronic and incidental findings as detailed above. Assessment and Plan - Diagnosis (1) Dyspnea Qualifiers: Dyspnea type: shortness of breath Qualified Code(s): R06.02 - Shortness of breath; R06.00 - Dyspnea, unspecified; R06.01 - Orthopnea Is this a current diagnosis for this admission?: Yes (2) Acute and chronic respiratory failure with hypoxia Is this a current diagnosis for this admission?: Yes (3) Acute exacerbation of CHF (congestive heart failure) Qualifiers: Heart failure type: unspecified Qualified Code(s): I50.9 - Heart failure, unspecified Is this a current diagnosis for this admission?: Yes (4) Pleural effusion Is this a current diagnosis for this admission?: Yes (5) ESRD needing dialysis Is this a current diagnosis for this admission?: Yes (6) Chronic hyponatremia Is this a current diagnosis for this admission?: Yes (7) Anemia in CKD (chronic kidney disease) Qualifiers: Chronic kidney disease stage: on chronic dialysis Qualified Code(s): N18.6 - End stage renal disease; D63.1 - Anemia in chronic kidney disease; Z99.2 - Dependence on renal dialysis Is this a current diagnosis for this admission?: Yes (8) HTN (hypertension) Qualifiers: Hypertension type: essential hypertension Qualified Code(s): I10 - Essential (primary) hypertension Is this a current diagnosis for this admission?: Yes (9) Pulmonary hypertension Is this a current diagnosis for this admission?: Yes (10) Type 2 diabetes mellitus Qualifiers: Diabetes mellitus fpc insulin use: unspecified predatory animal exterminator insulin use status Diabetes mellitus complication status: with other specified complication Qualified Code(s): E11.69 - Type 2 diabetes mellitus with other specified complication Is this a current diagnosis for this admission?: Yes (11) Obesity, Class II, BMI 35-39.9 Is this a current diagnosis for this admission?: Yes (12) Dyslipidemia Is this a current diagnosis for this admission?: Yes - Plan Summary Summary: Per H&P Dr. Mayberry documented on 03/31/2020: "Patient will be admitted to the medical service on the medical floor he will receive routine supportive and symptomatic cares. Dr. Patel will be consulted for nephrology evaluation and hemodialysis on inpatient basis. Patient will receive supplemental oxygen via nasal cannula and/or noninvasive airway pressure support devices such as BiPAP as needed to maintain an adequate oxygen saturation. Patient will be treated with 2% nitroglycerin ointment 1 g applied every 6 hours. He will receive hydralazine 20 mg IV and/or metoprolol 5 mg IV every 4 hours as needed for hypertension control. He received a Bumex challenge in the emergency room. Before meals and at bedtime Accu-Cheks will be performed with sliding scale insulin for hyperglycemia and a hypoglycemic protocol in place. He will be on a cardiac, diabetic and dialysis restricted diet. CBCs, metabolic profiles and additional laboratory and/or radiographic evaluations will be obtained as needed. Patient may need thoracentesis if his pleural effusions are not improving with aggressive dialysis and diuretic therapy. He will receive Ativan 1 mg IV every 4 hours as needed for anxiety or restlessness. He will receive morphine sulfate 2 to 4 mg IV every 2 hours as needed for pain. He will receive morphine sulfate 2 mg IV every hour as needed severe dyspnea." 04/01/2020 Dyspnea: Suspect secondary to combination of his comorbidities. -Suspect improvement with combination of therapies including O2 therapy, dialysis, fluid restriction, and paracentesis. -Continue to monitor for improvement. Acute and chronic respiratory failure with hypoxia: Suspect secondary to combination of CHF, pulmonary congestion and bilateral pleural effusion. -O2 sat 100 on 3 L nasal cannula. -Historically on 2 L nasal cannula at home. -Continue to monitor. Acute exacerbation of CHF (congestive heart failure): -BNP at time of admission 35,600. Significantly elevated compared to 7,430 (12/23/2019) -Chest x-ray suggestive of CHF exacerbation. -Echocardiogram on September 29, 2018 showed LVEF of 55% and normal diastolic function but severe pulmonary hypertension. -He is followed by Dr. Sterling, cardiology. He is consulted on the case. -Initiate fluid restriction of 1 L/day. -Monitor ins and outs closely. Pleural effusion: Chest x-ray 03/31 notable bilateral pleural effusions. Suspect secondary to CHF. -Patient historically followed by analyst microbiology lab. Was scheduled for outpatient paracentesis but did not go to appointment. -Thoracentesis by IR ordered. -Continue to monitor. Pulmonary hypertension: Severe pulmonary hypertension as noted on echo from [facility] and 2018. -By Dr. Sterling, cardiology. Who is consulted on case. Treat as advised and directed. ESRD needing dialysis: BUN 41, creatinine 3.26, EGFR 19, values consistent with his baseline. -4L net loss in dialysis today. -Strict I&O, consider diuretic as he is producing urine. Will discuss with Dr. Patel. -He is followed by Dr. Patel, nephrology, who saw him today. -Historically noncompliant with dialysis 4 times a week. Last dialysis was 3 weeks ago. -Dialysis treatment regimen as recommended by Dr. Patel. -Recommend outpatient dialysis 4 times a week upon discharge. -Continue to monitor with daily labs. -Continue with appropriate dietary limitations. Hyponatremia: 131.7 on labs today. This is baseline for him. -Secondary to CKD. -Continue to monitor on daily labs. Anemia in CKD (chronic kidney disease): Hemoglobin today 10.8. This is baseline for him. -Retacrit utilized during dialysis. -Continue to monitor. HTN (hypertension): Consistently elevated throughout admission thus far. -Suspect secondary to fluid overload. -Utilize Lopressor and/or hydralazine for systolic blood pressure greater than 160. -Continue to monitor. Type 2 diabetes mellitus: POC glcuose Consistently elevated with most recent 250. -Holding oral medications while admitted. -We will check A1c with a.m. lab work. -Accu-Cheks before meals and at bedtime with Humalog for sliding scale coverage. -Hypoglycemia protocol in place. -Registered dietitian house visitor consulted. - Time Time Spent with patient: 25-34 minutes Medications reviewed and adjusted accordingly: Yes Anticipated Discharge Disposition: Home, Self Care Anticipated Discharge Timeframe: undetermined
[2020-04-01] MEDS: INSULIN REG, HUMAN 100 UNIT/ML 3 ML VIAL (PYX) SUBCUT PRN ×2 (17:33→21:32)
[2020-04-01] MEDS: MONTELUKAST SODIUM 10 MG TABLET PO SCH (21:33)
[2020-04-02] MEDS: NITROGLYCERIN 2% OINTMENT 1 GM PACKET TP SCH ×4 (00:12→17:34)
[2020-04-02] MEDS ORDERED: NORMAL SALINE 1000 ML 1,000 ML IV PRN (05:00)
[2020-04-02] MEDS: HEPARIN SOD (PORCINE) 5,000 UNIT/ML 1 ML VIAL SUBCUT SCH ×3 (05:16→22:20)
[2020-04-02] MEDS: PANTOPRAZOLE SODIUM 40 MG TABLET.DR PO SCH (05:22)
[2020-04-02 06:14] LABS: HEMATOCRIT 30.8 % (37.9-51.0); HEMOGLOBIN 10.2 g/dL (13.5-17.0); MEAN CORPUSCULAR HEMOGLOBIN 28.9 pg (27.0-33.4); MEAN CORPUSCULAR HGB CONC 33.2 g/dL (32.0-36.0); MEAN CORPUSCULAR VOLUME 87 fl (80-97); PLATELET COUNT 358 10^3/uL (150-450); RED BLOOD COUNT 3.55 10^6/uL (4.35-5.55); RED CELL DISTRIBUTION WIDTH 15.2 % (11.5-14.0); WHITE BLOOD COUNT 10.8 10^3/uL (4.0-10.5)
[2020-04-02 06:33] LABS: ANION GAP 12 (5-19); BLOOD UREA NITROGEN 31 mg/dL (7-20); CALCIUM 8.7 mg/dL (8.4-10.2); CARBON DIOXIDE 29 mmol/L (22-30); CHLORIDE 91 mmol/L (98-107); GLUCOSE 164 mg/dL (75-110); POTASSIUM 4.3 mmol/L (3.6-5.0)
--- NOTE | 2020-04-02 09:23 | PDOC PROGRESS REPORT ---
Subjective Progress Note for:: 04/02/20 Subjective:: I am seeing the patient during sequential and dialysis today this morning. Patient told me that he had some labored breathing last night after treatment but today he seems to be feeling okay. He states that at home he is feeling terrible because he could not do anything because of the shortness of breathing. He denies any chest pain currently. So far he is tolerating sequential dialysis. Reason For Visit: FLUID OVERLOAD,ESRD NEEDING DIALYSIS Physical Exam Vital Signs: Temp Pulse Resp BP Pulse Ox 97.7 F 66 18 129/62 H 97 04/02/20 03:34 04/02/20 03:34 04/02/20 03:34 04/02/20 03:34 04/02/20 04:40 Intake & Output 04/01/20 04/02/20 04/03/20 06:59 06:59 06:59 Intake Total 250 2300 Output Total 200 5250 Balance 50 -2950 Weight 93.3 kg 93.3 kg Vitals during dialysis: Blood pressure 144/76, heart rate of 83, currently blood flow rate of 350 mL/min per sequential. Exam: General appearance: PRESENT: no acute distress, cooperative, well-developed, well-nourished Head exam: PRESENT: atraumatic, normocephalic Eye exam: PRESENT: conjunctiva pale, PERRLA. ABSENT: scleral icterus Neck exam: ABSENT: JVD Respiratory exam: PRESENT: Diminished breath sounds. ABSENT: crackles, rales, rhonchi, unlabored, wheezes Cardiovascular exam: PRESENT: Regular rate rhythm -+S1, +S2. ABSENT: diastolic murmur, systolic murmur GI/Abdominal exam: PRESENT: normal bowel sounds, soft. ABSENT: guarding, mass, tenderness Extremities exam: ABSENT: No edema Neurological exam: PRESENT: alert, awake, oriented to person, place and time. Skin exam: PRESENT: dry, warm, Results Laboratory Results: 04/02/20 05:34 04/02/20 05:34 04/02/20 04/02/20 05:34 05:34 WBC 10.8 H RBC 3.55 L Hgb 10.2 L Hct 30.8 L MCV 87 MCH 28.9 MCHC 33.2 RDW 15.2 H Plt Count 358 Sodium 132.4 L Potassium 4.3 Chloride 91 L Carbon Dioxide 29 Anion Gap 12 BUN 31 H Creatinine 3.47 H Est GFR ( Amer) 21 L Glucose 164 H Calcium 8.7 Magnesium 2.0 03/31/20 16:00 Troponin I 0.042 NT-Pro-B Natriuret Pep 65232 H Impressions: Chest X-Ray 03/31/20 15:17 IMPRESSION: Constellation of findings suggests CHF exacerbation. Infectious etiology is not excluded. Chest/Abdomen CTA 03/31/20 18:19 IMPRESSION: No evidence of central or segmental pulmonary embolus. Constellation of findings suggests CHF exacerbation. Superimposed infectious process is not excluded. Other chronic and incidental findings as detailed abov e. Assessment & Plan - Diagnosis (1) Acute and chronic respiratory failure with hypoxia Is this a current diagnosis for this admission?: Yes Plan: Secondary to CHF, pulmonary congestion and bilateral pleural effusion. (2) Acute exacerbation of CHF (congestive heart failure) Qualifiers: Heart failure type: unspecified Qualified Code(s): I50.9 - Heart failure, unspecified Is this a current diagnosis for this admission?: Yes Plan: Elevated BNP and admission with radiographic evidence of pulmonary congestion. Echocardiogram on September 29, 2018 showed LVEF of 55% and normal diastolic function but severe pulmonary hypertension. (3) ESRD needing dialysis Is this a current diagnosis for this admission?: Yes Plan: We will do dialysis today for 2.5 hours with 1-1/2 hours of sequential and 1 hour of hemodialysis, using the patient's AV fistula, with 2 potassium bath, blood flow rate of 350 mL per minute, dialysate flow rate of 800 mL per minute, ultrafiltration 3 to 3.5 L as tolerated, no heparin and Procrit not needed during dialysis. Patient is currently being monitored carefully. Dialysis orders discussed with her dialysis nurse. (4) Anemia in CKD (chronic kidney disease) Qualifiers: Chronic kidney disease stage: on chronic dialysis Qualified Code(s): N18.6 - End stage renal disease; D63.1 - Anemia in chronic kidney disease; Z99.2 - Dependence on renal dialysis Is this a current diagnosis for this admission?: Yes Plan: Retacrit as needed during dialysis. (5) Pleural effusion Is this a current diagnosis for this admission?: Yes Plan: Patient being arranged for therapeutic thoracentesis. (6) Pulmonary hypertension Is this a current diagnosis for this admission?: Yes Plan: Severe. (7) HTN (hypertension) Qualifiers: Hypertension type: essential hypertension Qualified Code(s): I10 - Essential (primary) hypertension Is this a current diagnosis for this admission?: Yes Plan: Improved today. (8) Type 2 diabetes mellitus Qualifiers: Diabetes mellitus long-term insulin use: unspecified long-term insulin use status Diabetes mellitus complication status: with other specified complication Qualified Code(s): E11.69 - Type 2 diabetes mellitus with other specified complication Is this a current diagnosis for this admission?: Yes Plan: A1c of 10.4 indicating poor control. - Time Time with patient: 15-25 minutes
[2020-04-02] MEDS ORDERED: MORPHINE SULFATE 10 MG/ML INJ IV PRN ×3 (10:16→10:30)
[2020-04-02] MEDS: ASPIRIN 81 MG TABLET, ENT COATED PO SCH (12:02)
[2020-04-02] MEDS: DOCUSATE SODIUM 100 MG CAPSULE PO SCH ×2 (12:02→17:40)
[2020-04-02] MEDS: CARVEDILOL 12.5 MG TABLET PO SCH ×2 (12:02→22:32)
[2020-04-02] MEDS: INSULIN REG, HUMAN 100 UNIT/ML 3 ML VIAL (PYX) SUBCUT PRN ×2 (12:04→17:53)
--- NOTE | 2020-04-02 13:22 | PDOC PROGRESS REPORT ---
Subjective Progress Note for:: 04/02/20 Subjective:: Patient was seen on morning rounds. He is resting in bed comfortably after dialysis. Continues to complain of shortness of breath but states this is much improved since yesterday. He has not yet received thoracentesis. Reviewed patient's home diabetes medications with the patient. He is currently prescribed NovoLog, glipizide, and Levemir. He is admittedly non-compliant with medications, which he relates to his forgetfulness. Denies monitoring blood sugar at home and is unsure of his baseline. His diabetes is managed by Dr. Selby, PCP. Otherwise denies headache, change in vision, fever, chills, chest pain, numbness or tingling, abdominal pain, nausea vomiting diarrhea, or lower extremity edema. Discussed patient case with nurse. Nurse states that patient's blood sugars have been consistently greater than 300, with a spike in blood sugar up to 400 last night. Patient states that his dinner tray came with apple pie and pudding last night. No other concerns voiced. Reason For Visit: FLUID OVERLOAD,ESRD NEEDING DIALYSIS Physical Exam Vital Signs: Temp Pulse Resp BP Pulse Ox 97.7 F 66 18 129/62 H 97 04/02/20 03:34 04/02/20 03:34 04/02/20 03:34 04/02/20 03:34 04/02/20 04:40 Intake & Output 04/01/20 04/02/20 04/03/20 06:59 06:59 06:59 Intake Total 250 2300 Output Total 200 5250 2600 Balance 50 -2950 -2600 Weight 93.3 kg 93.3 kg General appearance: PRESENT: no acute distress, cooperative Head exam: PRESENT: atraumatic, normocephalic Eye exam: PRESENT: conjunctiva pink, EOMI, PERRLA Ear exam: PRESENT: normal external ear exam Mouth exam: PRESENT: moist, tongue midline Neck exam: PRESENT: full ROM. ABSENT: JVD, lymphadenopathy, tenderness Respiratory exam: PRESENT: decreased breath sounds - bibasilar, symmetrical, unlabored. ABSENT: tachypnea Cardiovascular exam: PRESENT: RRR. ABSENT: diastolic murmur, systolic murmur, tachycardia GI/Abdominal exam: PRESENT: normal bowel sounds, soft. ABSENT: distended, firm, guarding, rigid, tenderness Rectal exam: PRESENT: deferred Extremities exam: PRESENT: full ROM. ABSENT: calf tenderness, clubbing, pedal edema, tenderness Musculoskeletal exam: PRESENT: ambulatory, full ROM. ABSENT: deformity, dislocation Neurological exam: PRESENT: alert, awake, oriented to person, oriented to place, oriented to time, oriented to situation, CN II-XII grossly intact. ABSENT: altered, motor sensory deficit Psychiatric exam: PRESENT: appropriate affect, normal mood Skin exam: PRESENT: intact, warm. ABSENT: erythema, rash Results Laboratory Results: 04/02/20 05:34 04/02/20 05:34 04/02/20 04/02/20 05:34 05:34 WBC 10.8 H RBC 3.55 L Hgb 10.2 L Hct 30.8 L MCV 87 MCH 28.9 MCHC 33.2 RDW 15.2 H Plt Count 358 Sodium 132.4 L Potassium 4.3 Chloride 91 L Carbon Dioxide 29 Anion Gap 12 BUN 31 H Creatinine 3.47 H Est GFR ( Amer) 21 L Glucose 164 H Calcium 8.7 Magnesium 2.0 03/31/20 16:00 Troponin I 0.042 NT-Pro-B Natriuret Pep 40438 H Impressions: Chest X-Ray 03/31/20 15:17 IMPRESSION: Constellation of findings suggests CHF exacerbation. Infectious etiology is not excluded. Chest/Abdomen CTA 03/31/20 18:19 IMPRESSION: No evidence of central or segmental pulmonary embolus. Constellation of findings suggests CHF exacerbation. Superimposed infectious process is not excluded. Other chronic and incidental findings as detailed above. Assessment and Plan - Diagnosis (1) Dyspnea Qualifiers: Dyspnea type: shortness of breath Qualified Code(s): R06.02 - Shortness of breath; R06.00 - Dyspnea, unspecified; R06.01 - Orthopnea Is this a current diagnosis for this admission?: Yes (2) Acute and chronic respiratory failure with hypoxia Is this a current diagnosis for this admission?: Yes (3) Acute exacerbation of CHF (congestive heart failure) Qualifiers: Heart failure type: unspecified Qualified Code(s): I50.9 - Heart failure, unspecified Is this a current diagnosis for this admission?: Yes (4) Pleural effusion Is this a current diagnosis for this admission?: Yes (5) ESRD needing dialysis Is this a current diagnosis for this admission?: Yes (6) Chronic hyponatremia Is this a current diagnosis for this admission?: Yes (7) Anemia in CKD (chronic kidney disease) Qualifiers: Chronic kidney disease stage: on chronic dialysis Qualified Code(s): N18.6 - End stage renal disease; D63.1 - Anemia in chronic kidney disease; Z99.2 - Dependence on renal dialysis Is this a current diagnosis for this admission?: Yes (8) HTN (hypertension) Qualifiers: Hypertension type: essential hypertension Qualified Code(s): I10 - Essential (primary) hypertension Is this a current diagnosis for this admission?: Yes (9) Pulmonary hypertension Is this a current diagnosis for this admission?: Yes (10) Type 2 diabetes mellitus Qualifiers: Diabetes mellitus intermediate insulin use: unspecified watermaster insulin use status Diabetes mellitus complication status: with other specified complication Qualified Code(s): E11.69 - Type 2 diabetes mellitus with other specified complication Is this a current diagnosis for this admission?: Yes (11) Obesity, Class II, BMI 35-39.9 Is this a current diagnosis for this admission?: Yes (12) Dyslipidemia Is this a current diagnosis for this admission?: Yes - Plan Summary Summary: Per H&P Dr. Mayberry documented on 03/31/2020: "Patient will be admitted to the medical service on the medical floor he will receive routine supportive and symptomatic cares. Dr. Patel will be consulted for nephrology evaluation and hemodialysis on inpatient basis. Patient will receive supplemental oxygen via nasal cannula and/or noninvasive airway pressure support devices such as BiPAP as needed to maintain an adequate oxygen saturation. Patient will be treated with 2% nitroglycerin ointment 1 g applied every 6 hours. He will receive hydralazine 20 mg IV and/or metoprolol 5 mg IV every 4 hours as needed for hypertension control. He received a Bumex challenge in the emergency room. Before meals and at bedtime Accu-Cheks will be performed with sliding scale insulin for hyperglycemia and a hypoglycemic protocol in place. He will be on a cardiac, diabetic and dialysis restricted diet. CBCs, metabolic profiles and additional laboratory and/or radiographic evaluations will be obtained as needed. Patient may need thoracentesis if his pleural effusions are not improving with aggressive dialysis and diuretic therapy. He will receive Ativan 1 mg IV every 4 hours as needed for anxiety or restlessness. He will receive morphine sulfate 2 to 4 mg IV every 2 hours as needed for pain. He will receive morphine sulfate 2 mg IV every hour as needed severe dyspnea." 04/02/2020 Dyspnea: Suspect secondary to combination of his comorbidities. -Suspect improvement with combination of therapies including O2 therapy, dialysis, fluid restriction, and paracentesis. -Continue to monitor for improvement. Acute and chronic respiratory failure with hypoxia: Suspect secondary to combination of CHF, pulmonary congestion and bilateral pleural effusion. -O2 sat >95 on 4 L nasal cannula. -Historically on 2 L nasal cannula at home. -Wean back to 2L as tolerated. -Continue to monitor. Acute exacerbation of CHF (congestive heart failure): -BNP at time of admission 35,600. Significantly elevated compared to 7,430 (12/23/2019) -Chest x-ray suggestive of CHF exacerbation. -Echocardiogram on September 29, 2018 showed LVEF of 55% and normal diastolic function but severe pulmonary hypertension. -He is followed by Dr. Sterling, cardiology. He is following patient. -Initiate fluid restriction of 1 L/day. -Monitor ins and outs closely. -Discontinue nitro paste, resume home medication Imdur 30mg in the a.m. Pleural effusion: Chest x-ray 03/31 notable bilateral pleural effusions. Suspect secondary to CHF. -Patient historically followed by dental insurance biller. Was scheduled for outpatient paracentesis but did not go to appointment. -Thoracentesis by IR ordered, pending. -Continue to monitor. Pulmonary hypertension: Severe pulmonary hypertension as noted on echo from September 29 and 2018. -Resume home treatment regimen. ESRD needing dialysis: BUN 41 -> 31, creatinine 3.26 -> 3.47, values consistent with baseline. -3L net loss in dialysis today. -Strict I&O. -Oliguric, producing <250ml urine daily, consider resuming home diuretic. With back to back dialysis treatments and net fluid loss diuretic is not indicated today. Will discuss with Dr. Patel in a.m. -He is followed by Dr. Patel, nephrology, refer to note. -Recommend outpatient dialysis 4 times a week upon discharge. -Continue to monitor with daily labs. -Continue with appropriate dietary limitations. Hyponatremia: 131.7 ->132.4 on labs today. Baseline for patient. -Secondary to CKD. -Continue to monitor on daily labs. Anemia in CKD (chronic kidney disease): Hemoglobin today 10.8; baseline. -Continue to monitor. HTN (hypertension): BP improving with dialysis. Consistently in 120s/60s today. -Suspect secondary to fluid overload. -Utilize Lopressor and/or hydralazine for systolic blood pressure greater than 160. -Continue to monitor. Type 2 diabetes mellitus: Hem A1c 10.4. -Home medications: NovoLog, glipizide, and Levemir. He is admittedly non- compliant with medications, which he relates to his forgetfulness. -Patient's blood sugar consistently elevated >250, requiring 12 units insulin on average. Continue with Humalog per sliding scale coverage. -Continue to monitor blood sugars with Accu-Cheks before meals and at bedtime. -Consider implementing Lantus dose according to sliding scale requirement. -Hold oral medications while admitted. -Hypoglycemia protocol in place. -Recommend home health care nursing for med management and disease teaching following discharge. - Time Time Spent with patient: 15-24 minutes Medications reviewed and adjusted accordingly: Yes Anticipated Discharge Disposition: Home with Home Health Anticipated Discharge Timeframe: within 72 hours
[2020-04-02 13:37] LABS: INTERNATIONAL RATION (INR) 1.07; PROTHROMBIN TIME 14.1 SEC (11.4-15.4)
--- NOTE | 2020-04-02 15:43 | RADIOLOGY REPORT (SQ) ---
EXAM DESCRIPTION: CHEST SINGLE VIEW IMAGES COMPLETED DATE/TIME: 04/02/2020 3:28 pm REASON FOR STUDY: post thoracentesis COMPARISON: 03/31/2020 TECHNIQUE: Single frontal radiographic view of the chest acquired. NUMBER OF VIEWS: One view. LIMITATIONS: None. FINDINGS: LUNGS AND PLEURA: No pneumothorax. Similar bibasilar consolidation and pleural effusions, right greater than left. MEDIASTINUM AND HILAR STRUCTURES: Stable. HEART AND VASCULAR STRUCTURES: Stable. BONES: No acute findings. HARDWARE: None in the chest. OTHER: No other significant finding. IMPRESSION: No pneumothorax.Similar bibasilar consolidation and pleural effusions, right greater varghese n left. TECHNICAL DOCUMENTATION: JOB ID: [id number] [place]-72 2010 [employer]- All Rights Reserved Reading location - IP/workstation name: [email or web address]
--- NOTE | 2020-04-02 15:52 | RADIOLOGY REPORT (SQ) ---
EXAM DESCRIPTION: U/S THORACENTESIS WITH IMAGING IMAGES COMPLETED DATE/TIME: 04/02/2020 3:34 pm REASON FOR STUDY: Recurrent bilateral pleural Effusion COMPARISON: CT the chest 03/31/2020 RADIATION DOSE: None LIMITATIONS: None. PROCEDURE: Procedure, risks, benefit, and alternative explained to patient who then gave written con sent. Ultrasound was performed over the posterior chest showing moderate bilateral loculated pleural effusions. The posterior left chest wall was marked using ultrasound guidance. A time-out was call ed for correct marking verification. Chest prepped and draped using sterile technique. Local anesthe junior achieved using 8 ml of 1% lidocaine injection. A 6fr Safe-T- Centesis set was introduced into th e left pleural space. Fluid was aspirated. The catheter was removed and the entry site was covered with sterile bandage. No immediate complications noted. Images acquired during the procedure were stored on PACS. FINDINGS: ENTRY SITE: posterior left chest. FLUID VOLUME: 500 mL FLUID ANALYSIS: Serosanguinous OTHER: Fluid sent to the lab for testing. IMPRESSION: SUCCESSFUL THORACENTESIS USING ULTRASOUND GUIDANCE. NOTE IS MADE OF MODERATE BILATERAL LOCULATED PLEURAL EFFUSIONS. COMMENT: Patient medication list reviewed: Yes- Quality ID# [id number]:Eligible professional attests to doc umenting in the medical record they obtained, updated, or reviewed the patient's current medications. TECHNICAL DOCUMENTATION: JOB ID: [id number] 2010 [employer]- All Rights Reserved Reading location - IP/workstation name: [email or web address] [id number]
--- NOTE | 2020-04-02 17:51 | RADIOLOGY REPORT (SQ) ---
EXAM DESCRIPTION: CHEST SINGLE VIEW IMAGES COMPLETED DATE/TIME: 04/02/2020 5:39 pm REASON FOR STUDY: 2 HR post thoracentesis COMPARISON: 04/02/2020 EXAM PARAMETERS: NUMBER OF VIEWS: One view. TECHNIQUE: Single frontal radiographic view of the chest acquired. RADIATION DOSE: NA LIMITATIONS: None. FINDINGS: LUNGS AND PLEURA: Bilateral residual pleural effusions. No pneumothorax. MEDIASTINUM AND HILAR STRUCTURES: No masses. Contour normal. HEART AND VASCULAR STRUCTURES: Cardiomegaly. BONES: No acute findings. HARDWARE: None in the chest. OTHER: No other significant finding. IMPRESSION: No pneumothorax. Cardiomegaly. Residual pleural effusions. TECHNICAL DOCUMENTATION: JOB ID: [id number] 2010 [employer]- All Rights Reserved Reading location - IP/workstation name: [email or web address]
[2020-04-02 18:15] LABS: FLUID APPEARANCE CLOUDY; FLUID COLOR RED; FLUID SOURCE LUNG; FLUID TYPE PLEURAL; FLUID VISCOSITY LIQUID
[2020-04-02] MEDS ORDERED: GLIPIZIDE XL 5 MG TAB.ER.24 PO ONE (19:15)
[2020-04-02] MEDS: INSULIN GLARGINE,HUM.REC.ANLOG 1,000 UNIT/10 ML VIAL SUBCUT SCH (22:33)
[2020-04-02] MEDS: MONTELUKAST SODIUM 10 MG TABLET PO SCH (22:33)
[2020-04-03] MEDS ORDERED: NORMAL SALINE 1000 ML 1,000 ML IV PRN (05:00)
[2020-04-03 05:33] LABS: HEMATOCRIT 32.3 % (37.9-51.0); HEMOGLOBIN 10.7 g/dL (13.5-17.0); MEAN CORPUSCULAR HEMOGLOBIN 28.8 pg (27.0-33.4); MEAN CORPUSCULAR HGB CONC 33.2 g/dL (32.0-36.0); MEAN CORPUSCULAR VOLUME 87 fl (80-97); PLATELET COUNT 351 10^3/uL (150-450); RED BLOOD COUNT 3.71 10^6/uL (4.35-5.55); RED CELL DISTRIBUTION WIDTH 15.2 % (11.5-14.0); WHITE BLOOD COUNT 10.4 10^3/uL (4.0-10.5)
[2020-04-03 05:49] LABS: ANION GAP 11 (5-19); BLOOD UREA NITROGEN 43 mg/dL (7-20); CALCIUM 8.6 mg/dL (8.4-10.2); CARBON DIOXIDE 26 mmol/L (22-30); CHLORIDE 90 mmol/L (98-107); GLUCOSE 393 mg/dL (75-110); PHOSPHORUS 5.1 mg/dL (2.5-4.5); POTASSIUM 4.3 mmol/L (3.6-5.0)
[2020-04-03] MEDS: ISOSORBIDE MONONITRATE 30 MG TAB.ER.24H PO SCH ×2 (05:58→12:32)
[2020-04-03] MEDS: PANTOPRAZOLE SODIUM 40 MG TABLET.DR PO SCH (05:59)
[2020-04-03] MEDS: HEPARIN SOD (PORCINE) 5,000 UNIT/ML 1 ML VIAL SUBCUT SCH ×3 (05:59→22:19)
[2020-04-03] MEDS ORDERED: GLIPIZIDE XL 5 MG TAB.ER.24 PO SCH (08:00)
--- NOTE | 2020-04-03 10:52 | PDOC PROGRESS REPORT ---
Subjective Progress Note for:: 04/03/20 Reason For Visit: Patient seen today on dialysis. He is undergoing dialysis without any issues. He says his breathing is better after he underwent a thoracentesis yesterday. No complaints of any chest pains, fever or chills. Labs and medications were reviewed. Dialysis orders were reviewed with the treating dialysis nurse. Physical Exam Vital Signs: Temp Pulse Resp BP Pulse Ox 97.5 F 78 22 H 134/58 H 100 04/02/20 23:51 04/02/20 23:51 04/03/20 00:18 04/03/20 04:10 04/02/20 17:41 Intake & Output 04/02/20 04/03/20 04/04/20 06:59 06:59 06:59 Intake Total 2300 520 Output Total 5250 2850 Balance -2950 -2330 Weight 93.3 kg 90.1 kg General appearance: PRESENT: no acute distress Respiratory exam: PRESENT: clear to auscultation thalia, decreased breath sounds. ABSENT: crackles Cardiovascular exam: PRESENT: +S1, +S2 GI/Abdominal exam: PRESENT: normal bowel sounds, soft. ABSENT: organomegaly, tenderness Extremities exam: PRESENT: pedal edema Neurological exam: PRESENT: alert, awake, oriented to person, oriented to place Psychiatric exam: PRESENT: appropriate affect Results Laboratory Results: 04/03/20 04:46 04/03/20 04:46 04/02/20 04/03/20 04/03/20 15:15 04:46 04:46 WBC 10.4 RBC 3.71 L Hgb 10.7 L Hct 32.3 L MCV 87 MCH 28.8 MCHC 33.2 RDW 15.2 H Plt Count 351 Sodium 127.2 L Potassium 4.3 Chloride 90 L Carbon Dioxide 26 Anion Gap 11 BUN 43 H Creatinine 4.78 H Est GFR ( Amer) 15 L Glucose 393 H Calcium 8.6 Phosphorus 5.1 H Magnesium 2.1 Fluid Type PLEURAL Fluid Source LUNG Fluid Color RED Fluid Appearance CLOUDY Fluid Viscosity LIQUID Fluid WBC 143 Fluid RBC [id number] 03/31/20 16:00 Troponin I 0.042 NT-Pro-B Natriuret Pep 04576 H Impressions: Chest/Abdomen CTA 03/31/20 18:19 IMPRESSION: No evidence of central or segmental pulmonary embolus. Constellation of findings suggests CHF exacerbation. Superimposed infectious process is not excluded. Other chronic and incidental findings as detailed above. Thoracentesis Ultrasound 04/02/20 00:00 IMPRESSION: SUCCESSFUL THORACENTESIS USING ULTRASOUND GUIDANCE. NOTE IS MADE OF MODERATE BILATERAL LOCULATED PLEURAL EFFUSIONS. Chest X-Ray 04/02/20 17:10 IMPRESSION: No pneumothorax.Similar bibasilar consolidation and pleural effusions, right greater than left. Assessment & Plan - Diagnosis (1) ESRD needing dialysis Is this a current diagnosis for this admission?: Yes Plan: Patient seen while undergoing dialysis. He is comfortable in no distress. Dialysis is being monitored. Plan to remove 2-3 L of fluid as tolerated. Advised patient to limit his fluid intake given his ESRD status/congestive heart failure/chronic hyponatremia status. Reviewed and discussed dialysis orders with the treating dialysis nurse. (2) Acute and chronic respiratory failure with hypoxia Is this a current diagnosis for this admission?: Yes Plan: Improved patient subjectively also feels better status post thoracentesis. See response to him hemo filtration. (3) Acute exacerbation of CHF (congestive heart failure) Qualifiers: Heart failure type: unspecified Qualified Code(s): I50.9 - Heart failure, unspecified Is this a current diagnosis for this admission?: Yes Plan: Patient has got cor pulmonale and seems to be improving. He needs to limit his fluid intake and follow-up with cardiology. (4) Diabetes mellitus type 2 in obese Is this a current diagnosis for this admission?: Yes Plan: Unfortunately uncontrolled. Stressed the need for better diabetic control. (5) Anemia in CKD (chronic kidney disease) Qualifiers: Chronic kidney disease stage: on chronic dialysis Qualified Code(s): N18.6 - End stage renal disease; D63.1 - Anemia in chronic kidney disease; Z99.2 - Dependence on renal dialysis Is this a current diagnosis for this admission?: Yes Plan: Currently stable. No need for erythropoietin during this dialysis. Monitor. (6) HTN (hypertension) Qualifiers: Hypertension type: essential hypertension Qualified Code(s): I10 - Essential (primary) hypertension Is this a current diagnosis for this admission?: Yes Plan: Currently stable. Monitor. See response to removal of fluid. (7) Pulmonary hypertension Is this a current diagnosis for this admission?: Yes Plan: Advised limitation of fluid intake. Follow with cardiology.
[2020-04-03] MEDS: DOCUSATE SODIUM 100 MG CAPSULE PO SCH ×2 (12:31→18:03)
[2020-04-03] MEDS: CARVEDILOL 12.5 MG TABLET PO SCH ×2 (12:32→22:18)
[2020-04-03] MEDS: ASPIRIN 81 MG TABLET, ENT COATED PO SCH (12:32)
[2020-04-03] MEDS: INSULIN GLARGINE,HUM.REC.ANLOG 1,000 UNIT/10 ML VIAL SUBCUT SCH ×2 (12:33→22:19)
--- NOTE | 2020-04-03 13:53 | PDOC PROGRESS REPORT ---
Subjective Progress Note for:: 04/03/20 Subjective:: No adverse events overnight. No new complaints. Patient was seen on hemodialysis today. They were aiming for 4 L off today, but they got about 3 L off and his blood pressure dropped down just a little bit so they went ahead and stopped. It was his third day in a row. He said he feels pretty good. Reason For Visit: FLUID OVERLOAD,ESRD NEEDING DIALYSIS Physical Exam Vital Signs: Temp Pulse Resp BP Pulse Ox 97.5 F 78 22 H 134/58 H 100 04/02/20 23:51 04/02/20 23:51 04/03/20 00:18 04/03/20 04:10 04/02/20 17:41 Intake & Output 04/02/20 04/03/20 04/04/20 06:59 06:59 06:59 Intake Total 2300 520 Output Total 5250 2850 3200 Balance -2950 -2330 -3200 Weight 93.3 kg 90.1 kg General appearance: PRESENT: no acute distress, cooperative, disheveled, obese Head exam: PRESENT: atraumatic, normocephalic Eye exam: PRESENT: EOMI, PERRLA. ABSENT: conjunctival injection, nystagmus, scleral icterus Ear exam: PRESENT: normal external ear exam Neck exam: ABSENT: JVD Respiratory exam: PRESENT: chest wall tenderness, clear to auscultation thalia - Diminished, symmetrical, unlabored. ABSENT: accessory muscle use, crackles, prolonged expiratory phas, rhonchi, tachypnea, wheezes Cardiovascular exam: PRESENT: RRR, +S1, +S2. ABSENT: diastolic murmur, systolic murmur Pulses: PRESENT: normal carotid pulses Vascular exam: PRESENT: normal capillary refill GI/Abdominal exam: PRESENT: normal bowel sounds, soft. ABSENT: distended, guarding, rebound, tenderness Extremities exam: ABSENT: clubbing, pedal edema Musculoskeletal exam: PRESENT: normal inspection. ABSENT: deformity Neurological exam: PRESENT: alert, awake, oriented to person, oriented to place, oriented to situation Psychiatric exam: PRESENT: appropriate affect, normal mood Skin exam: PRESENT: dry, warm, other - Skin appears generally thin and frail Results Laboratory Results: 04/03/20 04:46 04/03/20 04:46 10/01/20 10/02/20 10/02/20 15:15 04:46 04:46 WBC 10.4 RBC 3.71 L Hgb 10.7 L Hct 32.3 L MCV 87 MCH 28.8 MCHC 33.2 RDW 15.2 H Plt Count 351 Sodium 127.2 L Potassium 4.3 Chloride 90 L Carbon Dioxide 26 Anion Gap 11 BUN 43 H Creatinine 4.78 H Est GFR ( Amer) 15 L Glucose 393 H Calcium 8.6 Phosphorus 5.1 H Magnesium 2.1 Fluid Type PLEURAL Fluid Source LUNG Fluid Color RED Fluid Appearance CLOUDY Fluid Viscosity LIQUID Fluid WBC 143 Fluid RBC [address] 03/31/20 16:00 Troponin I 0.042 NT-Pro-B Natriuret Pep 17350 H Impressions: Chest/Abdomen CTA 03/31/20 18:19 IMPRESSION: No evidence of central or segmental pulmonary embolus. C onstellation of findings suggests CHF exacerbation. Superimposed infectious process is not excluded. Other chronic and incidental findings as detailed above. Thoracentesis Ultrasound 04/02/20 00:00 IMPRESSION: SUCCESSFUL THORACENTESIS USING ULTRASOUND GUIDANCE. NOTE IS MADE OF MODERATE BILATERAL LOCULATED PLEURAL EFFUSIONS. Chest X-Ray 04/02/20 17:10 IMPRESSION: No pneumothorax.Similar bibasilar consolidation and pleural effusions, right greater than left. Assessment and Plan - Diagnosis (1) Acute and chronic respiratory failure with hypoxia Is this a current diagnosis for this admission?: Yes Plan: Stable, currently on the 3 L he is on at home (2) Acute exacerbation of CHF (congestive heart failure) Qualifiers: Heart failure type: diastolic Qualified Code(s): I50.33 - Acute on chronic diastolic (congestive) heart failure Is this a current diagnosis for this admission?: Yes Plan: He had pulmonary hypertension on his last echocardiogram, systolic function was preserved (3) Chronic hyponatremia Is this a current diagnosis for this admission?: Yes Plan: Currently in a fairly typical range for him (4) Diabetes mellitus type 2 in obese Is this a current diagnosis for this admission?: Yes Plan: Continue diabetic diet and current therapy (5) ESRD needing dialysis Is this a current diagnosis for this admission?: Yes Plan: There is gotten a lot of fluid off of him the last few days. Nephrology is following. I have been told that he is noncompliant at home. (6) Pleural effusion Is this a current diagnosis for this admission?: Yes (7) Pulmonary hypertension Is this a current diagnosis for this admission?: Yes - Plan Summary Summary: Per H&P Dr. Mayberry documented on 03/31/2020: "Patient will be admitted to the medical service on the medical floor he will receive routine supportive and symptomatic cares. Dr. Patel will be consulted for nephrology evaluation and hemodialysis on inpatient basis. Patient will receive supplemental oxygen via nasal cannula and/or noninvasive airway pressure support devices such as BiPAP as needed to maintain an adequate oxygen saturation. Patient will be treated with 2% nitroglycerin ointment 1 g applied every 6 hours. He will receive hydralazine 20 mg IV and/or metoprolol 5 mg IV every 4 hours as needed for hypertension control. He received a Bumex challenge in the emergency room. Before meals and at bedtime Accu-Cheks will be performed with sliding scale insulin for hyperglycemia and a hypoglycemic protocol in place. He will be on a cardiac, diabetic and dialysis restricted diet. CBCs, metabolic profiles and additional laboratory and/or radiographic evaluations will be obtained as nee ded. Patient may need thoracentesis if his pleural effusions are not improving with aggressive dialysis and diuretic therapy. He will receive Ativan 1 mg IV every 4 hours as needed for anxiety or restlessness. He will receive morphine sulfate 2 to 4 mg IV every 2 hours as needed for pain. He will receive morphine sulfate 2 mg IV every hour as needed severe dyspnea." 04/02/2020 Dyspnea: Suspect secondary to combination of his comorbidities. -Suspect improvement with combination of therapies including O2 therapy, dialysis, fluid restriction, and paracentesis. -Continue to monitor for improvement. Acute and chronic respiratory failure with hypoxia: Suspect secondary to combination of CHF, pulmonary congestion and bilateral pleural effusion. -O2 sat >95 on 4 L nasal cannula. -Historically on 2 L nasal cannula at home. -Wean back to 2L as tolerated. -Continue to monitor. Acute exacerbation of CHF (congestive heart failure): -BNP at time of admission 35,600. Significantly elevated compared to 7,430 (12/23/2019) -Chest x-ray suggestive of CHF exacerbation. -Echocardiogram on September 29, 2018 showed LVEF of 55% and normal diastolic function but severe pulmonary hypertension. -He is followed by Dr. Sterling, cardiology. He is following patient. -Initiate fluid restriction of 1 L/day. -Monitor ins and outs closely. -Discontinue nitro paste, resume home medication Imdur 30mg in the a.m. Pleural effusion: Chest x-ray 03/31 notable bilateral pleural effusions. Suspect secondary to CHF. -Patient historically followed by statistical financial analyst. Was scheduled for outpatient paracentesis but did not go to appointment. -Thoracentesis by IR ordered, pending. -Continue to monitor. Pulmonary hypertension: Severe pulmonary hypertension as noted on echo from September 29 and 2018. -Resume home treatment regimen. ESRD needing dialysis: BUN 41 -> 31, creatinine 3.26 -> 3.47, values consistent with baseline. -3L net loss in dialysis today. -Strict I&O. -Oliguric, producing <250ml urine daily, consider resuming home diuretic. With back to back dialysis treatments and net fluid loss diuretic is not indicated today. Will discuss with Dr. Patel in a.m. -He is followed by Dr. Patel, nephrology, refer to note. -Recommend outpatient dialysis 4 times a week upon discharge. -Continue to monitor with daily labs. -Continue with appropriate dietary limitations. Hyponatremia: 131.7 ->132.4 on labs today. Baseline for patient. -Secondary to CKD. -Continue to monitor on daily labs. Anemia in CKD (chronic kidney disease): Hemoglobin today 10.8; baseline. -Continue to monitor. HTN (hypertension): BP improving with dialysis. Consistently in 120s/60s today. -Suspect secondary to fluid overload. -Utilize Lopressor and/or hydralazine for systolic blood pressure greater than 160. -Continue to monitor. Type 2 diabetes mellitus: Hem A1c 10.4. -Home medications: NovoLog, glipizide, and Levemir. He is admittedly non- compliant with medications, which he relates to his forgetfulness. -Patient's blood sugar consistently elevated >250, requiring 12 units insulin on average. Continue with Humalog per sliding scale coverage. -Continue to monitor blood sugars with Accu-Cheks before meals and at bedtime. -Consider implementing Lantus dose according to sliding scale requirement. -Hold oral medications while admitted. -Hypoglycemia protocol in place. -Recommend home health care nursing for med management and disease teaching following discharge. - Time Time Spent with patient: 15-24 minutes Anticipated Discharge Disposition: Home, Self Care Anticipated Discharge Timeframe: within 72 hours
[2020-04-03] MEDS: INSULIN REG, HUMAN 100 UNIT/ML 3 ML VIAL (PYX) SUBCUT PRN ×2 (18:04→22:17)
[2020-04-03] MEDS: ACETAMINOPHEN 325 MG TABLET PO PRN (22:17)
[2020-04-03] MEDS: MONTELUKAST SODIUM 10 MG TABLET PO SCH (22:18)
[2020-04-03] MEDS: MELATONIN 5 MG TABLET PO PRN (22:18)
[2020-04-04] MEDS: PANTOPRAZOLE SODIUM 40 MG TABLET.DR PO SCH (06:45)
[2020-04-04] MEDS: HEPARIN SOD (PORCINE) 5,000 UNIT/ML 1 ML VIAL SUBCUT SCH ×3 (06:45→21:15)
[2020-04-04] MEDS ORDERED: INFLUENZA QUAD (6MOS+) 2020-21 VAC 0.5 ML SYR IM ONE (08:00)
[2020-04-04] MEDS: DOCUSATE SODIUM 100 MG CAPSULE PO SCH ×2 (09:42→17:02)
[2020-04-04] MEDS: ISOSORBIDE MONONITRATE 30 MG TAB.ER.24H PO SCH (09:42)
[2020-04-04] MEDS: ASPIRIN 81 MG TABLET, ENT COATED PO SCH (09:42)
[2020-04-04] MEDS: CARVEDILOL 12.5 MG TABLET PO SCH ×2 (09:42→21:18)
[2020-04-04] MEDS: INSULIN REG, HUMAN 100 UNIT/ML 3 ML VIAL (PYX) SUBCUT PRN ×3 (09:43→17:02)
[2020-04-04] MEDS: INSULIN GLARGINE,HUM.REC.ANLOG 1,000 UNIT/10 ML VIAL SUBCUT SCH ×2 (09:43→21:15)
--- NOTE | 2020-04-04 16:52 | PDOC PROGRESS REPORT ---
Subjective Progress Note for:: 04/04/20 Subjective:: No adverse events overnight. No new complaints. Vital signs been stable. We will try to get his blood sugar little bit better control. He has noncompliant at home with most aspects of his medical care. He told me today that he wanted to be labeled as disabled and he wanted to get somebody at home to help him and his . Reason For Visit: FLUID OVERLOAD,ESRD NEEDING DIALYSIS Physical Exam Vital Signs: Temp Pulse Resp BP Pulse Ox 97.9 F 61 16 126/61 H 100 04/04/20 15:42 04/04/20 15:42 04/04/20 15:42 04/04/20 15:42 04/04/20 15:42 Intake & Output 04/03/20 04/04/20 04/05/20 06:59 06:59 06:59 Intake Total 520 1260 240 Output Total 2850 3250 100 Balance -2329 -1989 140 Weight 90.1 kg 90.1 kg General appearance: PRESENT: no acute distress, cooperative, disheveled, obese Head exam: PRESENT: atraumatic, normocephalic Eye exam: PRESENT: EOMI, PERRLA. ABSENT: conjunctival injection, nystagmus, scleral icterus Ear exam: PRESENT: normal external ear exam Neck exam: ABSENT: JVD Respiratory exam: PRESENT: chest wall tenderness, clear to auscultation thalia - Diminished, symmetrical, unlabored. ABSENT: accessory muscle use, crackles, prolonged expiratory phas, rhonchi, tachypnea, wheezes Cardiovascular exam: PRESENT: RRR, +S1, +S2. ABSENT: diastolic murmur, systolic murmur Pulses: PRESENT: normal carotid pulses Vascular exam: PRESENT: normal capillary refill GI/Abdominal exam: PRESENT: normal bowel sounds, soft. ABSENT: distended, guarding, rebound, tenderness Extremities exam: ABSENT: clubbing, pedal edema Musculoskeletal exam: PRESENT: normal inspection. ABSENT: deformity Neurological exam: PRESENT: alert, awake, oriented to person, oriented to place, oriented to situation Psychiatric exam: PRESENT: appropriate affect, normal mood Skin exam: PRESENT: dry, warm, other - Skin appears generally thin and frail Results Laboratory Results: 04/03/20 04:46 04/03/20 04:46 04/02/20 15:15 Pleural Fluid - Left Pleural Effusion Gram Stain - Final 03/31/20 16:00 Troponin I 0.042 NT-Pro-B Natriuret Pep 98649 H Impressions: Chest/Abdomen CTA 03/31/20 18:19 IMPRESSION: No evidence of central or segmental pulmonary embolus. Constellation of findings suggests CHF exacerbation. Superimposed infectious process is not excluded. Other chronic and incidental findings as detailed above. Thoracentesis Ultrasound 04/02/20 00:00 IMPRESSION: SUCCESSFUL THORACENTESIS USING ULTRASOUND GUIDANCE. NOTE IS MADE OF MODERATE BILATERAL LOCULATED PLEURAL EFFUSIONS. Chest X-Ray 04/02/20 17:10 IMPRESSION: No pneumothorax.Similar bibasilar consolidation and pleural effusions, right greater than left. Assessment and Plan - Diagnosis (1) Acute and chronic respiratory failure with hypoxia Is this a current diagnosis for this admission?: Yes Plan: Stable, currently on the 3 L he is on at home (2) Acute exacerbation of CHF (congestive heart failure) Qualifiers: Heart failure type: diastolic Qualified Code(s): I50.33 - Acute on chronic diastolic (congestive) heart failure Is this a current diagnosis for this admission?: Yes Plan: He had pulmonary hypertension on his last echocardiogram, systolic function was preserved (3) Chronic hyponatremia Is this a current diagnosis for this admission?: Yes Plan: Currently in a fairly typical range for him (4) Diabetes mellitus type 2 in obese Is this a current diagnosis for this admission?: Yes Plan: Continue diabetic diet and current therapy, may need to further adjust coverage depending on his level of compliance (5) ESRD needing dialysis Is this a current diagnosis for this admission?: Yes Plan: There is gotten a lot of fluid off of him the last few days. Nephrology is following. I have been told that he is noncompliant at home. If he remains euvolemic tomorrow he may be able to go home and then follow-up for his regular dialysis appointment on Monday. (6) Pleural effusion Is this a current diagnosis for this admission?: Yes (7) Pulmonary hypertension Is this a current diagnosis for this admission?: Yes - Plan Summary Summary: Per H&P Dr. Mayebrry documented on 03/31/2020: "Patient will be admitted to the medical service on the medical floor he will receive routine supportive and symptomatic cares. Dr. Patel will be consulted for nephrology evaluation and hemodialysis on inpatient basis. Patient will receive supplemental oxygen via nasal cannula and/or noninvasive airway pressure support devices such as BiPAP as needed to maintain an adequate oxygen saturation. Patient will be treated with 2% nitroglycerin ointment 1 g applied every 6 hours. He will receive hydralazine 20 mg IV and/or metoprolol 5 mg IV every 4 hours as needed for hypertension control. He received a Bumex challenge in the emergency room. Before meals and at bedtime Accu-Cheks will be performed with sliding scale insulin for hyperglycemia and a hypoglycemic protocol in place. He will be on a cardiac, diabetic and dialysis restricted diet. CBCs, metabolic profiles and additional laboratory and/or radiographic evaluations will be obtained as needed. Patient may need thoracentesis if his pleural effusions are not improving with aggressive dialysis and diuretic therapy. He will receive Ativan 1 mg IV every 4 hours as needed for anxiety or restlessness. He will receive morphine sulfate 2 to 4 mg IV every 2 hours as needed for pain. He will receive morphine sulfate 2 mg IV every hour as needed severe dyspnea." 04/02/2020 Dyspnea: Suspect secondary to combination of his comorbidities. -Suspect improvement with combination of therapies including O2 therapy, dialysis, fluid restriction, and paracentesis. -Continue to monitor for improvement. Acute and chronic respiratory failure with hypoxia: Suspect secondary to combination of CHF, pulmonary congestion and bilateral pleural effusion. -O2 sat >95 on 4 L nasal cannula. -Historically on 2 L nasal cannula at home. -Wean back to 2L as tolerated. -Continue to monitor. Acute exacerbation of CHF (congestive heart failure): -BNP at time of admission 35,600. Significantly elevated compared to 7,430 (12/23/2019) -Chest x-ray suggestive of CHF exacerbation. -Echocardiogram on September 29, 2018 showed LVEF of 55% and normal diastolic function but severe pulmonary hypertension. -He is followed by Dr. Sterling, cardiology. He is following patient. -Initiate fluid restriction of 1 L/day. -Monitor ins and outs closely. -Discontinue nitro paste, resume home medication Imdur 30mg in the a.m. Pleural effusion: Chest x-ray 03/31 notable bilateral pleural effusions. Suspect secondary to CHF. -Patient historically followed by ultrasound technologist. Was scheduled for outpatient paracentesis but did not go to appointment. -Thoracentesis by IR ordered, pending. -Continue to monitor. Pulmonary hypertension: Severe pulmonary hypertension as noted on echo from September 29 and 2018. -Resume home treatment regimen. ESRD needing dialysis: BUN 41 -> 31, creatinine 3.26 -> 3.47, values consistent with baseline. -3L net loss in dialysis today. -Strict I&O. -Oliguric, producing <250ml urine daily, consider resuming home diuretic. With back to back dialysis treatments and net fluid loss diuretic is not indicated today. Will discuss with Dr. Patel in a.m. -He is followed by Dr. Patel, nephrology, refer to note. -Recommend outpatient dialysis 4 times a week upon discharge. -Continue to monitor with daily labs. -Continue with appropriate dietary limitations. Hyponatremia: 131.7 ->132.4 on labs today. Baseline for patient. -Secondary to CKD. -Continue to monitor on daily labs. Anemia in CKD (chronic kidney disease): Hemoglobin today 10.8; baseline. -Continue to monitor. HTN (hypertension): BP improving with dialysis. Consistently in 120s/60s today. -Suspect secondary to fluid overload. -Utilize Lopressor and/or hydralazine for systolic blood pressure greater than 160. -Continue to monitor. Type 2 diabetes mellitus: Hem A1c 10.4. -Home medications: NovoLog, glipizide, and Levemir. He is admittedly non- compliant with medications, which he relates to his forgetfulness. -Patient's blood sugar consistently elevated >250, requiring 12 units insulin on average. Continue with Humalog per sliding scale coverage. -Continue to monitor blood sugars with Accu-Cheks before meals and at bedtime. -Consider implementing Lantus dose according to sliding scale requirement. -Hold oral medications while admitted. -Hypoglycemia protocol in place. -Recommend home health care nursing for med management and disease teaching following discharge. - Time Time Spent with patient: 15-24 minutes Anticipated Discharge Disposition: Home with Home Health Anticipated Discharge Timeframe: within 48 hours
[2020-04-04] MEDS ORDERED: TORSEMIDE 20 MG TABLET PO ONE (21:00)
[2020-04-04] MEDS ORDERED: MELATONIN 5 MG TABLET PO PRN (21:00)
[2020-04-04] MEDS: INSULIN REG, HUMAN 100 UNIT/ML 3 ML VIAL (PYX) SUBCUT SCH (21:16)
[2020-04-04] MEDS: ACETAMINOPHEN 325 MG TABLET PO PRN (21:16)
[2020-04-04] MEDS: MONTELUKAST SODIUM 10 MG TABLET PO SCH (21:17)
[2020-04-05] MEDS: HEPARIN SOD (PORCINE) 5,000 UNIT/ML 1 ML VIAL SUBCUT SCH ×2 (06:13→14:33)
[2020-04-05] MEDS: PANTOPRAZOLE SODIUM 40 MG TABLET.DR PO SCH (06:13)
[2020-04-05] MEDS: INSULIN REG, HUMAN 100 UNIT/ML 3 ML VIAL (PYX) SUBCUT SCH ×2 (09:09→12:46)
[2020-04-05] MEDS: CARVEDILOL 12.5 MG TABLET PO SCH (09:10)
[2020-04-05] MEDS: INSULIN GLARGINE,HUM.REC.ANLOG 1,000 UNIT/10 ML VIAL SUBCUT SCH (09:10)
[2020-04-05] MEDS: ISOSORBIDE MONONITRATE 30 MG TAB.ER.24H PO SCH (09:11)
[2020-04-05] MEDS: ASPIRIN 81 MG TABLET, ENT COATED PO SCH (09:11)
[2020-04-05] MEDS: DOCUSATE SODIUM 100 MG CAPSULE PO SCH (09:11)
[2020-04-05 14:33] VITALS: BP 134/58
--- NOTE | 2020-04-05 16:36 | PDOC DISCHARGE SUMMARY ---
Impression - Admit/DC Date/PCP Admission Date/Primary Care Provider: 03/31/20 19:55 EDMUNDO LEVY MD Discharge Date: 04/05/20 - Discharge Diagnosis (1) Acute and chronic respiratory failure with hypoxia Is this a current diagnosis for this admission?: Yes (2) Acute exacerbation of CHF (congestive heart failure) Is this a current diagnosis for this admission?: Yes (3) Chronic hyponatremia Is this a current diagnosis for this admission?: Yes (4) Diabetes mellitus type 2 in obese Is this a current diagnosis for this admission?: Yes (5) ESRD needing dialysis Is this a current diagnosis for this admission?: Yes (6) Pleural effusion Is this a current diagnosis for this admission?: Yes (7) Pulmonary hypertension Is this a current diagnosis for this admission?: Yes - Assessment Summary: Per H&P Dr. Mayberry documented on 03/31/2020: "Patient will be admitted to the medical service on the medical floor he will receive routine supportive and symptomatic cares. Dr. Patel will be consulted for nephrology evaluation and hemodialysis on inpatient basis. Patient will receive supplemental oxygen via nasal cannula and/or noninvasive airway pressure support devices such as BiPAP as needed to maintain an adequate oxygen saturation. Patient will be treated with 2% nitroglycerin ointment 1 g applied every 6 hours. He will receive hydralazine 20 mg IV and/or metoprolol 5 mg IV every 4 hours as needed for hypertension control. He received a Bumex challenge in the emergency room. Before meals and at bedtime Accu-Cheks will be performed with sliding scale insulin for hyperglycemia and a hypoglycemic protocol in place. He will be on a cardiac, diabetic and dialysis restricted diet. CBCs, metabolic profiles and additional laboratory and/or radiographic evaluations will be obtained as needed. Patient may need thoracentesis if his pleural effusions are not improving with aggressive dialysis and diuretic therapy. He will receive Ativan 1 mg IV every 4 hours as needed for anxiety or restlessness. He will receive morphine sulfate 2 to 4 mg IV every 2 hours as needed for pain. He will receive morphine sulfate 2 mg IV every hour as needed severe dyspnea." 04/02/2020 Dyspnea: Suspect secondary to combination of his comorbidities. -Suspect improvement with combination of therapies including O2 therapy, dialysis, fluid restriction, and paracentesis. -Continue to monitor for improvement. Acute and chronic respiratory failure with hypoxia: Suspect secondary to combination of CHF, pulmonary congestion and bilateral pleural effusion. -O2 sat >95 on 4 L nasal cannula. -Historically on 2 L nasal cannula at home. -Wean back to 2L as tolerated. -Continue to monitor. Acute exacerbation of CHF (congestive heart failure): -BNP at time of admission 35,600. Significantly elevated compared to 7,430 () -Chest x-ray suggestive of CHF exacerbation. -Echocardiogram on September 29, 2018 showed LVEF of 55% and normal diastolic function but severe pulmonary hypertension. -He is followed by Dr. Sterling, cardiology. He is following patient. -Initiate fluid restriction of 1 L/day. -Monitor ins and outs closely. -Discontinue nitro paste, resume home medication Imdur 30mg in the a.m. Pleural effusion: Chest x-ray 03/31 notable bilateral pleural effusions. Suspect secondary to CHF. -Patient historically followed by virtual customer assistant. Was scheduled for outpatient paracentesis but did not go to appointment. -Thoracentesis by IR ordered, pending. -Continue to monitor. Pulmonary hypertension: Severe pulmonary hypertension as noted on echo from September 29 and 2018. -Resume home treatment regimen. ESRD needing dialysis: BUN 41 -> 31, creatinine 3.26 -> 3.47, values consistent with baseline. -3L net loss in dialysis today. -Strict I&O. -Oliguric, producing <250ml urine daily, consider resuming home diuretic. With back to back dialysis treatments and net fluid loss diuretic is not indicated today. Will discuss with Dr. Patel in a.m. -He is followed by Dr. Patel, nephrology, refer to note. -Recommend outpatient dialysis 4 times a week upon discharge. -Continue to monitor with daily labs. -Continue with appropriate dietary limitations. Hyponatremia: 131.7 ->132.4 on labs today. Baseline for patient. -Secondary to CKD. -Continue to monitor on daily labs. Anemia in CKD (chronic kidney disease): Hemoglobin today 10.8; baseline. -Continue to monitor. HTN (hypertension): BP improving with dialysis. Consistently in 120s/60s today. -Suspect secondary to fluid overload. -Utilize Lopressor and/or hydralazine for systolic blood pressure greater than 160. -Continue to monitor. Type 2 diabetes mellitus: Hem A1c 10.4. -Home medications: NovoLog, glipizide, and Levemir. He is admittedly non- compliant with medications, which he relates to his forgetfulness. -Patient's blood sugar consistently elevated >250, requiring 12 units insulin on average. Continue with Humalog per sliding scale coverage. -Continue to monitor blood sugars with Accu-Cheks before meals and at bedtime. -Consider implementing Lantus dose according to sliding scale requirement. -Hold oral medications while admitted. -Hypoglycemia protocol in place. -Recommend home health care nursing for med management and disease teaching following discharge. - Additional Information Resuscitation Status: Full Code Discharge Diet: Cardiac, Diabetic, Other (Comments) Discharge Activity: Activity As Tolerated, Balance Activity w/Rest, Supervised Activity, Weigh Daily Referrals: EDMUNDO LEVY MD [Primary Care Provider] - Follow up as needed Prescriptions: Insulin Regular, Human [Humulin R (Reg) Insulin 100 unit/mL] 0 - 15 unit SUBCUT ACHS #1 bottle Insulin Glargine,Hum.rec.anlog [Lantus Insulin 100 Unit/1 ml 10 ml] 25 unit SUBCUT Q12 #1 bottle Home Medications: Aspirin [Ecotrin 81 mg EC Tablet] 81 mg PO DAILY 04/15/19 Carvedilol [Coreg 25 mg Tablet] 25 mg PO Q12 04/15/19 Montelukast Sodium [Singulair 10 mg Tablet] 10 mg PO QHS 04/15/19 Ipratropium [place] [Atrovent 0.06% Nasal [place]] 2 spray NASL QIDP PRN 03/31/20 Isosorbide Mononitrate [Imdur 30 mg Tablet.er] 30 mg PO DAILY 03/31/20 Torsemide [Demadex 20 mg Tablet] 60 mg PO DAILY 03/31/20 Insulin Glargine,Hum.rec.anlog [Lantus Insulin 100 Unit/1 ml 10 ml] 25 unit SUBCUT Q12 #1 bottle 04/05/20 Insulin Regular, Human [Humulin R (Reg) Insulin 100 unit/mL] 0 - 15 unit SUBCUT ACHS #1 bottle 04/05/20 History of Present Illiness History of Present Illness: WILIAM GAN is a 69 year old male who presented to the emergency room with a 3-month history of dyspnea. He admits progressively worsening dyspnea on exertion over the last 3 months becoming more severe over the last 1 month. His dyspnea on exertion is worsened when he skips hemodialysis as scheduled on , Monday and Monday which he does frequently because he feels exceptionally fatigued after dialysis. He admits an accompanying occasional cough productive of clear grayish to brownish mucus which has improved with an [id number] nasal/sinus therapy. He admits associated recurrent bilateral pleural effusions that require intermittent thoracentesis and was scheduled to have a procedure ho wever it was not performed because he was late to his appointment. He was seen by his virtual customer assistant today in his office and was found to be hypoxic and sent to the emergency room for treatment. He denies other associated or accompanying signs and symptoms. He admits prior similar episodes due to fluid overload. He has not identified any additional aggravating or ameliorating factors for his dy spnea. In the emergency room he was found to have acute on chronic hypoxic respiratory failure with minimal exertion and was subsequently admitted hospital for further evaluation and treatment with Dr. Patel's approval for inpatient dialysis. Hospital Course Hospital Course: He had hemodialysis 3 days in a row and had a total of about 11 L off as a resu lt of those treatments. His breathing and his edema improved substantially. He said he needed some help getting to his dialysis treatments and so case management provided him with information regarding different options to help him in that regard. He can resume his usual medications and he has a regularly scheduled dialysis appointment tomorrow. He has been arranged to have home health. His labs and examination were reassuring and he was discharged in stable condition. Physical Exam Vital Signs: Temp Pulse Resp BP Pulse Ox 97.7 F 71 20 134/58 H 96 04/05/20 14:31 04/05/20 14:31 04/05/20 14:31 04/05/20 14:31 04/05/20 14:31 Intake & Output 04/04/20 04/05/20 04/06/20 06:59 06:59 06:59 Intake Total 1260 1080 480 Output Total 3250 225 800 Balance -1989 855 -320 Weight 90.1 kg 90.1 kg 91.4 kg General appearance: PRESENT: no acute distress, cooperative, disheveled, obese Respiratory exam: PRESENT: chest wall tenderness, clear to auscultation thalia - Diminished, symmetrical, unlabored. ABSENT: accessory muscle use, crackles, prolonged expiratory phas, rhonchi, tachypnea, wheezes Cardiovascular exam: PRESENT: RRR, +S1, +S2. ABSENT: diastolic murmur, systolic murmur Pulses: PRESENT: normal carotid pulses Vascular exam: PRESENT: normal capillary refill GI/Abdominal exam: PRESENT: normal bowel sounds, soft. ABSENT: distended, g uarding, rebound, tenderness Extremities exam: ABSENT: clubbing, pedal edema Musculoskeletal exam: PRESENT: normal inspection. ABSENT: deformity Neurological exam: PRESENT: alert, awake, oriented to person, oriented to place, oriented to situation Psychiatric exam: PRESENT: appropriate affect, normal mood Skin exam: PRESENT: dry, warm, other - Skin appears generally thin and frail Results Laboratory Results: WBC 10.4 10^3/uL (4.0-10.5) 04/03/20 04:46 RBC 3.71 10^6/uL (4.35-5.55) L 04/03/20 04:46 Hgb 10.7 g/dL (13.5-17.0) L 04/03/20 04:46 Hct 32.3 % (37.9-51.0) L 04/03/20 04:46 MCV 87 fl (80-97) 04/03/20 04:46 MCH 28.8 pg (27.0-33.4) 04/03/20 04:46 MCHC 33.2 g/dL (32.0-36.0) 04/03/20 04:46 RDW 15.2 % (11.5-14.0) H 04/03/20 04:46 Plt Count 351 10^3/uL (150-450) 04/03/20 04:46 Lymph % (Auto) 7.3 % (13-45) L 03/31/20 16:00 Citrus % (Auto) 9.9 % (3-13) 03/31/20 16:00 Eos % (Auto) 0.9 % (0-6) 03/31/20 16:00 Baso % (Auto) 1.0 % (0-2) 03/31/20 16:00 Absolute Neuts (auto) 9.6 10^3/uL (1.7-8.2) H 03/31/20 16:00 Absolute Lymphs (auto) 0.9 10^3/uL (0.5-4.7) 03/31/20 16:00 Absolute Monos (auto) 1.2 10^3/uL (0.1-1.4) 03/31/20 16:00 Absolute Eos (auto) 0.1 10^3/uL (0.0-0.6) 03/31/20 16:00 Absolute Basos (auto) 0.1 10^3/uL (0.0-0.2) 03/31/20 16:00 Seg Neutrophils % 80.9 % (42-78) H 03/31/20 16:00 PT 14.1 SEC (11.4-15.4) 04/02/20 13:10 INR 1.07 04/02/20 13:10 APTT 33.2 SEC (23.5-35.8) 04/01/20 15:13 Sodium 127.2 mmol/L (137-145) L 04/03/20 04:46 Potassium 4.3 mmol/L (3.6-5.0) 04/03/20 04:46 Chloride 90 mmol/L (98-107) L 04/03/20 04:46 Carbon Dioxide 26 mmol/L (22-30) 04/03/20 04:46 Anion Gap 11 (5-19) 04/03/20 04:46 BUN 43 mg/dL (7-20) H 04/03/20 04:46 Creatinine 4.78 mg/dL (0.52-1.25) H 04/03/20 04:46 Est GFR ( Amer) 15 (>60) L 04/03/20 04:46 Est GFR (MDRD) Non-Af 12 (>60) L 04/03/20 04:46 Glucose 393 mg/dL (75-110) H 04/03/20 04:46 POC Glucose 318 mg/dL (70-110) H 04/05/20 11:34 Hemoglobin A1c % 10.4 % (4.7-6.0) H 04/02/20 05:34 Calcium 8.6 mg/dL (8.4-10.2) 04/03/20 04:46 Phosphorus 5.1 mg/dL (2.5-4.5) H 04/03/20 04:46 Magnesium 2.1 mg/dL (1.6-2.3) 04/03/20 04:46 Total Bilirubin 0.8 mg/dL (0.2-1.3) 03/31/20 16:00 Direct Bilirubin 0.4 mg/dL (0.0-0.4) 03/31/20 16:00 Neonat Total Bilirubin Not Reportable 03/31/20 16:00 Neonat Direct Bilirubin Not Reportable 03/31/20 16:00 Neonat Indirect Bili Not Reportable 03/31/20 16:00 AST 15 U/L (17-59) L 03/31/20 16:00 ALT 10 U/L (<50) 03/31/20 16:00 Alkaline Phosphatase 94 U/L (38-126) 03/31/20 16:00 Troponin I 0.042 ng/mL 03/31/20 16:00 NT-Pro-B Natriuret Pep 88951 pg/mL (<125) H 03/31/20 16:00 Total Protein 6.7 g/dL (6.3-8.2) 03/31/20 16:00 Albumin 3.8 g/dL (3.5-5.0) 03/31/20 16:00 Triglycerides 156 mg/dL (<150) H 04/01/20 05:27 Cholesterol 165.54 mg/dL (0-200) 04/01/20 05:27 LDL Cholesterol Direct 96 mg/dL (<100) 04/01/20 05:27 VLDL Cholesterol 31.2 mg/dL (10-31) H 04/01/20 05:27 HDL Cholesterol 39 mg/dL (>40) L 04/01/20 05:27 TSH 1.69 uIU/mL (0.47-4.68) 04/01/20 05:27 Urine Color YELLOW 03/31/20 16:00 Urine Appearance CLEAR 03/31/20 16:00 Urine pH 6.0 (5.0-9.0) 03/31/20 16:00 Ur Specific [place] 1.015 03/31/20 16:00 Urine Protein >=500 mg/dL (NEGATIVE) H 03/31/20 16:00 Urine Glucose (UA) >=500 mg/dL (NEGATIVE) H 03/31/20 16:00 Urine Ketones TRACE mg/dL (NEGATIVE) H 03/31/20 16:00 Urine Blood NEGATIVE (NEGATIVE) 03/31/20 16:00 Urine Nitrite NEGATIVE (NEGATIVE) 03/31/20 16:00 Urine Bilirubin NEGATIVE (NEGATIVE) 03/31/20 16:00 Urine Urobilinogen NEGATIVE mg/dL (<2.0) 03/31/20 16:00 Ur Leukocyte Esterase NEGATIVE (NEGATIVE) 03/31/20 16:00 Urine WBC (Auto) 0 /HPF 03/31/20 16:00 Urine RBC (Auto) 1 /HPF 03/31/20 16:00 U Hyaline Cast (Auto) 1 /LPF 03/31/20 16:00 Urine Ascorbic Acid NEGATIVE (NEGATIVE) 03/31/20 16:00 Fluid Type PLEURAL 04/02/20 15:15 Fluid Source LUNG 04/02/20 15:15 Fluid Color RED 04/02/20 15:15 Fluid Appearance CLOUDY 04/02/20 15:15 Fluid Viscosity LIQUID 04/02/20 15:15 Fluid WBC 143 /uL 04/02/20 15:15 Fluid RBC 80973 /uL 04/02/20 15:15 Fluid Seg Neutrophils 47 % 04/02/20 15:15 Fluid Lymphocytes 42 % 04/02/20 15:15 Fluid Monocytes 10 % 04/02/20 15:15 Fluid Eosinophils 1 % 04/02/20 15:15 Fluid Basophils 0 % 04/02/20 15:15 03/31/20 16:00 Troponin I 0.042 NT-Pro-B Natriuret Pep 41230 H Impressions: Chest X-Ray 03/31/20 15:17 IMPRESSION: Constellation of findings suggests CHF exacerbation. Infectious etiology is not excluded. Chest/Abdomen CTA 03/31/20 18:19 IMPRESSION: No evidence of central or segmental pulmonary embolus. Constellation of findings suggests CHF exacerbation. Superimposed infectious process is not excluded. Other chronic and incidental findings as detailed above. Chest X-Ray 04/02/20 00:00 IMPRESSION: No pneumothorax. Cardiomegaly. Residual pleural effusions. Thoracentesis Ultrasound 04/02/20 00:00 IMPRESSION: SUCCESSFUL THORACENTESIS USING ULTRASOUND GUIDANCE. NOTE IS MADE OF MODERATE BILATERAL LOCULATED PLEURAL EFFUSIONS. Chest X-Ray 04/02/20 17:10 IMPRESSION: No pneumothorax.Similar bibasilar consolidation and pleural effusions, right greater than left. Plan Time Spent: Greater than 30 Minutes Stroke Is this a Stroke Patient?: No Acute Heart Failure Is this a Heart Failure Patient?: No
== END 2020-04-05 15:04 | disposition home health service (06) | DRG 291 ==
LOC: ER 14:22 → EH 19:55 → 5 21:36
PROVIDERS: ADMIT Emergency Medicine; ATTEND Family Medicine
PROC: 5A1D70Z Performance of Urinary Filtration, Intermittent, Less than 6 Hours Per Day (ICD-10-PCS; 2020-04-01)
PROC: 0W9B3ZZ Drainage of Left Pleural Cavity, Percutaneous Approach (ICD-10-PCS; principal; 2020-04-02)
DX: I13.2 Hypertensive heart and chronic kidney disease with heart failure and with stage 5 chronic kidney disease, or end stage renal disease (principal); J96.21 Acute and chronic respiratory failure with hypoxia; N18.6 End stage renal disease; I50.33 Acute on chronic diastolic (congestive) heart failure; E87.1 Hypo-osmolality and hyponatremia; E11.22 Type 2 diabetes mellitus with diabetic chronic kidney disease; E78.5 Hyperlipidemia, unspecified; D63.1 Anemia in chronic kidney disease; I48.0 Paroxysmal atrial fibrillation; I27.20 Pulmonary hypertension, unspecified; E66.9 Obesity, unspecified; Z99.2 Dependence on renal dialysis; Z91.14 Patient's other noncompliance with medication regimen; Z79.899 Other long term (current) drug therapy; Z79.4 Long term (current) use of insulin
CPT/HCPCS: 32555; 36415; 71045; 71046; 71275; 80048; 80053; 80061; 81001; 82962; 83036; 83735; 83880; 84100; 84157; 84443; 84484; 85025; 85027; 85610; 85730; 87070; 87075; 87205; 89050; 93005; 93010; 94660; 96372; 96374; 99285; J1644; J1815; J2060; J3490

== ENCOUNTER → 2020-04-14 | Outpatient (CLI) | payer MEDICARE ==
[2020-04-14 14:24] LABS: ABSOLUTE BASOPHILS # (AUTO) 0.1 10^3/uL (0.0-0.2); ABSOLUTE EOSINOPHILS # (AUTO) 0.3 10^3/uL (0.0-0.6); ABSOLUTE MONOCYTES (AUTO) 1.2 10^3/uL (0.1-1.4); ABSOLUTE NEUT (AUTO) 10.1 10^3/uL (1.7-8.2); BASOPHILS % (AUTO) 1.1 % (0-2); EOSINOPHILS % (AUTO) 2.2 % (0-6); HEMATOCRIT 33.7 % (37.9-51.0); HEMOGLOBIN 11.1 g/dL (13.5-17.0); LYMPHOCYTES % (AUTO) 7.8 % (13-45); MEAN CORPUSCULAR HEMOGLOBIN 28.2 pg (27.0-33.4); MEAN CORPUSCULAR HGB CONC 32.9 g/dL (32.0-36.0); MEAN CORPUSCULAR VOLUME 86 fl (80-97); MONOCYTES % (AUTO) 9.4 % (3-13); PLATELET COUNT 382 10^3/uL (150-450); RED BLOOD COUNT 3.93 10^6/uL (4.35-5.55); RED CELL DISTRIBUTION WIDTH 15.4 % (11.5-14.0); SEGMENTED NEUTROPHILS % (AUTO) 79.5 % (42-78); TOTAL CELLS COUNTED % (AUTO) 100 %; WHITE BLOOD COUNT 12.7 10^3/uL (4.0-10.5)
[2020-04-14 14:31] LABS: PROTHROMBIN TIME 14.4 SEC (11.4-15.4)
[2020-04-14 14:32] LABS: PARTIAL THROMBOPLASTIN TIME 38.3 SEC (23.5-35.8)
== END ==
LOC: OD 13:21
PROVIDERS: ATTEND Internal Medicine Pulmonary Disease
DX: I50.9 Heart failure, unspecified (principal); J90 Pleural effusion, not elsewhere classified
CPT/HCPCS: 36415; 85025; 85610; 85730

== ENCOUNTER 2020-04-21 12:39 | Day surgery (SDC) | payer MEDICARE ==
[2020-04-21 13:09] LABS: HEMATOCRIT 32.1 % (37.9-51.0); HEMOGLOBIN 10.5 g/dL (13.5-17.0); MEAN CORPUSCULAR HEMOGLOBIN 28.2 pg (27.0-33.4); MEAN CORPUSCULAR HGB CONC 32.8 g/dL (32.0-36.0); MEAN CORPUSCULAR VOLUME 86 fl (80-97); PLATELET COUNT 347 10^3/uL (150-450); RED BLOOD COUNT 3.74 10^6/uL (4.35-5.55); RED CELL DISTRIBUTION WIDTH 16.2 % (11.5-14.0); WHITE BLOOD COUNT 11.2 10^3/uL (4.0-10.5)
[2020-04-21 13:18] LABS: INTERNATIONAL RATION (INR) 1.16
[2020-04-21 13:19] LABS: PARTIAL THROMBOPLASTIN TIME 36.2 SEC (23.5-35.8)
[2020-04-21 13:28] LABS: BLOOD UREA NITROGEN 44 mg/dL (7-20)
--- NOTE | 2020-04-21 16:21 | RADIOLOGY REPORT (SQ) ---
EXAM DESCRIPTION: CHEST SINGLE VIEW IMAGES COMPLETED DATE/TIME: 04/21/2020 3:53 pm REASON FOR STUDY: post thora COMPARISON: 04/02/2020. EXAM PARAMETERS: NUMBER OF VIEWS: One view. TECHNIQUE: Single frontal radiographic view of the chest acquired. RADIATION DOSE: NA LIMITATIONS: None. FINDINGS: LUNGS AND PLEURA: Patchy basilar densities and bilateral pleural effusions. Interval decr ease in the right pleural effusion. There may be a minimal right basilar pneumothorax. MEDIASTINUM AND HILAR STRUCTURES: No masses. Contour normal. HEART AND VASCULAR STRUCTURES: Cardiomegaly. BONES: No acute findings. HARDWARE: None in the chest. OTHER: No other significant finding. IMPRESSION: DECREASE IN THE RIGHT PLEURAL EFFUSION FOLLOWING THORACENTESIS. POSSIBLE MINIMAL RIGHT BASILAR PNEUMOTHORAX. REPEAT CHEST X-RAY SCHEDULED IN 2 HOURS. TECHNICAL DOCUMENTATION: JOB ID: [id number] 2010 [employer]- All Rights Reserved Reading location - IP/workstation name: [email or web address]
--- NOTE | 2020-04-21 16:21 | RADIOLOGY REPORT (SQ) ---
EXAM DESCRIPTION: U/S THORACENTESIS WITH IMAGING IMAGES COMPLETED DATE/TIME: 04/21/2020 3:58 pm REASON FOR STUDY: PLEURAL EFFUSION J90 PLEURAL EFFUSION, NOT ELSEWHERE CLASSIFIED Z79.01 CARE HOME (CURRENT) USE OF ANTICOAGULANTS COMPARISON: None. RADIATION DOSE: None LIMITATIONS: None. PROCEDURE: Procedure, risks, benefit, and alternative explained to patient who then gave written con sent. The right posterior chest wall was marked using ultrasound guidance. A time-out was called fo r correct marking verification. Chest prepped and draped using sterile technique. Local anesthesia a chieved using 8 ml of 1% lidocaine injection. A 5 [place] One-step catheter was introduced into the r ight pleural space. Fluid was aspirated. The catheter was removed and the entry site was covered wi th sterile bandage. No immediate complications noted. Fluid samples were sent to the lab for analysi s. Images acquired during the procedure were stored on PACS. FINDINGS: ENTRY SITE: Right posterior chest wall FLUID VOLUME: 350 mL FLUID ANALYSIS: Serosanguineous OTHER: None IMPRESSION: SUCCESSFUL RIGHT THORACENTESIS USING ULTRASOUND GUIDANCE. COMMENT: Patient medication list reviewed: Yes- Quality ID# [id number]:Eligible professional attests to doc umenting in the medical record they obtained, updated, or reviewed the patient's current medications. TECHNICAL DOCUMENTATION: JOB ID: [id number] 2010 [employer]- All Rights Reserved Reading location - IP/workstation name: [email or web address]
[2020-04-21 17:05] LABS: FLUID COLOR RED; FLUID SOURCE LUNG; FLUID TYPE PLEURAL
[2020-04-21 17:06] LABS: FLUID APPEARANCE TURBID; FLUID VISCOSITY LIQUID
--- NOTE | 2020-04-21 18:25 | RADIOLOGY REPORT (SQ) ---
EXAM DESCRIPTION: CHEST SINGLE VIEW IMAGES COMPLETED DATE/TIME: 04/21/2020 6:04 pm REASON FOR STUDY: 2 hour post thora COMPARISON: 04/21/2020 1546 hours EXAM PARAMETERS: NUMBER OF VIEWS: One view. TECHNIQUE: Single frontal radiographic view of the chest acquired. RADIATION DOSE: NA LIMITATIONS: None. FINDINGS: LUNGS AND PLEURA: Persistent small basilar pneumothorax on the right. Small right effusio n persists. Left effusion. MEDIASTINUM AND HILAR STRUCTURES: No masses. Contour normal. HEART AND VASCULAR STRUCTURES: Heart enlarged with vascular congestion. BONES: No acute findings. HARDWARE: None in the chest. OTHER: No other significant finding. IMPRESSION: Small but stable basilar pneumothorax on the right. Small right effusion and moderate l eft effusion. TECHNICAL DOCUMENTATION: JOB ID: [id number] 2010 [employer]- All Rights Reserved Reading location - IP/workstation name: [email or web address]
[2020-04-21 18:54] VITALS: BP 151/79
[2020-04-23 12:59] LABS: LDH BODY FLUID 223 IU/L (.); TOTAL PROTEIN BODY FLUID 2.8 g/dL (.)
== END 2020-04-21 19:02 | disposition home or self-care (01) ==
LOC: RAD 12:39
PROVIDERS: ATTEND Internal Medicine Pulmonary Disease
DX: J90 Pleural effusion, not elsewhere classified (principal); Z79.01 Long term (current) use of anticoagulants; N18.9 Chronic kidney disease, unspecified; R06.00 Dyspnea, unspecified; I27.0 Primary pulmonary hypertension; I50.813 Acute on chronic right heart failure; I50.9 Heart failure, unspecified; J98.8 Other specified respiratory disorders; Z99.81 Dependence on supplemental oxygen; Z79.82 Long term (current) use of aspirin; Z79.899 Other long term (current) drug therapy
CPT/HCPCS: 32555; 36415; 71045; 82565; 82945; 82962; 83615; 84157; 84520; 85027; 85610; 85730; 87015; 87070; 87075; 87101; 87116; 87205; 87206; 88184; 88185; 89050